=== PATIENT | male | born 1945 | race Caucasian/White ===

== ENCOUNTER 2016-05-06 09:12 | Outpatient (CLI) | payer OTHER | END 2016-05-06 09:13 | disposition home or self-care (01) | DX: I50.9 Heart failure, unspecified (principal) ==

== ENCOUNTER 2016-05-14 08:04 | Day surgery (SDC) | payer OTHER ==
[~2016-05-14 08:04] MED LIST: PHENYLEPHRINE 2.5% OPHTH 2 ML DROPS ONE
[2016-05-14] MEDS ORDERED: PROPARACAINE 0.5% OPHTH DROPS 15 ML OPTH ONE ×2 (08:20→08:54)
[2016-05-14] MEDS ORDERED: PHENYLEPHRINE 2.5% OPHTH 2 ML DROPS OPTH ONE (08:20)
[2016-05-14] MEDS ORDERED: CYCLOPENTOLATE 1% OPHTH DROPS 2 ML OPTH ONE (08:20)
[2016-05-14] MEDS ORDERED: KETOROLAC 0.45% OPHTH DROPS OPTH ONE (08:20)
[2016-05-14] MEDS ORDERED: LACTATED RINGERS 500 ML IV ONE (08:46)
[2016-05-14] MEDS ORDERED: LACTATED RINGERS 1,000 ML IV ONE (08:49)
[2016-05-14] MEDS ORDERED: levoFLOXacin 0.5% OPHTH DROPS 5 ML OPTH ONE (08:54)
[2016-05-14] MEDS ORDERED: BSS/LIDOCAINE/EPINEPHRINE 1 ML SYRINGE IO ONE ×2 (08:54)
[2016-05-14] MEDS ORDERED: CHONDR SULF/HYALURONATE SYRINGE IO ONE (08:54)
[2016-05-14] MEDS ORDERED: TRIAMCIN/MOXIFLOX/VANCO 1 ML VIAL IO ONE ×2 (08:54)
[2016-05-14] MEDS ORDERED: EPINEPHrine 1 MG/ML AMP IVP ONE (08:54)
[2016-05-14] MEDS ORDERED: BRIMONIDINE 0.2% OPHTH DROPS 5 ML OPTH ONE (08:54)
[2016-05-14] MEDS ORDERED: PROPOFOL 200 MG/20 ML VIAL IVP ONE (08:55)
[2016-05-14] MEDS ORDERED: LIDOCAINE-MPF 2% 5 ML VIAL IM ONE (08:55)
[2016-05-14] MEDS ORDERED: MIDAZOLAM 2 MG/2 ML VIAL IVP ONE (08:55)
== END 2016-05-14 08:05 | disposition home or self-care (01) ==
PROC: 08RJ3JZ Replacement of Right Lens with Synthetic Substitute, Percutaneous Approach (ICD-10-PCS; principal; 2016-05-14 09:30)
DX: H25.11 Age-related nuclear cataract, right eye (principal); I25.10 Atherosclerotic heart disease of native coronary artery without angina pectoris; I50.9 Heart failure, unspecified; M19.90 Unspecified osteoarthritis, unspecified site; Z95.2 Presence of prosthetic heart valve; Z87.891 Personal history of nicotine dependence; Z79.82 Long term (current) use of aspirin; Z83.511 Family history of glaucoma; Z80.9 Family history of malignant neoplasm, unspecified; Z82.49 Family history of ischemic heart disease and other diseases of the circulatory system; Z95.1 Presence of aortocoronary bypass graft
CPT/HCPCS: 66984; A9270; J7120; V2632

== ENCOUNTER 2016-06-25 06:55 | Day surgery (SDC) | payer OTHER ==
[2016-06-25] MEDS ORDERED: PROPARACAINE 0.5% OPHTH DROPS 15 ML OPTH ONE (07:10)
[2016-06-25] MEDS ORDERED: CYCLOPENTOLATE 1% OPHTH DROPS 2 ML OPTH ONE (07:10)
[2016-06-25] MEDS ORDERED: PHENYLEPHRINE 2.5% OPHTH 2 ML DROPS OPTH ONE (07:11)
[2016-06-25] MEDS ORDERED: KETOROLAC 0.45% OPHTH DROPS OPTH ONE (07:11)
[2016-06-25] MEDS ORDERED: LACTATED RINGERS 500 ML IV ONE ×2 (07:21→08:31)
[2016-06-25] MEDS ORDERED: fentaNYL 100 MCG/2 ML VIAL IVP ONE (08:00)
[2016-06-25] MEDS ORDERED: MIDAZOLAM 2 MG/2 ML VIAL IVP ONE (08:00)
[2016-06-25] MEDS ORDERED: BRIMONIDINE 0.2% OPHTH DROPS 5 ML OPTH ONE (08:03)
[2016-06-25] MEDS ORDERED: BSS/LIDOCAINE/EPINEPHRINE 1 ML SYRINGE IO ONE (08:03)
[2016-06-25] MEDS ORDERED: TRIAMCIN/MOXIFLOX/VANCO 1 ML VIAL IO ONE (08:03)
[2016-06-25] MEDS ORDERED: EPINEPHrine 1 MG/ML AMP IVP ONE (08:03)
[2016-06-25] MEDS ORDERED: CHONDR SULF/HYALURONATE SYRINGE IO ONE (08:03)
[2016-06-25] MEDS ORDERED: levoFLOXacin 0.5% OPHTH DROPS 5 ML OPTH ONE (10:45)
== END 2016-06-25 06:56 | disposition home or self-care (01) ==
PROC: 08RK3JZ Replacement of Left Lens with Synthetic Substitute, Percutaneous Approach (ICD-10-PCS; principal; 2016-06-25 08:10)
DX: H25.12 Age-related nuclear cataract, left eye (principal); I10 Essential (primary) hypertension; I25.10 Atherosclerotic heart disease of native coronary artery without angina pectoris; E78.5 Hyperlipidemia, unspecified; Z82.49 Family history of ischemic heart disease and other diseases of the circulatory system; Z83.511 Family history of glaucoma; Z79.82 Long term (current) use of aspirin; Z80.9 Family history of malignant neoplasm, unspecified; Z95.1 Presence of aortocoronary bypass graft; Z95.2 Presence of prosthetic heart valve
CPT/HCPCS: 66984; A9270; V2632

== ENCOUNTER 2016-07-22 08:59 | Outpatient (CLI) | payer OTHER | END 2016-07-22 09:00 | disposition home or self-care (01) | DX: R94.4 Abnormal results of kidney function studies (principal) ==

== ENCOUNTER 2017-08-27 08:00 | Outpatient (CLI) | payer MEDICARE, OTHER ==
[2017-08-27 13:56] LABS: ALBUMIN 4.4 g/dL (3.2-5.5); ALBUMIN/GLOBULIN RATIO 1.1 (1.0-2.2); ALKALINE PHOSPHATASE 73 IU/L (42-121); ALT ALANINE AMINOTRANSFERASE 30 IU/L (10-60); AST ASPARTATE AMINOTRANSFERASE 37 IU/L (10-42); BILIRUBIN,TOTAL 0.8 mg/dL (0.2-1.0); BUN - BLOOD UREA NITROGEN 21 mg/dL (6-20); CALCIUM 9.4 mg/dL (8.5-10.3); CARBON DIOXIDE - CO2 29 mmol/L (21-32); CHLORIDE 102 mmol/L (101-111); CHOL/HDL RATIO 2.7 (<5.0); CHOLESTEROL 122 mg/dL; CREATININE 1.2 mg/dL (0.6-1.2); GFR - MDRD 60 (>89); GLUCOSE 85 mg/dL (70-100); HDL CHOLESTEROL 46 mg/dL; LDL CHOLESTEROL,CALCULATED 62 mg/dL; LDL/HDL RATIO 1.3 (<3.6); SODIUM 139 mmol/L (135-145); TOTAL PROTEIN 8.3 g/dL (6.7-8.2); VLDL CHOLESTEROL 14 mg/dL
[2017-08-27 14:12] LABS: BASOPHILS # (AUTO) 0.1 10^3/uL (0.0-0.1); BASOPHILS % (AUTO) 2.2 %; EOSINOPHILS # (AUTO) 0.2 10^3/uL (0.0-0.7); EOSINOPHILS % (AUTO) 3.2 %; LYMPHOCYTES # (AUTO) 0.9 10^3/uL (1.5-3.5); MEAN CORPUSCULAR HEMOGLOBIN 34.5 pg (27.0-31.0); MEAN CORPUSCULAR HGB CONC 33.6 g/dL (32.0-36.0); MEAN CORPUSCULAR VOLUME 102.7 fL (80.0-94.0); MEAN PLATELET VOLUME 8.3 fL (7.4-11.4); MONOCYTES # (AUTO) 0.6 10^3/uL (0.0-1.0); MONOCYTES % (AUTO) 13.3 %; NEUTROPHILS # (AUTO) 2.9 10^3/uL (1.5-6.6); NEUTROPHILS % (AUTO) 61.3 %; PLT - PLATELET COUNT 180 10^3/uL (130-450); RED BLOOD COUNT 4.35 10^6/uL (4.70-6.10); RED CELL DISTRIBUTION WIDTH 14.5 % (12.0-15.0); WHITE BLOOD COUNT 4.7 x10^3/uL (4.8-10.8)
== END 2017-08-27 08:01 | disposition home or self-care (01) ==
LOC: LAB.WCP 08:00
PROVIDERS: ATTEND Family Medicine
DX: I25.10 Atherosclerotic heart disease of native coronary artery without angina pectoris (principal); E78.5 Hyperlipidemia, unspecified; Z12.5 Encounter for screening for malignant neoplasm of prostate
CPT/HCPCS: 36415; 80053; 80061; 84443; 85025; G0103; 83721; 84153

== ENCOUNTER 2017-09-06 08:00 | Outpatient (CLI) | payer MEDICARE, OTHER | END 2017-09-06 08:01 | disposition home or self-care (01) | LOC: LAB.R 08:00 | PROVIDERS: ATTEND Family Medicine | DX: R50.9 Fever, unspecified (principal) | CPT/HCPCS: 87077; 87086; 87181 ==

== ENCOUNTER 2018-05-05 08:28 | Outpatient (CLI) | payer MEDICARE, OTHER ==
[2018-05-05 08:42] LABS: BASOPHILS # (AUTO) 0.1 10^3/uL (0.0-0.1); BASOPHILS % (AUTO) 1.5 %; EOSINOPHILS # (AUTO) 0.2 10^3/uL (0.0-0.7); EOSINOPHILS % (AUTO) 3.8 %; LYMPHOCYTES # (AUTO) 0.9 10^3/uL (1.5-3.5); LYMPHOCYTES % (AUTO) 16.9 %; MEAN CORPUSCULAR HEMOGLOBIN 34.3 pg (27.0-31.0); MEAN CORPUSCULAR VOLUME 100.7 fL (80.0-94.0); MEAN PLATELET VOLUME 7.6 fL (7.4-11.4); MONOCYTES # (AUTO) 0.6 10^3/uL (0.0-1.0); MONOCYTES % (AUTO) 11.4 %; NEUTROPHILS # (AUTO) 3.4 10^3/uL (1.5-6.6); NEUTROPHILS % (AUTO) 66.4 %; PLT - PLATELET COUNT 149 10^3/uL (130-450); RED BLOOD COUNT 4.37 10^6/uL (4.70-6.10); RED CELL DISTRIBUTION WIDTH 15.1 % (12.0-15.0); WHITE BLOOD COUNT 5.1 x10^3/uL (4.8-10.8)
[2018-05-05 08:59] LABS: ALBUMIN 4.5 g/dL (3.2-5.5); ALBUMIN/GLOBULIN RATIO 1.2 (1.0-2.2); ALKALINE PHOSPHATASE 76 IU/L (42-121); ALT ALANINE AMINOTRANSFERASE 29 IU/L (10-60); AST ASPARTATE AMINOTRANSFERASE 34 IU/L (10-42); BILIRUBIN,TOTAL 0.9 mg/dL (0.2-1.0); BUN - BLOOD UREA NITROGEN 19 mg/dL (6-20); CALCIUM 9.2 mg/dL (8.5-10.3); CARBON DIOXIDE - CO2 26 mmol/L (21-32); CHLORIDE 98 mmol/L (101-111); CHOL/HDL RATIO 2.7 (<5.0); CHOLESTEROL 134 mg/dL; CREATININE 1.3 mg/dL (0.6-1.2); GFR - MDRD 55 (>89); GLUCOSE 90 mg/dL (70-100); HDL CHOLESTEROL 50 mg/dL; LDL CHOLESTEROL,CALCULATED 66 mg/dL; LDL/HDL RATIO 1.3 (<3.6); SODIUM 134 mmol/L (135-145); TOTAL PROTEIN 8.2 g/dL (6.7-8.2); VLDL CHOLESTEROL 18 mg/dL
== END 2018-05-05 08:29 | disposition home or self-care (01) ==
LOC: LAB 08:28
PROVIDERS: ATTEND Family Medicine
DX: R06.00 Dyspnea, unspecified (principal); I51.9 Heart disease, unspecified; E78.5 Hyperlipidemia, unspecified
CPT/HCPCS: 36415; 80053; 80061; 83721; 83880; 84443; 85025

== ENCOUNTER 2018-05-10 08:13 | Outpatient (CLI) | payer MEDICARE, OTHER | END 2018-05-10 08:14 | disposition home or self-care (01) | LOC: DI 08:13 | PROVIDERS: ATTEND Family Medicine | DX: I35.0 Nonrheumatic aortic (valve) stenosis (principal); I51.9 Heart disease, unspecified; R06.09 Other forms of dyspnea | CPT/HCPCS: 93306 ==

== ENCOUNTER 2018-12-22 15:42 | Outpatient (CLI) | payer MEDICARE, OTHER ==
--- NOTE | 2018-12-23 15:06 | XRAY Report ---
Reason: RIGHT MIDDLE FINGER PAIN Procedure Date: 12/22/2018 Accession Number: [id number] / [id number] Procedure: WCP - Finger(s) RT CPT Code: FULL RESULT: EXAM: RIGHT THIRD DIGIT RADIOGRAPHY EXAM DATE: 12/22/2018 03:52 PM. CLINICAL HISTORY: RIGHT MIDDLE FINGER PAIN. COMPARISON: None. TECHNIQUE: 3 views. FINDINGS: Bones: Normal. No fracture or bone lesion. Joints: Normal. No subluxations. Soft Tissues: Normal. No soft tissue swelling. No periosteal reaction. IMPRESSION: No acute-appearing processes detected. RADIA
== END 2018-12-22 23:59 | disposition home or self-care (01) ==
LOC: DI.WCP 15:42
PROVIDERS: ATTEND Family Medicine
DX: M79.644 Pain in right finger(s) (principal)
CPT/HCPCS: 73140

== ENCOUNTER 2019-02-21 12:13 | Outpatient (CLI) | payer MEDICARE, OTHER | END 2019-02-21 23:59 | disposition home or self-care (01) | LOC: LAB.WCP 12:13 | PROVIDERS: ATTEND Family Medicine | DX: L72.3 Sebaceous cyst (principal) | CPT/HCPCS: 87070; 87075; 87076; 87205 ==

== ENCOUNTER 2019-03-29 13:28 | Outpatient (CLI) | payer MEDICARE, OTHER ==
[2019-03-29 14:02] LABS: CREATININE 1.6 mg/dL (0.6-1.2)
== END 2019-03-29 13:29 | disposition home or self-care (01) ==
LOC: LAB 13:28
PROVIDERS: ATTEND Internal Medicine Cardiovascular Disease
DX: I38 Endocarditis, valve unspecified (principal); R06.00 Dyspnea, unspecified
CPT/HCPCS: 36415; 82565

== ENCOUNTER 2019-04-21 08:12 | Day surgery (SDC) | payer MEDICARE, OTHER ==
--- NOTE | 2019-04-21 08:51 | ED Physician Documentation ---
History of Present Illness - Stated complaint Stated Complaint: HEAD LAC - Chief complaint Chief Complaint: Laceration - Additonal information Additional information: This is a 73-year-old male with history of adenocarcinoma of the lung, Chronic shortness of breath of unclear etiology despite multiple past work-ups with CT PE V/Q scans, exercise testing, who presents after head trauma last night. Patient states he was in his recliner watching TV and the next thing he remembers he was standing kitchen sink with blood dripping on the floor. He does not remember falling he does not remember tripping, he does not know how he injured his head looks at his house he cannot see anything that he would have hit his head on other than there is a bit of blood on the floor. He has a bit of soreness in his neck and a bit of discomfort in between his shoulder blades. He does have some shortness of breath that is baseline and unchanged from his day-to-day shortness of breath. No hemoptysis. No soreness or pain in his extremities, no abdominal pain or vomiting. He states that he drank several beets last night and took viagra, and he thinks this combination caused him to pass out. Review of Systems Constitutional: denies: Fever Eyes: denies: Loss of vision Cardiac: denies: Chest pain / pressure Respiratory: reports: Dyspnea (Chronic) GI: denies: Abdominal Pain : denies: Dysuria Skin: reports: Laceration (s) Musculoskeletal: denies: Neck pain Neurologic: reports: Syncope PD PAST MEDICAL HISTORY - Past Medical History Cardiovascular: High cholesterol, Coronary artery disease, Murmur, Valve disorder Respiratory: Shortness of breath Endocrine/Autoimmune: None GI: GERD : Other HEENT: None Psych: None Musculoskeletal: None Derm: None - Past Surgical History Past Surgical History: Yes General: Appendectomy Cardiovascular: CABG, Valve replacement HEENT: Cataracts - Present Medications Home Medications: Ambulatory Orders Medication Instructions Recorded Confirmed Aspirin [Zachary Chewable Aspirin] 81 mg PO DAILY 06/07/15 02/22/17 Rosuvastatin Calcium [Crestor] 10 mg PO DAILY 06/07/15 02/22/17 Triamterene/Hydrochlorothiazid 1 tab PO DAILY PRN 06/07/15 02/22/17 [Triamterene-Hctz 37.5-25 mg Cp] - Allergies Allergies/Adverse Reactions: Allergies Allergy/AdvReac Type Severity Reaction Status Date / Time acetaminophen [From Tylenol] Allergy Rash Verified 04/21/19 08:27 - Social History Does the pt smoke?: No Smoking Status: Never smoker Does the pt drink ETOH?: Yes Does the pt have substance abuse?: No - Immunizations Immunizations are current?: Yes PD ED PE NORMAL - Vitals Vital signs reviewed: Yes - General General: Alert and oriented X 3, No acute distress - HEENT HEENT: Other (Large avulsion of the frontal scalp, >10 cm in length, that extends through subcutaneous tissue. No skull or galea visible. The flap is edematous. No active bleeding or foreign body.) Results - Vitals Vitals: Oxygen O2 Source Room air - EKG (time done) 8:53 Other comments: Other comments (Rate 82, rhythm sinus, no ST segment changes, no abnormal T wave inversions. Intervals within normal limits) - Labs Labs: Laboratory Tests 04/21/19 04/21/19 04/21/19 08:48 08:48 09:00 WBC 7.1 RBC 3.85 L Hgb 13.7 L Hct 40.8 L MCV 106.0 H MCH 35.6 H MCHC 33.6 RDW 13.6 Plt Count 135 MPV 10.2 Neut # (Auto) 5.1 Lymph # (Auto) 0.8 L Love # (Auto) 1.0 Eos # (Auto) 0.1 Baso # (Auto) 0.1 Absolute Nucleated RBC 0.00 Nucleated RBC % 0.0 APTT 31.3 Sodium 139 Potassium 3.8 Chloride 98 L Carbon Dioxide 29 Anion Gap 12.0 BUN 25 H Creatinine 1.5 H Estimated GFR (MDRD) 46 L Glucose 102 H Calcium 9.2 Magnesium 1.9 Total Bilirubin 1.0 AST 38 ALT 31 Alkaline Phosphatase 58 Troponin I High Sens B-Natriuretic Peptide Total Protein 7.7 Albumin 4.5 Globulin 3.2 Albumin/Globulin Ratio 1.4 Lipase 39 04/21/19 04/21/19 09:00 09:00 WBC RBC Hgb Hct MCV MCH MCHC RDW Plt Count MPV Neut # (Auto) Lymph # (Auto) Love # (Auto) Eos # (Auto) Baso # (Auto) Absolute Nucleated RBC Nucleated RBC % APTT Sodium Potassium Chloride Carbon Dioxide Anion Gap BUN Creatinine Estimated GFR (MDRD) Glucose Calcium Magnesium Total Bilirubin AST ALT Alkaline Phosphatase Troponin I High Sens 8.9 B-Natriuretic Peptide 118 H Total Protein Albumin Globulin Albumin/Globulin Ratio Lipase - Rads (name of study) Ct head WO Radiology: Other (No acute intracrnial abnormality) CXR Radiology: Other (No acute pulmonary process) PD MEDICAL DECISION MAKING - ED course Complexity details: considered differential (Syncope, dysrhtymia, ACS, electrolyte abnormality, orthostasis, ICH, fracture) ED course: Pt is well-appearing on arrival other than a large avulsion to his forehead. I recommended CT head and C-spine given his age, he has no C-spine tenderness, normal ROM, and he declines the C-spine CT. 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 He has no chest pain, EKG unremarkable, Troponin is negative. CXR unrevealing. Labs are at his baseline. I discussed his chronic creatinine elevation and his slightly elevated BNP with him. He has had extensive cardiopulmonary testing done and has no symptoms to suggest PE or other acute cardiopulmonary event. I do think his alcohol use and viagra likely caused hypotension or tripping and his fall. He plans to avoid this in the future. I discussed follow up and return precautions. His foreheard wound is quite extensive and it occured last night. I consulted Dr. Mckeon, who promptly and graciously evaluated pt and recommended wash out and closure in the OR. Pt agreed. Pt was taken to the OR for wound repair. Departure - Departure Disposition: ED [facility] Clinical Impression: Laceration Syncope Qualifiers: Syncope type: unspecified Qualified Code(s): R55 - Syncope and collapse Condition: Good Discharge Date/Time: 04/21/19 12:09
[2019-04-21 09:05] LABS: BASOPHILS # (AUTO) 0.1 10^3/uL (0.0-0.1); BASOPHILS % (AUTO) 0.8 %; EOSINOPHILS # (AUTO) 0.1 10^3/uL (0.0-0.7); EOSINOPHILS % (AUTO) 1.6 %; HGB - HEMOGLOBIN 13.7 g/dL (14.0-18.0); LYMPHOCYTES # (AUTO) 0.8 10^3/uL (1.5-3.5); LYMPHOCYTES % (AUTO) 11.6 %; MEAN CORPUSCULAR HEMOGLOBIN 35.6 pg (27.0-31.0); MEAN CORPUSCULAR HGB CONC 33.6 g/dL (32.0-36.0); MEAN PLATELET VOLUME 10.2 fL (7.4-11.4); MONOCYTES % (AUTO) 13.7 %; NEUTROPHILS # (AUTO) 5.1 10^3/uL (1.5-6.6); PLT - PLATELET COUNT 135 10^3/uL (130-450); RED BLOOD COUNT 3.85 10^6/uL (4.70-6.10); RED CELL DISTRIBUTION WIDTH 13.6 % (12.0-15.0); WHITE BLOOD COUNT 7.1 x10^3/uL (4.8-10.8)
[2019-04-21 09:19] LABS: ALBUMIN 4.5 g/dL (3.2-5.5); ALBUMIN/GLOBULIN RATIO 1.4 (1.0-2.2); CALCIUM 9.2 mg/dL (8.5-10.3); CREATININE 1.5 mg/dL (0.6-1.2); MAGNESIUM 1.9 mg/dL (1.7-2.8); TOTAL PROTEIN 7.7 g/dL (6.7-8.2)
--- NOTE | 2019-04-21 09:30 | XRAY Report ---
Reason: cough Procedure Date: 04/21/2019 Accession Number: [id number] / [id number] Procedure: XR - Chest 2 View X-Ray CPT Code: 18338 Final Report FULL RESULT: EXAM: CHEST RADIOGRAPHY EXAM DATE: 04/21/2019 09:19 AM. CLINICAL HISTORY: Cough. COMPARISON: CHEST 2 VIEW PA/LAT 09/18/2015 9:37 AM. TECHNIQUE: 2 views. FINDINGS: Lungs/Pleura: No acute consolidation is identified. Stable minimal right pleural thickening and/or pleural fluid at the costophrenic angle, and minimal fluid versus thickening along the lateral aspect of the right minor fissure. Mediastinum: Previous median sternotomy and cardiac surgery. Heart size stable. Mediastinal silhouette stable. Other: None. IMPRESSION: No acute lung processes identified. RADIA
--- NOTE | 2019-04-21 09:36 | CT Report ---
Reason: Fall, head trauma Procedure Date: 04/21/2019 Accession Number: [id number] / [id number] Procedure: CT - HEAD WO CPT Code: Final Report FULL RESULT: CT HEAD WITHOUT CONTRAST EXAM DATE: 04/21/2019. INDICATION: 73-year-old male, status post fall striking forehead with loss of consciousness. Please assess. TECHNIQUE: Sequential 5 mm axial images were obtained through the brain. COMPARISON: None. FINDINGS: There is significant deformity of the soft tissues of the scalp, over the high anterior head centrally and to the left, consistent with deep scalp laceration. The underlying skull appears intact. No obvious radiopaque foreign body is seen within the scalp. There is a small hematoma in the scalp. The skull base appears intact. The middle ear cavities and mastoid air cells appear clear. There is mild mucosal thickening in a few ethmoid air cells. The imaged paranasal sinuses are otherwise clear. No acute fracture is seen in the imaged upper facial bones. There is no intracranial hemorrhage or abnormal extra-axial fluid collection. No mass-effect or midline shift. There is generalized cerebral and cerebellar volume loss, considered within normal limits for stated age. There is very mild ex vacuo third/lateral ventriculomegaly. No hydrocephalus. A small focus of encephalomalacia is identified in the upper right cerebellum, likely representing the sequela of remote minor, embolic type ischemic infarction. A mild amount of white matter disease is identified in the supratentorial brain, likely representing chronic microangiopathy. The attenuation of the cortex and white matter is otherwise unremarkable. Calcified atherosclerotic plaques are noted in the carotid siphons bilaterally. IMPRESSION: 1. There is evidence of a deep laceration and associated hematoma in the scalp over the anterior aspect of the upper head. 2. No underlying skull fracture is demonstrated. In addition, the skull base and imaged upper facial bones appear intact. 3. There is no intracranial hemorrhage or other acute intracranial pathology. 4. Noted is a small focus of encephalomalacia in the upper right cerebellum, consistent with the sequela of remote, minor embolic type infarction in the distribution of the right superior cerebellar artery.
[2019-04-21] MEDS ORDERED: BUFFERED LIDOCAINE 10 ML SYRINGE SUBQ STA (10:53)
--- NOTE | 2019-04-21 11:41 | CONSULTATION NOTE ---
Referring Provider Name of Referring Provider:: Awildalian Chief Complaint - Chief Complaint Chief Complaint: Large anterior scalp lac History of Present Illness - Admitted From Admitted From:: This is a 73-year-old male with history of adenocarcinoma of the lung, [place] History - Past Medical History Cardiovascular: reports: High cholesterol, Coronary artery disease, Murmur, Valve disorder Respiratory: reports: Shortness of breath Endocrine/Autoimmune: reports: None GI: reports: GERD : reports: Other HEENT: reports: None Psych: reports: None Musculoskeletal: reports: None Derm: reports: None MRSA Hx?: No Other Past Medical History: lung cancer - Past Surgical History General: reports: Appendectomy Cardiovascular: reports: CABG, Valve replacement HEENT: reports: Cataracts - Family & Social History 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 - Home Medications Home Medications: Ambulatory Orders Medication Instructions Recorded Confirmed Aspirin [Zachary Chewable Aspirin] 81 mg PO DAILY 06/07/15 02/22/17 Rosuvastatin Calcium [Crestor] 10 mg PO DAILY 06/07/15 02/22/17 Triamterene/Hydrochlorothiazid 1 tab PO DAILY PRN 06/07/15 02/22/17 [Triamterene-Hctz 37.5-25 mg Cp] - Allergies Allergies/Adverse Reactions: Allergies Allergy/AdvReac Type Severity Reaction Status Date / Time acetaminophen [From Tylenol] Allergy Rash Verified 04/21/19 08:27 Exam - Vital Signs Reviewed Vital Signs: Yes Vital Signs: Vital Signs x48h Temp Pulse Resp BP Pulse Ox 04/21/19 10:30 78 16 125/79 04/21/19 10:00 81 18 128/74 95 04/21/19 09:30 72 16 121/73 95 04/21/19 08:23 36.7 C 83 18 128/67 99 - Physical Exam General Appearance: positive: Alert, Mild distress Eyes Bilateral: positive: Normal inspection Respiratory: positive: Chest non-tender, No respiratory distress, Breath sounds nml Cardiovascular: positive: Regular rate & rhythm Skin: positive: Laceration (cm) (See ED measurement) Conclusion and Plan - Lab Results Laboratory Results 04/21/19 09:00: B-Natriuretic Peptide 118 H 04/21/19 09:00: Troponin I High Sens 8.9 04/21/19 09:00: Sodium 139, Potassium 3.8, Chloride 98 L, Carbon Dioxide 29, Anion Gap 12.0, BUN 25 H, Creatinine 1.5 H, Estimated GFR (MDRD) 46 L, Glucose 102 H, Calcium 9.2, Magnesium 1.9, Total Bilirubin 1.0, AST 38, ALT 31, Alkaline Phosphatase 58, Total Protein 7.7, Albumin 4.5, Globulin 3.2, Albumin/Globulin Ratio 1.4, Lipase 39 04/21/19 08:48: APTT 31.3 04/21/19 08:48: WBC 7.1, RBC 3.85 L, Hgb 13.7 L, Hct 40.8 L, MCV 106.0 H, MCH 35.6 H, MCHC 33.6, RDW 13.6, Plt Count 135, MPV 10.2, Neut # (Auto) 5.1, Lymph # (Auto) 0.8 L, [place] # (Auto) 1.0, Eos # (Auto) 0.1, Baso # (Auto) 0.1, Absolute Nucleated RBC 0.00, Nucleated RBC % 0.0 - Diagnosis Diagnosis: Large flap anterior scalp lac - Plan Plan: Primary closure in OR
[2019-04-21] MEDS ORDERED: LIDOCAINE 1%-EPI 1:100000 20 ML MDV ONE (11:42)
[2019-04-21] MEDS ORDERED: BUPIVACAINE 0.5% PF 30 ML VIAL ONE ×2 (11:42→12:38)
[2019-04-21] MEDS ORDERED: ceFAZolin 2 GM in SODIUM CHLORIDE 0.9% 100ML 100 ML IV STA (11:45)
--- NOTE | 2019-04-21 11:49 | ANESTHESIA ---
Pre-Anesthesia VS, & Labs - Diagnosis Diagnosis Large flap anterior scalp lac - Procedure scalp laceration repair Vital Signs: Temp Pulse Resp BP Pulse Ox 36.7 C 78 16 125/79 95 04/21/19 08:23 04/21/19 10:30 04/21/19 10:30 04/21/19 10:30 04/21/19 10:00 Height 5 ft 11 in Weight (kg) 88.451 kg Body Mass Index 27.1 - Lab Results Current Lab Results: Laboratory Tests 04/21/19 09:00: B-Natriuretic Peptide 118 H 04/21/19 09:00: Troponin I High Sens 8.9 04/21/19 09:00: Sodium 139, Potassium 3.8, Chloride 98 L, Carbon Dioxide 29, Anion Gap 12.0, BUN 25 H, Creatinine 1.5 H, Estimated GFR (MDRD) 46 L, Glucose 102 H, Calcium 9.2, Magnesium 1.9, Total Bilirubin 1.0, AST 38, ALT 31, Alkaline Phosphatase 58, Total Protein 7.7, Albumin 4.5, Globulin 3.2, Albumin/Globulin Ratio 1.4, Lipase 39 04/21/19 08:48: APTT 31.3 04/21/19 08:48: WBC 7.1, RBC 3.85 L, Hgb 13.7 L, Hct 40.8 L, MCV 106.0 H, MCH 35.6 H, MCHC 33.6, RDW 13.6, Plt Count 135, MPV 10.2, Neut # (Auto) 5.1, Lymph # (Auto) 0.8 L, [place] # (Auto) 1.0, Eos # (Auto) 0.1, Baso # (Auto) 0.1, Absolute Nucleated RBC 0.00, Nucleated RBC % 0.0 Fish Bones: 04/21/19 08:48 04/21/19 09:00 Home Medications and Allergies Active Medications Cefazolin Sodium 2 gm/ Sodium (Chloride) 100 mls @ 200 mls/hr IV ONCE STA Stop: 04/21/19 12:14 Aspirin [Zachary Chewable Aspirin] 81 mg PO DAILY 06/07/15 Rosuvastatin Calcium [Crestor] 10 mg PO DAILY 06/07/15 Triamterene/Hydrochlorothiazid [Triamterene-Hctz 37.5-25 mg Cp] 1 tab PO DAILY PRN 06/07/15 Allergies/Adverse Reactions: Allergies Allergy/AdvReac Type Severity Reaction Status Date / Time acetaminophen [From Tylenol] Allergy Rash Verified 04/21/19 08:27 Anes History & Medical History - Anesthetic History Anesthesia Complications: reports: No previous complications Family history of Anesthesia Complications: Denies Family history of Malignant Hyperthermia: Denies - Medical History Cardiovascular: reports: High cholesterol, Coronary artery disease, Murmur, Valve disorder Pulmonary: reports: Shortness of breath, Other (adenocarcinoma of the lung) Gastrointestinal: reports: GERD Urinary: reports: None, Other Neuro: reports: None Musculoskeletal: reports: None Endocrine/Autoimmune: reports: None Blood Disorders: reports: None Skin: reports: None Smoking Status: Never smoker Psychosocial: reports: No issues indicated Other Past Medical History: lung cancer - Surgical History General: Appendectomy Eyes Ears Nose Throat (EENT): Cataracts Cardiothoracic: CABG, Valve replacement Exam General: Alert, Oriented x3, Cooperative, No acute distress Dental: WNL Mouth Openin Fingerbreadth Neck Mobility: Normal Mallampati classification: II Thyromental Distance: 4-6 cm Respiratory: Lungs clear, Normal breath sounds, No respiratory distress, No accessory muscle use Cardiovascular: Regular rate, Normal S1, Normal S2, No murmurs Abdomen: Normal bowel sounds, Soft, No tenderness, No hepatospenomegaly, No masses Extremities: No clubbing, No cyanosis, No edema, Normal pulses, No tenderness/swelling Neurological: Normal gait, Normal speech, Strength at 5/5 X4 ext, Normal tone, Sensation intact, Cranial nerves 3-12 NL, Reflexes 2+ Mental/Cognitive Status: Alert/Oriented X3, Normal for patient Cognitive Status: Within normal limits Plan Anesthesia Type: MAC Consent for Procedure(s) Verified and Reviewed: Yes Code Status: Attempt Resuscitation ASA classification: 3-Severe systemic disease Is this case an emergency?: Yes
[2019-04-21] MEDS ORDERED: MIDAZOLAM 2 MG/2 ML VIAL IVP ONE (12:06)
[2019-04-21] MEDS ORDERED: KETAMINE 500 MG/10 ML VIAL IVP ONE (12:06)
[2019-04-21] MEDS ORDERED: PROPOFOL 200 MG/20 ML VIAL IVP ONE (12:06)
[2019-04-21] MEDS ORDERED: fentaNYL 100 MCG/2 ML VIAL IVP ONE (12:06)
[2019-04-21] MEDS ORDERED: LIDOCAINE 1%-EPI 1:100000 20 ML MDV TOP ONE (12:42)
[2019-04-21] MEDS ORDERED: BUPIVACAINE 0.5% PF 30 ML VIAL TOP ONE (12:43)
[2019-04-21] MEDS ORDERED: BUPIVACAINE 0.5% PF 30 ML VIAL INFIL ONE (12:43)
[2019-04-21] MEDS ORDERED: LACTATED RINGERS 1,000 ML IV ONE (12:44)
[2019-04-21] MEDS ORDERED: BACITRACIN ZINC OINT 1 PACKET TOP ONE (12:51)
[2019-04-21] MEDS ORDERED: HYDROmorphone 0.5 MG/0.5 ML SYRINGE IVP PRN (12:55)
[2019-04-21] MEDS ORDERED: ONDANSETRON 4 MG/2 ML VIAL IVP PRN (12:55)
[2019-04-21] MEDS ORDERED: HYDROcod/ACETAM 5/325 MG TABLET PO PRN (12:55)
--- NOTE | 2019-04-21 12:58 | IMMEDIATE POSTOPERATIVE NOTE ---
Immediate Postoperative Note - Procedure Note Procedure Date: 04/21/19 Pre-Op Diagnosis: 12 cm U shaped flap type laceration anterior scalp Procedure: Primary layered closure Post-Op Diagnosis: Same Primary Surgeon: Mike Anesthesia Type: Local, Moderate sedation Findings: 12cm lac flap type of anterior scalp down to periosteum at one point. Estimated Blood Loss (in cc): 3
[2019-04-21] MEDS ORDERED: LACTATED RINGERS 1,000 ML IV SCH (13:00)
[2019-04-21 14:16] VITALS: BP 120/67
--- NOTE | 2019-04-21 21:48 | OPERATIVE REPORT ---
DATE OF SERVICE: 04/21/2019 Physician: Reece Mckeon DO PREOPERATIVE DIAGNOSIS: Anterior scalp laceration, flap-type, extending to the periosteum at one point. POSTOPERATIVE DIAGNOSIS: Anterior scalp laceration, flap-type, extending to the periosteum at one point. PROCEDURE: Irrigation, debridement and primary layered closure of 12 cm anterior scalp laceration. SURGEON: Reece Mckeon DO VB DEVELOPER: EDISON Fay [TIME: 00:44]EDISON TYPE OF ANESTHESIA: Conscious sedation plus local. ESTIMATED BLOOD LOSS: 3 mL. FINDINGS: Again, this was a flap-type laceration involving the anterior scalp, measuring about 12 cm in length and it was in a U-shaped pattern. COMPLICATIONS: None. CONDITION: Improved upon transport to recovery. HISTORY: The patient is a 73-year-old white male, who stated to me that he fell last night at about 11:00 p.m. His Emergency Department workup including a head CT was negative for any intracranial pathology. PROCEDURE IN DETAIL: The patient was taken to the operating room and under the above-mentioned anesthetic, prepped and draped in the usual sterile manner. The laceration was extensively irrigated and debrided of any nonviable tissue. Hemostasis was achieved through the use of electrocautery. The closure was accomplished with a layered technique using 3-0 subcutaneous suture, tacking the flap down to the galea and periosteum for stabilization and then the flap itself was secured with three 2-0 Prolene vertical mattress sutures and then in between, skin delfino were used to finalize the closure. Antibiotic ointment was applied and a sterile dressing over that and the patient transported to recovery in stable condition. TD: 04/21/2019 13:04 MONCHO
== END 2019-04-21 12:48 | disposition home or self-care (01) ==
LOC: ED 08:12 → SDS 12:47
PROVIDERS: ATTEND Surgery
PROC: 0JQ00ZZ Repair Scalp Subcutaneous Tissue and Fascia, Open Approach (ICD-10-PCS; principal; 2019-04-21 12:00)
DX: S01.01XA Laceration without foreign body of scalp, initial encounter (principal); T46.7X1A Poisoning by peripheral vasodilators, accidental (unintentional), initial encounter; T51.0X1A Toxic effect of ethanol, accidental (unintentional), initial encounter; W19.XXXA Unspecified fall, initial encounter; Y92.000 Kitchen of unspecified non-institutional (private) residence as the place of occurrence of the external cause; R55 Syncope and collapse; R79.89 Other specified abnormal findings of blood chemistry; R06.02 Shortness of breath; I25.10 Atherosclerotic heart disease of native coronary artery without angina pectoris; Z85.118 Personal history of other malignant neoplasm of bronchus and lung; Z95.1 Presence of aortocoronary bypass graft; Z95.2 Presence of prosthetic heart valve; Z79.899 Other long term (current) drug therapy; Z79.82 Long term (current) use of aspirin
CPT/HCPCS: 12034; 36415; 70450; 71046; 80053; 83690; 83735; 83880; 84484; 85025; 85730; 93005; 99283; 99285; A9270; J7120

== ENCOUNTER 2019-04-24 12:07 | Inpatient (IN) | payer MEDICARE, OTHER ==
--- NOTE | 2019-04-24 12:48 | ED Physician Documentation ---
PD HPI DYSPNEA - Stated complaint Stated Complaint: SOA - Chief complaint Chief Complaint: Resp - History obtained from History obtained from: Patient, Family - History of Present Illness Timing - onset: Last night Timing - onset during: Rest Timing - duration: Days (1) Timing - details: Gradual onset Pain level max: 0 Pain level now: 0 Improved by: Rest Worsened by: Exertion Associated symptoms: No: Fever, Cough, Hemoptysis, Wheezing, Chest pain / discomfort, Palpitations - Additional information Additional information: 73-year-old male is a approximately 5 years status post a valve replacement. 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 Has had a pleural effusion in the past. Had a fall 2 days ago and sustained a scalp laceration. This was repaired. He has been treated at [facility]. Last night started feeling short of breath. States he has gained approximately 10 pounds. He is on torsemide at home. He states that this normally occurs after the holidays. Review of Systems Ten Systems: 10 systems reviewed and negative Constitutional: denies: Fever, Chills Nose: denies: Rhinorrhea / runny nose, Congestion Cardiac: denies: Chest pain / pressure Respiratory: reports: Dyspnea. denies: Cough GI: denies: Nausea, Vomiting, Diarrhea Skin: denies: Rash Musculoskeletal: denies: Neck pain, Back pain Neurologic: denies: Headache PD PAST MEDICAL HISTORY - Past Medical History Past Medical History: Yes Cardiovascular: High cholesterol, Coronary artery disease, Murmur, Valve disorder Respiratory: Shortness of breath Neuro: None Endocrine/Autoimmune: None GI: GERD : Other HEENT: None Psych: None Musculoskeletal: None Derm: None - Past Surgical History Past Surgical History: Yes General: Appendectomy Cardiovascular: CABG, Valve replacement HEENT: Cataracts - Present Medications Home Medications: Ambulatory Orders Medication Instructions Recorded Confirmed Rosuvastatin Calcium [Crestor] 10 mg PO DAILY 06/07/15 04/24/19 Cetirizine [ZyrTEC] 10 mg PO QPM 04/24/19 04/24/19 Ipratropium [place] 2 sprays ANTHONY BID 04/24/19 04/24/19 Omeprazole 20 mg PO QPM 04/24/19 04/24/19 Potassium Chloride 20 meq PO DAILY 04/24/19 04/24/19 Torsemide 20 mg PO DAILY 04/24/19 04/24/19 - Allergies Allergies/Adverse Reactions: Allergies Allergy/AdvReac Type Severity Reaction Status Date / Time acetaminophen [From Tylenol] Allergy Rash Verified 04/24/19 12:16 - Social History Does the pt smoke?: No Smoking Status: Never smoker Does the pt drink ETOH?: Yes ETOH Use: Liquor Does the pt have substance abuse?: No - Immunizations Immunizations are current?: Yes - POLST Patient has POLST: No PD ED PE NORMAL - Vitals Vital signs reviewed: Yes - General General: Alert and oriented X 3, No acute distress, Well developed/nourished - HEENT HEENT: PERRL, Moist mucous membranes - Neck Neck: Supple, no meningeal sign - Cardiac Cardiac: RRR - Respiratory Respiratory: Other (Diminished breath sounds bilaterally) - Abdomen Abdomen: Soft, Non tender, Non distended - Derm Derm: Warm and dry - Extremities Extremities: Other (1+ bilateral edema) - Neuro Neuro: Alert and oriented X 3 - Psych Psych: Normal mood, Normal affect Results - Vitals Vitals: Vital Signs - 24 hr 04/24/19 04/24/19 04/24/19 12:16 12:59 13:29 Temperature 36.6 C Heart Rate 101 H 96 88 Respiratory 24 18 17 Rate Blood Pressure 120/74 119/69 90/71 O2 Saturation 82 L 92 2 L 04/24/19 04/24/19 04/24/19 13:30 13:50 14:00 Temperature Heart Rate 87 90 85 Respiratory 18 20 18 Rate Blood Pressure 92/72 98/60 O2 Saturation 94 95 04/24/19 14:30 Temperature Heart Rate 86 Respiratory 20 Rate Blood Pressure 102/74 O2 Saturation 96 Oxygen O2 Source Nasal cannula Oxygen Flow Rate 2 - EKG (time done) 1251 Rate: Rate (enter#) (92) Rhythm: NSR [place]: Normal Intervals: Normal [place] QRS: Normal Ischemia: Normal ST segments - Labs Labs: Laboratory Tests 04/24/19 04/24/19 04/24/19 12:53 12:53 12:53 WBC 8.8 RBC 3.41 L Hgb 12.1 L Hct 36.9 L MCV 108.2 H MCH 35.5 H MCHC 32.8 RDW 13.9 Plt Count 132 MPV 9.8 Neut # (Auto) 6.9 H Lymph # (Auto) 0.5 L Hood # (Auto) 1.3 H Eos # (Auto) 0.0 Baso # (Auto) 0.1 Absolute Nucleated RBC 0.00 Nucleated RBC % 0.0 Sodium 133 L Potassium 4.4 Chloride 93 L Carbon Dioxide 27 Anion Gap 13.0 BUN 41 H Creatinine 2.4 H Estimated GFR (MDRD) 27 L Glucose 118 H Calcium 9.2 Total Bilirubin 2.1 H AST 36 ALT 25 Alkaline Phosphatase 58 Troponin I High Sens B-Natriuretic Peptide 407 H Total Protein 8.1 Albumin 4.3 Globulin 3.8 Albumin/Globulin Ratio 1.1 Lipase 27 04/24/19 12:53 WBC RBC Hgb Hct MCV MCH MCHC RDW Plt Count MPV Neut # (Auto) Lymph # (Auto) Hood # (Auto) Eos # (Auto) Baso # (Auto) Absolute Nucleated RBC Nucleated RBC % Sodium Potassium Chloride Carbon Dioxide Anion Gap BUN Creatinine Estimated GFR (MDRD) Glucose Calcium Total Bilirubin AST ALT Alkaline Phosphatase Troponin I High Sens 14.0 B-Natriuretic Peptide Total Protein Albumin Globulin Albumin/Globulin Ratio Lipase - Rads (name of study) cxr Radiology: Prelim report reviewed, EMP read contemporaneously, See rad report ( 1. Mildly increased basilar interstitial edema versus airway thickening versus atelectasis at right lung base. 2. Trace pleural effusions versus pleural thickening otherwise unchanged. ) PD MEDICAL DECISION MAKING - ED course Complexity details: reviewed results, re-evaluated patient, considered differential, d/w patient, d/w family ED course: 73-year-old male presents to the emergency department with hypoxia. Appears to have an increased BNP and acute renal insufficiency. Given IV fluids and Lasix. He will need careful diuresis. He is gained approximately 10 pounds over the last week. He is on torsemide at home. He continues to be hypoxic in the emergency department. Did improve slightly with nebulizer treatment as well. Discussed the case with Dr. Friedman, hospitalist who accepts. This document was made in part using voice recognition software. While efforts are made to proofread this document, sound alike and grammatical errors may occur. Departure - Departure Disposition: 66 [facility] DC/Xfer Clinical Impression: Hypoxia Congestive heart failure Qualifiers: Heart failure type: unspecified Heart failure chronicity: acute on chronic Qualified Code(s): I50.9 - Heart failure, unspecified Acute renal failure Qualifiers: Acute renal failure type: unspecified Qualified Code(s): N17.9 - Acute kidney failure, unspecified Edema Qualifiers: Edema type: generalized Qualified Code(s): R60.1 - Generalized edema Condition: Stable Discharge Date/Time: 04/24/19 15:31
[2019-04-24 13:00] LABS: BASOPHILS # (AUTO) 0.1 10^3/uL (0.0-0.1); BASOPHILS % (AUTO) 0.6 %; EOSINOPHILS % (AUTO) 0.1 %; HGB - HEMOGLOBIN 12.1 g/dL (14.0-18.0); LYMPHOCYTES # (AUTO) 0.5 10^3/uL (1.5-3.5); LYMPHOCYTES % (AUTO) 5.5 %; MEAN CORPUSCULAR HEMOGLOBIN 35.5 pg (27.0-31.0); MEAN CORPUSCULAR HGB CONC 32.8 g/dL (32.0-36.0); MEAN CORPUSCULAR VOLUME 108.2 fL (80.0-94.0); MEAN PLATELET VOLUME 9.8 fL (7.4-11.4); MONOCYTES # (AUTO) 1.3 10^3/uL (0.0-1.0); NEUTROPHILS # (AUTO) 6.9 10^3/uL (1.5-6.6); NEUTROPHILS % (AUTO) 78.2 %; PLT - PLATELET COUNT 132 10^3/uL (130-450); RED BLOOD COUNT 3.41 10^6/uL (4.70-6.10); RED CELL DISTRIBUTION WIDTH 13.9 % (12.0-15.0); WHITE BLOOD COUNT 8.8 x10^3/uL (4.8-10.8)
--- NOTE | 2019-04-24 13:13 | XRAY Report ---
Reason: dyspnea Procedure Date: 04/24/2019 Accession Number: [id number] / [id number] Procedure: XR - Chest 1 View X-Ray CPT Code: 86663 Final Report FULL RESULT: EXAM: CHEST RADIOGRAPHY EXAM DATE: 04/24/2019 01:02 PM. CLINICAL HISTORY: Dyspnea. COMPARISON: CHEST 2 VIEW 04/21/2019 8:57 AM. TECHNIQUE: 1 view. FINDINGS: Lungs/Pleura: There is blunting of the right greater than left costophrenic angle which appears without significant change. There are mid and lower lung zone reticular interstitial opacities which appear mildly increased at the right lung base. The upper lung zones remain clear. Mediastinum: Previous sternotomy and cardiac valve surgery noted. There is moderate calcification of the thoracic aorta unchanged. Heart size within normal limits for technique. Other: None. IMPRESSION: 1. Mildly increased basilar interstitial edema versus airway thickening versus atelectasis at right lung base. 2. Trace pleural effusions versus pleural thickening otherwise unchanged. RADIA
[2019-04-24 13:14] LABS: ALBUMIN 4.3 g/dL (3.2-5.5); ALBUMIN/GLOBULIN RATIO 1.1 (1.0-2.2); BILIRUBIN,TOTAL 2.1 mg/dL (0.2-1.0); CALCIUM 9.2 mg/dL (8.5-10.3); CREATININE 2.4 mg/dL (0.6-1.2); TOTAL PROTEIN 8.1 g/dL (6.7-8.2)
[2019-04-24] MEDS ORDERED: SODIUM CHLORIDE 0.9% 500 ML IV ONE (13:35)
[2019-04-24] MEDS ORDERED: IPRATROPIUM/ALBUTEROL 3 ML NEB INH STA (13:35)
[2019-04-24] MEDS ORDERED: SODIUM CHLORIDE 0.9% 1,000 ML IV ONE (13:36)
[2019-04-24] MEDS ORDERED: FUROSEMIDE 40 MG/4 ML VIAL IVP STA (13:42)
[2019-04-24] MEDS ORDERED: FUROSEMIDE 40 MG/4 ML VIAL IVP ONE (17:57)
[2019-04-24] MEDS ORDERED: KETOROLAC 30 MG/ML VIAL IVP PRN (17:57)
[2019-04-24] MEDS: SODIUM CHLORIDE FLUSH 0.9% 10 ML SYRINGE IVP SCH (18:27)
--- NOTE | 2019-04-24 18:27 | PHARMACY PROGRESS NOTE ---
- Best Possible Medication History Admit Date and Time: 04/24/19 1432 Processed by: Pharmacy Medication History completed: Yes Patient Interview: Completed Secondary Source(s): Insurance records As the person ultimately responsible for medication therapy, providers are able to order a medication from an existing home medication list in [facility] via the "Reconcile Routine" prior to Confirmation of that medication by family support coordinator. Such practice is discouraged except when the physician, in their clinical judgment, deems that a medical need exists for a medication without regard to previous use.
--- NOTE | 2019-04-24 19:03 | HISTORY & PHYSICAL EXAMINATION ---
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 He used to be followed by Dr. Menon and now is seen by Dr. Wily Alejandra. He has a history of recently diagnosed carcinoma of the left lung and is to have surgery in the next 2-3 weeks. As preop evaluation, the patient states that he has had stress echo, CT scan of his coronaries, nuclear stress test and he reports that the findings were that of a "patent LAD, patent RCA and decreased flow in the circumflex, but still adequate". Patient claims he was told about 2 years ago that he did not need to take daily baby aspirin. Patient remembers a syncopal event once immediately after the open heart surgery when he was on beta blockers and blood pressure was too low then. Patient presented to the emergency room 2 days ago after he had fell at home when he got up from his chair to turn off the TV and the next thing he remembers is that he was washing off a bloody forehead in his kitchen sink. He went to bed and put pressure on the forehead wound and did not seek immediate medical attention. He woke up with blood all over the pillow and then drove himself to the emergency room and was diagnosed with a significant laceration that needed repair, which done in the OR here and then he was sent home. He needed 3 stitches and 21 delfino. He was not admitted for syncope evaluation. Over the past 3 days, he has had holiday foods including meat and meals that he normally does not eat and other holiday foods, which in the past have caused him to have CHF exacerbations. At 0200, this last morning, he awoke with orthopnea and PND and got out of bed and had to sleep upright, in a recliner for the rest of the night. In the daytime, he had new dyspnea on exertion and therefore came to the emergency room. He had labs showing a BNP of 400, which is usually 100 and a creatinine of 2.4, which is usually 1.5. He was first started on IV fluids for the high creat, but whena chest x-ray showed pulmonary edema, he received IV Lasix. He is being admitted for CHF exacerbation. PAST MEDICAL HISTORY: 1. CABG and porcine aortic valve replacement in 2014. 2. Recently diagnosed lung cancer with planned lung surgery in the next 2-3 weeks. 3. Recent fall at home with laceration of his forehead. 4. Hyperlipidemia. 5. Nasal congestion at night, which is improved on ipratropium nasal spray and Zyrtec nightly. MEDICATIONS 1. Naprosyn 280 mg p.o. b.i.d. p.r.n. pain. 2. Ipratropium bromide nasal spray b.i.d. p.r.n. 3. Crestor 10 mg p.o. daily. 4. Torsemide 20 mg p.o. daily. 5. Potassium chloride 20 mEq daily. 6. Omeprazole 20 mg every night. 7. Zyrtec 10 mg p.o. every night. ALLERGIES: ACETAMINOPHEN, WHICH CAUSED A RASH. SOCIAL HISTORY: Patient is a nonsmoker, who quit 20 years ago, he drinks 2 alcoholic drinks per night with dinner, has no drug abuse history. Patient lives alone now, he is a approximately a year ago. He has a son who lives on the [place] too. REVIEW OF SYSTEMS: He reports having an oxygen tank at home but never uses it. He has never had angina, he states. A comprehensive review of systems was performed and the pertinent positives are listed, the rest are negative. PHYSICAL EXAMINATION GENERAL: Elderly white male with a cordova and a very large dried-blood laceration, in a U-shape of his high, central forehead. He is in no distress. VITAL SIGNS: Blood pressure 102/74 and was as low as 98/60, heart rate 86 in sinus rhythm, afebrile, room air saturation 82%, which increased to 95% on 2 liters nasal cannula. HEENT: Reveals moist oral mucosa and the scar is in a U-shaped with dried blood at the scar site with multiple delfino seen over the middle, high forehead at the hairline. NECK: No JVD in a vertical position, and no carotid bruits. CHEST: Bibasilar rales. HEART: Normal heart sounds. No murmur. No gallop or RV heave. ABDOMEN: Soft with positive bowel sounds, nontender. No organomegaly. EXTREMITIES: Trace pedal edema. No clubbing or cyanosis. NEUROLOGIC: Grossly intact. LABORATORY DATA: Sodium 133, potassium 4.4, BUN 41, creatinine 2.4. Normal liver tests, bilirubin 2.1. Troponin, high sensitivity is normal at 14. BNP 407, usually he runs 105. Lipase normal. No INR was done. White blood count 8.8, hemoglobin 12, MCV 108. MCV usually runs 104. Platelet count 132. IMAGING: Chest x-ray: Pulmonary edema. EKG: Normal sinus rhythm, LVH with strain pattern, and it is similar to an old EKG from 1 year ago. IMPRESSION AND DIAGNOSES 1. Congestive heart failure exacerbation. Since he has had recent eval, this is likely related to dietary indiscretion. 2. Acute on chronic renal insufficiency. I suspect cardiorenal syndrome caused by volume overload. 3. Fall at home, recent. Syncope is suspected. 4. Head laceration. The site appears clean but he has a persistent headache and shoulder/neck pain. 5. Macrocytic anemia. 6. Low blood pressure. Therefore, possibly orthostasis was the cause of the fall. 7. History of coronary artery bypass graft. 8. Status post porcine aortic valve replacement. 9. Lung cancer. This was recently diagnosed and has pending surgery. PLAN: Admit patient to medical bed, on telemetry. Start IV b.i.d. diuretic and follow his electrolytes, I's and O's, daily weights, Mg. Continue with his statin medication and hold the torsemide and potassium replacement at this time, while using iv diuretic. Start him on baby aspirin and the reason was reviewed with the patient. Continue with his nasal inhalers, will use Toradol for his pain of the forehead plus he has achy shoulders from sustaining the fall. No Echo service is available at this time, to recheck his LVEF, but he reports having had a recent Echo just in the last several weeks with normal EF. Follow his BNP therefore for monitoring CHF improvement. Because of the 2 alcoholic drinks per day and macrocytic anemia, will consider thiamine replacement and CIWA protocol starting tomorrow for any alcohol withdrawal problems. Check B12 and folate levels. Supplemental oxygen to be continued, oximetry test may need to be done to reorder home oxygen use. DEEP VENOUS THROMBOSIS PROPHYLAXIS: SCDs. CODE STATUS: FULL CODE. ATTESTATION: The patient is expected to be discharged or transferred to another facility within 96 hours: Yes. cc: MD Tirso Roberts MD TD: 04/24/2019 18:32 [email or web address]
[2019-04-24] MEDS: ATORVASTATIN 10 MG TABLET PO SCH (21:15)
[2019-04-24] MEDS: MORPHINE 2 MG/ML CARPUJECT IVP PRN (21:15)
[2019-04-24] MEDS: FAMOTIDINE 20 MG TABLET PO SCH (21:15)
[2019-04-24] MEDS: CETIRIZINE 10 MG TABLET PO SCH (21:15)
[2019-04-24] MEDS: SODIUM CHLORIDE FLUSH 0.9% 10 ML SYRINGE IVP PRN (21:15)
[2019-04-24] MEDS: IPRATROPIUM BROMIDE NAS SCH (21:16)
[2019-04-25] MEDS: SODIUM CHLORIDE FLUSH 0.9% 10 ML SYRINGE IVP SCH ×3 (01:03→18:01)
[2019-04-25] MEDS: MORPHINE 2 MG/ML CARPUJECT IVP PRN ×3 (01:07→21:31)
[2019-04-25] MEDS: SODIUM CHLORIDE FLUSH 0.9% 10 ML SYRINGE IVP PRN ×4 (01:09→21:31)
[2019-04-25 05:58] LABS: BASOPHILS # (AUTO) 0.1 10^3/uL (0.0-0.1); BASOPHILS % (AUTO) 0.6 %; EOSINOPHILS # (AUTO) 0.3 10^3/uL (0.0-0.7); EOSINOPHILS % (AUTO) 3.4 %; HGB - HEMOGLOBIN 11.2 g/dL (14.0-18.0); LYMPHOCYTES # (AUTO) 0.6 10^3/uL (1.5-3.5); LYMPHOCYTES % (AUTO) 7.4 %; MEAN CORPUSCULAR HEMOGLOBIN 35.9 pg (27.0-31.0); MEAN CORPUSCULAR HGB CONC 32.7 g/dL (32.0-36.0); MEAN CORPUSCULAR VOLUME 109.9 fL (80.0-94.0); MEAN PLATELET VOLUME 9.8 fL (7.4-11.4); MONOCYTES # (AUTO) 1.2 10^3/uL (0.0-1.0); MONOCYTES % (AUTO) 14.9 %; NEUTROPHILS # (AUTO) 5.8 10^3/uL (1.5-6.6); NEUTROPHILS % (AUTO) 73.3 %; PLT - PLATELET COUNT 131 10^3/uL (130-450); RED BLOOD COUNT 3.12 10^6/uL (4.70-6.10); RED CELL DISTRIBUTION WIDTH 13.9 % (12.0-15.0)
[2019-04-25 06:08] LABS: CALCIUM 8.8 mg/dL (8.5-10.3); CREATININE 2.1 mg/dL (0.6-1.2); MAGNESIUM 1.9 mg/dL (1.7-2.8)
[2019-04-25 06:36] LABS: THYROID STIMULATING HORMONE 5.59 uIU/mL (0.34-5.60)
[2019-04-25 06:47] LABS: FOLATE 17.81 ng/mL (5.90 - >24.8)
[2019-04-25] MEDS: FUROSEMIDE 40 MG/4 ML VIAL IVP SCH ×2 (06:53→14:29)
[2019-04-25] MEDS: PANTOPRAZOLE 40 MG TABLET PO SCH (06:53)
[2019-04-25] MEDS ORDERED: THIAMINE 100 MG TABLET PO SCH (09:00)
[2019-04-25] MEDS ORDERED: TORSEMIDE 20 MG TABLET PO SCH (09:00)
[2019-04-25] MEDS: IPRATROPIUM BROMIDE NAS SCH ×2 (09:15→20:26)
[2019-04-25] MEDS: FAMOTIDINE 20 MG TABLET PO SCH (09:17)
[2019-04-25] MEDS: ASPIRIN CHEW 81 MG TABLET PO SCH (09:17)
[2019-04-25] MEDS: KETOROLAC 15 MG/ML VIAL IVP PRN ×2 (09:28→18:01)
--- NOTE | 2019-04-25 10:36 | PROVIDER PROGRESS NOTE ---
Assessment/Plan - Problem List (1) CHF exacerbation Assessment/Plan: Per the patient's report, his LVEF is 68%. Per the patient's report, dietary indiscretion around the holidays always caused him heart failure. Continue with diuresis, follow I's and O's, daily weights, low-salt diet, follow BMP and BNP daily. Supplemental oxygen was needed at admission because of desaturations to 82% on room air. We will try to wean down the oxygen as tolerated. (2) Cardiorenal syndrome Assessment/Plan: Despite diuresis, the creatinine is improving, consistent with volume overload and venous congestion as the cause of the DAR on CKD. Continue to follow I's and O's, BMP daily. Because creatinine is still 2.1, no potassium replacement is planned yet (3) Fall at home Assessment/Plan: Cause of fall is unknown; suspected orthostasis because he run low BP, or consider alcohol intoxication. Orthostatic VS checks ordered. Also, ask about any sx with walking, but he is independent, does not need PT. (4) Neck pain Assessment/Plan: This is now his biggest complaint andd is a result of the fall onto his head. Will order an OB Kpad (heating pad), and a tiny roll pillow was placed in curve of neck by this Hospitalist. Flexeril also ordered prn (5) Laceration Assessment/Plan: The stapled site appears clean. He still has pain in neck and shoulders from the fall, for which he is getting prn Toradol iv. Will change to po Toradol as he may need this for pain control at [facility] (6) Hyponatremia Assessment/Plan: Continue with diuresis, fluid restrictions have been ordered. Follow BMP day (7) Lung cancer Qualifiers: Laterality: left Assessment/Plan: Cancer surgery is planned in the next 2 to 3 weeks, per the patient (8) Hx of CABG Assessment/Plan: Per the patient, he had recent preop evaluation for lung surgery and states that the coronary status is stable and LVEF is normal. (9) S/P AVR Assessment/Plan: Clinical exam showed no murmur. Per the patient, his Echo is stable, done very recently - Current Meds Current Meds: Current Medications Generic Name Dose Route Start Last Admin Trade Name Freq PRN Reason Stop Dose Admin Aspirin 81 mg 04/25/19 09:00 04/25/19 09:17 [facility] [place] Aspirin PO 81 mg DAILY FLOWER Administration Atorvastatin Calcium 20 mg 04/24/19 21:00 04/24/19 21:15 Lipitor PO 20 mg QPM FLOWER Administration Cetirizine HCl 10 mg 04/24/19 21:00 04/24/19 21:15 Zyrtec PO 10 mg QPM FLOWER Administration Furosemide 40 mg 04/25/19 06:00 04/25/19 06:53 Lasix Inj 40 Mg Vial IVP 40 mg BIDDIURETIC FLOWER Administration Ketorolac Tromethamine 15 mg 04/24/19 18:32 04/25/19 09:28 Toradol Inj (15mg) IVP 04/29/19 18:31 15 mg Q6HR PRN Administration PAIN Pantoprazole Sodium 40 mg 04/25/19 07:00 04/25/19 06:53 Protonix PO 40 mg QDAC FLOWER Administration Patient Own Med 2 each 04/24/19 21:00 04/25/19 09:15 Ipratropium [place] ANTHONY 2 each [Ipratropium [place] BID FLOWER Administration ] (0.03% Nasal [place]) Sodium Chloride 10 ml 04/24/19 14:35 04/25/19 05:02 Normal Saline Flush 0.9% IVP 10 ml PRN PRN Administration NEEDED PER PROVIDER ORDERS Sodium Chloride 10 ml 04/24/19 17:00 04/25/19 09:17 Normal Saline Flush 0.9% IVP 10 ml 0100,0900,1700 FLOWER Administration - Lab Result Fish Bone Diagrams: 04/25/19 05:45 04/25/19 05:45 - Additional Planning My Orders: My Active Orders 04/26/19 05:00 BMP - BASIC METABOLIC PANEL [CHEM] DAILYLAB BNP - B-NATRIURETIC PEPTIDE [IAI] DAILYLAB CBC - COMP BLD CT W/AUTO DIFF [HEME] DAILYLAB 04/24/19 14:35 Activity Orders [RC] Q2HR IO [RC] IOSHIFT Initiate Bowel Care Protocol [RC] .protocol Initiate Line Care Protocol [RC] QSHIFT Initiate Personal Care Protoco [RC] .protocol Oxygen Therapy [RC] Routine Telemetry- [RC] Q4HR Vital Signs [RC] 0800,1600,0000 Sodium Chloride Flush 0.9% [Normal Saline Flush 0.9%] 10 ml IVP PRN PRN Code Status [OTHERS] Routine Condition of Patient [OTHERS] Routine DVT Prophylaxis [OTHERS] Routine 04/24/19 14:37 Daily Weight [RC] 0600 IV Insert [RC] .ONCE SCDs [RC] QSHIFT 04/24/19 17:00 Sodium Chloride Flush 0.9% [Normal Saline Flush 0.9%] 10 ml IVP 0100,0900,1700 04/24/19 18:32 Ketorolac Inj (15Mg) [Toradol Inj (15Mg)] 15 mg IVP Q6HR PRN 04/24/19 21:00 Atorvastatin [Lipitor] 20 mg PO QPM Cetirizine [ZyrTEC] 10 mg PO QPM Patient Own Med [Patient Own Medication] 2 each ANTHONY BID 04/24/19 Dinner Low Sodium Diet [DIET] 04/25/19 06:00 FUROSEMIDE INJ 40mg VIAL [LASIX INJ 40 mg VIAL] 40 mg IVP BIDDIURETIC 04/25/19 07:00 Pantoprazole [Protonix] 40 mg PO QDAC 04/25/19 08:09 Orthostatic [Vital Signs - Orthostatic] [RC] QSHIFT 04/25/19 09:00 Aspirin Chewable [[facility] [place] Aspirin] 81 mg PO DAILY Objective Vital Signs: Vital Signs - 24 hr 04/24/19 04/24/19 04/24/19 12:16 12:59 13:29 Temperature 36.6 C Heart Rate 101 H 96 88 Heart Rate [ Brachial] Heart Rate [ Radial] Heart Rate [ Sitting (After 1 Minute)] Heart Rate [ Standing (After 1 Minute)] Heart Rate [ Supine] Respiratory 24 18 17 Rate Blood Pressure 120/74 119/69 90/71 Blood Pressure [Right Brachial artery] Blood Pressure [Sitting (After 1 Minute)] Blood Pressure [Standing ( After 1 Minute) ] Blood Pressure [Supine] O2 Saturation 82 L 92 2 L 04/24/19 04/24/19 04/24/19 13:30 13:50 14:00 Temperature Heart Rate 87 90 85 Heart Rate [ Brachial] Heart Rate [ Radial] Heart Rate [ Sitting (After 1 Minute)] Heart Rate [ Standing (After 1 Minute)] Heart Rate [ Supine] Respiratory 18 20 18 Rate Blood Pressure 92/72 98/60 Blood Pressure [Right Brachial artery] Blood Pressure [Sitting (After 1 Minute)] Blood Pressure [Standing ( After 1 Minute) ] Blood Pressure [Supine] O2 Saturation 94 95 04/24/19 04/24/19 04/24/19 14:30 15:00 16:00 Temperature 36.5 C 37.0 C Heart Rate 86 86 Heart Rate [ Brachial] Heart Rate [ 86 Radial] Heart Rate [ Sitting (After 1 Minute)] Heart Rate [ Standing (After 1 Minute)] Heart Rate [ Supine] Respiratory 20 20 18 Rate Blood Pressure 102/74 107/94 H Blood Pressure 123/79 [Right Brachial artery] Blood Pressure [Sitting (After 1 Minute)] Blood Pressure [Standing ( After 1 Minute) ] Blood Pressure [Supine] O2 Saturation 96 95 98 04/25/19 04/25/19 04/25/19 01:00 04:46 08:00 Temperature 36.4 C L 36.4 C L 36.7 C Heart Rate Heart Rate [ 93 97 Brachial] Heart Rate [ 81 Radial] Heart Rate [ Sitting (After 1 Minute)] Heart Rate [ Standing (After 1 Minute)] Heart Rate [ Supine] Respiratory 16 24 22 Rate Blood Pressure Blood Pressure 103/75 135/75 H 109/60 [Right Brachial artery] Blood Pressure [Sitting (After 1 Minute)] Blood Pressure [Standing ( After 1 Minute) ] Blood Pressure [Supine] O2 Saturation 97 92 93 04/25/19 09:57 Temperature Heart Rate Heart Rate [ Brachial] Heart Rate [ Radial] Heart Rate [ 97 Sitting (After 1 Minute)] Heart Rate [ 101 H Standing (After 1 Minute)] Heart Rate [ 89 Supine] Respiratory Rate Blood Pressure Blood Pressure [Right Brachial artery] Blood Pressure 119/63 [Sitting (After 1 Minute)] Blood Pressure 131/78 H [Standing ( After 1 Minute) ] Blood Pressure 109/76 [Supine] O2 Saturation Oxygen O2 Source Nasal cannula Oxygen Flow Rate 2 I&O (Last 24 Hrs): Intake and Output Totals x24h 04/23/19 04/24/19 04/25/19 23:59 23:59 23:59 Intake Total 890 550 Output Total 240 650 Balance 650 -100 General: Alert, Oriented x3 HEENT: Mucous membr. moist/pink, Other (Laceration site unchanged, appears clean and dry) Neck: Supple Neuro: Alert, Non Focal Cardiovascular: Regular rate, No murmurs Respiratory: No respiratory distress, Other (R basilar rales) Abdomen: Soft Extremities: No edema - Results Results: Laboratory Results WBC 8.0 x10^3/uL (4.8-10.8) 04/25/19 05:45 RBC 3.12 10^6/uL (4.70-6.10) L 04/25/19 05:45 Hgb 11.2 g/dL (14.0-18.0) L 04/25/19 05:45 Hct 34.3 % (42.0-52.0) L 04/25/19 05:45 MCV 109.9 fL (80.0-94.0) H 04/25/19 05:45 MCH 35.9 pg (27.0-31.0) H 04/25/19 05:45 MCHC 32.7 g/dL (32.0-36.0) 04/25/19 05:45 RDW 13.9 % (12.0-15.0) 04/25/19 05:45 Plt Count 131 10^3/uL (130-450) 04/25/19 05:45 MPV 9.8 fL (7.4-11.4) 04/25/19 05:45 Neut # (Auto) 5.8 10^3/uL (1.5-6.6) 04/25/19 05:45 Lymph # (Auto) 0.6 10^3/uL (1.5-3.5) L 04/25/19 05:45 [place] # (Auto) 1.2 10^3/uL (0.0-1.0) H 04/25/19 05:45 Eos # (Auto) 0.3 10^3/uL (0.0-0.7) 04/25/19 05:45 Baso # (Auto) 0.1 10^3/uL (0.0-0.1) 04/25/19 05:45 Absolute Nucleated RBC 0.00 x10^3/uL 04/25/19 05:45 Nucleated RBC % 0.0 /100WBC 04/25/19 05:45 Sodium 134 mmol/L (135-145) L 04/25/19 05:45 Potassium 3.9 mmol/L (3.5-5.0) 04/25/19 05:45 Chloride 96 mmol/L (101-111) L 04/25/19 05:45 Carbon Dioxide 28 mmol/L (21-32) 04/25/19 05:45 Anion Gap 10.0 (6-13) 04/25/19 05:45 BUN 44 mg/dL (6-20) H 04/25/19 05:45 Creatinine 2.1 mg/dL (0.6-1.2) H 04/25/19 05:45 Estimated GFR (MDRD) 31 (>89) L 04/25/19 05:45 Glucose 105 mg/dL (70-100) H 04/25/19 05:45 Calcium 8.8 mg/dL (8.5-10.3) 04/25/19 05:45 Magnesium 1.9 mg/dL (1.7-2.8) 04/25/19 05:45 Total Bilirubin 2.1 mg/dL (0.2-1.0) H 04/24/19 12:53 AST 36 IU/L (10-42) 04/24/19 12:53 ALT 25 IU/L (10-60) 04/24/19 12:53 Alkaline Phosphatase 58 IU/L (42-121) 04/24/19 12:53 Troponin I High Sens 14.0 ng/L (2.3-19.7) 04/24/19 12:53 B-Natriuretic Peptide 254 pg/mL (5-100) H 04/25/19 05:45 Total Protein 8.1 g/dL (6.7-8.2) 04/24/19 12:53 Albumin 4.3 g/dL (3.2-5.5) 04/24/19 12:53 Globulin 3.8 g/dL (2.1-4.2) 04/24/19 12:53 Albumin/Globulin Ratio 1.1 (1.0-2.2) 04/24/19 12:53 Lipase 27 U/L (22-51) 04/24/19 12:53 Vitamin B12 270 pg/mL (180-914) 04/25/19 05:45 Folate 17.81 ng/mL (5.90 - >24.8) 04/25/19 05:45 TSH 5.59 uIU/mL (0.34-5.60) 04/25/19 05:45 - Procedures Procedures: Procedures INSPECTION OF LOWER INTESTINAL TRACT, ENDO (02/22/17) REPLACEMENT OF LEFT LENS WITH SYNTH SUB, PERC APPROACH (06/25/16) REPLACEMENT OF RIGHT LENS WITH SYNTH SUB, PERC APPROACH (05/14/16)
[2019-04-25] MEDS ORDERED: CYCLOBENZAPRINE 10 MG TABLET PO PRN (13:02)
[2019-04-25] MEDS: CETIRIZINE 10 MG TABLET PO SCH (20:25)
[2019-04-25] MEDS: ATORVASTATIN 10 MG TABLET PO SCH (20:25)
[2019-04-26] MEDS: SODIUM CHLORIDE FLUSH 0.9% 10 ML SYRINGE IVP SCH ×2 (00:49→08:53)
[2019-04-26] MEDS: MORPHINE 2 MG/ML CARPUJECT IVP PRN ×2 (00:49→06:39)
[2019-04-26 06:27] LABS: BASOPHILS # (AUTO) 0.1 10^3/uL (0.0-0.1); BASOPHILS % (AUTO) 0.9 %; EOSINOPHILS # (AUTO) 0.3 10^3/uL (0.0-0.7); EOSINOPHILS % (AUTO) 5.3 %; HGB - HEMOGLOBIN 11.2 g/dL (14.0-18.0); LYMPHOCYTES # (AUTO) 0.7 10^3/uL (1.5-3.5); LYMPHOCYTES % (AUTO) 13.2 %; MEAN CORPUSCULAR HEMOGLOBIN 35.4 pg (27.0-31.0); MEAN CORPUSCULAR HGB CONC 32.7 g/dL (32.0-36.0); MEAN CORPUSCULAR VOLUME 108.2 fL (80.0-94.0); MEAN PLATELET VOLUME 9.8 fL (7.4-11.4); MONOCYTES # (AUTO) 1.1 10^3/uL (0.0-1.0); NEUTROPHILS # (AUTO) 3.4 10^3/uL (1.5-6.6); NEUTROPHILS % (AUTO) 61.2 %; PLT - PLATELET COUNT 145 10^3/uL (130-450); RED BLOOD COUNT 3.16 10^6/uL (4.70-6.10); RED CELL DISTRIBUTION WIDTH 13.6 % (12.0-15.0); WHITE BLOOD COUNT 5.5 x10^3/uL (4.8-10.8)
[2019-04-26 06:36] LABS: CREATININE 2.1 mg/dL (0.6-1.2)
[2019-04-26] MEDS: SODIUM CHLORIDE FLUSH 0.9% 10 ML SYRINGE IVP PRN (06:40)
[2019-04-26] MEDS: FUROSEMIDE 40 MG/4 ML VIAL IVP SCH (06:40)
[2019-04-26] MEDS: IPRATROPIUM BROMIDE NAS SCH (06:55)
[2019-04-26 08:17] VITALS: BP 188/94
[2019-04-26] MEDS: ASPIRIN CHEW 81 MG TABLET PO SCH (08:53)
--- NOTE | 2019-04-26 11:05 | Discharge Plan ---
Discharge Plan Problem Reviewed?: Yes Disposition: Home, Self Care Condition: Stable Prescriptions: Aspirin [Aspirin EC] 81 mg PO DAILY #30 tablet.dr Paganbenzaprine [Flexeril] 10 mg PO TID PRN #6 tablet PRN Reason: Spasms Diet: Low Sodium Activity Restrictions: Activity as Tolerated Shower Restrictions: No Driving Restrictions: No Health Concerns: You were hospitalized with a CHF exacerbation probably related to dietary indiscretion. The pulmonary edema cleared with iv diuretics. We did cervical spine XRays for you, and these showed no bony abnormality. We also checked your orthostatic vital signs, since you run a low blood pressure, to investigate why you had the recent fall causing the scalp laceration, which could have been from syncope. There was no orthostatic drop in your blood pressure. Being on diuretics could give you an orthostatic drop however, therefore please be attentive as you are standing, and sit down if you get dizzy. Also, do not drive a vehicle or operate heavy machinery if you are dizzy. The plan is to take 2 more days of higher dose diuretics: take the Torsemide 40 mg daily in the morning, then go back to 20 mg daily dose. The potassium dose does not need to change because you have renal dysfunction with a creat of 2.1. Oxygen testing showed that you need to use supplemental oxygen per nasal cannula now: set at 2L at rest and 4L with activity, to maintain O2 sats of > 90%. Resume all your other prehospital medications. You should take an enteric coated aspirin daily to maintain coronary artery patency (or every other day if you have bruising) which you can but OTC. A new prescription for Flexeril was ordered for your neck spasm and was electronically sent to your pharmacy. Use heating pads and the neck vibrator device to help with neck spasm. Plan of Treatment: As above. Care Goals: Improvement of symptoms and stabilization are the goals. Assessment: Patient understands and is in agreement. No Smoking: If you smoke, Please STOP! Call for help. Follow-up with: Tirso Jacob MD [Primary Care Provider] -
[2019-04-26] MEDS: PANTOPRAZOLE 40 MG TABLET PO SCH (11:07)
--- NOTE | 2019-04-26 12:51 | XRAY Report ---
Reason: GLF 5 days ago, neck pain since, EVAL FOR TRAUMA Procedure Date: 04/26/2019 Accession Number: [id number] / [id number] Procedure: XR - Cervical Spine 2 View CPT Code: Final Report FULL RESULT: EXAM: CERVICAL SPINE RADIOGRAPHY EXAM DATE: 04/26/2019 11:40 AM. CLINICAL HISTORY: Neck pain since ground-level fall 5 days ago. COMPARISONS: None. TECHNIQUE: 3 views. FINDINGS: Alignment: Minimal right convex curvature centered at C3-C4. No spondylolisthesis. Bones: The cervical vertebral bodies and posterior elements are well visualized from the skull base through C7-T1. No fractures or bone lesions. The odontoid is intact. Disks: Mild multilevel anterior endplate osteophytosis. Disk space heights are maintained. Facets: Mild facet arthropathy at C3-C4. Soft Tissues: Atherosclerotic calcifications in the carotid arteries. No prevertebral soft tissue swelling. The visualized lung apices are clear. IMPRESSION: 1. Mild degenerative changes. 2. No acute bony abnormality. RADIA
--- NOTE | 2019-04-26 13:00 | DISCHARGE SUMMARY ---
Discharge Summary Admit Date: 04/24/19 Discharge Date: 04/26/19 Discharging Provider: Dr Yeni Friedman Primary Care Provider: Dr Tirso Jacob Code Status: Attempt Resuscitation Condition at Discharge: Stable Discharge Disposition: 01 Home, Self Care - DIAGNOSES Admission Diagnoses: 1) CHF exacerbation 2) Acute on chronic renal insufficiency. 3) Fall at home 4) Head laceration 5) Macrocytic anemia 6) Low blood pressure 7) History of CABG 8) Status post porcine aortic valve replacement 9) Lung cancer. 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 He admits to having CHF exacerbations when he has dietary indiscretion over the holidays. Patient presented with 2 to 3 days of a 10 pound weight gain and overnight developed orthopnea and PND. Labs showed a BNP of 400, his baseline is 100, and CXR showed mild vascular congestion. 2 days previously this gentleman came to the ER with a laceration of his forehead that he suffered with a fall at home. He required laceration suturing in the OR, he was not admitted for any syncope work-up then. - HOSPITAL COURSE Hospital Course: (1) CHF exacerbation Per the patient's report, he had recent work-up for the lung cancer and his LVEF is 68%. An Echo was not done here during this hospitalization. Also per the patient's report, dietary indiscretion around the holidays always caused him heart failure. He was treated with iv b.i.d. diuresis and BNP decreased daily. The night before the day of discharge, he was able to sleep supine without orthopnea or PND. Supplemental oxygen was needed at admission because of desaturations to 82% on room air and he was still desaturating on the day of discharge, therefore his home O2 was ordered to be resumed at 2L at rest and increase to 4L with activity. At discharge, his 20 mg Torsemide dose was advised to be higher, at 40 mg for about the next 2 days, and then advised to resume his previous dosing. (2) Cardiorenal syndrome Despite diuresis, the creatinine improved, consistent with volume overload and renal venous congestion as the cause of the acute worsening of chronic kidney disease. Because creatinine was 2.1, no potassium replacement was used. He likely has CKD. (3) Fall at home The cause of the recent fall is unknown; suspected orthostasis because he runs low BP, or possible alcohol intoxication. Orthostatic VS checks were ordered and he had no drop in BP. He was advised not to drive or operate machinery if he gets any dizziness symptoms. (4) Neck pain The fall onto his furniture, must have caused a type of whiplash of the neck, because he had his biggest complaint of neck pain and spasms. There was no Xray of the c-spine done at the ER visit after the fall, therefore c-spine films were done here and were neg for any bomny abnormality like fracture or compression fracture. He was on an OB Kpad (heating pad) on his neck, and Flexeril was also ordered prn. He was discharged with a prescription for several tablet of Flexeril. (5) Laceration, of head. The stapled site appears clean. He had no c/o at this site. Removal of the delfino should be as he was previously advised on the previous ER visit. (6) Hyponatremia Fluid restrictions and diuretics were ordered. The sodium improved from to 133 to 134 to 137.. (7) Lung cancer Cancer surgery is planned in the next 2 to 3 weeks, per the patient (8) Hx of CABG He claimed that he was told he did not need to use aspirin lifelong. I reviewed with him the latest guidelines which are to use aspirin lifelong for ischemic prevention in a patient with known coronary disease. He was started on baby aspirin daily. He described that he had bruises when taking this daily therefore he was advised he could take it every other day. Per the patient, he had recent preop evaluation for lung surgery and states that the coronary status is stable and LVEF is normal. (9) S/P AVR Clinical exam showed no murmur. Per the patient, his Echo was recently done and is stable. - ALLERGIES Allergies/Adverse Reactions: Allergies Allergy/AdvReac Type Severity Reaction Status Date / Time acetaminophen [From Tylenol] Allergy Rash Verified 04/24/19 12:16 - MEDICATIONS Home Medications: Ambulatory Orders Medication Instructions Recorded Confirmed Rosuvastatin Calcium [Crestor] 10 mg PO DAILY 06/07/15 04/24/19 Cetirizine [ZyrTEC] 10 mg PO QPM 04/24/19 04/24/19 Ipratropium [place] 2 sprays ANTHONY BID 04/24/19 04/24/19 Omeprazole 20 mg PO QPM 04/24/19 04/24/19 Potassium Chloride 20 meq PO DAILY 04/24/19 04/24/19 Torsemide 20 mg PO DAILY 04/24/19 04/24/19 Aspirin [Aspirin EC] 81 mg PO DAILY #30 tablet. 04/26/19 Cyclobenzaprine [Flexeril] 10 mg PO TID PRN #6 tablet 04/26/19 - PHYSICAL EXAM AT DISCHARGE General Appearance: positive: No acute distress, Alert Eyes Bilateral: positive: Normal inspection, PERRL, EOMI ENT: positive: ENT inspection nml Neck: positive: Nml inspection, Other (Spasm of his posterior neck muscles which were tender to touch) Respiratory: positive: No respiratory distress, Breath sounds nml Cardiovascular: positive: Regular rate & rhythm, No murmur Abdomen: positive: Non-tender, No distention Skin: positive: Color nml Extremities: positive: No pedal edema Neurologic/Psychiatric: positive: Oriented x3, Other (Grossly intact) - LABS Result Diagrams: 04/26/19 06:15 04/26/19 06:15 - DIAGNOSTIC IMAGING Diagnostic Imaging Results: Final report reviewed - FOLLOW UP Follow Up: Advised to see PCP in follow-up in 1 to 2 weeks. - TIME SPENT Time Spent in Discharge (Minutes): 60
== END 2019-04-26 13:31 | disposition home or self-care (01) | DRG 291 ==
LOC: ED 12:07 → MS2 14:32
PROVIDERS: ADMIT Internal Medicine; ATTEND Internal Medicine
DX: I50.9 Heart failure, unspecified (principal); I13.0 Hypertensive heart and chronic kidney disease with heart failure and stage 1 through stage 4 chronic kidney disease, or unspecified chronic kidney disease; R09.02 Hypoxemia; S01.01XD Laceration without foreign body of scalp, subsequent encounter; I50.33 Acute on chronic diastolic (congestive) heart failure; E78.00 Pure hypercholesterolemia, unspecified; E87.1 Hypo-osmolality and hyponatremia; C34.92 Malignant neoplasm of unspecified part of left bronchus or lung; Z95.2 Presence of prosthetic heart valve; N17.9 Acute kidney failure, unspecified; N18.9 Chronic kidney disease, unspecified; D53.9 Nutritional anemia, unspecified; I95.9 Hypotension, unspecified; S13.4XXA Sprain of ligaments of cervical spine, initial encounter; W08.XXXA Fall from other furniture, initial encounter; S01.81XD Laceration without foreign body of other part of head, subsequent encounter; I25.10 Atherosclerotic heart disease of native coronary artery without angina pectoris; E78.5 Hyperlipidemia, unspecified; R09.81 Nasal congestion; R51 Headache; M25.512 Pain in left shoulder; M25.511 Pain in right shoulder; Z91.81 History of falling; Z95.1 Presence of aortocoronary bypass graft; Z95.3 Presence of xenogenic heart valve; Z79.899 Other long term (current) drug therapy; Z87.891 Personal history of nicotine dependence
CPT/HCPCS: 36415; 71045; 72040; 80048; 80053; 82607; 82746; 83690; 83735; 83880; 84443; 84484; 85025; 93005; 94640; 94761; 96361; 96374; 99285; A9270

== ENCOUNTER 2019-09-28 08:00 | Outpatient (CLI) | payer MEDICARE, OTHER | END 2019-09-28 23:59 | disposition home or self-care (01) | LOC: LAB 08:00 | PROVIDERS: ATTEND Family Medicine | DX: Z20.828 Contact with and (suspected) exposure to other viral communicable diseases (principal); R50.9 Fever, unspecified; R05 Cough | CPT/HCPCS: 81599 ==

== ENCOUNTER 2020-01-16 08:29 | Outpatient (CLI) | payer MEDICARE, OTHER ==
[2020-01-16 09:32] VITALS: BP 130/84
--- NOTE | 2020-01-16 09:32 | SLEEP CARE CONSULTATION ---
Information from patient questionnaire entered by [employer]. I have reviewed and concur with the information entered by [employer]. This document represents the service I personally performed and the decisions made by me, Tanya Corley ARNP. History of Present Illness Service Date and Time: 01/16/2020828 Reason for Visit: New patient Chief Complaint: reports: Snoring, Other (awakenings with SOB; ). denies: Insomnia, Unrefreshed sleep, Excessive daytime sleepiness, Observed pauses in breathing, Fatigue, Frequent awakenings at night Date of Onset: 2017 Usual bedtime: 2200 Time it takes to fall asleep: quickly Snores at night: Yes (according to late ) Observed to quit breathing while asleep: No Sleeps alone due to snoring: No Number of times waking at night: multiple after [id number] Reasons for waking at night: reports: Gasping for air. denies: Choking, Snoring, Bathroom Toss, Turn, or Twitch while sleeping: No Recalls having dreams: Yes Usually gets out of bed at: 0730 Feels refreshed in the morning: Yes Morning headache: No Sleepy or fatigued during the day: No Ever fallen asleep while driving: No Takes day naps: No (not usually) Dreams during day naps: No Prior sleep studies: No Additional HPI information: I had the pleasure of seeing LASHONDA RAMESH today regarding the possibility of him having a sleep disorder. His current complaints are awakening with shortness of breath. Patient is great historian and gives history of aortic valve with triple bypass in March 2014. He has previously been healthy with a benign heart murmur. He states 10 months post surgery he developed a pleural effusion and shortness of breath. He has had this since this time with some improvements and worsening. About 1.5 years ago he started feeling worse again. He saw a sr. pricing analyst who noted that he had constant nasal drip and put him on Strunk nasal spray and his symptoms improved. 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 He went through radiation and chemotherapy this year which did improve the adenoma but then he developed radiation pneumonitis. He has been on prednisone which has improved his condition and is currently on 12.5 mg oral prednisone on slow taper. As his prednisone has been reduced his shortness of breath episodes increases. He wakes up between 3-4 AM gasping for air and feeling short of breath. He will then have to sleep in his recliner to get back to sleep. He does have an oxygen concentrator and decided to use it at night to see that would help his shortness of breath. He woke to it beeping which it does when oxygen is not inhaled in to lungs several times, so he thinks he stopped breathing or had apnea. He is here after discussing this with his doctor to evaluate for sleep disordered breathing. - Parasomnia Symptoms Ever been unable to move upon waking from sleep: No Walks in sleep: No Talks in sleep: No Ever acted out dreams in sleep: No Ever felt weak in the knees when startled or emotional: No Bothered by creepy, crawly, restless sensations in legs: No Problems with memory or concentration: No Subjective Initial [place] Sleepiness Scale score: 5 (in 2020) Past Medical History Past Medical History: reports: Congestive Heart Failure, Coronary Heart Disease, Impotence, GERD, Other (pleural thinkening with SOB, Radiatick pneumonitis, adenoca lung). 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 Patient is / and lives in [place]. Have you smoked in the past 12 months: No Alcohol use: Yes Alcohol amount and frequency: nightly; with dinner and after Caffeine use: Yes Caffeine amount and frequency: 1 cup in the morning Family History Family history of sleep disordered breathing: No Allergies and Home Medications Drug allergies reviewed: Yes (acetaminophen) Home medication list reviewed: Yes Allergy and home medication list: Torsemide KCL prednisone 12.5 mg daily baby ASA rosuvastatin Prilosec Zyrtec ipratroprium Review of Systems Weight loss over past 5 years: 10 Cardiovascular: reports: have to sleep sitting up (with SOB wakings in labor and 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 denies: high blood pressure, palpitations, chest pain, irregular heart rate or pulse Respiratory: reports: shortness of breath Gastrointestinal: reports: heartburn. denies: difficulty swallowing Urinary: reports: impotence Neurological: denies: headaches, seizure, head trauma, speech dysfunction, gait or balance problems, fainting or unconsciousness Psychiatric: denies: Attention Deficit Hyperactivity, anxiety, depression, mood disorder, claustrophobia Ear/Nose/Throat: reports: nasal congestion, sinus problems, dry mouth/throat (nightly when sleeps in recliner), tonsillectomy, wisdom teeth removed. denies: nose bleeds, injury to nose Endocrine: denies: thyroid disease Musculoskeletal: denies: muscle pain or cramping, mobility problems Immunologic: reports: sneezing. denies: allergies to food or environment Physical Exam Blood Pressure: 130/84 Cuff size: long Heart Rate: 85 O2 Saturation: 98 Height: 5 ft 11 in Weight: 199 lb Body Mass Index: 27.7 BMI Classification: Overweight Neck circumference: 18 (inches) HEENT: No craniofacial malformation Nostrils: patent to airflow Turbinates: normal Septum: midline Mouth and throat: narrow oropharynx Soft palate: normal Hard palate: normal Uvula: normal Uvula visualization: 25% Mallampati Class III Tonsils: absent bilaterally Chin and jaw: normal size and position Neck: normal w/o lymphadenopathy or thyromegaly Heart: regular rate and rhythm Lungs: clear bilaterally Impression and Plan 1. Suspected Obstructive Sleep Apnea-Hypopnea Syndrome, as suggested by a history of cardiac disease, snoring, gasping or choking in sleep and shortness of breath. I reviewed with patient that a narrow oropharynx and obesity are common predisposing factors for obstructive sleep apnea-hypopnea syndrome. I recommend proceeding to polysomnography to confirm the diagnosis and to assess severity. If the patient has significant sleep disordered breathing, a manual CPAP titration study will also be performed to find the optimal treatment pressure. I informed the patient of what the sleep studies involve and after some discussion, obtained agreement to proceed. The pathophysiology of obstructive sleep apnea-hypopnea syndrome was discussed with the patient and health risks of cardiovascular and cerebrovascular disease if not treated. AASM brochure for obstructive sleep apnea-hypopnea syndrome given and reviewed. Risks of drowsy driving discussed in detail and patient advised to avoid long distance driving and to clod puller at the first sign of drowsiness. Patient agreed to plan. * Schedule polysomnography +- manual CPAP titration study. * Avoid long distance driving or driving when feeling sleepy. * Avoid alcohol, sedative and muscle relaxant around bedtime. * Attempt to lose weight. * Review instructions provided by trained office staff on how to prepare for the sleep study. * Return for follow-up after sleep study completed. Visit Type: In Office Time Spent with Patient (minutes): 33 Provider Statement: I spent 100% of the Face to Face Visit with the patient with greater than 50% spent counseling the patient and coordination of care.
== END 2020-01-16 08:30 | disposition home or self-care (01) ==
LOC: SC 08:29
PROVIDERS: ATTEND Nurse Practitioner Family
DX: R06.83 Snoring (principal); I50.9 Heart failure, unspecified; I25.10 Atherosclerotic heart disease of native coronary artery without angina pectoris; E66.3 Overweight; Z68.27 Body mass index [BMI] 27.0-27.9, adult
CPT/HCPCS: 99204; G0463; 99212

== ENCOUNTER 2020-02-06 11:16 | Outpatient (CLI) | payer MEDICARE, OTHER ==
[2020-02-06 11:41] LABS: CHOL/HDL RATIO 2.3 (<5.0); CHOLESTEROL 207 mg/dL; HDL CHOLESTEROL 89 mg/dL; LDL CHOLESTEROL,CALCULATED 95 mg/dL; LDL/HDL RATIO 1.1 (<3.6); VLDL CHOLESTEROL 23 mg/dL
== END 2020-02-06 11:17 | disposition home or self-care (01) ==
LOC: LAB 11:16
PROVIDERS: ATTEND Internal Medicine Cardiovascular Disease
DX: E78.5 Hyperlipidemia, unspecified (principal); I25.10 Atherosclerotic heart disease of native coronary artery without angina pectoris
CPT/HCPCS: 36415; 80061; 83721

== ENCOUNTER 2020-03-13 20:28 | Outpatient (CLI) | payer MEDICARE, OTHER | END 2020-03-13 20:29 | disposition home or self-care (01) | LOC: SC 20:28 | PROVIDERS: ATTEND Nurse Practitioner Family | DX: G47.33 Obstructive sleep apnea (adult) (pediatric) (principal); G47.61 Periodic limb movement disorder; I44.1 Atrioventricular block, second degree; E66.3 Overweight; Z68.27 Body mass index [BMI] 27.0-27.9, adult | CPT/HCPCS: 95810 ==

== ENCOUNTER 2020-03-18 09:11 | Outpatient (CLI) | payer MEDICARE, OTHER ==
--- NOTE | 2020-03-18 09:45 | SLEEP CARE CONSULTATION ---
Information from patient questionnaire entered by Jody Gifford. I have reviewed and concur with the information entered by Jody Gifford. This document represents the service I personally performed and the decisions made by , Tanya Corley ARNP. History of Present Illness Service Date and Time: 03/18/2020910 Initial [place] Sleepiness Scale score: 5 (in 2020) Current [place] Sleepiness Scale score: 3 Additional HPI information: LASHONDA RAMESH returns for follow up and results of the recently performed polysomnography. I explained the pathophysiology behind obstructive sleep apnea. We then spent quite a bit of time discussing different treatment options. For mild obstructive sleep apnea, surgery and oral appliance are alternatives to nasal CPAP therapy but in moderate or severe cases, nasal CPAP is the most effective and reliable treatment. Because apnea is primarily in supine position, then positional management therapy could be effective. Methods discussed such as positioning with pillows, using a T-shirt with tennis balls in the back, and shown commercial products that have a pillow format on back to prevent supine sleep. I reviewed the impact of weight changes on sleep apnea and strongly recommended losing weight. After some discussion, the patient opted to go with the nasal CPAP therapy. Nasal autoCPAP set at 12-20 cmH20 will be ordered with rationale explained. A manual titration study will be ordered if unable to find optimal pressure with office adjustments. I explained how CPAP machine works with sample devices [employer] Dreamstation and SpotOnWay [id number] and what to expect when using the machine. Using CPAP every night in order to get used to it was emphasized. Patient advised to put CPAP mask on before getting into bed so as not to fall asleep without CPAP. To assist acclimation to CPAP use, it could also be used for a short time during day while reading or watching TV. The patient was instructed to call the CPAP supplier to discuss any mechanical problem that may occur. If the mask given is uncomfortable or is difficult to keep on through the night even with adjustment, contact the CPAP supplier as many will replace with another mask style if notified before 30 days. If snoring or perceives is not getting enough air or too much air from the machine, notify this office. [facility] patient education PAP tips reviewed and given to patient. Patient counseled not drink alcohol less than 4 hours before bedtime as it can increase snoring and apnea. Patient was cautioned about risks of drowsy driving until sleepiness symptoms resolve. Sleep Study - Results Type of Sleep Study: Polysomnography Prior sleep studies: No Polysomnography/Home Sleep Study results: Physician's Impression: The quality of the study is good. CPAP was initiated 167.3 minutes into the study and titrated up from 4 cmH2O and titrated up to CPAP at 14 cmH2O. DIAGNOSTIC: The patient had slightly reduced sleep efficiency. The sleep a rchitecture was abnormal for sleep fragmentation and reduced amount of time spent in slow wave sleep (N3). Respiratory monitoring showed severe obstructive sleep apnea-hypopnea (AHI = 52.5) associated with frequent arousals, oxyhemoglobin desaturation and moderate hypoxia (jay oxygen saturation of 78 %). The respiratory events occurred mainly independently of sleep stage and body position. Snoring was light in intensity. There was moderate periodic limb movement of sleep not contributing to the sleep fragmentation. THERAPEUTIC: CPAP at 14 cmH2O appeared to be almost adequate (AHI of 9.8 per hour on the pressure). There was supine sleep on the pressure. Oxygen saturation was slightly low on lower CPAP settings. The patient appeared to have tolerated positive airway pressure therapy well. The patients sleep efficiency was slightly reduced due to two awakenings during the night. The sleep architecture was normal. There was severe periodic limb movement of sleep not contributing to the sleep fragmentation. Cardiac rhythm was normal sinus rhythm occasional 2nd degree AV block of 2:1 ratio. No abnormal behavior (parasomnia) observed during the night. CONCLUSIONS and RECOMMENDAIONS: 1. Obstructive sleep apnea-hypopnea (ICD-10 G47.33), severe, almost adequately controlled with CPAP at 14 cmH2O. CPAP therapy is, therefore, recommended at a higher pressure setting. AutoCPAP set between 12 and 16 cmH20 is also appropriate. Mask used was a ResMed F20 full face mask size medium. With BMI of 27.8 Kg/M2, some weight loss is also recommended. 2. Periodic leg movement (ICD G47.61), severe, treatment may be indicated. Clinical correlation advised. 3. Second Degree Atrio-ventricular Block, Mobitz Type II. Further evaluation is recommended. Allergies and Home Medications Drug allergies reviewed: Yes (acetaminophen) Home medication list reviewed: Yes (prednisone changes) Review of Systems Review of systems same as previous: Yes (no changes) Physical Exam Heart Rate: 92 O2 Saturation: 94 Height: 5 ft 11 in Weight: 206 lb Body Mass Index: 28.7 BMI Classification: Overweight Impression and Plan 1. Obstructive Sleep Apnea-Hypopnea Syndrome, severe, with lowest oxygen saturation of 78%. Obviously this is the cause of the patients symptoms of unrefreshed sleep, and excessive daytime sleepiness. Positive pressure therapy could benefit congestive heart failure, cardiac disease and acid reflux. As mentioned above, the patient will be started on nasal autoCPAP therapy with pressure set at 12-20 cmH2O. A manual titration study will be completed if unable to find optimal treatment pressure with office adjustments. Compliance guidelines also reviewed. A copy of compliance guidelines will be given for reference at check out. Because the apnea is more severe supine, I instructed to avoid sleeping supine using pillow positioning until able to start CPAP use. 2. Periodic limb movement, severe, that did not fragment patients sleep. Periodic limb movement of sleep (PLMS) is characterized by episodes of repetitive limb movements that occur during sleep and usually involve the lower limbs. The etiology is unknown but can be associated with restless leg syndrome (RLS), neuropathy, spinal cord diseases, kidney disease, rheumatological disorders, narcolepsy, obstructive sleep apnea, and REM sleep behavior disorder. Other factors that can increase PLMS and/or RLS are heredity and iron deficiency as reflected by a low serum ferritin level below 50 to 75mcg / L. Several me dications can precipitate or aggravate PLMS such as selective serotonin re- uptake inhibitor antidepressants, tricyclic antidepressants, lithium, and dopamine receptor antagonists with the exception of bupropion. Caffeine can also aggravate PLMS and should be avoided. Sleep hygiene methods can also improve sleep as well as lifestyle changes such as regular exercise. Patient was advised that no treatment is needed at this time. If symptoms increase, then further evaluation is indicated. 3. Second Degree Atrio-ventricular Block, Mobitz Type II, occasional. Second degree AV block noted during study in patient with heart disease history. Patient advised to follow up with shock absorption floor layer for further evaluation of this finding. Patient voiced understanding. * Nasal auto CPAP therapy, pressure at 12-20 cm H2O. * Follow up with shock absorption floor layer for Second Degree AV Block, Mobitz Type II. * Attempt to lose weight. * Avoid alcohol consumption near bedtime. * Avoid supine sleep until using CPAP. * The patient is again cautioned about driving until sleepiness completely resolves. * Return one month after CPAP obtained. I will assess response to therapy and compliance at that time. Visit Type: In Office Time Spent with Patient (minutes): 24 Provider Statement: I spent 100% of the Face to Face Visit with the patient with greater than 50% spent counseling the patient and coordination of care.
== END 2020-03-18 09:12 | disposition home or self-care (01) ==
LOC: SC 09:11
PROVIDERS: ATTEND Nurse Practitioner Family
DX: G47.33 Obstructive sleep apnea (adult) (pediatric) (principal); G47.61 Periodic limb movement disorder; I44.1 Atrioventricular block, second degree; E66.3 Overweight; Z68.27 Body mass index [BMI] 27.0-27.9, adult
CPT/HCPCS: 99213; G0463; 99212

== ENCOUNTER 2020-04-15 08:00 | Outpatient (CLI) | payer MEDICARE, OTHER ==
[2020-04-15 12:46] LABS: ALBUMIN 4.2 g/dL (3.2-5.5); ALBUMIN/GLOBULIN RATIO 1.4 (1.0-2.2); ALKALINE PHOSPHATASE 40 IU/L (42-121); ALT ALANINE AMINOTRANSFERASE 24 IU/L (10-60); AST ASPARTATE AMINOTRANSFERASE 23 IU/L (10-42); BILIRUBIN,TOTAL 0.7 mg/dL (0.2-1.0); BUN - BLOOD UREA NITROGEN 32 mg/dL (6-20); CALCIUM 9.2 mg/dL (8.5-10.3); CARBON DIOXIDE - CO2 31 mmol/L (21-32); CHLORIDE 99 mmol/L (101-111); CHOL/HDL RATIO 2.6 (<5.0); CHOLESTEROL 145 mg/dL; CREATININE 1.5 mg/dL (0.6-1.2); GLUCOSE 91 mg/dL (70-100); HDL CHOLESTEROL 55 mg/dL; LDL CHOLESTEROL,CALCULATED 71 mg/dL; LDL/HDL RATIO 1.3 (<3.6); SODIUM 140 mmol/L (135-145); TOTAL PROTEIN 7.2 g/dL (6.7-8.2); VLDL CHOLESTEROL 19 mg/dL
[2020-04-15 14:23] LABS: HEMOGLOBIN A1c% 6.1 % (4.27-6.07)
== END 2020-04-15 23:59 | disposition home or self-care (01) ==
LOC: LAB.WCP 08:00
PROVIDERS: ATTEND Internal Medicine
DX: I25.10 Atherosclerotic heart disease of native coronary artery without angina pectoris (principal); N40.1 Benign prostatic hyperplasia with lower urinary tract symptoms; N13.8 Other obstructive and reflux uropathy
CPT/HCPCS: 36415; 80053; 80061; 83036; 83721; 84153

== ENCOUNTER 2020-04-23 09:41 | Outpatient (CLI) | payer MEDICARE, OTHER ==
--- NOTE | 2020-04-23 10:26 | SLEEP CARE CONSULTATION ---
Information from patient questionnaire entered by Jody Gifford. I have reviewed and concur with the information entered by Jody Gifford. This document represents the service I personally performed and the decisions made by , Tanya Corley ARNP. History of Present Illness Service Date and Time: 04/23/2020 09 Previous diagnosis: Severe, Obstructive Sleep Apnea-Hypopnea Syndrome AHI: 52.5 (in 2019) Reason for follow up: first compliance Equipment type: CPAP Equipment obtained from: [place] (do not meet personally at all, poor customer service in person, good on phone) Mask style: Full face Backup mask available: Yes Prior sleep studies: Yes Year and Where: 2019 - [facility] Type of Sleep Study: Polysomnography HPI additional information: LASHONDA RAMESH was diagnosed to have severe, AHI 52.5, obstructive sleep apnea- hypopnea syndrome and returned today for CPAP therapy first compliance follow- up. CPAP Compliance Data - Data Reviewed with Patient Average duration of nightly device use: 8 hr 10 min Compliance rate %: 90 Current pressure setting (cmH2O): 12-20 Humidity settin Heated hose settin Average residual AHI: 2.4 Average large leak: 1 hr 12 min Subjective Missed days of use due to: reports: mask issues Patient concerns: reports: mask discomfort (smaller mask feels better; would like to try a different mask), air blowing in eyes, mask leak noise, dry mouth, nose, throat (dry mouth, better than before using CPAP). denies: aerophagia, condensation in mask/hose, nasal congestion, epistaxis, other Observed to snore while using device: No (unsure) Current pressure setting perceived as: comfortable On therapy, patient: reports: sleeping better, awakening more refreshed, being more awake and alert during the day, more rested overall. denies: drowsiness while driving Initial [place] Sleepiness Scale score: 5 (in 2020) Current [place] Sleepiness Scale score: 5 Allergies and Home Medications Drug allergies reviewed: Yes (acetaminophen) Home medication list reviewed: Yes (no changes) Review of Systems Review of systems same as previous: No (a little weight gain and shortness of breath more recently) Physical Exam Heart Rate: 111 (no new) O2 Saturation: 91 Height: 5 ft 11 in Weight: 215 lb Weight change since last visit: 9 Body Mass Index: 29.9 BMI Classification: Overweight Impression and Plan 1. Obstructive Sleep Apnea-Hypopnea Syndrome, severe, with good treatment compliance and good apnea control. On CPAP therapy, the patient has better sleep quality and is more rested overall. His average pressure use is 12.7, so I will adjust his pressure to 12-13 ccH2O. He has not been very happy with his DME supplier. They do not want to deal with him in person due to the pandemic. He has had problems with his mask fitting and sealing. He is getting some air in his eyes and mask leak noises. He was not given much choice on mask styles when dealing with [employer] and thinks that the over the nasal mask that he tried on during his titration study may have been more comfortable. Mask leaks can be reduced by washing mask daily and changing mask cushions more frequently to improve mask seal and comfort. He was given a medium DreamWisp mask to try at home and he will call if he needs a prescription for this mask. He has had some chronic mouth dryness that is somewhat improved since starting the CPAP machine. Oral dryness can be reduced by adjusting humidity setting higher or heated hose lower or by adjusting both settings. Patient's apnea severity and rationale for treatment to reduce apnea, improve sleep quality and reduce cardiovascular and cerebrovascular events was reviewed. I also reviewed the benefit of consistent device use of CPAP for heart failure, cardiac disease, and gastric reflux. * Change auto CPAP pressure to 12-13 cmH2O * Notify me if snoring with mask or feeling that the pressure is too much or too little * Attempt to lose weight * Call this office if any problems using CPAP * Return for follow up in 1-2 months, or sooner if concerns arise Counseling Topics: Spare mask, Weight loss health impact Visit Type: In Office Time Spent with Patient (minutes): 24 Provider Statement: I spent 100% of the Face to Face Visit with the patient with greater than 50% spent counseling the patient and coordination of care.
== END 2020-04-23 09:42 | disposition home or self-care (01) ==
LOC: SC 09:41
PROVIDERS: ATTEND Nurse Practitioner Family
DX: G47.33 Obstructive sleep apnea (adult) (pediatric) (principal); E66.3 Overweight; Z68.29 Body mass index [BMI] 29.0-29.9, adult
CPT/HCPCS: 99213; G0463; 99212

== ENCOUNTER 2020-05-27 10:12 | Outpatient (CLI) | payer MEDICARE, OTHER ==
--- NOTE | 2020-05-27 12:47 | SLEEP CARE CONSULTATION ---
Information from patient questionnaire entered by Jody Gifford. I have reviewed and concur with the information entered by Jody Gifford. This document represents the service I personally performed and the decisions made by me, Ngozi Aremndariz MD, [facility]. History of Present Illness Service Date and Time: 05/27/2020 1012 Previous diagnosis: Severe, Obstructive Sleep Apnea-Hypopnea Syndrome AHI: 52.5 Reason for follow up: one month (with pressure change) Equipment type: CPAP Equipment obtained from: [facility] Mask style: Full face Prior sleep studies: Yes Year and Where: 2019 - Located [facility] Type of Sleep Study: Polysomnography HPI additional information: HPI: Mr. Lozano was diagnosed to have severe obstructive sleep apnea-hypopnea syndrome and returns today for follow up of CPAP therapy. The patient purchased the device from [employer]. He has both a full face mask and a nasal mask. He says he is more comfortable with the nasal one and recently ordered nasal pillows. He uses the device nightly and all through the night. The compliance report shows that he uses the device 30 nights out of the past 30 nights, averaging 8,7 hours a night. The > 4 hour compliance rate for the past 30 days is 100%. He complains of air leaking into his eyes when using the full face mask.. He thinks that the pressure of 12 - 13 cmH2O is comfortable. On the CPAP therapy he notices improvement in his sleep quality, and that he wakes up feeling fresher in the morning and more awake/alert during the day. His notices no snore at all. [place] Sleepiness Scale score is 4. The average residual AHI is 1.8 ; and average time in large leak per day is 1.4 minutes a night. Sleep Study - Results Type of Sleep Study: Polysomnography Prior sleep studies: No CPAP Compliance Data - Data Reviewed with Patient Average duration of nightly device use: 8 hr 41 min Compliance rate %: 96.7 Current pressure setting (cmH2O): 12-13 Humidity settin Heated hose settin Average residual AHI: 1.8 Average large leak: 1 min 24 sec Subjective Patient concerns: reports: mask discomfort, dry mouth, nose, throat Initial [place] Sleepiness Scale score: 5 (in 2019) Current [place] Sleepiness Scale score: 4 Allergies and Home Medications Drug allergies reviewed: Yes Home medication list reviewed: Yes Review of Systems Review of systems same as previous: Yes Physical Exam Vital signs obtained and entered by: To minimize the risk of COVID-19 exposure, detailed exam was not performed. Height: 5 ft 11 in Weight: 200 lb Body Mass Index: 27.8 BMI Classification: Overweight Impression and Plan IMPRESSION: 1. Obstructive Sleep Apnea-Hypopnea Syndrome, severe, with the patient continuing to do well on nasal CPAP therapy. He has excellent compliance and significant clinical benefits. The current pressure appears effective and comfortable. Overall, he is very satisfied with treatment and plans to continue with it long-term. No adjustment is necessary today. PLAN: 1. Continue with autoCPAP set at 12 - 13 cm H2O. 2. Try to lose weight 3. Do not use the full face mask if he is not a mouth breather. 4. Try different types of nasal interface. 5. Return in one year for follow up or earlier if there is any problem with the treatment. Visit Type: In Office Time Spent with Patient (minutes): 20 Provider Statement: I spent 100% of the Face to Face Visit with the patient with greater than 50% spent counseling the patient and coordination of care.
== END 2020-05-27 10:13 | disposition home or self-care (01) ==
LOC: SC 10:12
PROVIDERS: ATTEND Internal Medicine Pulmonary Disease
DX: G47.33 Obstructive sleep apnea (adult) (pediatric) (principal); E66.3 Overweight; Z68.27 Body mass index [BMI] 27.0-27.9, adult
CPT/HCPCS: 99213; G0463; 99212

== ENCOUNTER 2020-07-16 08:00 | Outpatient (CLI) | payer MEDICARE, OTHER ==
[2020-07-16 17:51] LABS: BASOPHILS # (AUTO) 0.1 10^3/uL (0.0-0.1); BASOPHILS % (AUTO) 1.5 %; EOSINOPHILS # (AUTO) 0.2 10^3/uL (0.0-0.7); EOSINOPHILS % (AUTO) 2.8 %; HCT - HEMATOCRIT 42.1 % (42.0-52.0); HGB - HEMOGLOBIN 13.3 g/dL (14.0-18.0); LYMPHOCYTES # (AUTO) 1.1 10^3/uL (1.5-3.5); LYMPHOCYTES % (AUTO) 17.1 %; MEAN CORPUSCULAR HEMOGLOBIN 33.5 pg (27.0-31.0); MEAN CORPUSCULAR HGB CONC 31.6 g/dL (32.0-36.0); MEAN PLATELET VOLUME 10.3 fL (7.4-11.4); MONOCYTES % (AUTO) 16.1 %; NEUTROPHILS # (AUTO) 3.8 10^3/uL (1.5-6.6); NEUTROPHILS % (AUTO) 62.2 %; PLT - PLATELET COUNT 243 10^3/uL (130-450); RED BLOOD COUNT 3.97 10^6/uL (4.70-6.10); RED CELL DISTRIBUTION WIDTH 14.6 % (12.0-15.0); WHITE BLOOD COUNT 6.1 x10^3/uL (4.8-10.8)
[2020-07-16 18:21] LABS: ALBUMIN 4.3 g/dL (3.2-5.5); ALBUMIN/GLOBULIN RATIO 1.2 (1.0-2.2); CALCIUM 9.6 mg/dL (8.5-10.3); CREATININE 1.8 mg/dL (0.6-1.2); POTASSIUM 4.1 mmol/L (3.5-5.0)
[2020-07-16 18:29] LABS: FERRITIN 157.2 ng/mL (23.9-336.2)
== END 2020-07-16 23:59 | disposition home or self-care (01) ==
LOC: LAB.WCP 08:00
PROVIDERS: ATTEND Internal Medicine
DX: I50.30 Unspecified diastolic (congestive) heart failure (principal); D64.9 Anemia, unspecified
CPT/HCPCS: 36415; 80053; 82607; 82728; 83540; 83880; 84466; 85025

== ENCOUNTER 2020-07-26 07:00 | Outpatient (CLI) | payer MEDICARE, OTHER ==
[2020-07-26 18:37] LABS: BASOPHILS # (AUTO) 0.1 10^3/uL (0.0-0.1); BASOPHILS % (AUTO) 1.4 %; EOSINOPHILS # (AUTO) 0.3 10^3/uL (0.0-0.7); EOSINOPHILS % (AUTO) 5.8 %; LYMPHOCYTES % (AUTO) 16.6 %; MEAN CORPUSCULAR HEMOGLOBIN 33.2 pg (27.0-31.0); MEAN CORPUSCULAR HGB CONC 31.7 g/dL (32.0-36.0); MEAN CORPUSCULAR VOLUME 104.9 fL (80.0-94.0); MEAN PLATELET VOLUME 10.1 fL (7.4-11.4); MONOCYTES # (AUTO) 0.9 10^3/uL (0.0-1.0); MONOCYTES % (AUTO) 14.9 %; NEUTROPHILS # (AUTO) 3.6 10^3/uL (1.5-6.6); NEUTROPHILS % (AUTO) 61.1 %; PLT - PLATELET COUNT 242 10^3/uL (130-450); RED BLOOD COUNT 3.91 10^6/uL (4.70-6.10); RED CELL DISTRIBUTION WIDTH 14.6 % (12.0-15.0); WHITE BLOOD COUNT 5.8 x10^3/uL (4.8-10.8)
[2020-07-26 18:38] LABS: INR 1.3 (0.8-1.2); PT - PROTHROMBIN TIME 14.5 secs (9.9-12.6)
[2020-07-26 18:56] LABS: CALCIUM 9.5 mg/dL (8.5-10.3); CREATININE 1.8 mg/dL (0.6-1.2); POTASSIUM 3.6 mmol/L (3.5-5.0)
== END 2020-07-26 23:59 | disposition home or self-care (01) ==
LOC: LAB.WCP 07:00
PROVIDERS: ATTEND Internal Medicine Cardiovascular Disease
DX: I50.9 Heart failure, unspecified (principal); I25.10 Atherosclerotic heart disease of native coronary artery without angina pectoris
CPT/HCPCS: 36415; 80048; 85025; 85610

== ENCOUNTER 2020-08-02 14:06 | Outpatient (CLI) | payer MEDICARE, OTHER | END 2020-08-02 14:07 | disposition home or self-care (01) | LOC: COV 14:06 | PROVIDERS: ATTEND Internal Medicine Cardiovascular Disease | DX: Z01.812 Encounter for preprocedural laboratory examination (principal); I50.30 Unspecified diastolic (congestive) heart failure; Z20.822 Contact with and (suspected) exposure to COVID-19 ==

== ENCOUNTER 2020-09-02 10:40 | Outpatient (CLI) | payer MEDICARE, OTHER ==
[2020-09-02 11:02] LABS: CALCIUM 10.1 mg/dL (8.5-10.3); CREATININE 2.3 mg/dL (0.6-1.2)
== END 2020-09-02 10:41 | disposition home or self-care (01) ==
LOC: LAB 10:40
PROVIDERS: ATTEND Internal Medicine Cardiovascular Disease
DX: R06.00 Dyspnea, unspecified (principal)
CPT/HCPCS: 36415; 80048; 83880

== ENCOUNTER 2020-09-10 08:00 | Outpatient (CLI) | payer MEDICARE, OTHER | END 2020-09-10 08:01 | disposition home or self-care (01) | LOC: LAB.N 08:00 | PROVIDERS: ATTEND Physician Assistant Medical | DX: M10.9 Gout, unspecified (principal) | CPT/HCPCS: 36415; 84550 ==

== ENCOUNTER 2020-10-17 08:00 | Outpatient (CLI) | payer MEDICARE, OTHER ==
[2020-10-17 18:19] LABS: CALCIUM 9.2 mg/dL (8.5-10.3); CREATININE 1.5 mg/dL (0.6-1.2)
== END 2020-10-17 23:59 | disposition home or self-care (01) ==
LOC: LAB.WCP 08:00
PROVIDERS: ATTEND Internal Medicine
DX: M10.9 Gout, unspecified (principal); I50.32 Chronic diastolic (congestive) heart failure
CPT/HCPCS: 36415; 80048; 83880; 84550

== ENCOUNTER 2020-11-25 11:58 | Outpatient (CLI) | payer MEDICARE, OTHER ==
[2020-11-25 18:35] LABS: CREATININE 1.5 mg/dL (0.6-1.2); POTASSIUM 4.8 mmol/L (3.5-5.0)
== END 2020-11-25 23:59 | disposition home or self-care (01) ==
LOC: LAB.WCP 11:58
PROVIDERS: ATTEND Internal Medicine Cardiovascular Disease
DX: I25.10 Atherosclerotic heart disease of native coronary artery without angina pectoris (principal); R06.02 Shortness of breath; N18.9 Chronic kidney disease, unspecified
CPT/HCPCS: 36415; 80048; 83880

== ENCOUNTER 2020-12-30 15:52 | Inpatient (IN) | payer MEDICARE, OTHER ==
--- NOTE | 2020-12-30 16:06 | ED Physician Documentation ---
PD HPI SYNCOPE - Stated complaint Stated Complaint: LIGHT HEADED/FALL/HEAD PX - Chief complaint Chief Complaint: General - History obtained from History obtained from: Patient - History of Present Illness Witnessed: Unwitnessed Timing - onset: How many weeks ago (Onset a week ago of feeling lightheaded with standing after being on metaxalone diuretic. Fell and struck his head a few days ago with some frontal headache. Had syncope again today after standing up.) Duration: Seconds Preceding symptoms: Light headed, Generalized weakness Associated symptoms: Headache Contributing factors: Recent med change (Metazalone diuretic started a week ago for leg edema and some weight gain. Pt says edema has improved.). No: Decreased PO intake Injury occurred: Fell, Head injury (struck forehead with some pain there, and also some neck pain on ROM.) Similar symptoms before: Has not had sx before Recently seen: Clinic (His provider added metaxalone diuretic a week ago for leg edema. The patient has had symptoms of lightheadedness and twice syncope subsequent. His last dose was yesterday.) Review of Systems Constitutional: denies: Fever Nose: denies: Rhinorrhea / runny nose, Congestion Throat: denies: Sore throat Cardiac: reports: Pedal edema (last week or two, which has decreased with the diuretic this past week.). denies: Chest pain / pressure, Palpitations Respiratory: reports: Dyspnea. denies: Cough, Wheezing GI: denies: Abdominal Pain, Nausea, Vomiting, Diarrhea Skin: reports: Abrasion (s) (forehead). denies: Laceration (s) Musculoskeletal: reports: Extremity swelling (improved on recent diuretic) Neurologic: reports: Generalized weakness, Syncope, Headache Endocrine: reports: Weight gain (the last couple of weeks) Immunocompromised: denies: Immunocompromised PD PAST MEDICAL HISTORY - Past Medical History Cardiovascular: High cholesterol, Coronary artery disease, Murmur, Valve disorder Respiratory: Shortness of breath Neuro: None Endocrine/Autoimmune: None GI: GERD : Other HEENT: None Psych: None Musculoskeletal: None Derm: None - Past Surgical History Past Surgical History: Yes General: Appendectomy Cardiovascular: CABG, Valve replacement HEENT: Cataracts - Present Medications Home Medications: Ambulatory Orders Medication Instructions Recorded Confirmed Rosuvastatin Calcium [Crestor] 10 mg PO DAILY 06/07/15 04/24/19 Cetirizine [ZyrTEC] 10 mg PO QPM 04/24/19 04/24/19 Ipratropium [place] 2 sprays ANTHONY BID 04/24/19 04/24/19 Omeprazole 20 mg PO QPM 04/24/19 04/24/19 Potassium Chloride 20 meq PO DAILY 04/24/19 04/24/19 Torsemide 20 mg PO DAILY 04/24/19 04/24/19 Aspirin [Aspirin EC] 81 mg PO DAILY #30 tablet. 04/26/19 Cyclobenzaprine [Flexeril] 10 mg PO TID PRN #6 tablet 04/26/19 - Allergies Allergies/Adverse Reactions: Allergies Allergy/AdvReac Type Severity Reaction Status Date / Time acetaminophen [From Tylenol] Allergy Rash Verified 12/30/20 15:56 - Social History Does the pt smoke?: No Smoking Status: Never smoker Does the pt drink ETOH?: Yes Does the pt have substance abuse?: No - Immunizations Immunizations are current?: Yes - POLST Patient has POLST: No PD ED PE NORMAL - Vitals Vital signs reviewed: Yes - General General: Alert and oriented X 3, No acute distress, Well developed/nourished - HEENT HEENT: Pharynx benign, Other (forehead contusion and small abrasion, no lac. ) - Neck Neck: Supple, no meningeal sign, No adenopathy, Other (Mild tenderness in the mid to lower cervical right paraspinous muscles. No obvious deformity.) - Cardiac Cardiac: RRR, No murmur - Respiratory Respiratory: Clear bilaterally - Abdomen Abdomen: Soft, Non tender - Back Back: No CVA TTP - Derm Derm: Normal color, Warm and dry - Extremities Extremities: Normal ROM s pain, No edema (He actually has no edema in his legs.), No calf tenderness / cord, Other (Some mild superficial bruises noted in the anterior shins in both forearms. No obvious bony deformities.) - Neuro Neuro: Alert and oriented X 3, No motor deficit, No sensory deficit, Normal speech Results - Vitals Vitals: Vital Signs - 24 hr 12/30/20 12/30/20 15:56 16:51 Temperature 36.5 C Heart Rate 90 84 Respiratory 16 16 Rate Blood Pressure 112/88 H 151/102 H O2 Saturation 94 95 Oxygen O2 Source Room air - Labs Labs: Laboratory Tests 12/30/20 12/30/20 16:34 16:34 WBC 5.8 RBC 3.53 L Hgb 12.9 L Hct 36.0 L MCV 102.0 H MCH 36.5 H MCHC 35.8 RDW 14.6 Plt Count 168 MPV 8.6 Neut # (Auto) 4.5 Lymph # (Auto) 0.5 L Sharp # (Auto) 0.6 Eos # (Auto) 0.1 Baso # (Auto) 0.0 Absolute Nucleated RBC 0.00 Nucleated RBC % 0.0 Sodium 120 L* Potassium 2.6 L Chloride 72 L* Carbon Dioxide 35 H Anion Gap 13.0 BUN 35 H Creatinine 1.7 H Estimated GFR (MDRD) 40 L Glucose 177 H Calcium 8.9 Magnesium 2.1 Total Bilirubin 1.6 H AST 28 ALT 21 Alkaline Phosphatase 66 Total Protein 7.2 Albumin 3.7 Globulin 3.5 Albumin/Globulin Ratio 1.1 Lipase 34 Ethyl Alcohol < 5.0 - Rads (name of study) head CT Radiology: Prelim report reviewed (no ICH nor acute process), See rad report cervical CT Radiology: Prelim report reviewed (no fractures), See rad report Departure - Departure Disposition: 66 [facility] DC/Xfer Clinical Impression: Postural syncope, Hyponatremia Head contusion Qualifiers: Encounter type: initial encounter Contusion of head detail: scalp Qualified Code(s): S00.03XA - Contusion of scalp, initial encounter Condition: Stable Record reviewed to determine appropriate education?: Yes
[2020-12-30] MEDS ORDERED: SODIUM CHLORIDE 0.9% 250 ML IV STA (16:25)
[2020-12-30] MEDS ORDERED: KETOROLAC 15 MG/ML VIAL IVP STA (16:28)
[2020-12-30 16:39] LABS: BASOPHILS % (AUTO) 0.7 %; EOSINOPHILS # (AUTO) 0.1 10^3/uL (0.0-0.7); EOSINOPHILS % (AUTO) 1.7 %; HGB - HEMOGLOBIN 12.9 g/dL (14.0-18.0); LYMPHOCYTES # (AUTO) 0.5 10^3/uL (1.5-3.5); MEAN CORPUSCULAR HEMOGLOBIN 36.5 pg (27.0-31.0); MEAN CORPUSCULAR HGB CONC 35.8 g/dL (32.0-36.0); MEAN PLATELET VOLUME 8.6 fL (7.4-11.4); MONOCYTES # (AUTO) 0.6 10^3/uL (0.0-1.0); MONOCYTES % (AUTO) 10.6 %; NEUTROPHILS # (AUTO) 4.5 10^3/uL (1.5-6.6); NEUTROPHILS % (AUTO) 77.1 %; PLT - PLATELET COUNT 168 10^3/uL (130-450); RED BLOOD COUNT 3.53 10^6/uL (4.70-6.10); RED CELL DISTRIBUTION WIDTH 14.6 % (12.0-15.0); WHITE BLOOD COUNT 5.8 x10^3/uL (4.8-10.8)
[2020-12-30 16:57] LABS: ALBUMIN 3.7 g/dL (3.2-5.5); ALBUMIN/GLOBULIN RATIO 1.1 (1.0-2.2); ALKALINE PHOSPHATASE 66 IU/L (42-121); ALT ALANINE AMINOTRANSFERASE 21 IU/L (10-60); AST ASPARTATE AMINOTRANSFERASE 28 IU/L (10-42); BILIRUBIN,TOTAL 1.6 mg/dL (0.2-1.0); BUN - BLOOD UREA NITROGEN 35 mg/dL (6-20); CALCIUM 8.9 mg/dL (8.5-10.3); CARBON DIOXIDE - CO2 35 mmol/L (21-32); CREATININE 1.7 mg/dL (0.6-1.2); ETOH - ETHANOL < 5.0 mg/dL; GFR - MDRD 40 (>89); GLUCOSE 177 mg/dL (70-100); LIPASE 34 U/L (22-51); MAGNESIUM 2.1 mg/dL (1.7-2.8); POTASSIUM 2.6 mmol/L (3.5-5.0); TOTAL PROTEIN 7.2 g/dL (6.7-8.2)
[2020-12-30 16:58] LABS: SODIUM 120 mmol/L (135-145)
[2020-12-30 16:59] LABS: CHLORIDE 72 mmol/L (101-111)
--- NOTE | 2020-12-30 17:23 | CT Report ---
PROCEDURE: HEAD WO INDICATIONS: fall with head injury/pain TECHNIQUE: Noncontrast 4.5 mm thick angled axial sections acquired from the foramen magnum to the vertex. For r adiation dose reduction, the following was used: automated exposure control, adjustment of mA and/or kV according to patient size. COMPARISON: 04/21/2019. Correlation is also made with the accompanying cervical spine CT, 12/30/2020 FINDINGS: Image quality: There is streak artifact seen through the skull base. CSF spaces: Basal cisterns are patent. No extra-axial fluid collections. Ventricles are normal in size and shape. 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 Brain: No midline shift. No intracranial masses or hemorrhage. Roca-white matter interface is norm al. Skull and face: Calvarium and visualized facial bones are intact, without suspicious lesions. Sinuses: Visualized sinuses and mastoids are clear. IMPRESSION: No intracranial hemorrhage is seen. No significant intracranial abnormality is seen. Reviewed by: Kyrie Brown MD on 12/30/2020 4:22 PM CAY[place]O Approved by: Kyrie Brown MD on 12/30/2020 4:22 PM CAYETANO Station ID: [id number]
--- NOTE | 2020-12-30 17:24 | CT Report ---
PROCEDURE: CERVICAL SPINE WO INDICATIONS: fall and struck head/neck pain TECHNIQUE: Noncontrast 3 mm thick sections acquired from the skull base to the T4 level. Sagittal and coronal r eformats were then constructed. For radiation dose reduction, the following was used: automated exp osure control, adjustment of mA and/or kV according to patient size. COMPARISON: Correlation is made with the accompanying head CT, 12/30/2020. FINDINGS: Image quality: Excellent. Bones: No fractures or dislocations. Visualized superior ribs are intact. Age-appropriate degenera tive changes are seen. Soft tissues: Prevertebral soft tissues are normal in thickness. No paravertebral hematomas. No ap ical pneumothoraces. There is sclerotic calcification is seen. IMPRESSION: Negative for fracture. Incidental note is made of: Dense atherosclerotic calcification Age-appropriate degenerative changes Reviewed by: Kyrie Brown MD on 12/30/2020 4:23 PM [place] Approved by: Kyrie Brown MD on 12/30/2020 4:23 PM CAYETANO Station ID: [id number]
[2020-12-30] MEDS ORDERED: SODIUM CHLORIDE FLUSH 0.9% 10 ML SYRINGE IVP PRN (17:28)
[2020-12-30] MEDS ORDERED: ONDANSETRON 4 MG/2 ML VIAL IVP PRN (17:28)
[2020-12-30] MEDS ORDERED: ONDANSETRON ODT 4 MG TABLET TL PRN (17:28)
[2020-12-30] MEDS ORDERED: POTASSIUM CHLORIDE 20 MEQ TABLET PO STA (17:38)
--- NOTE | 2020-12-30 18:18 | HISTORY & PHYSICAL EXAMINATION ---
Chief Complaint - Chief Complaint Chief Complaint: Lightheadedness and fall History of Present Illness - Admitted From Admitted From:: Home - History Obtained From [facility]: [facility], [facility] - History of Present Illness HPI Comment/Other: Ricci Lozano is a very pleasant 75 year old male with a history including aortic stenosis, CHF (normal EF per patient), and lung adenocarcinoma s/p chemo and radiation 2019 who presented to the ED today after a history of 2 recent falls at home. Per his report, over the past week he has had increased lower extremity edema and a weight gain of 6 pounds not responsive to his normal diuretics at home. He had a prescription for Metazalone, which he had taken once before with good results, which his provider instructed him to take in addition to his regularly scheduled diuretics (Bumide). He took the Metazalone as prescribed on of last week, with some resolution of the edema. He noticed that he felt light-headed after taking the Metazalone and fell Wednesday evening, striking his head. He did not present to the ED as he wanted to wait and see if the symptoms resolved. He did have a "mild" headache and neck pain, relieved with tylenol and CBD cream. Today on standing he again noted light- headedness and fell, striking his back. He presented to the ED for evaluation as he continued to feel light-headed and felt he should be evaluated. He denies n/v, fevers, chills or malaise. His main complaint is the light- headedness that led to the falls. Reports he has been orthostatic at home, >20mmHg decrease from sit to stand. In the ER he was found to be hyponatremic and hypokalemic, slightly hypotensive. Denies chest pain or palpitations. Regarding the edema, he reports it has improved. He has a chronically elevated creatinine with baseline of 1.5-1.6 since September per his report. He sees his sewing room supervisor monthly via telemedicine and his next appointment was scheduled for tomorrow. His last EF was normal per his report, last checked approximately 3 months ago. He was treated for his lung adenocarcinoma with chemo and radiation at [facility] and is due for a repeat CT soon to make sure he is still clear. Last treated in 2019. Reports chronic dyspnea at rest and with exertion and attributes this to cardiac surgery for his aortic stenosis approximately 6 years ago. He uses a CPAP at night but did not bring it with him to the hospital. He does have supplemental oxygen at home but uses it rarely. He will be admitted to the med surg unit for IV hydration and electrolyte monitoring. Pt prefers to be full code at this time. History - Past Medical History Cardiovascular: reports: Congestive heart failure (Pt reports normal EF), High cholesterol, Coronary artery disease, Murmur, Valve disorder Respiratory: reports: Shortness of breath Neuro: reports: None Endocrine/Autoimmune: reports: None GI: reports: GERD : reports: Benign prostate hypertrophy, Other HEENT: reports: None Psych: reports: None Musculoskeletal: reports: None Derm: reports: None MRSA Hx?: No Other Past Medical History: carcinoma right lung, s/p chemo and radiation 2019 - Past Surgical History General: reports: Appendectomy Cardiovascular: reports: CABG, Valve replacement HEENT: reports: Cataracts - Family & Social History Family History: Mother: , Alzheimer's Disease, Father: , Hypertension, Brother: , CAD Family History Comment/Other: Mother at age 92 (Alzheimers). Father with hx of HTN, at 70 (" in his sleep"). Younger brother recently in October 2020 and had a hx of aortic stenosis. Older brother alive at 86, hx of bladder and prostate cancer. 2 sons alive and well. 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 Lives alone and independently able to care for self, cook and clean. 2 sons, 1 in [facility] and 1 lives local but is currently fighting fires in [place]. Past smoking hx of 1PPD, quit in 2000. Drinks approx 1 glass whiskey/nightly, no hx of alcohol withdrawal or concerns for abuse. Denies use of marijuana, cocaine, meth or heroin. - Substance History Use: Uses substance without health or social issues: Alcohol (1 glass whiskey/night, no hx of withdrawals) Tobacco Details: Cigarettes (1 PPD, quit in 2000) - POLST Patient has POLST: No POLST Status: Full Code Meds/Allgy - Home Medications Home Medications: Ambulatory Orders Medication Instructions Recorded Confirmed Rosuvastatin Calcium [Crestor] 10 mg PO DAILY 06/07/15 12/30/20 Cetirizine [ZyrTEC] 10 mg PO QPM 04/24/19 04/24/19 Ipratropium [place] 2 sprays ANTHONY BID 04/24/19 04/24/19 Omeprazole 20 mg PO QPM 04/24/19 12/30/20 Potassium Chloride 20 meq PO DAILY 04/24/19 04/24/19 Torsemide 20 mg PO DAILY 04/24/19 04/24/19 Aspirin [Aspirin EC] 81 mg PO DAILY #30 tablet.dr 04/26/19 12/30/20 Cyclobenzaprine [Flexeril] 10 mg PO TID PRN #6 tablet 04/26/19 Bumetanide 1 mg PO BID 12/30/20 12/30/20 Eplerenone [Inspra] 1 tab PO BID 12/30/20 12/30/20 Gabapentin [Neurontin] 1 tab PO DAILY 12/30/20 12/30/20 allopurinoL [Zyloprim] 1 tab PO DAILY 12/30/20 12/30/20 - Allergies Allergies/Adverse Reactions: Allergies Allergy/AdvReac Type Severity Reaction Status Date / Time acetaminophen [From Tylenol] Allergy Rash Verified 12/30/20 15:56 Review of Systems - Constitutional Constitutional: reports: Weight gain (Reports weight gain of 6 pounds prior to starting the Metazalone, believes he only lost 3 with diuresis). denies: Fever, Chills, Malaise, Weakness, Poor appetite, Diaphoresis - Eyes Eyes: denies: Pain, Blurred vision, Vision loss - Ears, Nose & Throat Ears, Nose & Throat: denies: Ear pain, Nasal pain, Nasal congestion, Sore throat - Cardiovascular Cariovascular: reports: Edema (Lower extremity swelling until yesterday, increased Wednesday through Wednesday of this week), Lightheadedness, Orthopnea - Respiratory Respiratory: reports: SOB at rest (reports this is baseline since cardiac surgery 6 years ago), SOB with exertion. denies: Cough, Wheezing, Hemoptysis - Gastrointestinal Gastrointestinal: denies: Abdominal pain, Abdominal distention, Constipation, Diarrhea - Genitourinary Genitourinary: denies: Dysuria, Urgency - Musculoskeletal Musculoskeletal: reports: Other (Neck pain after fall) - Integumentary Integumentary: reports: Other (Laceration on forehead, skin tears and bruising to bilateral arms) - Neurological Neurological: reports: Headache (aching, relieved with Toradol; started Wednesday after falling and hitting head. Does not radiated, nothing makes worse.). denies: General weakness, Numbness - Endocrine Endocrine: denies: Polyuria, Polydypsia, Polyphagia - Hematologic/Lymphatic Hematologic/Lymphatic: reports: Bruising - All Other Systems All Other Systems: reports: Reviewed and negative Prior Level of Functionality: Independent at home, able to drive, cook and clean independently. Takes care of his medications and ADLs independently. Exam - Vital Signs Reviewed Vital Signs: Yes Vital Signs: Vital Signs x48h Temp Pulse Resp BP Pulse Ox 12/30/20 18:01 91 16 92/65 94 12/30/20 17:34 85 16 98/70 94 12/30/20 16:51 84 16 151/102 H 95 12/30/20 15:56 36.5 C 90 16 112/88 H 94 - Physical Exam General Appearance: positive: Other (Very pleasant gentleman lying on the stretcher, alert and in no acute distress. Somewhat tearful discussing history and recent of his brother 1 month ago.) Eyes Bilateral: positive: Normal inspection, PERRL, Conjunctivae nml, No scleral icterus ENT: positive: ENT inspection nml, Other (Moist mucus membranes) Neck: positive: Nml inspection. negative: Lymphadenopathy (R), Lymphadenopathy (L) Respiratory: positive: Chest non-tender, No respiratory distress, Breath sounds nml Cardiovascular: positive: Regular rate & rhythm, No gallop, Systolic murmur. negative: JVD present, Gallop/S4, Friction rub Peripheral Pulses: positive: 1+ (1+ DP pulses bilaterally) Abdomen: positive: Non-tender, No organomegaly Skin: positive: Pallor, Laceration (cm), Other (Bruising on bilateral arms; skin thin and fragile, multiple skin tears present. Laceration with scabs present to forehead) Extremities: positive: No pedal edema, Other (No extremity edema) Neurologic/Psychiatric: positive: Oriented x3, Motor nml, Sensation nml, Mood/affect nml Sepsis Event Note (H) - Evaluation Current Stage of Sepsis: Ruled out Conclusion/Plan - Problem List (1) Hyponatremia Conclusion/Plan: Hyponatremia, found to have Na 120 in the ED, likely hypovolemic and related to use of diuretics (specifically the Metazalone) at home to correct his lower extremity edema. Has not taken a diuretic since yesterday. No edema this evening and does appear slightly dry though with moist mucus membranes. He is oriented, no signs of confusion or neuro changes. Plan: Stop Metazalone 0.9% NS @ 100ml/hr Q6 BMP, plan to correct 6-8 mmol/24 hrs (2) Hypokalemia Conclusion/Plan: Found to have a K of 2.6, also likely related to his use of diuretics. Magnesium was 2.1. Plan: 40meq Potassium oral x1 10meq IV potassium x4 BMP Q6 Telemetry for 24 hours (3) Fall at home Conclusion/Plan: Pt reports falling at home Wednesday night and again last night, striking his head on Wednesday and his back last evening. Reports he was light-headed and felt faint prior to falling and notes he was orthostatic. This is likely due to hypovolemia rather than cardiac issues as his EKG was normal. CT head and neck were obtained in the ED and were unremarkable Plan: Orthostatic BPs Qshift Qualifiers: Encounter type: initial encounter Qualified Code(s): W19.XXXA - Unspecified fall, initial encounter; Y92.009 - Unspecified place in unspecified non- institutional (private) residence as the place of occurrence of the external cause (4) Head contusion Conclusion/Plan: Sequelae of his fall on Wednesday evening. No swelling, the area is scabbed and without signs of wound infection (no erythema, warmth, purulence or induration). Head and neck CT obtained in ED were unremarkable. Plan: Monitor the area, consider applying Vitamin A&D ointment or Bacitracin ointment to the area BID. Qualifiers: Encounter type: initial encounter Contusion of head detail: scalp Qualified Code(s): S00.03XA - Contusion of scalp, initial encounter (5) Postural syncope Conclusion/Plan: Reports he was orthostatic at home and notes light-headedness prior to both falls. Likely related to hypovolemia from overdiuresis. Plan: IVF Orthostatic BPs Q shift Telemetry x 24 hours (6) Acute renal failure Conclusion/Plan: Likely due to hypovolemic related to overdiuresis and use of the Metazalone. Reports his baseline creatinine runs approximately 1.5, he is currently only mildly elevated at 1.7. Will initiate IVF to rehydrate and will continue to monitor. Plan: IVF Trend creatinine Qualifiers: Acute renal failure type: unspecified Qualified Code(s): N17.9 - Acute kidney failure, unspecified (7) Congestive heart failure Conclusion/Plan: Last EF in the system is 2019, 70%. He reports history of CHF with "normal EF". Follows with his sewing room supervisor doing telehealth monthly and with 3 month visits. Reports SOB at rest and with exertion, present for at least 6 years and attributed to prior cardiac surgery. Does not appear to be having a CHF exacerbation. Qualifiers: Heart failure type: unspecified Heart failure chronicity: acute on chronic Qualified Code(s): I50.9 - Heart failure, unspecified (8) Dyspnea Conclusion/Plan: Reports this is baseline for him for the last 6 years and attributes it to past cardiac surgery. He uses cpap at night (did not bring with him) and has supplemental oxygen at home which he rarely uses. Has not been hypoxic here. Will continue to monitor. Qualifiers: Dyspnea type: shortness of breath Qualified Code(s): R06.02 - Shortness of breath; R06.00 - Dyspnea, unspecified; R06.01 - Orthopnea (9) Lung cancer Conclusion/Plan: S/p chemo and radiation 2020 at [facility] per his report. Believes he is due for another CT scan for evaluation soon. He should follow up with his outpatient oncologist after discharge. Qualifiers: Laterality: left (10) Hx of CABG Conclusion/Plan: History of aortic valve replacement in 2013. Sinus rhythm currently. Reports consistent follow up with his sewing room supervisor. He should continue his routine follow up outpatient. - Lab Results Lab results reviewed: Yes Fish Bones: 12/30/20 16:34 12/30/20 16:34 - Diagnostic Imaging Results Diagnostic Imaging Results: positive: Final report reviewed - EKG Results EKG Interpreted Independently: Yes EKG Findings: Sinus rhythm with prolonged [place] interval, no evidence of ischemia Core Measures - Anticipated LOS I expect patient to be DC'd or transferred within 96 hours.: Yes - Issues Hospital Issues and Management Plan: 75 year old male, hx of CHF, presents s/p fall x2 at home with hyponatremia. Will admit for hydration and monitoring of labs. - DVT/VTE - Prophylaxis VTE/DVT Device ordered at admit?: Yes VTE/DVT Prophylaxis med ordered at admit?: Yes
[2020-12-30] MEDS: SODIUM CHLORIDE 0.9% 1,000 ML IV SCH (18:20)
[2020-12-30 18:31] LABS: B. PARAPERTUSSIS- RESP PCR PAN NOT DETECTED; B. PERTUSSIS- RESP PCR PANEL NOT DETECTED; C. PNEUMONIAE- RESP PCR PANEL NOT DETECTED; CORONAVIRUS 229E-RESP PCR NOT DETECTED; CORONAVIRUS HKU1-RESP PCR NOT DETECTED; CORONAVIRUS NL63-RESP PCR NOT DETECTED; CORONAVIRUS OC43-RESP PCR NOT DETECTED; HUMAN METAPNEUMOVIRUS NOT DETECTED; INFLUENZA A- RESP PCR PANEL NOT DETECTED; INFLUENZA B - RESP PCR PANEL NOT DETECTED; M. PNEUMONIAE- RESP PCR PANEL NOT DETECTED; PARAINFLUENZA VIRUS 1 NOT DETECTED; PARAINFLUENZA VIRUS 2 NOT DETECTED; PARAINFLUENZA VIRUS 3 NOT DETECTED; PARAINFLUENZA VIRUS 4 NOT DETECTED; RHINOVIRUS/ENTEROVIRUS NOT DETECTED; RSV- RESP PCR PANEL NOT DETECTED; SARS-CoV-2 -RESP PCR PANEL NOT DETECTED
[2020-12-30] MEDS: POTASSIUM CHLOR 10 MEQ/100 ML 10 MEQ/100 ML BAG IV SCH ×4 (18:55→23:31)
[2020-12-30] MEDS: KETOROLAC 15 MG/ML VIAL IVP PRN (21:05)
[2020-12-30 23:20] LABS: CALCIUM 8.3 mg/dL (8.5-10.3); CREATININE 1.8 mg/dL (0.6-1.2)
[2020-12-30] MEDS: SODIUM CHLORIDE FLUSH 0.9% 10 ML SYRINGE IVP SCH (23:42)
[2020-12-31] MEDS: SODIUM CHLORIDE 0.9% 1,000 ML IV SCH ×3 (01:37→20:27)
[2020-12-31] MEDS: KETOROLAC 15 MG/ML VIAL IVP PRN ×2 (05:13→12:50)
[2020-12-31 06:04] LABS: BASOPHILS % (AUTO) 0.6 %; EOSINOPHILS # (AUTO) 0.1 10^3/uL (0.0-0.7); EOSINOPHILS % (AUTO) 1.9 %; LYMPHOCYTES # (AUTO) 0.4 10^3/uL (1.5-3.5); LYMPHOCYTES % (AUTO) 5.9 %; MEAN CORPUSCULAR HEMOGLOBIN 36.5 pg (27.0-31.0); MEAN CORPUSCULAR HGB CONC 35.3 g/dL (32.0-36.0); MEAN CORPUSCULAR VOLUME 103.3 fL (80.0-94.0); MEAN PLATELET VOLUME 9.2 fL (7.4-11.4); MONOCYTES # (AUTO) 0.9 10^3/uL (0.0-1.0); MONOCYTES % (AUTO) 12.7 %; NEUTROPHILS # (AUTO) 5.4 10^3/uL (1.5-6.6); NEUTROPHILS % (AUTO) 78.3 %; PLT - PLATELET COUNT 156 10^3/uL (130-450); RED BLOOD COUNT 3.29 10^6/uL (4.70-6.10); RED CELL DISTRIBUTION WIDTH 14.7 % (12.0-15.0); WHITE BLOOD COUNT 6.9 x10^3/uL (4.8-10.8)
[2020-12-31 06:16] LABS: CALCIUM 8.5 mg/dL (8.5-10.3); CREATININE 1.8 mg/dL (0.6-1.2); POTASSIUM 3.3 mmol/L (3.5-5.0)
--- NOTE | 2020-12-31 08:42 | PHARMACY PROGRESS NOTE ---
- Best Possible Medication History Admit Date and Time: 12/30/20 1728 Processed by: Pharmacy Medication History completed: Yes Patient Interview: Completed Secondary Source(s): Written medication list (PATIENT HAD MEDICATION LIST PRINTED ) As the person ultimately responsible for medication therapy, providers are able to order a medication from an existing home medication list in [facility] via the "Reconcile Routine" prior to Confirmation of that medication by administrative support clerk. Such practice is discouraged except when the physician, in their clinical judgment, deems that a medical need exists for a medication without regard to previous use.
[2020-12-31] MEDS ORDERED: CYCLOBENZAPRINE 10 MG TABLET PO ONE ×2 (08:43→21:00)
[2020-12-31] MEDS: ENOXAPARIN 40 MG/0.4 ML SYRINGE SUBQ SCH (09:16)
[2020-12-31] MEDS: SODIUM CHLORIDE FLUSH 0.9% 10 ML SYRINGE IVP SCH ×3 (09:18→23:18)
[2020-12-31 16:05] LABS: CALCIUM 8.4 mg/dL (8.5-10.3); CREATININE 1.7 mg/dL (0.6-1.2); POTASSIUM 3.4 mmol/L (3.5-5.0)
--- NOTE | 2020-12-31 16:19 | PROVIDER PROGRESS NOTE ---
Subjective - Prog Note Date Prog Note Date: 12/31/20 Prog Note Time: 16:17 (seen ~ 8am and ~ 3pm) - Subjective Pt reports feeling: Improved (muscles at front of neck quite sore from the most recent fall w/ head strike Denies that his breathing is any different than usual re shallow resps, denies restrictive lung disease after XRT for CA lung. "they dont know what it is", eating, no WELCH, no nausea) Current Medications - Current Medications Current Medications: Active Medications Generic Name Dose Route Start Last Admin Trade Name Freq PRN Reason Stop Dose Admin Enoxaparin Sodium 40 mg 12/31/20 09:00 12/31/20 09:16 Enoxaparin 40 Mg/0.4 Ml Syringe SUBQ 40 mg DAILY FLOWER Administration Sodium Chloride 1,000 mls @ 100 mls/hr 12/30/20 18:00 12/31/20 11:17 Normal Saline 0.9% IV 100 mls/hr .Q10H FLOWER Administration Ketorolac Tromethamine 15 mg 12/30/20 20:44 12/31/20 12:50 Ketorolac 15 Mg/Ml Vial IVP 15 mg Q6HR PRN Administration PAIN Ondansetron HCl 4 mg 12/30/20 17:28 Ondansetron Odt 4 Mg Tablet TL Q6HR PRN Nausea / Vomiting Ondansetron HCl 4 mg 12/30/20 17:28 Ondansetron 4 Mg/2 Ml Vial IVP Q6HR PRN Nausea / Vomiting Potassium Chloride 40 meq 12/31/20 16:30 Potassium Chloride 20 Meq Tablet PO 01/01/21 08:01 0800,1630 FLOWER Sodium Chloride 10 ml 12/30/20 17:28 12/30/20 21:05 Sodium Chloride Flush 0.9% 10 Ml Syringe IVP 10 ml PRN PRN Administration NEEDED PER PROVIDER ORDERS Sodium Chloride 10 ml 12/31/20 01:00 12/31/20 09:18 Sodium Chloride Flush 0.9% 10 Ml Syringe IVP Not Given 0100,0900,1700 FLOWER Rosuvastatin Calcium [Crestor] 10 mg PO DAILY 06/07/15 Omeprazole 20 mg PO QPM 04/24/19 Eplerenone [Inspra] 25 mg PO BID 12/30/20 Gabapentin [Neurontin] 300 mg PO HS 12/30/20 allopurinoL [Zyloprim] 100 mg PO DAILY 12/30/20 Bumetanide [Bumex] 0.5 mg PO BID 12/31/20 metOLazone [Zaroxolyn] 2.5 mg PO MOWEFR 12/31/20 Objective - Vital Signs/Intake & Output Reviewed Vital Signs: Yes Vital Signs: reviewed this morning and recheked this afternoon when 82/51 noted Recheck SBP 91 Vital Signs x48h Temp Pulse Pulse Resp BP Pulse Ox 12/31/20 16:15 36.5 C 82 18 91/58 L 94 12/31/20 14:20 93 12/31/20 13:55 36.6 C 86 16 82/51 L 12/31/20 12:22 87 L 12/31/20 09:00 36.6 C 88 95/63 93 12/31/20 08:22 94 Intake & Output: Intake & Output 12/28/20 12/29/20 12/30/20 12/31/20 23:59 23:59 23:59 23:59 Intake Total 489.087 7221.000 Output Total 100 250 Balance 482.126 9126.000 - Objective General Appearance: positive: No acute distress, Other (somewhat flat affect but pleasant, just seems discouraged) Eyes Bilateral: positive: Normal inspection, Other (wearing glasses) Neck: positive: Other (using neck support (like a travel pillow)) Respiratory: positive: Chest non-tender, No respiratory distress, Breath sounds nml, Other (shallow resps but unlabored, no cought). negative: Wheezes, Rales, Rhonchi Cardiovascular: positive: Regular rate & rhythm Abdomen: positive: Nml bowel sounds, No distention Skin: positive: Warm, Dry Extremities: positive: Pedal edema (woody +1 edema/ chronic stasis changes, some dependent rubor) Neurologic/Psychiatric: positive: Oriented x3, Mood/affect nml (just seems a bit flat, and down , but pleasant, cooperative, appropriate) - Lab Results Fish Bones: 01/01/21 06:10 01/02/21 05:29 Other Labs: Lab Results x24hrs 12/31/20 12/31/20 12/31/20 Range/Units 15:50 05:57 05:57 WBC 6.9 (4.8-10.8) x10^3/uL RBC 3.29 L (4.70-6.10) 10^6/uL Hgb 12.0 L (14.0-18.0) g/dL Hct 34.0 L (42.0-52.0) % MCV 103.3 H (80.0-94.0) fL MCH 36.5 H (27.0-31.0) pg MCHC 35.3 (32.0-36.0) g/dL RDW 14.7 (12.0-15.0) % Plt Count 156 (130-450) 10^3/uL MPV 9.2 (7.4-11.4) fL Neut # (Auto) 5.4 (1.5-6.6) 10^3/uL Lymph # (Auto) 0.4 L (1.5-3.5) 10^3/uL Stanton # (Auto) 0.9 (0.0-1.0) 10^3/uL Eos # (Auto) 0.1 (0.0-0.7) 10^3/uL Baso # (Auto) 0.0 (0.0-0.1) 10^3/uL Absolute Nucleated RBC 0.00 x10^3/uL Nucleated RBC % 0.0 /100WBC Sodium 123 L 123 L (135-145) mmol/L Potassium 3.4 L 3.3 L (3.5-5.0) mmol/L Chloride 82 L 80 L* (101-111) mmol/L Carbon Dioxide 28 30 (21-32) mmol/L Anion Gap 13.0 13.0 (6-13) BUN 37 H 37 H (6-20) mg/dL Creatinine 1.7 H 1.8 H (0.6-1.2) mg/dL Estimated GFR (MDRD) 40 L 37 L (>89) Glucose 115 H 117 H (70-100) mg/dL Calcium 8.4 L 8.5 (8.5-10.3) mg/dL Magnesium (1.7-2.8) mg/dL Total Bilirubin (0.2-1.0) mg/dL AST (10-42) IU/L ALT (10-60) IU/L Alkaline Phosphatase (42-121) IU/L Total Protein (6.7-8.2) g/dL Albumin (3.2-5.5) g/dL Globulin (2.1-4.2) g/dL Albumin/Globulin Ratio (1.0-2.2) Lipase (22-51) U/L Urine Sodium mmol/L Nasal Adenovirus (PCR) Nasal B. parapertussis DNA (PCR) Nasal Coronavir 229E PCR Nasal Coronavir HKU1 PCR Nasal Coronavir NL63 PCR Nasal Coronavir OC43 PCR Nasal Enterovir/Rhinovir PCR Nasal Influenza B PCR Nasal Influenza A PCR Nasal Parainfluen 1 PCR Nasal Parainfluen 2 PCR Nasal Parainfluen 3 PCR Nasal Parainfluen 4 PCR Nasal RSV (PCR) Nasal B.pertussis DNA PCR Nasal C.pneumoniae (PCR) Aguilar Human Metapneumo PCR Nasal M.pneumoniae (PCR) Nasal SARS-CoV-2 (PCR) Ethyl Alcohol mg/dL 12/30/20 12/30/20 12/30/20 Range/Units 23:03 22:00 17:32 WBC (4.8-10.8) x10^3/uL RBC (4.70-6.10) 10^6/uL Hgb (14.0-18.0) g/dL Hct (42.0-52.0) % MCV (80.0-94.0) fL MCH (27.0-31.0) pg MCHC (32.0-36.0) g/dL RDW (12.0-15.0) % Plt Count (130-450) 10^3/uL MPV (7.4-11.4) fL Neut # (Auto) (1.5-6.6) 10^3/uL Lymph # (Auto) (1.5-3.5) 10^3/uL Stanton # (Auto) (0.0-1.0) 10^3/uL Eos # (Auto) (0.0-0.7) 10^3/uL Baso # (Auto) (0.0-0.1) 10^3/uL Absolute Nucleated RBC x10^3/uL Nucleated RBC % /100WBC Sodium 118 L* (135-145) mmol/L Potassium 3.0 L (3.5-5.0) mmol/L Chloride 74 L* (101-111) mmol/L Carbon Dioxide 32 (21-32) mmol/L Anion Gap 12.0 (6-13) BUN 37 H (6-20) mg/dL Creatinine 1.8 H (0.6-1.2) mg/dL Estimated GFR (MDRD) 37 L (>89) Glucose 123 H (70-100) mg/dL Calcium 8.3 L (8.5-10.3) mg/dL Magnesium (1.7-2.8) mg/dL Total Bilirubin (0.2-1.0) mg/dL AST (10-42) IU/L ALT (10-60) IU/L Alkaline Phosphatase (42-121) IU/L Total Protein (6.7-8.2) g/dL Albumin (3.2-5.5) g/dL Globulin (2.1-4.2) g/dL Albumin/Globulin Ratio (1.0-2.2) Lipase (22-51) U/L Urine Sodium < 12.0 mmol/L Nasal Adenovirus (PCR) NOT DETECTED Nasal B. parapertussis DNA (PCR) NOT DETECTED Nasal Coronavir 229E PCR NOT DETECTED Nasal Coronavir HKU1 PCR NOT DETECTED Nasal Coronavir NL63 PCR NOT DETECTED Nasal Coronavir OC43 PCR NOT DETECTED Nasal Enterovir/Rhinovir PCR NOT DETECTED Nasal Influenza B PCR NOT DETECTED Nasal Influenza A PCR NOT DETECTED Nasal Parainfluen 1 PCR NOT DETECTED Nasal Parainfluen 2 PCR NOT DETECTED Nasal Parainfluen 3 PCR NOT DETECTED Nasal Parainfluen 4 PCR NOT DETECTED Nasal RSV (PCR) NOT DETECTED Nasal B.pertussis DNA PCR NOT DETECTED Nasal C.pneumoniae (PCR) NOT DETECTED Aguilar Human Metapneumo PCR NOT DETECTED Nasal M.pneumoniae (PCR) NOT DETECTED Nasal SARS-CoV-2 (PCR) NOT DETECTED Ethyl Alcohol mg/dL 12/30/20 12/30/20 Range/Units 16:34 16:34 WBC 5.8 (4.8-10.8) x10^3/uL RBC 3.53 L (4.70-6.10) 10^6/uL Hgb 12.9 L (14.0-18.0) g/dL Hct 36.0 L (42.0-52.0) % MCV 102.0 H (80.0-94.0) fL MCH 36.5 H (27.0-31.0) pg MCHC 35.8 (32.0-36.0) g/dL RDW 14.6 (12.0-15.0) % Plt Count 168 (130-450) 10^3/uL MPV 8.6 (7.4-11.4) fL Neut # (Auto) 4.5 (1.5-6.6) 10^3/uL Lymph # (Auto) 0.5 L (1.5-3.5) 10^3/uL Stanton # (Auto) 0.6 (0.0-1.0) 10^3/uL Eos # (Auto) 0.1 (0.0-0.7) 10^3/uL Baso # (Auto) 0.0 (0.0-0.1) 10^3/uL Absolute Nucleated RBC 0.00 x10^3/uL Nucleated RBC % 0.0 /100WBC Sodium 120 L* (135-145) mmol/L Potassium 2.6 L (3.5-5.0) mmol/L Chloride 72 L* (101-111) mmol/L Carbon Dioxide 35 H (21-32) mmol/L Anion Gap 13.0 (6-13) BUN 35 H (6-20) mg/dL Creatinine 1.7 H (0.6-1.2) mg/dL Estimated GFR (MDRD) 40 L (>89) Glucose 177 H (70-100) mg/dL Calcium 8.9 (8.5-10.3) mg/dL Magnesium 2.1 (1.7-2.8) mg/dL Total Bilirubin 1.6 H (0.2-1.0) mg/dL AST 28 (10-42) IU/L ALT 21 (10-60) IU/L Alkaline Phosphatase 66 (42-121) IU/L Total Protein 7.2 (6.7-8.2) g/dL Albumin 3.7 (3.2-5.5) g/dL Globulin 3.5 (2.1-4.2) g/dL Albumin/Globulin Ratio 1.1 (1.0-2.2) Lipase 34 (22-51) U/L Urine Sodium mmol/L Nasal Adenovirus (PCR) Nasal B. parapertussis DNA (PCR) Nasal Coronavir 229E PCR Nasal Coronavir HKU1 PCR Nasal Coronavir NL63 PCR Nasal Coronavir OC43 PCR Nasal Enterovir/Rhinovir PCR Nasal Influenza B PCR Nasal Influenza A PCR Nasal Parainfluen 1 PCR Nasal Parainfluen 2 PCR Nasal Parainfluen 3 PCR Nasal Parainfluen 4 PCR Nasal RSV (PCR) Nasal B.pertussis DNA PCR Nasal C.pneumoniae (PCR) Aguilar Human Metapneumo PCR Nasal M.pneumoniae (PCR) Nasal SARS-CoV-2 (PCR) Ethyl Alcohol < 5.0 mg/dL Sepsis Event Note (H) - Evaluation Current Stage of Sepsis: Ruled out Assessment/Plan - Problem List (1) Hyponatremia Impression: 1Hypovolemic Hyponatremia, related to Zaroxyln which was added to his diuretic regimen last week for LE edema, very recent decline in NA was . Not chronic. Orthostatic on presentation (and at home ) c/w volume depletion 120 in ED>>118 9after 1L NS in ED()>> 123,>>123 this afternoon No WELCH, no nausea, no MS changes, or acute neurologic findings continue gentle replacement of volume at 100/hr recheck in AM, would like to see 130 before d/c (2) Hypokalemia 3.3 today after IV 40 and PO 40 yesterday for K 2.6 r/t zaroxyln continue PO repletion 40 meq x 2 more d/c tele (3) Fall at home w/ mild head contusion r/t orthostasis , subjective lightheadednes due to volume depletion as above CT head negative still somewhat orthostatic tryng to minimize flexeril if contributing to low bp Pt declines PT A+D, bacitracin to minor wound interestingly patient had VERY similar admit 04/24- 04/26 this year (6) Acute renal failure Likely due to overdiuresis; Baseline ~ 1.5 September and November of 2020. 37/1.7 today continue IV volume repletion recheck in am holding diuretics With similar admit 04/24/21; was Dx'd as cardiorenal falure (7) Congestive heart failure chronic/ HFpEF Stable 2018 EF here at [facility] 70% Followed w/ q 3 mos telehealth visits w/ cardioologist On Crestor, eplerenone, bumex at home and ASA at home (antihypertensives on hold (8) Dyspnea Chronic; He denies XRT restrictive lung disease re: his shallow resps; No PfTs available Reports this is baseline for him for the last 6 years and attributes it to past cardiac surgery. On CPAP qpm at home (did not bring with him) supplemental oxygen at home / rarely uses. ( Has not been hypoxic here. Will continue to monitor. (9) Lung cancer Conclusion/Plan: S/p chemo and radiation 2019 at [facility] per his report. Believes he is due for another CT scan for evaluation soon. He should follow up with his outpatient oncologist after discharge. (10) CAD w/ Hx of CABG and Aortic Valve (porcine ) replacement s/p CABG and porcine AoV 2013 stable; continue ASA,
[2020-12-31] MEDS: POTASSIUM CHLORIDE 20 MEQ TABLET PO SCH (16:34)
[2020-12-31] MEDS: ATORVASTATIN 10 MG TABLET PO SCH (20:23)
[2020-12-31] MEDS: PANTOPRAZOLE 40 MG TABLET PO SCH (20:23)
[2020-12-31] MEDS: GABAPENTIN 300 MG CAPSULE PO SCH (20:24)
[2021-01-01] MEDS ORDERED: oxyCODONE 5 MG TABLET PO PRN (01:15)
[2021-01-01] MEDS: SODIUM CHLORIDE 0.9% 1,000 ML IV SCH ×2 (06:00→15:34)
[2021-01-01 06:21] LABS: BASOPHILS % (AUTO) 0.6 %; EOSINOPHILS # (AUTO) 0.1 10^3/uL (0.0-0.7); EOSINOPHILS % (AUTO) 1.9 %; HCT - HEMATOCRIT 32.7 % (42.0-52.0); HGB - HEMOGLOBIN 11.2 g/dL (14.0-18.0); LYMPHOCYTES # (AUTO) 0.5 10^3/uL (1.5-3.5); LYMPHOCYTES % (AUTO) 7.5 %; MEAN CORPUSCULAR HEMOGLOBIN 36.1 pg (27.0-31.0); MEAN CORPUSCULAR HGB CONC 34.3 g/dL (32.0-36.0); MEAN CORPUSCULAR VOLUME 105.5 fL (80.0-94.0); MEAN PLATELET VOLUME 9.4 fL (7.4-11.4); MONOCYTES % (AUTO) 14.3 %; NEUTROPHILS # (AUTO) 5.4 10^3/uL (1.5-6.6); NEUTROPHILS % (AUTO) 74.9 %; PLT - PLATELET COUNT 156 10^3/uL (130-450); RED CELL DISTRIBUTION WIDTH 15.3 % (12.0-15.0); WHITE BLOOD COUNT 7.2 x10^3/uL (4.8-10.8)
[2021-01-01 06:27] LABS: CALCIUM 8.4 mg/dL (8.5-10.3); CREATININE 1.6 mg/dL (0.6-1.2); POTASSIUM 3.5 mmol/L (3.5-5.0)
[2021-01-01] MEDS: POTASSIUM CHLORIDE 20 MEQ TABLET PO SCH (07:55)
[2021-01-01] MEDS ORDERED: OXYMETAZOLINE HCL 100 SPRAYS BOTTLE NAS PRN ×2 (08:06→10:02)
[2021-01-01] MEDS ORDERED: SODIUM CHLORIDE 0.9% 1,000 ML IV SCH (08:07)
[2021-01-01] MEDS ORDERED: CETIRIZINE 10 MG TABLET PO SCH (09:00)
--- NOTE | 2021-01-01 09:10 | PROVIDER PROGRESS NOTE ---
Subjective - Prog Note Date Prog Note Date: 01/01/21 Prog Note Time: 08:00 - Subjective Pt reports feeling: Improved (slept well last pm, got a flexeril and an oxycodone before bed Is most bothered by his nasal congestion, uses ipatroprium bromde nasal spray and zyrtec like agent at home Seen again ~ 3pm; feeling anxious about being home, does have friend who can stay with him has walker) Current Medications - Current Medications Current Medications: Active Medications Generic Name Dose Route Start Last Admin Trade Name Freq PRN Reason Stop Dose Admin Aspirin 81 mg 01/01/21 09:00 Aspirin Ec 81 Mg Tablet PO DAILY FLOWER Atorvastatin Calcium 20 mg 12/31/20 21:00 12/31/20 20:23 Atorvastatin 10 Mg Tablet PO 20 mg QPM FLOWER Administration Cetirizine HCl 10 mg 01/01/21 09:00 Cetirizine 10 Mg Tablet PO DAILY FLOWER Enoxaparin Sodium 40 mg 12/31/20 09:00 12/31/20 09:16 Enoxaparin 40 Mg/0.4 Ml Syringe SUBQ 40 mg DAILY FLOWER Administration Gabapentin 300 mg 12/31/20 21:00 12/31/20 20:24 Gabapentin 300 Mg Capsule PO 300 mg HS FLOWER Administration Sodium Chloride 1,000 mls @ 125 mls/hr 01/01/21 08:07 Normal Saline 0.9% IV .Q8H FLOWER Ondansetron HCl 4 mg 12/30/20 17:28 Ondansetron Odt 4 Mg Tablet TL Q6HR PRN Nausea / Vomiting Ondansetron HCl 4 mg 12/30/20 17:28 Ondansetron 4 Mg/2 Ml Vial IVP Q6HR PRN Nausea / Vomiting Oxycodone HCl 5 mg 01/01/21 01:15 01/01/21 01:27 Oxycodone 5 Mg Tablet PO 5 mg Q4HR PRN Administration PAIN Oxymetazoline HCl 2 sprays 01/01/21 08:06 Oxymetazoline Hcl 100 Sprays Bottle ANTHONY BID PRN Nasal Congestion Pantoprazole Sodium 40 mg 12/31/20 21:00 12/31/20 20:23 Pantoprazole 40 Mg Tablet PO 40 mg QPM FLOWER Administration Sodium Chloride 10 ml 12/30/20 17:28 12/30/20 21:05 Sodium Chloride Flush 0.9% 10 Ml Syringe IVP 10 ml PRN PRN Administration NEEDED PER PROVIDER ORDERS Sodium Chloride 10 ml 12/31/20 01:00 12/31/20 23:18 Sodium Chloride Flush 0.9% 10 Ml Syringe IVP Not Given 0100,0900,1700 FLOWER Rosuvastatin Calcium [Crestor] 10 mg PO DAILY 06/07/15 Omeprazole 20 mg PO QPM 04/24/19 Eplerenone [Inspra] 25 mg PO BID 12/30/20 Gabapentin [Neurontin] 300 mg PO HS 12/30/20 allopurinoL [Zyloprim] 100 mg PO DAILY 12/30/20 Bumetanide [Bumex] 0.5 mg PO BID 12/31/20 metOLazone [Zaroxolyn] 2.5 mg PO MOWEFR 12/31/20 Objective - Vital Signs/Intake & Output Reviewed Vital Signs: Yes Vital Signs: Vital Signs x48h Temp Pulse Pulse Resp BP Pulse Ox 01/01/21 08:59 37.1 C 89 19 93 01/01/21 07:30 37.1 C 101 H 16 96/61 92 01/01/21 05:00 36.4 C L 107 H 20 119/66 93 Intake & Output: Intake & Output 12/29/20 12/30/20 12/31/20 01/01/21 23:59 23:59 23:59 23:59 Intake Total 461.205 8465.667 1005 Output Total 100 450 325 Balance 724.587 0734.667 680 - Objective General Appearance: positive: No acute distress, Alert, Other (sitting up in chair to have breakfast, looks less uncomfortable than yesterday) Eyes Bilateral: positive: Normal inspection, Other (glasses) Respiratory: positive: Breath sounds nml. negative: No respiratory distress (No respiratory distress but shallow resps he reports as norm), Wheezes, Rales Cardiovascular: positive: Regular rate & rhythm, No murmur Abdomen: positive: Nml bowel sounds, No distention Skin: positive: Warm, Dry Extremities: positive: Pedal edema (woody edema bilateral LE, no gross edema) Neurologic/Psychiatric: positive: Oriented x3, Sensation nml, Mood/affect nml (somewhat flat discouraged affect in afternoon) - Lab Results Fish Bones: 01/01/21 06:10 01/02/21 05:29 Other Labs: Lab Results x24hrs 01/01/21 01/01/21 12/31/20 Range/Units 06:10 06:10 15:50 WBC 7.2 (4.8-10.8) x10^3/uL RBC 3.10 L (4.70-6.10) 10^6/uL Hgb 11.2 L (14.0-18.0) g/dL Hct 32.7 L (42.0-52.0) % MCV 105.5 H (80.0-94.0) fL MCH 36.1 H (27.0-31.0) pg MCHC 34.3 (32.0-36.0) g/dL RDW 15.3 H (12.0-15.0) % Plt Count 156 (130-450) 10^3/uL MPV 9.4 (7.4-11.4) fL Neut # (Auto) 5.4 (1.5-6.6) 10^3/uL Lymph # (Auto) 0.5 L (1.5-3.5) 10^3/uL Heard # (Auto) 1.0 (0.0-1.0) 10^3/uL Eos # (Auto) 0.1 (0.0-0.7) 10^3/uL Baso # (Auto) 0.0 (0.0-0.1) 10^3/uL Absolute Nucleated RBC 0.00 x10^3/uL Nucleated RBC % 0.0 /100WBC Sodium 125 L 123 L (135-145) mmol/L Potassium 3.5 3.4 L (3.5-5.0) mmol/L Chloride 86 L 82 L (101-111) mmol/L Carbon Dioxide 27 28 (21-32) mmol/L Anion Gap 12.0 13.0 (6-13) BUN 36 H 37 H (6-20) mg/dL Creatinine 1.6 H 1.7 H (0.6-1.2) mg/dL Estimated GFR (MDRD) 43 L 40 L (>89) Glucose 112 H 115 H (70-100) mg/dL Calcium 8.4 L 8.4 L (8.5-10.3) mg/dL Sepsis Event Note (H) - Evaluation Current Stage of Sepsis: Ruled out Assessment/Plan - Problem List (1) Hyponatremia Impression: 1Hypovolemic Hyponatremia, related to Zaroxyln which was added to his diuretic regimen last week for LE edema, very recent decline in NA was . Not chronic. Orthostatic on presentation (and at home ) c/w volume depletion 120 in ED>>118 9after 1L NS in ED()>> 123,>>123 9/7 pm, 125 today. No WELCH, no nausea, no MS changes, or acute neurologic findings continue volume replacement of volume at 100/hr>> increase rate, will recheck in pm he has never been this low on Na; goal 130 before d/c, (2) Hypokalemia 3.5 todayafter 40 meq last PM (also 1 40 meq this morning) , 3.3 12/31 after IV 40 and PO 40 yesterday for K 2.6 r/t zaroxyln d/c d tele yesterday for initial 2.6 (3) Fall at home w/ mild head contusion r/t orthostasis , subjective lightheadednes due to volume depletion as above CT head negative No longer orthostatic today b BP, sl HR increase! (96/61, 100, 111/69 115 upright) Pt declines PT, has walker at home, aware to change position slowly A+D, bacitracin to minor wound (6) Acute on chronic DAR Improving Likely due to overdiuresis; Baseline ~ 1.5 September and November of 2020. 36/1.6 today 37/1.7 12/31 Cr 1.7-1.8 on admit continue gentle IV volume repletion holding diuretics No more zaroxyln, should be able to resume eplerenone and bumetadine by Wednesday depending on Na tomorrow am With similar admit 04/24/21; was Dx'd as cardiorenal falure (7) Congestive heart failure chronic/ HFpEF Stable 2018 EF here at [facility] 70% Followed w/ q 3 mos telehealth visits w/ cardioologist On Crestor, eplerenone, bumex at home and ASA at home (8) Dyspnea Chronic; w/ shallow resps at baseline He denies XRT restrictive lung disease; No PfTs available Reports this is baseline for him for the last 6 years and attributes it to past cardiac surgery. On CPAP qpm at home (did not bring with him) supplemental oxygen at home / rarely uses. Has not been hypoxic here. Will continue to monitor. (9) Lung cancer Conclusion/Plan: S/p chemo and radiation 2019 at [facility] per his report. Believes he is due for another CT scan for evaluation soon. He should follow up with his ou tpatient oncologist after discharge. (10) CAD w/ Hx of CABG and Aortic Valve (porcine ) replacement s/p CABG and porcine AoV 2013 stable; continue ASA, is on eplerenon at home, still on hold, not on BB
[2021-01-01] MEDS: ASPIRIN EC 81 MG TABLET PO SCH (09:30)
[2021-01-01] MEDS: ENOXAPARIN 40 MG/0.4 ML SYRINGE SUBQ SCH (09:31)
[2021-01-01] MEDS: SODIUM CHLORIDE FLUSH 0.9% 10 ML SYRINGE IVP SCH ×2 (09:34→15:41)
[2021-01-01] MEDS: PANTOPRAZOLE 40 MG TABLET PO SCH (20:12)
[2021-01-01] MEDS: ATORVASTATIN 10 MG TABLET PO SCH (20:12)
[2021-01-01] MEDS: GABAPENTIN 300 MG CAPSULE PO SCH (20:12)
[2021-01-02] MEDS: SODIUM CHLORIDE FLUSH 0.9% 10 ML SYRINGE IVP SCH ×2 (00:09→10:52)
[2021-01-02] MEDS: SODIUM CHLORIDE 0.9% 1,000 ML IV SCH ×2 (01:08→10:51)
[2021-01-02 06:04] LABS: CALCIUM 8.2 mg/dL (8.5-10.3); CREATININE 1.4 mg/dL (0.6-1.2); POTASSIUM 3.4 mmol/L (3.5-5.0)
[2021-01-02] MEDS: ENOXAPARIN 40 MG/0.4 ML SYRINGE SUBQ SCH (08:32)
[2021-01-02] MEDS: ASPIRIN EC 81 MG TABLET PO SCH (08:32)
--- NOTE | 2021-01-02 12:38 | Discharge Plan ---
Discharge Plan Problem Reviewed?: Yes Disposition: Home, Self Care Condition: Stable Diet: Low Sodium Activity Restrictions: Activity as Tolerated Shower Restrictions: No Driving Restrictions: No Assistance Devices: Walker (use the walker you have available for safety until you feel fully safe on your feet) Health Concerns: -Hyponatremia You presented to the hospital on Dec 30 after 2 falls at home that occurred along with light headedness. Of note you had Metalazone (zaroxyln) prescribed last when yurama had increasing lower extremity edema. Also your weight was up to ~ 195 lbs, not responding to your home regimen of bumex and eplerenone. Your sodium which normally is in the mid to upper 130's was only 120 on admission. On exam and lab review you were volume deplete, and orthostatic on admission This was most consistent with hyponatremia due to low volume, but with the neck pain with the fall, possibly there was also a component of SIADH with pain from the fall. Your sodium recovered gradually. 120> 118>>123>>125 and 128 early this morning. IVF continued until midday. Considering it is consistently going in the appropriate direction of recovery, we did not need to check it again before discharge. It is likely ~ 130 now and should continue returning to normal range. If your weight and symptoms permit, try to hold off on your eplerenone and bumetidine until Wednesday If you have no leg edema at all that is likely (for you) a sign you are a bit overdiuresed Continue with your planned telehealth visit with your truck jumper this week. Change position slowly when you resume diuretics You have paper work to go to the lab (can go to [place] [facility]) on Wednesday to have sodium rechecked (BMP) ; result will be called/faxed to Dr. Rivera Continue your best attempt at a low sodium diet (2 gram or as close as possible per your truck jumper) to help with fluid retention Weigh yourself on return home for the most accurate idea of your weight. (you reported a dry weight of 188 lbs) Standing weight here 01/02 was 203lb - Acute kidney injury; prerenal injury Your BUN and Cr were modestly elevated at 37/1.8 on admit; They are back to your baseline on 01/02 29/1.4 Gout; no recent flare You can discuss with Dr Rivera whether to continue Allopurinol vs hold (you inquired about this) Plan of Treatment: REcheck labs on Wednesday (Form given to you on discharge No Smoking: If you smoke, Please STOP! Call for help. Follow-up with: Norman Rivera MD [Primary Care Provider] -
[2021-01-02 13:08] VITALS: BP 92/68
--- NOTE | 2021-01-02 18:04 | DISCHARGE SUMMARY ---
Discharge Summary Admit Date: 12/30/20 Discharge Date: 01/02/21 Discharging Provider: Mona Cabrera Primary Care Provider: Dr Norman Rivera Condition at Discharge: Stable Discharge Disposition: 01 Home, Self Care Discharge [facility] Name[facility] - DIAGNOSES Admission Diagnoses: Hypovolemic Hypnatremia Hypokalemia Fall Head contusion Acute kidney injury Heart Failure preserved EF; chronic History of CABG/Aortic Valve replacement Discharge Diagnoses with Status of Each Condition: Hypovolemic Hypnatremia; related to metalozone addition to home bumex/ resolving Hypokalemia; related to metalozone resolved Fall; related to orthostasis, safe with walker Head contusion; no significant injury Acute kidney injury; mild 1.7 Cr on admit 1.4 on discharge Heart Failure preserved EF; stable, History of CABG/Aortic Valve replacement; stable - HPI History of Present Illness: 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 Per his report, over the past week he has had increased lower extremity edema and a weight gain of 6 pounds not responsive to his normal diuretics at home. He had a prescription for Metazalone, which he had taken once before with good results, which his provider instructed him to take in addition to his regularly scheduled diuretics (Bumide). He took the Metazalone as prescribed on MW of last week, with some resolution of the edema. He noticed that he felt light-headed after taking the Metazalone and fell Wednesday evening, striking his head. He did not present to the ED as he wanted to wait and see if the symptoms resolved. He did have a "mild" headache and neck pain, relieved with tylenol and CBD cream. Today on standing he again noted light- headedness and fell, striking his back. He presented to the ED for evaluation as he continued to feel light-headed and felt he should be evaluated. He denies n/v, fevers, chills or malaise. His main complaint is the light- headedness that led to the falls. Reports he has been orthostatic at home, >20mmHg decrease from sit to stand. In the ER he was found to be hyponatremic and hypokalemic, slightly hypotensive. Denies chest pain or palpitations. Regarding the edema, he reports it has improved. He has a chronically elevated creatinine with baseline of 1.5-1.6 since September per his report. He sees his sales agent business services monthly via telemedicine and his next appointment was scheduled for tomorrow. His last EF was normal per his report, last checked approximately 3 months ago. He was treated for his lung adenocarcinoma with chemo and radiation at [facility] and is due for a repeat CT soon to make sure he is still clear. Last treated in 2019. Reports chronic dyspnea at rest and with exertion and attributes this to cardiac surgery for his aortic stenosis approximately 6 years ago. He uses a CPAP at night but did not bring it with him to the hospital. He does have supplemental oxygen at home but uses it rarely. He will be admitted to the med surg unit for IV hydration and electrolyte monitoring. Pt prefers to be full code at this time. - HOSPITAL COURSE Hospital Course: 1 Hypovolemic Hyponatremia, related to metalozone which was added to his diuretic regimen (bumetadine) last week for LE edema, Orthostatic on presentation (and at home ) consistent with volume depletion No WELCH, no nausea, no MS changes, or acute neurologic findings With IV volume/NS serum sodium was slow to increase serum sodium 120 in ED 12/30 >>118 9after 1L NS in ED()>> 123 9/ am ,>>123 9/ pm, 125 /8 128 / am. On the morning of 01/02 he was feeling improved with no subjective positional light headedness (and also subjectively improved 01/01). His na 01/02 am was 128. IV NS continued til early afternoon discharge. A standing weight before discharge (on OB unit standing scale was 92.3 kg which he reports being over his dry weight He was advised to check his weight on his own scale on return home for consistency If home scale also well above his dry, he can resume his bumex and eplerenone this pm. He has a laboratory order sheet for sodium recheck on Wednesday (2) Hypokalemia 2.6 on admission related to zaroxyln improved with IV and PO repletion 3.4 on discharge; he will resume his eplerenone on d/c and stop zaroxyln as above (#) Orthostatic hypotention resulting in Fall at home w/ mild head contusion r/t intravascular volume depletion , subjective lightheadedness at home, and self checked orthostatics at home CT head no acute findings Orthostasis improved with volume repletion before discharge systolic rechecked; over 100, not subjectively orthostatic (nor via BP) No longer orthostatic today b BP, sl HR increase! (96/61, 100, 111/69 115 upright) Pt declined Physical Therapy evaluation, has walker at home, aware to change position slowly A+D, bacitracin to minor wound (#) Acute on chronic DAR most consistent with mild prerenal state/ overdiuresis; Baseline ~ 1.5 September and November of 2020. 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 On CPAP qpm at home (did not bring with him) supplemental oxygen at home / rarely uses. (April 2019 discharge summary notes 2L at rest 4L with activity. Note; I contacted patient later in the evening after discharge. He indicted on return home he felt dyspneic and needed to use his oxygen. He contacted his sales agent business services, and is considering going to the ED tomorrow if he does not feel improved. He had not yet weighed himself, but was advised to resume the bumex/eplerenone with the PM dosing and certainly to go to ED if dyspnea not improved with his home oxygen or if not improved w/ bumex/eplerenone resumption. (#) CAD w/ Hx of CABG and Aortic Valve (porcine ) replacement s/p CABG and porcine AoV 2013 Patient has close follow up with his sales agent business services via monthly telemedicine stable; continue ASA, is on eplerenon at home, still on hold, not on BB # Gout; patient has history of gout, evidently only one episode in past when was overdiuresed He is inquiring whether he really needs the allopurinol Advised he could discuss with his PCP, but in the interest of fewer pills, that is an option to not take (and if a gout flare occurs that will direct the decision to resume - ALLERGIES Allergies/Adverse Reactions: Allergies Allergy/AdvReac Type Severity Reaction Status Date / Time acetaminophen [From Tylenol] Allergy Rash Verified 12/30/20 15:56 - MEDICATIONS Home Medications: Ambulatory Orders Medication Instructions Recorded Confirmed Rosuvastatin Calcium [Crestor] 10 mg PO DAILY 06/07/15 12/30/20 Omeprazole 20 mg PO QPM 04/24/19 12/30/20 Aspirin [Aspirin EC] 81 mg PO DAILY #30 tablet. 04/26/19 12/30/20 Eplerenone [Inspra] 25 mg PO BID 12/30/20 12/31/20 Gabapentin [Neurontin] 300 mg PO HS 12/30/20 12/31/20 allopurinoL [Zyloprim] 100 mg PO DAILY 12/30/20 12/31/20 Bumetanide [Bumex] 0.5 mg PO BID 12/31/20 12/31/20 - PHYSICAL EXAM AT DISCHARGE General Appearance: positive: No acute distress, Alert, Other (flat affect, reports yesterday and today feeling much better, wants to go home, " I diuresed well last night") Eyes Bilateral: positive: Normal inspection, Other (glasses) Respiratory: positive: Breath sounds nml (shallow resps as per his baseline on 2L, no cough, no adventitious sounds) Cardiovascular: positive: Regular rate & rhythm, No murmur, Other (BP rechecked late afternoon, SBP 102, ) Skin: positive: Warm, Dry Extremities: positive: Pedal edema (feet and shins had had wrinkled appearance, today non pitting edema; IVF stopped today) Neurologic/Psychiatric: positive: Oriented x3, Depressed mood/affect (somewhat flat affect, notes felt better yesterday and today compared with admit) - LABS Result Diagrams: 01/01/21 06:10 01/02/21 05:29 - DIAGNOSTIC IMAGING Diagnostic Imaging Results: Final report reviewed Diagnostic Imaging Results Comments: Head CT 12/30; no acute abnormality C spine CT 12/30; no fracture or dislocation - SEPSIS Current Stage of Sepsis: Ruled out - FOLLOW UP Follow Up: Sodium lab check on Wednesday; form given to patient Follow up with cardiology as per routine, and for advisement given metalozone not an option Patient has oncology follow up scheduled - TIME SPENT Time Spent in Discharge (Minutes): 35
== END 2021-01-02 14:52 | disposition home or self-care (01) | DRG 641 ==
LOC: ED 15:52 → MS2 17:28 → UNDOADMIN 17:28
PROVIDERS: ADMIT Registered Nurse; ATTEND Nurse Practitioner
DX: E87.1 Hypo-osmolality and hyponatremia (principal); N17.9 Acute kidney failure, unspecified; I50.32 Chronic diastolic (congestive) heart failure; R55 Syncope and collapse; Y92.9 Unspecified place or not applicable; T50.2X5A Adverse effect of carbonic-anhydrase inhibitors, benzothiadiazides and other diuretics, initial encounter; E87.6 Hypokalemia; E86.1 Hypovolemia; Z20.822 Contact with and (suspected) exposure to COVID-19; I95.1 Orthostatic hypotension; S00.03XA Contusion of scalp, initial encounter; W18.30XA Fall on same level, unspecified, initial encounter; Z91.81 History of falling; Y92.009 Unspecified place in unspecified non-institutional (private) residence as the place of occurrence of the external cause; M54.2 Cervicalgia; N18.9 Chronic kidney disease, unspecified; Z85.118 Personal history of other malignant neoplasm of bronchus and lung; I25.10 Atherosclerotic heart disease of native coronary artery without angina pectoris; Z95.1 Presence of aortocoronary bypass graft; Z95.4 Presence of other heart-valve replacement; M10.9 Gout, unspecified; R06.09 Other forms of dyspnea; N40.0 Benign prostatic hyperplasia without lower urinary tract symptoms; Z87.891 Personal history of nicotine dependence; Z99.81 Dependence on supplemental oxygen; R06.02 Shortness of breath
CPT/HCPCS: 36415; 70450; 72125; 80048; 80053; 83690; 83735; 84300; 85025; 87631; 93005; 96374; 99284; 99285; A9270; G0480; J1650; 0202U; 80320

== ENCOUNTER 2021-01-14 10:19 | Outpatient (CLI) | payer MEDICARE, OTHER ==
[2021-01-14 18:47] LABS: CALCIUM 9.6 mg/dL (8.5-10.3); CREATININE 1.5 mg/dL (0.6-1.2); POTASSIUM 3.8 mmol/L (3.5-5.0)
[2021-01-14 20:28] LABS: ESTIMATED AVERAGE GLUCOSE 120 mg/dL (70-100); HEMOGLOBIN A1c% 5.8 % (4.27-6.07)
== END 2021-01-14 23:59 | disposition home or self-care (01) ==
LOC: LAB.WCP 10:19
PROVIDERS: ATTEND Internal Medicine
DX: M10.9 Gout, unspecified (principal); R73.03 Prediabetes
CPT/HCPCS: 36415; 80048; 83036; 84550

== ENCOUNTER 2021-02-14 10:20 | Outpatient (CLI) | payer MEDICARE, OTHER ==
[2021-02-14 12:25] LABS: CALCIUM 10.1 mg/dL (8.5-10.3); CREATININE 1.7 mg/dL (0.6-1.2)
== END 2021-02-14 23:59 | disposition home or self-care (01) ==
LOC: LAB.WCP 10:20
PROVIDERS: ATTEND Internal Medicine Cardiovascular Disease
DX: R06.02 Shortness of breath (principal)
CPT/HCPCS: 36415; 80048; 83880

== ENCOUNTER 2021-09-11 14:42 | Outpatient (CLI) | payer MEDICARE, OTHER ==
--- NOTE | 2021-09-11 16:16 | XRAY Report ---
PROCEDURE: Thoracic Spine 3 View INDICATIONS: PAIN IN RIGHT SHOULDER TECHNIQUE: 3 views of the thoracic spine were acquired. COMPARISON: None. FINDINGS: Bones: No fractures or dislocations. Multilevel degenerative changes of the upper thoracic spine. N o suspicious bony lesions. 12 pairs of ribs are noted, and appear intact where visualized. Status p ost median sternotomy and CABG. The aorta has atherosclerotic calcifications. No compression fracture . Soft tissues: No paravertebral stripe thickening. IMPRESSION: 1. Degenerative changes of the upper thoracic spine. 2. No acute abnormality. Reviewed by: [place] To on 09/11/2021 4:15 PM PDT Approved by: [place] To on 09/11/2021 4:15 PM PDT Station ID: [id number]
--- NOTE | 2021-09-11 17:04 | XRAY Report ---
PROCEDURE: Scapula 2 View RT INDICATIONS: PAIN IN RIGHT SHOULDER TECHNIQUE: 2 views of the scapula were acquired. COMPARISON: None FINDINGS: Bones: No fractures or dislocations. No suspicious bony lesions. Visualized ribs appear intact. Mo derate acromioclavicular joint and glenohumeral joint osteoarthritis. Soft tissues: Overlying soft tissues appear normal. Staple line noted in the periphery of the right midlung. IMPRESSION: No fracture. No acute osseous lesion. If symptoms and/or clinical concern for pathology persists, fur ther assessment with repeat plain film radiographs (7-10 days) or advanced imaging (CT, MR, bone scan ) should be considered. Moderate acromioclavicular joint and glenohumeral joint osteoarthritis. Reviewed by: Payal Gomez MD, PhD on 09/11/2021 5:02 PM PDT Approved by: Payal Gomez MD, PhD on 09/11/2021 5:02 PM PDT Station ID: [id number]
== END 2021-09-11 23:59 | disposition home or self-care (01) ==
LOC: DI.N 14:42
PROVIDERS: ATTEND Physician Assistant Medical
DX: M25.511 Pain in right shoulder (principal); M47.814 Spondylosis without myelopathy or radiculopathy, thoracic region

== ENCOUNTER 2022-06-22 12:15 | Emergency (ER) | payer MEDICARE, OTHER ==
[2022-06-22 12:29] VITALS: BP 121/71
[2022-06-22] MEDS ORDERED: IPRATROPIUM/ALBUTEROL 3 ML NEB INH STA (13:11)
--- NOTE | 2022-06-22 13:15 | ED Physician Documentation ---
History of Present Illness - Stated complaint Stated Complaint: SOA - Chief complaint Chief Complaint: Resp - History obtained from History obtained from: Patient - History of Present Illness Pain level max: 0 Pain level now: 0 - Additonal information Additional information: Patient is a 77-year-old male who presents to the emergency department with increasing dyspnea over the past 1 week. He uses oxygen intermittently at home. Usually 2 L. He states that he had increased breathing difficulty over the past 2 weeks, he saw his char filter operator who did a chest CT and did not see any acute changes. Possible viral syndrome? No fevers. No chills. Does have a history of heart failure, but is not having any edema. He states very minimal if any coughing. No sore throat. He is not currently on any nebulizers at home. No abdominal pain, nausea, vomiting. Review of Systems Constitutional: denies: Fever GI: denies: Vomiting, Diarrhea Musculoskeletal: denies: Neck pain, Back pain Neurologic: denies: Headache PD PAST MEDICAL HISTORY - Past Medical History Cardiovascular: Congestive heart failure, High cholesterol, Coronary artery disease, Murmur, Valve disorder Respiratory: Shortness of breath Neuro: None Endocrine/Autoimmune: None GI: GERD : Benign prostate hypertrophy, Other HEENT: None Psych: None Musculoskeletal: None Derm: None - Past Surgical History Past Surgical History: Yes General: Appendectomy Cardiovascular: CABG, Valve replacement HEENT: Cataracts - Present Medications Home Medications: Ambulatory Orders Medication Instructions Recorded Confirmed Rosuvastatin Calcium [Crestor] 10 mg PO DAILY 06/07/15 12/30/20 Omeprazole 20 mg PO QPM 04/24/19 12/30/20 Aspirin [Aspirin EC] 81 mg PO DAILY #30 tablet. 04/26/19 12/30/20 Eplerenone [Inspra] 25 mg PO BID 12/30/20 12/31/20 Gabapentin [Neurontin] 300 mg PO HS 12/30/20 12/31/20 allopurinoL [Zyloprim] 100 mg PO DAILY 12/30/20 12/31/20 Bumetanide [Bumex] 0.5 mg PO BID 12/31/20 12/31/20 - Allergies Allergies/Adverse Reactions: Allergies Allergy/AdvReac Type Severity Reaction Status Date / Time acetaminophen [From Tylenol] Allergy Rash Verified 12/30/20 15:56 - Social History Does the pt smoke?: No Smoking Status: Former smoker Does the pt drink ETOH?: Yes Does the pt have substance abuse?: No - Immunizations Immunizations are current?: Yes - POLST Patient has POLST: No POLST Status: Full Code PD ED PE NORMAL - Vitals Vital signs reviewed: Yes - General General: Alert and oriented X 3, No acute distress - HEENT HEENT: Moist mucous membranes - Neck Neck: Supple, no meningeal sign - Cardiac Cardiac: RRR, Strong equal pulses - Respiratory Respiratory: No respiratory distress, Clear bilaterally - Abdomen Abdomen: Soft, Non tender, Non distended - Derm Derm: Warm and dry - Extremities Extremities: No edema, No calf tenderness / cord - Neuro Neuro: Alert and oriented X 3 - Psych Psych: Normal mood, Normal affect Results - Vitals Vitals: Vital Signs - 24 hr 06/22/22 06/22/22 06/22/22 12:23 12:48 14:11 Temperature 36.5 C Heart Rate 95 83 Respiratory 22 20 Rate Blood Pressure 121/71 O2 Saturation 99 100 If not protocol 2 : Oxygen Flow, liters/minute 06/22/22 14:38 Temperature Heart Rate Respiratory Rate Blood Pressure O2 Saturation 100 If not protocol 2 : Oxygen Flow, liters/minute Oxygen O2 Source Nasal cannula Oxygen Flow Rate 2 - Labs Labs: Laboratory Tests 06/22/22 06/22/22 06/22/22 13:19 13:24 13:24 WBC 5.7 RBC 3.80 L Hgb 13.2 L Hct 40.0 L MCV 105.3 H MCH 34.7 H MCHC 33.0 RDW 13.1 Plt Count 180 MPV 9.5 Neut # (Auto) 3.5 Lymph # (Auto) 1.0 L [place] # (Auto) 1.0 Eos # (Auto) 0.1 Baso # (Auto) 0.1 Absolute Nucleated RBC 0.00 Nucleated RBC % 0.0 Sodium 131 L Potassium 3.9 Chloride 87 L Carbon Dioxide 34 H Anion Gap 10.0 BUN 40 H Creatinine 1.5 H Estimated GFR (MDRD) 46 L Glucose 105 H Calcium 9.2 Total Bilirubin 0.8 AST 42 ALT 48 Alkaline Phosphatase 80 B-Natriuretic Peptide Total Protein 7.5 Albumin 3.7 Globulin 3.8 Albumin/Globulin Ratio 1.0 Nasal Adenovirus (PCR) NOT DETECTED Nasal B. parapertussis DNA (PCR) NOT DETECTED Nasal Coronavir 229E PCR NOT DETECTED Nasal Coronavir HKU1 PCR NOT DETECTED Nasal Coronavir NL63 PCR NOT DETECTED Nasal Coronavir OC43 PCR NOT DETECTED Nasal Enterovir/Rhinovir PCR NOT DETECTED Nasal Influenza B PCR NOT DETECTED Nasal Influenza A PCR NOT DETECTED Nasal Parainfluen 1 PCR NOT DETECTED Nasal Parainfluen 2 PCR NOT DETECTED Nasal Parainfluen 3 PCR NOT DETECTED Nasal Parainfluen 4 PCR NOT DETECTED Nasal RSV (PCR) NOT DETECTED Nasal B.pertussis DNA PCR NOT DETECTED Nasal C.pneumoniae (PCR) NOT DETECTED [place] Human Metapneumo PCR NOT DETECTED Nasal M.pneumoniae (PCR) NOT DETECTED Nasal SARS-CoV-2 (PCR) NOT DETECTED 06/22/22 13:24 WBC RBC Hgb Hct MCV MCH MCHC RDW Plt Count MPV Neut # (Auto) Lymph # (Auto) [place] # (Auto) Eos # (Auto) Baso # (Auto) Absolute Nucleated RBC Nucleated RBC % Sodium Potassium Chloride Carbon Dioxide Anion Gap BUN Creatinine Estimated GFR (MDRD) Glucose Calcium Total Bilirubin AST ALT Alkaline Phosphatase B-Natriuretic Peptide 142 H Total Protein Albumin Globulin Albumin/Globulin Ratio Nasal Adenovirus (PCR) Nasal B. parapertussis DNA (PCR) Nasal Coronavir 229E PCR Nasal Coronavir HKU1 PCR Nasal Coronavir NL63 PCR Nasal Coronavir OC43 PCR Nasal Enterovir/Rhinovir PCR Nasal Influenza B PCR Nasal Influenza A PCR Nasal Parainfluen 1 PCR Nasal Parainfluen 2 PCR Nasal Parainfluen 3 PCR Nasal Parainfluen 4 PCR Nasal RSV (PCR) Nasal B.pertussis DNA PCR Nasal C.pneumoniae (PCR) [place] Human Metapneumo PCR Nasal M.pneumoniae (PCR) Nasal SARS-CoV-2 (PCR) - Rads (name of study) cxr Radiology: Final report received, See rad report PD Medical Decision Making - ED course Complexity details: reviewed results, re-evaluated patient, considered differential, d/w patient ED course: Patient with dyspnea. He is on home oxygen. No acute findings on chest x-ray. Mild elevation of his BNP. Mild creatinine elevation. No change with nebulizer treatment. Respiratory PCR is negative. No evidence of pneumonia. Ambulating well. We will have him follow-up with his PCP and char filter operator for further care. Patient counseled regarding signs and symptoms for which I believe and urgent re-evaluation would be necessary. Patient with good understanding of and agreement to plan and is comfortable going home at this time This document was made in part using voice recognition software. While efforts are made to proofread this document, sound alike and grammatical errors may occur. Departure - Departure Disposition: 01 Home, Self Care Clinical Impression: Hyponatremia Dyspnea Qualifiers: Dyspnea type: unspecified Qualified Code(s): R06.00 - Dyspnea, unspecified Condition: Good Instructions: ED Dyspnea Shortness of Breath Follow-Up: Baldo Desir MD [Primary Care Provider] - Within 1 week Comments: Please follow-up with your doctor for further care. The cause of your symptoms is unclear today. You did have mild hyponatremia, sodium 131 Your BNP is 142. Your creatinine is 1.5 today. Please return if you worsen. Your respiratory p debra is negative. Discharge Date/Time: 06/22/22 15:20
--- NOTE | 2022-06-22 13:25 | XRAY Report ---
PROCEDURE: Chest 1 View X-Ray INDICATIONS: SOA TECHNIQUE: One view of the chest was acquired. COMPARISON: 04/24/2019. FINDINGS: Surgical changes and devices: CABG, mechanical valve. Lungs and pleura: No pleural effusions or pneumothorax. Lungs are clear. There is an enlarging nodu lar density present in the left midlung field. Mediastinum: Mediastinal contours appear normal. Heart size is normal. Bones and chest wall: No suspicious bony lesions. Overlying soft tissues appear unremarkable. IMPRESSION: 1. No evidence acute pulmonary process. 2. Enlarging nodular density, left mid lung field. Comment: Recommend CT chest for further evaluation. Reviewed by: Bong Roberto MD on 06/22/2022 1:24 PM PST Approved by: Bong Roberto MD on 06/22/2022 1:24 PM [facility] Station ID: [id number]
[2022-06-22 13:36] LABS: BASOPHILS # (AUTO) 0.1 10^3/uL (0.0-0.1); BASOPHILS % (AUTO) 1.2 %; EOSINOPHILS # (AUTO) 0.1 10^3/uL (0.0-0.7); EOSINOPHILS % (AUTO) 1.9 %; HGB - HEMOGLOBIN 13.2 g/dL (14.0-18.0); LYMPHOCYTES % (AUTO) 17.3 %; MEAN CORPUSCULAR HEMOGLOBIN 34.7 pg (27.0-31.0); MEAN CORPUSCULAR VOLUME 105.3 fL (80.0-94.0); MEAN PLATELET VOLUME 9.5 fL (7.4-11.4); MONOCYTES % (AUTO) 17.4 %; NEUTROPHILS # (AUTO) 3.5 10^3/uL (1.5-6.6); NEUTROPHILS % (AUTO) 61.7 %; PLT - PLATELET COUNT 180 10^3/uL (130-450); RED CELL DISTRIBUTION WIDTH 13.1 % (12.0-15.0); WHITE BLOOD COUNT 5.7 x10^3/uL (4.8-10.8)
[2022-06-22 13:49] LABS: ALBUMIN 3.7 g/dL (3.2-5.5); BILIRUBIN,TOTAL 0.8 mg/dL (0.2-1.0); CALCIUM 9.2 mg/dL (8.5-10.3); CREATININE 1.5 mg/dL (0.6-1.2); POTASSIUM 3.9 mmol/L (3.5-5.0); TOTAL PROTEIN 7.5 g/dL (6.7-8.2)
[2022-06-22 14:25] LABS: B. PARAPERTUSSIS- RESP PCR PAN NOT DETECTED; B. PERTUSSIS- RESP PCR PANEL NOT DETECTED; C. PNEUMONIAE- RESP PCR PANEL NOT DETECTED; CORONAVIRUS 229E-RESP PCR NOT DETECTED; CORONAVIRUS HKU1-RESP PCR NOT DETECTED; CORONAVIRUS NL63-RESP PCR NOT DETECTED; CORONAVIRUS OC43-RESP PCR NOT DETECTED; HUMAN METAPNEUMOVIRUS NOT DETECTED; INFLUENZA A- RESP PCR PANEL NOT DETECTED; INFLUENZA B - RESP PCR PANEL NOT DETECTED; M. PNEUMONIAE- RESP PCR PANEL NOT DETECTED; PARAINFLUENZA VIRUS 1 NOT DETECTED; PARAINFLUENZA VIRUS 2 NOT DETECTED; PARAINFLUENZA VIRUS 3 NOT DETECTED; PARAINFLUENZA VIRUS 4 NOT DETECTED; RHINOVIRUS/ENTEROVIRUS NOT DETECTED; RSV- RESP PCR PANEL NOT DETECTED; SARS-CoV-2 -RESP PCR PANEL NOT DETECTED
== END 2022-06-22 15:20 | disposition home or self-care (01) ==
LOC: ED 12:15
DX: R06.00 Dyspnea, unspecified (principal); E87.1 Hypo-osmolality and hyponatremia; I50.9 Heart failure, unspecified; I25.10 Atherosclerotic heart disease of native coronary artery without angina pectoris; Z20.822 Contact with and (suspected) exposure to COVID-19; Z99.81 Dependence on supplemental oxygen; Z79.82 Long term (current) use of aspirin; Z79.899 Other long term (current) drug therapy; Z87.891 Personal history of nicotine dependence; Z95.1 Presence of aortocoronary bypass graft
CPT/HCPCS: 36415; 80053; 83880; 85025; 87633; 94640; 99284

== ENCOUNTER 2022-07-21 08:27 | Outpatient (CLI) | payer MEDICARE, OTHER | END 2022-07-21 23:59 | disposition critical access hospital (66) | LOC: EMS 08:27 | DX: R06.02 Shortness of breath (principal); R53.81 Other malaise | CPT/HCPCS: A0425; A0429 ==

== ENCOUNTER 2022-07-21 08:43 | Inpatient (IN) | payer MEDICARE, OTHER ==
--- NOTE | 2022-07-21 08:56 | ED Physician Documentation ---
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 He has a history of aortic stenosis status post open aortic valve replacement in 2013 associated with three-vessel bypass. Since then he has had chronic dyspnea. It is unexplained. In 2019 he was diagnosed with stage I lung cancer. He was not considered to be a surgical candidate because of proximity to his LMA CABG graft and was treated with radiation and chemotherapy. It is still there but his last CT was last month, and he says it is not progressive. He has had extensive work-up for his dyspnea which is unexplained. This includes a right heart cath done about 2 months ago which was notable for mild pulmonary hypertension which was not felt to be the cause of his dyspnea. At baseline he wears 2 L of oxygen at night but has been worsening over the last month or so and more acutely since yesterday when he had shaking chills and a fever of up to 102. He had a cough that started overnight last night. He was brought in by EMS and they noted that his sats were in the high 80s on 3 L of oxygen, currently on 8 L now. He denies chest pain or pedal edema. He does have HFpEF. PD PAST MEDICAL HISTORY - Past Medical History Cardiovascular: Congestive heart failure, High cholesterol, Coronary artery disease, Murmur, Valve disorder Respiratory: Shortness of breath Neuro: None Endocrine/Autoimmune: None GI: GERD : Benign prostate hypertrophy, Other HEENT: None Psych: None Musculoskeletal: None Derm: None - Past Surgical History Past Surgical History: Yes General: Appendectomy Cardiovascular: CABG, Valve replacement HEENT: Cataracts - Present Medications Home Medications: Ambulatory Orders Medication Instructions Recorded Confirmed Rosuvastatin Calcium [Crestor] 10 mg PO QPM 06/07/15 07/21/22 Omeprazole 20 mg PO QPM 04/24/19 07/21/22 Eplerenone [Inspra] 25 - 50 mg PO BID 12/30/20 07/21/22 Gabapentin [Neurontin] 300 mg PO QDLUNCH 12/30/20 07/21/22 allopurinoL [Zyloprim] 100 mg PO DAILY 12/30/20 07/21/22 Bumetanide [Bumex] 1 - 2 mg PO BID 12/31/20 07/21/22 Aspirin [Aspirin EC] 81 mg PO QPM 07/21/22 07/21/22 Ipratropium [place] 2 spray ANTHONY BID 07/21/22 07/21/22 Tamsulosin [Flomax] 0.4 mg PO DAILY PM 07/21/22 07/21/22 Zolpidem [Ambien] 2.5 mg PO HS PRN 07/21/22 07/21/22 guaiFENesin [Mucus ER] 1,200 mg PO HS 07/21/22 07/21/22 - Allergies Allergies/Adverse Reactions: Allergies Allergy/AdvReac Type Severity Reaction Status Date / Time acetaminophen [From Tylenol] Allergy Rash Verified 07/21/22 08:57 - Social History Does the pt smoke?: No Smoking Status: Former smoker Does the pt drink ETOH?: Yes Does the pt have substance abuse?: No - Immunizations Immunizations are current?: Yes - POLST Patient has POLST: No POLST Status: Full Code PD ED PE NORMAL - Vitals Vital signs reviewed: Yes - General General: Alert and oriented X 3, Other (He appears dyspneic at rest) - HEENT HEENT: PERRL, EOMI - Neck Neck: Supple, no meningeal sign, No bony TTP - Cardiac Cardiac: Other (Mild resting tachycardia with very subtle systolic murmur at the right upper sternal border) - Respiratory Respiratory: Other (Mildly tachypneic but clear lungs) - Abdomen Abdomen: Non tender - Derm Derm: Normal color, Warm and dry - Extremities Extremities: No edema, No calf tenderness / cord - Neuro Neuro: Alert and oriented X 3, Normal speech Results - Vitals Vitals: Vital Signs - 24 hr 07/21/22 07/21/22 07/21/22 08:57 09:21 09:49 Temperature 37.7 C Heart Rate 98 93 95 Respiratory 22 26 H 20 Rate Blood Pressure 95/57 L 130/79 95/69 O2 Saturation 88 L 100 100 If not protocol 5 5 : Oxygen Flow, liters/minute 07/21/22 07/21/22 07/21/22 10:00 10:30 11:00 Temperature Heart Rate 86 87 89 Respiratory 14 19 16 Rate Blood Pressure 101/68 95/68 95/66 O2 Saturation 100 100 100 If not protocol 5 5 5 : Oxygen Flow, liters/minute Oxygen O2 Source Nasal cannula Oxygen Flow Rate 5 - EKG (time done) 0858 EKG releavant findings:: EKG personally interpreted by author of this note. Relevant findings are: Rate: Rate (enter#) (94) Rhythm: NSR [place]: Normal QRS: LVH Ischemia: Non specific changes. No: ST elevation c/w ischemia, ST depression - Labs Labs: Laboratory Tests 07/21/22 07/21/22 07/21/22 08:55 09:05 09:05 WBC 10.5 RBC 3.45 L Hgb 12.3 L Hct 36.5 L MCV 105.8 H MCH 35.7 H MCHC 33.7 RDW 13.7 Plt Count 139 MPV 9.4 Neut # (Auto) 7.7 H Lymph # (Auto) 1.0 L [place] # (Auto) 1.7 H Eos # (Auto) 0.0 Baso # (Auto) 0.1 Absolute Nucleated RBC 0.00 Nucleated RBC % 0.0 Manual Slide Review Indicated WBC Morphology Platelet Estimate NORMAL (130-450,000) Platelet Morphology NORMAL APPEARANCE RBC Morph Micro Appear 1+ MACROCYTOSIS Sodium 130 L Potassium 3.6 Chloride 88 L Carbon Dioxide 30 Anion Gap 12.0 BUN 33 H Creatinine 1.8 H Estimated GFR (MDRD) 37 L Glucose 134 H Lactic Acid Calcium 8.4 L Total Bilirubin 0.8 AST 44 H ALT 49 Alkaline Phosphatase 65 B-Natriuretic Peptide Total Protein 7.4 Albumin 3.3 Globulin 4.1 Albumin/Globulin Ratio 0.8 L Vitamin B12 Folate Urine Color YELLOW Urine Clarity CLEAR Urine pH 6.5 Ur Specific [place] 1.010 Urine Protein NEGATIVE Urine Glucose (UA) NEGATIVE Urine Ketones NEGATIVE Urine Occult Blood SMALL H Urine Nitrite NEGATIVE Urine Bilirubin NEGATIVE Urine Urobilinogen 0.2 (NORMAL) Ur Leukocyte Esterase NEGATIVE Urine RBC 6-10 H Urine WBC 0-3 Ur Squamous Epith Cells NONE SEEN Urine Bacteria Rare Urine Culture Comments NOT INDICATED Nasal Adenovirus (PCR) Nasal B. parapertussis DNA (PCR) Nasal Coronavir 229E PCR Nasal Coronavir HKU1 PCR Nasal Coronavir NL63 PCR Nasal Coronavir OC43 PCR Nasal Enterovir/Rhinovir PCR Nasal Influenza B PCR Nasal Influenza A PCR Nasal Parainfluen 1 PCR Nasal Parainfluen 2 PCR Nasal Parainfluen 3 PCR Nasal Parainfluen 4 PCR Nasal RSV (PCR) Nasal B.pertussis DNA PCR Nasal C.pneumoniae (PCR) Anthony Human Metapneumo PCR Nasal M.pneumoniae (PCR) Nasal SARS-CoV-2 (PCR) 07/21/22 07/21/22 07/21/22 09:05 09:05 09:07 WBC RBC Hgb Hct MCV MCH MCHC RDW Plt Count MPV Neut # (Auto) Lymph # (Auto) [place] # (Auto) Eos # (Auto) Baso # (Auto) Absolute Nucleated RBC Nucleated RBC % Manual Slide Review WBC Morphology Platelet Estimate Platelet Morphology RBC Morph Micro Appear Sodium Potassium Chloride Carbon Dioxide Anion Gap BUN Creatinine Estimated GFR (MDRD) Glucose Lactic Acid Calcium Total Bilirubin AST ALT Alkaline Phosphatase B-Natriuretic Peptide 221 H Total Protein Albumin Globulin Albumin/Globulin Ratio Vitamin B12 314 Folate 21.29 Urine Color Urine Clarity Urine pH Ur Specific [place] Urine Protein Urine Glucose (UA) Urine Ketones Urine Occult Blood Urine Nitrite Urine Bilirubin Urine Urobilinogen Ur Leukocyte Esterase Urine RBC Urine WBC Ur Squamous Epith Cells Urine Bacteria Urine Culture Comments Nasal Adenovirus (PCR) NOT DETECTED Nasal B. parapertussis DNA (PCR) NOT DETECTED Nasal Coronavir 229E PCR NOT DETECTED Nasal Coronavir HKU1 PCR NOT DETECTED Nasal Coronavir NL63 PCR NOT DETECTED Nasal Coronavir OC43 PCR NOT DETECTED Nasal Enterovir/Rhinovir PCR NOT DETECTED Nasal Influenza B PCR NOT DETECTED Nasal Influenza A PCR NOT DETECTED Nasal Parainfluen 1 PCR NOT DETECTED Nasal Parainfluen 2 PCR NOT DETECTED Nasal Parainfluen 3 PCR NOT DETECTED Nasal Parainfluen 4 PCR NOT DETECTED Nasal RSV (PCR) NOT DETECTED Nasal B.pertussis DNA PCR NOT DETECTED Nasal C.pneumoniae (PCR) NOT DETECTED [place] Human Metapneumo PCR NOT DETECTED Nasal M.pneumoniae (PCR) NOT DETECTED Nasal SARS-CoV-2 (PCR) NOT DETECTED 07/21/22 09:08 WBC RBC Hgb Hct MCV MCH MCHC RDW Plt Count MPV Neut # (Auto) Lymph # (Auto) [place] # (Auto) Eos # (Auto) Baso # (Auto) Absolute Nucleated RBC Nucleated RBC % Manual Slide Review WBC Morphology Platelet Estimate Platelet Morphology RBC Morph Micro Appear Sodium Potassium Chloride Carbon Dioxide Anion Gap BUN Creatinine Estimated GFR (MDRD) Glucose Lactic Acid 1.4 Calcium Total Bilirubin AST ALT Alkaline Phosphatase B-Natriuretic Peptide Total Protein Albumin Globulin Albumin/Globulin Ratio Vitamin B12 Folate Urine Color Urine Clarity Urine pH Ur Specific [place] Urine Protein Urine Glucose (UA) Urine Ketones Urine Occult Blood Urine Nitrite Urine Bilirubin Urine Urobilinogen Ur Leukocyte Esterase Urine RBC Urine WBC Ur Squamous Epith Cells Urine Bacteria Urine Culture Comments Nasal Adenovirus (PCR) Nasal B. parapertussis DNA (PCR) Nasal Coronavir 229E PCR Nasal Coronavir HKU1 PCR Nasal Coronavir NL63 PCR Nasal Coronavir OC43 PCR Nasal Enterovir/Rhinovir PCR Nasal Influenza B PCR Nasal Influenza A PCR Nasal Parainfluen 1 PCR Nasal Parainfluen 2 PCR Nasal Parainfluen 3 PCR Nasal Parainfluen 4 PCR Nasal RSV (PCR) Nasal B.pertussis DNA PCR Nasal C.pneumoniae (PCR) Anthony Human Metapneumo PCR Nasal M.pneumoniae (PCR) Nasal SARS-CoV-2 (PCR) - Rads (name of study) Single view chest x-ray shows cardiomegaly and edema versus atypical pneumonia Relevant Findings:: Final report received, EMP independent interpretation of test CT pulmonary angiogram demonstrates edema versus atypical pneumonia, no PE, new lung nodules and coronary disease Relevant Findings:: Final report received, EMP independent interpretation of test PD Medical Decision Making - ED course ED course: 77-year-old gentleman with the above past medical history presents with infectious symptoms starting yesterday including fevers, chills, body aches, and increased oxygen requirement. Chest x-ray demonstrating pulmonary edema versus atypical pneumonia, more likely the latter given only modest increase in BNP and no clinical evidence of fluid overload. CBC reviewed showing stable macrocytic anemia. CMP reviewed showing stable chronic hyponatremia and CKD perhaps a bit worse than prior. Lactate negative. Urine with trace blood. [employer] respiratory panel negative. CT angiogram ordered to rule out PE and better elucidate lung disease, spoke with Dr. Zhou for admission at 10:40 AM. Departure - Departure Disposition: 66 [facility] DC/Xfer Clinical Impression: Hx of CABG, S/P AVR Lung cancer Qualifiers: Laterality: unspecified laterality Lung location: unspecified part of lung Qualified Code(s): C34.90 - Malignant neoplasm of unspecified part of unspecified bronchus or lung Pneumonia Qualifiers: Pneumonia type: due to unspecified organism Laterality: bilateral Lung location: unspecified part of lung Qualified Code(s): J18.9 - Pneumonia, unspecified organism Respiratory failure Qualifiers: Chronicity: acute on chronic Respiratory failure complication: hypoxia Qualified Code(s): J96.21 - Acute and chronic respiratory failure with hypoxia Condition: Serious Discharge Date/Time: 07/21/22 12:47
[2022-07-21 09:12] LABS: BILIRUBIN,URINE NEGATIVE (NEGATIVE); GLUCOSE, URINE (UA) NEGATIVE (NEGATIVE); KETONES,URINE (UA) NEGATIVE (NEGATIVE); LEUKOCYTE ESTERASE, URINE NEGATIVE (NEGATIVE); NITRITE,URINE NEGATIVE (NEGATIVE); OCCULT BLOOD,URINE SMALL (NEGATIVE); PH,URINE 6.5 PH (5.0-7.5); PROTEIN,URINE NEGATIVE (NEGATIVE); UROBILINOGEN,URINE 0.2 (NORMAL) E.U./dL (NORMAL)
[2022-07-21 09:14] LABS: BASOPHILS # (AUTO) 0.1 10^3/uL (0.0-0.1); BASOPHILS % (AUTO) 0.7 %; EOSINOPHILS % (AUTO) 0.2 %; HCT - HEMATOCRIT 36.5 % (42.0-52.0); HGB - HEMOGLOBIN 12.3 g/dL (14.0-18.0); LYMPHOCYTES % (AUTO) 9.3 %; MEAN CORPUSCULAR HEMOGLOBIN 35.7 pg (27.0-31.0); MEAN CORPUSCULAR HGB CONC 33.7 g/dL (32.0-36.0); MEAN CORPUSCULAR VOLUME 105.8 fL (80.0-94.0); MEAN PLATELET VOLUME 9.4 fL (7.4-11.4); MONOCYTES # (AUTO) 1.7 10^3/uL (0.0-1.0); MONOCYTES % (AUTO) 16.1 %; NEUTROPHILS # (AUTO) 7.7 10^3/uL (1.5-6.6); NEUTROPHILS % (AUTO) 73.4 %; PLT - PLATELET COUNT 139 10^3/uL (130-450); RED BLOOD COUNT 3.45 10^6/uL (4.70-6.10); RED CELL DISTRIBUTION WIDTH 13.7 % (12.0-15.0); WHITE BLOOD COUNT 10.5 x10^3/uL (4.8-10.8)
[2022-07-21 09:18] LABS: SLIDE REVIEW? Indicated
[2022-07-21 09:26] LABS: ALBUMIN 3.3 g/dL (3.2-5.5); ALBUMIN/GLOBULIN RATIO 0.8 (1.0-2.2); BILIRUBIN,TOTAL 0.8 mg/dL (0.2-1.0); CALCIUM 8.4 mg/dL (8.5-10.3); CREATININE 1.8 mg/dL (0.6-1.2); POTASSIUM 3.6 mmol/L (3.5-5.0); TOTAL PROTEIN 7.4 g/dL (6.7-8.2)
[2022-07-21 09:27] LABS: BACTERIA,URINE Rare /HPF (None Seen); CLARITY,URINE CLEAR (CLEAR); SQUAMOUS EPITHELIAL CELL,UR NONE SEEN (<= Few); WBC,URINE 0-3 /HPF (0-3)
[2022-07-21 09:45] LABS: PLATELET ESTIMATE, MANUAL NORMAL (130-450,000) (NORMAL); PLATELET MORPHOLOGY NORMAL APPEARANCE (NORMAL); RBC MORPHOLOGY (MULTIPLE) 1+ MACROCYTOSIS (NORMAL)
--- NOTE | 2022-07-21 10:01 | XRAY Report ---
PROCEDURE: Chest 1 View X-Ray INDICATIONS: dyspnea TECHNIQUE: One view of the chest was acquired. COMPARISON: 06/22/2022 FINDINGS: Surgical changes and devices: Median sternotomy. Lungs and pleura: No pleural effusions or pneumothorax. Mild diffuse reticulonodular pulmonary opaci ty, recommend left. Mediastinum: Mediastinal contours appear normal. Heart size is enlarged. Bones and chest wall: No suspicious bony lesions. Overlying soft tissues appear unremarkable. IMPRESSION: 1. Cardiomegaly. 2. Bilateral edema versus atypical pneumonia. Reviewed by: Jerrell Hickman MD on 07/21/2022 9:59 AM PDT Approved by: Jerrell Hickman MD on 07/21/2022 9:59 AM PDT Station ID: [id number]
[2022-07-21 10:17] LABS: B. PARAPERTUSSIS- RESP PCR PAN NOT DETECTED; B. PERTUSSIS- RESP PCR PANEL NOT DETECTED; C. PNEUMONIAE- RESP PCR PANEL NOT DETECTED; CORONAVIRUS 229E-RESP PCR NOT DETECTED; CORONAVIRUS HKU1-RESP PCR NOT DETECTED; CORONAVIRUS NL63-RESP PCR NOT DETECTED; CORONAVIRUS OC43-RESP PCR NOT DETECTED; HUMAN METAPNEUMOVIRUS NOT DETECTED; INFLUENZA A- RESP PCR PANEL NOT DETECTED; INFLUENZA B - RESP PCR PANEL NOT DETECTED; M. PNEUMONIAE- RESP PCR PANEL NOT DETECTED; PARAINFLUENZA VIRUS 1 NOT DETECTED; PARAINFLUENZA VIRUS 2 NOT DETECTED; PARAINFLUENZA VIRUS 3 NOT DETECTED; PARAINFLUENZA VIRUS 4 NOT DETECTED; RHINOVIRUS/ENTEROVIRUS NOT DETECTED; RSV- RESP PCR PANEL NOT DETECTED; SARS-CoV-2 -RESP PCR PANEL NOT DETECTED
[2022-07-21] MEDS ORDERED: iohexoL-300 100 ML VIAL ONE (10:31)
[2022-07-21] MEDS ORDERED: AZITHROMYCIN INJ 500 MG in SODIUM CHLORIDE 0.9% 250 ML IV STA (10:41)
[2022-07-21] MEDS ORDERED: cefTRIAXone 1 GM in SODIUM CHLORIDE 0.9% MINIBAG 100 ML IV STA (10:41)
[2022-07-21] MEDS ORDERED: oxyCODONE 5 MG TABLET PO PRN (11:50)
[2022-07-21] MEDS ORDERED: SODIUM CHLORIDE FLUSH 0.9% 10 ML SYRINGE IVP PRN (11:50)
[2022-07-21] MEDS ORDERED: ONDANSETRON ODT 4 MG TABLET TL PRN (11:50)
[2022-07-21] MEDS ORDERED: ONDANSETRON 4 MG/2 ML VIAL IVP PRN (11:50)
[2022-07-21] MEDS ORDERED: PHENOL THROAT SPRAY 177 ML MM PRN (11:57)
[2022-07-21] MEDS ORDERED: SODIUM CHLORIDE 0.9% 1,000 ML IV SCH (12:00)
--- NOTE | 2022-07-21 12:01 | HISTORY & PHYSICAL EXAMINATION ---
Chief Complaint - Chief Complaint Chief Complaint: shortness of breath History of Present Illness - Admitted From Admitted From:: home - History Obtained From Records Reviewed: [facility] History obtained from: patient and Dr. 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 He has been short of breath since 2013. It was his presentation of shortness of breath that resulted in the diagnosis of coronary artery disease and aortic valve stenosis. That resulted in a three-vessel bypass using a HAWKINS as well as saphenous vein grafts, and an aortic valve repair in 2013. In spite of surgery, he continued to be short of breath. He was eventually too short of breath to continue working and had to retire. He felt that he was "stable" with his diuretic, and eplerenone for about 2-1/2 to 3 years in spite of his "congestive heart failure" with preserved ejection fraction. He is also an ex-smoker. Started smoking at the age of 22 and stop smoking at the age of 55. He tells me that he is followed by both cardiology and pulmonology at [facility] (Dioni Huffman and Will Lerner respectively) . His most recent cardiology work-up was in March of last year where he underwent a stress test that was "normal". He had no reversible defects. He also underwent a April 2022 right heart cath to try and figure out why he is so short of breath. He had mild pulmonary hypertension and that was about it. Ejection fraction was described as normal he tells me. As for his bagging salvager, he had pulmonary function studies with a DLCO about 3 weeks ago. He has mild restrictive lung defect with a reduction in DLCO. 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 Recurrence is being monitored. I called Dr. Huffman @ [phone]. On R heart cath nml cardiac output and filling pressures w a hx of CABG and A0VR. Mixed venous is normal. Grade I diastolic dysfunction. Echo is ok from 11/2021, EF 65%, bioprosthetic valve is functioning well. Shunt runs ok. No clear cardiology source. She and I both agree that his DRUMMOND is out of proportion to his cardiac findings. I then called Dr. Lerner @ [phone]. Reduced vital capacity at 50%, fluoroscopy of diaphragm is normal, not air trapping much, DLCO 20-30% of predicted but CT parenchyma is good with no obvious interstial disease. Questionably is all of this related to his malignanacy with paraneoplastic syndrome? nif is 89% of predicted. He also has had a tremendous amount of weight loss. He has gone from 210 pounds to 160 pounds because of difficulty swallowing. There is no pain. Food does not get stuck. Food hasn't tasted good since his bypass surgery. He use to love coffee and he can barely tolerate the taste and smell now. He just does not feel like he can swallow solid foods, especially dry solid foods. He is okay with liquids. He has had an EGD, and even though his esophagus was normal, had an esophageal dilation. Although he has had 2 episodes of post micturation syncope, he denies any postural instability, akinesia, or cognitive dysfunction. He has had some falls outside of post micturition syncope but he describes those as simple mechanical fall. He denies hand weakness, poor dexterity. He denies any vocal cord changes so his speech is the same. He does not feel like he is choking. His nif is normal and LE strength is normal and Dr. Lerner is trying to get him to Neurology. No change in BM other than stool is harder due to the diuretics he uses for his CHF. In the last month, he does know why, he has become progressively more short of breath. For the last couple of years, he has been using oxygen concentrator at home and would use 2 L nasal cannula mainly with exertion. Over the last few months has been using it on a daily basis. In the last month it is gotten to the point where he needs it 24 hours a day. Then on July 20 he developed chills, diffuse body aches, and a cough. He went from using 2 L nasal cannula to 5 L nasal cannula. He found himself walking around his house with an O2 sat of 74% even with the 2 L. He smiled at me and says "that was uncomfortable" so he went to the 5 L to make his O2 sats greater than 90%. No chest pain. No phlegm production. No hemoptysis. No GI side effects with this History - Past Medical History Cardiovascular: reports: Congestive heart failure, High cholesterol, Coronary artery disease, Murmur, Valve disorder Respiratory: reports: Shortness of breath Neuro: reports: Fainting (post micturation syncope) Endocrine/Autoimmune: reports: None GI: reports: GERD : reports: Benign prostate hypertrophy, Other HEENT: reports: None Psych: reports: None Musculoskeletal: reports: None Derm: reports: None MRSA Hx?: No - Past Surgical History General: reports: Appendectomy, Colonoscopy, EGD Cardiovascular: reports: CABG, Valve replacement HEENT: reports: Cataracts - Family & Social History Family History: Mother: , Alzheimer's Disease, Father: , Hypertension, Brother: , CAD Family History Comment/Other: Mother at age 92 (Alzheimers). Father with hx of HTN, at 70 of sudden (" in his sleep"). Younger brother in October, age 83, and had a hx of aortic stenosis. Had surgery for peptic ulcer disease and had UT after surgery. Older brother alive at 88, hx of bladder and prostate cancer. 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 Lives alone And is . Independently able to care for self, cook and clean. 2 sons, 1 in [facility] and 1 lives local as a fire officer. Past smoking hx of 1PPD, quit in 2000. Drinks approx 2 glass whiskey/nightly + 1 glass of wine , no hx of alcohol withdrawal or concerns for abuse. Denies use of, cocaine, meth or heroin. Has been trying to use THC for appetite lately and all it does is make him sleepy without affect on appetite - Substance History Use: Uses substance without health or social issues: Alcohol (1 glass whiskey/night, no hx of withdrawals) - POLST Patient has POLST: No POLST Status: Full Code Meds/Allgy - Home Medications Home Medications: Ambulatory Orders Medication Instructions Recorded Confirmed Rosuvastatin Calcium [Crestor] 10 mg PO QPM 06/07/15 07/21/22 Omeprazole 20 mg PO QPM 04/24/19 07/21/22 Eplerenone [Inspra] 25 - 50 mg PO BID 12/30/20 07/21/22 Gabapentin [Neurontin] 300 mg PO QDLUNCH 12/30/20 07/21/22 allopurinoL [Zyloprim] 100 mg PO DAILY 12/30/20 07/21/22 Bumetanide [Bumex] 1 - 2 mg PO BID 12/31/20 07/21/22 Aspirin [Aspirin EC] 81 mg PO QPM 07/21/22 07/21/22 Ipratropium [place] 2 spray ANTHONY BID 07/21/22 07/21/22 Tamsulosin [Flomax] 0.4 mg PO DAILY PM 07/21/22 07/21/22 Zolpidem [Ambien] 2.5 mg PO HS PRN 07/21/22 07/21/22 guaiFENesin [Mucus ER] 1,200 mg PO HS 07/21/22 07/21/22 - Allergies Allergies/Adverse Reactions: Allergies Allergy/AdvReac Type Severity Reaction Status Date / Time acetaminophen [From Tylenol] Allergy Rash Verified 07/21/22 08:57 Review of Systems - Constitutional Constitutional: reports: Fatigue, Fever, Chills, Malaise, Poor appetite, Weight loss, Other (the fever and chills are only for 24 hours) - Eyes Eyes: denies: Pain, Irritation, Amaurosis, Blurred vision - Ears, Nose & Throat Ears, Nose & Throat: reports: Hearing loss. denies: Hearing aids, Tinnitus, Vertigo, Nosebleeds, Nasal obstruction, Nasal congestion, Postnasal drainage, Dentures, Sore throat, Hoarseness - Cardiovascular Cariovascular: reports: Exertional dyspnea, Decr. exercise tolerance. denies: Irregular heart rate, Palpitations, Chest pain, Edema - Respiratory Respiratory: reports: Cough Prior Level of Functionality: While he is able to complete his activities of daily living, he is very slow to do so because of dyspnea on exertion. He does live alone. Kids live nearby Exam - Vital Signs Reviewed Vital Signs: Yes Vital Signs: Vital Signs x48h Temp Pulse Resp BP Pulse Ox O2 Flow Rate 07/21/22 11:00 89 16 95/66 100 5 07/21/22 10:30 87 19 95/68 100 5 07/21/22 10:00 86 14 101/68 100 5 07/21/22 09:49 95 20 95/69 100 5 07/21/22 09:21 93 26 H 130/79 100 5 07/21/22 08:57 37.7 C 98 22 95/57 L 88 L - Physical Exam General Appearance: positive: Alert, Other (Thin elderly male who is gasping for breath every second word) Eyes Bilateral: positive: PERRL, EOMI ENT: positive: Pharynx nml, Dry mucous membranes Neck: positive: No JVD. negative: Stiff neck Respiratory: positive: Other (In spite of respiratory distress, he is sitting back at about 45 degrees, he is not tripoding). negative: Wheezes, Rales, Rhonchi Cardiovascular: positive: Regular rate & rhythm, Other (Very dyspneic with minimal exertion). negative: Systolic murmur Peripheral Pulses: positive: 1+ Abdomen: positive: Non-tender, No organomegaly, Nml bowel sounds, No distention Skin: positive: Warm, Dry, Pallor Extremities: positive: Full ROM, No pedal edema, Other (Multiple, multiple superficial venous perforators around his ankles and lower shins but no edema or venous stasis or red) Neurologic/Psychiatric: positive: Oriented x3, CN's nml (2-12), Motor nml Conclusion/Plan - Problem List (1) Acute and chronic respiratory failure with hypoxia Conclusion/Plan: Blood gases were done a few weeks ago. And done today. He continues to be hypoxic with slight metabolic acidosis. pH is 7.5, PCO2 37, PO2 87. Bicarb is 27.6 and high. Base excess is positive of 4.4. Patient is on 4 L nasal cannula. He is not air-trapping and does not have hypercapnia. So I do not believe this is COPD. Chest x-ray has cardiomegaly with bilateral edema versus atypical pneumonia. His echocardiogram from his lead tinner says that he has diastolic heart failure and preserved ejection fraction. I ordered CT pulmonary angiogram and there is no pulmonary embolism. There is mild diffuse right greater than left bilateral reticular pulmonary opacities as before on the CT dated June 07, 2015. Moderate airspace opacity within the anterior lingula. Trace bilateral pleural effusions. The heart is enlarged without pericardial effusion. Severe calcification of the coronary vasculature. He has increased size of the right lung nodule with a new lingular opacity. I discussed this at length with his lead tinner, bagging salvager, the patient. His dyspnea on exertion and hypoxia is out of proportion to objective data. Today CT does show worsening bilateral reticular pulmonary opacities. Differential diagnosis would include an upper motor neuron disease, doubtful of his myasthenia, lymphangitic spread of tumor. Infection with viral pneumonia is also possibility in view of the latest fever and myalgias. There is no consolidation on chest x-ray or CT. PE has been ruled out.I do not think he is in acute congestive heart failure. The patient is also very alarmed at the idea of getting any IV fluids here. I explained to him that I want to give him at least 1 L of normal saline for the fever, tachypnea, and insight loss is associated with that. Other than that he will be IV locked. Plan: Inpatient status Supplemental oxygen for O2 sat of 92% His bagging salvager has suggested that he be transferred. He needs to be seen by neurology, have further work-up for his lung disease. Son and patient both have every intention of getting themselves to the [facility]. They should hear by the end of this week if his visit has been authorized. I have called Ann Jose. I have called him in the late morning, and evening around 6:30 PM. There are no beds available. They have asked me to call again tomorrow morning. (2) Atypical pneumonia Conclusion/Plan: Treat with Rocephin and azithromycin. Blood cultures have been done and will be used to adjust antibiotics. (3) Hx of CABG Conclusion/Plan: Recent evaluation for coronary artery disease showed a normal stress test in March 2022, and a recent right heart cath was also acceptable. Troponin was not done since coronary artery disease is not suspected as the current cause of drummond. . (4) S/P AVR Conclusion/Plan: Recent echocardiogram shows a well-seated bioprosthetic aortic valve with good function. This was confirmed on echo in November 2021 and right heart cath this last April. No change in medication. (5) Lung cancer Conclusion/Plan: Lung cancer he has received radiation, cisplatin, and Taxol. This was at the beginning when he was first diagnosed in 2016. Tumor has never really gone away. CAT scan today shows that there is some slight enlargement. He is not a candidate for surgical resection. He will follow-up with oncology as needed. In the differential I am including lymphangitic spread of his lung cancer but that would be a work-up that would not be done here. Qualifiers: Laterality: right Lung location: middle lobe of lung Qualified Code(s): C34.2 - Malignant neoplasm of middle lobe, bronchus or lung - Lab Results Lab results reviewed: Yes Fish Bones: 07/21/22 09:05 07/21/22 09:05 - Diagnostic Imaging Results Diagnostic Imaging Results: positive: Final report reviewed Core Measures - Anticipated LOS I expect patient to be DC'd or transferred within 96 hours.: Yes - DVT/VTE - Prophylaxis VTE/DVT Prophylaxis med ordered at admit?: Yes
--- NOTE | 2022-07-21 12:25 | CT Report ---
PROCEDURE: ANGIO CHEST W/WO INDICATIONS: PE study for dyspnea CONTRAST: 80ml OMnipaque 300 TECHNIQUE: After the administration of intravenous contrast, 2 mm axial images were acquired from the pulmonary apices to the posterior costophrenic angles during the arterial phase. In addition, 1 mm lung kernel and 5 mm soft tissue kernel reconstructions were performed. 3-dimensional coronal oblique maximum int ensity projection (MIP) reformats, 8 mm axial MIP, and 5 mm coronal and sagittal MPR reformats were t hen performed through the thorax. For radiation dose reduction, the following was used: automated exp osure control, adjustment of mA and/or kV according to patient size. COMPARISON: CT dated 06/07/2015; plain films dated 07/21/2022. FINDINGS: Image quality: Excellent. Pulmonary arteries: Pulmonary arteries are normal in size, and demonstrate no intraluminal filling d efects to suggest central pulmonary embolism. Lungs and pleura: There is mild diffuse right greater than left bilateral reticulonodular pulmonary o pacity, as before. There is a nodular density within the right upper lobe posteriorly measuring 15 mm , which is slightly increased. There is moderate airspace opacity within the anterior lingula, spanni ng roughly 25 mm. No pneumothorax. Trace bilateral pleural effusions. Central and peripheral airways are patent. Mediastinum: Heart size is enlarged, without pericardial effusion. There is severe calcification of the coronary vasculature. No mediastinal or hilar adenopathy. Thoracic aorta is normal in caliber a nd enhancement. Esophagus is normal in caliber, without hiatal hernia. Bones and chest wall: No suspicious bony lesions. Ribs and thoracic spine appear intact throughout. No axillary or supraclavicular adenopathy. The thyroid is normal in size and there are no incident al findings. Abdomen: Visualized upper abdominal solid organs appear normal in the early arterial phase of enhanc ement. IMPRESSION: 1. No significant change in right greater than left edema versus atypical pneumonia compared to plain films dated 07/13/2022. 2. No evidence of concurrent pulmonary embolus. 3. Coronary artery disease. 4. Increased right lung nodule. New lingular opacity. Follow-up is recommended as below. 4. Coronary artery disease. Solid nodules Solitary nodule size: <6 mm *low risk patients: no follow-up needed *high risk patients: optional CT at 12 months Solitary nodule size: 6-8 mm *low risk patients: follow-up at 6-12 months, then consider further follow-up at 18-24 months *high risk patients: initial follow-up CT at 6-12 months and then at 18-24 months if no change Solitary nodule size: >8 mm *either low or high risk patients *consider follow-up CT at 3 months, and/or CT-PET, and/or biopsy Multiple nodules size: <6 mm *low risk patients: no routine follow-up *high risk patients: optional CT at 12 months Multiple nodules size: 6-8 mm *low risk patients: follow-up at 3-6 months, then consider further follow-up at 18-24 months *high risk patients: follow-up at 3-6 months, then at 18-24 months if no change Multiple nodules size: >8 mm *low risk patients: follow-up at 3-6 months, then consider further follow-up at 18-24 months *high risk patients: follow-up at 3-6 months, then at 18-24 months if no change Subsolid nodules Solitary pure ground-glass nodule *nodule size <6mm *no CT follow-up required *nodule size "e6mm *follow up CT at 6-12 months, then every 2 years until 5 years Solitary part-solid nodule *nodule size <6mm *no CT follow-up required *nodule size "e6mm *follow-up CT at 3-6 months *if unchanged, and solid component remains <6mm, then annual follow-up for 5 years Multiple subsolid nodules *nodule size <6mm *follow-up CT at 3-6 months *consider further follow-up at 2 and 4 years if stable *nodule size "e6mm *follow-up CT at 3-6 months subsequent management based on the most suspicious nodule(s) Reviewed by: Jerrell Hickman MD on 07/21/2022 12:23 PM PDT Approved by: Jerrell Hickman MD on 07/21/2022 12:23 PM PDT Station ID: [id number]
[2022-07-21] MEDS ORDERED: iohexoL-300 100 ML VIAL IVP ONE (12:42)
[2022-07-21 13:45] LABS: ABG BASE EXCESS 4.4 mmol/L (-2.0-3.0); ABG HCO3 27.6 mmol/L (22.0-26.0); ABG PCO2 37 mmHg (34-45); ABG PO2 87 mmHg (80-100); ABG TCO2 28.8 MMOL/L (21.0-29.0)
[2022-07-21 13:46] LABS: ABG OXYGEN SATURATION 97 % (94-98); ALLEN TEST POSITIVE
[2022-07-21] MEDS: BENZOCAINE/MENTHOL LOZENGE MM PRN ×2 (14:15→18:36)
--- NOTE | 2022-07-21 15:24 | PHARMACY PROGRESS NOTE ---
- Best Possible Medication History Admit Date and Time: 07/21/22 1150 Processed by: Pharmacy Medication History completed: Yes Patient Interview: Completed Secondary Source(s): Pharmacy records As the person ultimately responsible for medication therapy, providers are able to order a medication from an existing home medication list in [facility] via the "Reconcile Routine" prior to Confirmation of that medication by clerical support specialist. Such practice is discouraged except when the physician, in their clinical judgment, deems that a medical need exists for a medication without regard to previous use.
[2022-07-21 15:25] LABS: FOLATE 21.29 ng/mL (5.90 - >24.8)
[2022-07-21] MEDS: SODIUM CHLORIDE FLUSH 0.9% 10 ML SYRINGE IVP SCH (17:22)
[2022-07-21] MEDS ORDERED: SALIVA STIMULANT SPRAY 44.3 ML BOTTLE PO PRN (19:58)
[2022-07-21] MEDS: BUMETANIDE 1 MG TABLET PO SCH (20:47)
[2022-07-21] MEDS: guaiFENesin 600 MG TABLET PO SCH (20:48)
[2022-07-21] MEDS ORDERED: ASPIRIN EC 81 MG TABLET PO SCH (21:00)
[2022-07-21] MEDS ORDERED: GABAPENTIN 300 MG CAPSULE PO SCH (21:00)
[2022-07-21] MEDS ORDERED: EPLERENONE 25 MG TABLET PO SCH (21:00)
[2022-07-21] MEDS ORDERED: TAMSULOSIN 0.4 MG CAPSULE PO SCH (21:00)
[2022-07-21] MEDS ORDERED: PANTOPRAZOLE 40 MG TABLET PO SCH (21:00)
[2022-07-21] MEDS ORDERED: ATORVASTATIN 10 MG TABLET PO SCH (21:00)
[2022-07-22] MEDS: SODIUM CHLORIDE FLUSH 0.9% 10 ML SYRINGE IVP SCH ×3 (01:00→18:19)
[2022-07-22] MEDS ORDERED: MULTIVITAMIN W/MINERALS TABLET PO SCH (08:00)
[2022-07-22 08:14] LABS: BASOPHILS # (AUTO) 0.1 10^3/uL (0.0-0.1); BASOPHILS % (AUTO) 0.5 %; EOSINOPHILS % (AUTO) 0.3 %; HCT - HEMATOCRIT 36.9 % (42.0-52.0); HGB - HEMOGLOBIN 12.1 g/dL (14.0-18.0); LYMPHOCYTES # (AUTO) 0.9 10^3/uL (1.5-3.5); LYMPHOCYTES % (AUTO) 8.1 %; MEAN CORPUSCULAR HEMOGLOBIN 35.4 pg (27.0-31.0); MEAN CORPUSCULAR HGB CONC 32.8 g/dL (32.0-36.0); MEAN CORPUSCULAR VOLUME 107.9 fL (80.0-94.0); MEAN PLATELET VOLUME 9.7 fL (7.4-11.4); MONOCYTES # (AUTO) 1.6 10^3/uL (0.0-1.0); MONOCYTES % (AUTO) 13.4 %; NEUTROPHILS # (AUTO) 8.9 10^3/uL (1.5-6.6); NEUTROPHILS % (AUTO) 77.3 %; PLT - PLATELET COUNT 138 10^3/uL (130-450); RED BLOOD COUNT 3.42 10^6/uL (4.70-6.10); RED CELL DISTRIBUTION WIDTH 13.8 % (12.0-15.0); WHITE BLOOD COUNT 11.6 x10^3/uL (4.8-10.8)
[2022-07-22 08:16] LABS: SLIDE REVIEW? Indicated
[2022-07-22 08:22] LABS: CALCIUM 8.7 mg/dL (8.5-10.3); CREATININE 1.7 mg/dL (0.6-1.2)
[2022-07-22 08:35] LABS: RBC MORPHOLOGY (MULTIPLE) 2+ ANISOCYTOSIS (NORMAL)
[2022-07-22] MEDS ORDERED: AZITHROMYCIN INJ 500 MG in SODIUM CHLORIDE 0.9% 250 ML IV SCH (09:00)
[2022-07-22] MEDS ORDERED: cefTRIAXone 1 GM in SODIUM CHLORIDE 0.9% MINIBAG 100 ML IV SCH (09:00)
[2022-07-22] MEDS ORDERED: ENOXAPARIN 40 MG/0.4 ML SYRINGE SUBQ SCH (09:00)
[2022-07-22] MEDS ORDERED: allopurinoL 100 MG TABLET PO SCH (09:00)
[2022-07-22] MEDS: guaiFENesin 600 MG TABLET PO SCH (09:15)
[2022-07-22] MEDS: BUMETANIDE 1 MG TABLET PO SCH (09:22)
[2022-07-22] MEDS ORDERED: BUMETANIDE 1 MG TABLET PO SCH ×2 (09:59→11:52)
[2022-07-22] MEDS ORDERED: EPLERENONE 25 MG PO SCH (13:00)
--- NOTE | 2022-07-22 13:09 | PROVIDER PROGRESS NOTE ---
Objective - Vital Signs/Intake & Output Vital Signs: Vital Signs x48h Temp Pulse Resp BP Pulse Ox O2 Flow Rate 07/22/22 08:13 3 07/22/22 08:00 36.6 C 106 H 22 101/53 L 97 3 Intake & Output: Intake & Output 07/19/22 07/20/22 07/21/22 07/22/22 23:59 23:59 23:59 23:59 Intake Total 1150 1460 Output Total 151 925 Balance 999 535 - Lab Results Fish Bones: 07/22/22 08:09 07/22/22 08:09 Other Labs: Lab Results x24hrs 07/22/22 07/22/22 07/21/22 Range/Units 08:09 08:09 13:36 WBC 11.6 H (4.8-10.8) x10^3/uL RBC 3.42 L (4.70-6.10) 10^6/uL Hgb 12.1 L (14.0-18.0) g/dL Hct 36.9 L (42.0-52.0) % MCV 107.9 H (80.0-94.0) fL MCH 35.4 H (27.0-31.0) pg MCHC 32.8 (32.0-36.0) g/dL RDW 13.8 (12.0-15.0) % Plt Count 138 (130-450) 10^3/uL MPV 9.7 (7.4-11.4) fL Neut # (Auto) 8.9 H (1.5-6.6) 10^3/uL Lymph # (Auto) 0.9 L (1.5-3.5) 10^3/uL Cavalier # (Auto) 1.6 H (0.0-1.0) 10^3/uL Eos # (Auto) 0.0 (0.0-0.7) 10^3/uL Baso # (Auto) 0.1 (0.0-0.1) 10^3/uL Absolute Nucleated RBC 0.00 x10^3/uL Nucleated RBC % 0.0 /100WBC Manual Slide Review Indicated RBC Morph Micro Appear 2+ ANISOCYTOSIS (NORMAL) Bld Gas Analysis Time 1336 Sample Site RIGHT RADIAL ABG pH 7.50 H (7.35-7.45) ABG pCO2 37 (34-45) mmHg ABG pO2 87 (80-100) mmHg ABG HCO3 27.6 H (22.0-26.0) mmol/L ABG Total CO2 28.8 (21.0-29.0) MMOL/L ABG O2 Saturation 97 (94-98) % ABG Base Excess 4.4 H (-2.0-3.0) mmol/L Kev Test POSITIVE O2 Delivery Device NASAL CANNULA O2 Liters/Min 4.00 LPM Sodium 132 L (135-145) mmol/L Potassium 4.0 (3.5-5.0) mmol/L Chloride 92 L (101-111) mmol/L Carbon Dioxide 29 (21-32) mmol/L Anion Gap 11.0 (6-13) BUN 37 H (6-20) mg/dL Creatinine 1.7 H (0.6-1.2) mg/dL Estimated GFR (MDRD) 39 L (>89) Glucose 119 H (70-100) mg/dL Calcium 8.7 (8.5-10.3) mg/dL Vitamin B12 (180-914) pg/mL Folate (5.90 - >24.8) ng/mL 07/21/22 Range/Units 09:05 WBC (4.8-10.8) x10^3/uL RBC (4.70-6.10) 10^6/uL Hgb (14.0-18.0) g/dL Hct (42.0-52.0) % MCV (80.0-94.0) fL MCH (27.0-31.0) pg MCHC (32.0-36.0) g/dL RDW (12.0-15.0) % Plt Count (130-450) 10^3/uL MPV (7.4-11.4) fL Neut # (Auto) (1.5-6.6) 10^3/uL Lymph # (Auto) (1.5-3.5) 10^3/uL Cavalier # (Auto) (0.0-1.0) 10^3/uL Eos # (Auto) (0.0-0.7) 10^3/uL Baso # (Auto) (0.0-0.1) 10^3/uL Absolute Nucleated RBC x10^3/uL Nucleated RBC % /100WBC Manual Slide Review RBC Morph Micro Appear (NORMAL) Bld Gas Analysis Time Sample Site ABG pH (7.35-7.45) ABG pCO2 (34-45) mmHg ABG pO2 (80-100) mmHg ABG HCO3 (22.0-26.0) mmol/L ABG Total CO2 (21.0-29.0) MMOL/L ABG O2 Saturation (94-98) % ABG Base Excess (-2.0-3.0) mmol/L Kev Test O2 Delivery Device O2 Liters/Min LPM Sodium (135-145) mmol/L Potassium (3.5-5.0) mmol/L Chloride (101-111) mmol/L Carbon Dioxide (21-32) mmol/L Anion Gap (6-13) BUN (6-20) mg/dL Creatinine (0.6-1.2) mg/dL Estimated GFR (MDRD) (>89) Glucose (70-100) mg/dL Calcium (8.5-10.3) mg/dL Vitamin B12 314 (180-914) pg/mL Folate 21.29 (5.90 - >24.8) ng/mL Assessment/Plan - Problem List (1) Acute and chronic respiratory failure with hypoxia Impression: Blood gases were done a few weeks ago. And done today. He continues to be hypoxic with slight metabolic acidosis. pH is 7.5, PCO2 37, PO2 87. Bicarb is 27.6 and high. Base excess is positive of 4.4. Patient is on 4 L nasal cannula. He is not air-trapping and does not have hypercapnia. So I do not b elieve this is COPD. Chest x-ray has cardiomegaly with bilateral edema versus atypical pneumonia. His echocardiogram from his die maintenance says that he has diastolic heart failure and preserved ejection fraction. I ordered CT pulmonary angiogram and there is no pulmonary embolism. There is mild diffuse right greater than left bilateral reticular pulmonary opacities as before on the CT dated June 07, 2015. Moderate airspace opacity within the anterior lingula. Trace bilateral pleural effusions. The heart is enlarged without pericardial effusion. Severe calcification of the coronary vasculature. He has increased size of the right lung nodule with a new lingular opacity. I discussed this at length with his die maintenance, bilingual office assistant, the patient. His dyspnea on exertion and hypoxia is out of proportion to objective data. Today CT does show worsening bilateral reticular pulmonary opacities. Differential diagnosis would include an upper motor neuron disease, doubtful of his myasthenia, lymphangitic spread of tumor. Infection with viral pneumonia is also possibility in view of the latest fever and myalgias. There is no consolidation on chest x-ray or CT. PE has been ruled out.I do not think he is in acute congestive heart failure. The patient is also very alarmed at the idea of getting any IV fluids here. I explained to him that I want to give him at least 1 L of normal saline for the fever, tachypnea, and insight loss is associated with that. Other than that he will be IV locked. Plan: Inpatient status Supplemental oxygen for O2 sat of 92% His bilingual office assistant has suggested that he be transferred. He needs to be seen by neurology, have further work-up for his lung disease. Son and patient both have every intention of getting themselves to the [facility]. They should hear by the end of this week if his visit has been authorized. I have called Ann Jose. I have called him in the late morning, and evening around 6:30 PM. There are no beds available. They have asked me to call again tomorrow morning. (2) Atypical pneumonia Conclusion/Plan: Treat with Rocephin and azithromycin. Blood cultures have been done and will be used to adjust antibiotics. (3) Hx of CABG Conclusion/Plan: Recent evaluation for coronary artery disease showed a normal stress test in March 2022, and a recent right heart cath was also acceptable. Troponin was not done since coronary artery disease is not suspected as the current cause of drummond. . (4) S/P AVR Conclusion/Plan: Recent echocardiogram shows a well-seated bioprosthetic aortic valve with good function. This was confirmed on echo in November 2021 and right heart cath this last April. No change in medication. (5) Lung cancer Conclusion/Plan: Lung cancer he has received radiation, cisplatin, and Taxol. This was at the beginning when he was first diagnosed in 2016. Tumor has never really gone away. CAT scan today shows that there is some slight enlargement. He is not a candidate for surgical resection. He will follow-up with oncology as needed. In the differential I am including lymphangitic spread of his lung cancer but that would be a work-up that would not be done here. Qualifiers: Laterality: right Lung location: middle lobe of lung Qualified Code(s): C34.2 - Malignant neoplasm of middle lobe, bronchus or lung
[2022-07-22 16:03] VITALS: BP 100/60
--- NOTE | 2022-07-22 17:57 | Discharge Plan ---
Discharge Plan Problem Reviewed?: Yes Disposition: 02 Transfer Acute Care Hosp No Smoking: If you smoke, Please STOP! Call for help. Follow-up with: Baldo Desir MD [Primary Care Provider] -
--- NOTE | 2022-07-22 18:00 | DISCHARGE SUMMARY ---
Discharge Summary Admit Date: 07/21/22 Discharge Date: 07/22/22 Discharging Provider: Jaclyn Zhou MD Primary Care Provider: Baldo Desir MD Code Status: Do Not Attempt Resuscitation Discharge Disposition: 02 Transfer Acute Care Hosp - DIAGNOSES Discharge Diagnoses with Status of Each Condition: 1. Acute and chronic respiratory failure with hypoxia 2. Atypical pneumonia 3. History of CABG 4. Status post aortic valve replacement 5. Lung cancer 6. 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 He has been short of breath since 2013. It was his presentation of shortness of breath that resulted in the diagnosis of coronary artery disease and aortic valve stenosis. That resulted in a three-vessel bypass using a HAWKINS as well as saphenous vein grafts, and an aortic valve repair in 2013. In spite of surgery, he continued to be short of breath. He was eventually too short of breath to continue working and had to retire. He felt that he was "stable" with his diuretic, and eplerenone for about 2-1/2 to 3 years in spite of his "congestive heart failure" with preserved ejection fraction. He is also an ex-smoker. Started smoking at the age of 22 and stop smoking at the age of 55. He tells me that he is followed by both cardiology and pulmonology at [facility] (Dioni Huffman and Will Lerner respectively) . His most recent cardiology work-up was in March of last year where he underwent a stress test that was "normal". He had no reversible defects. He also underwent a April 2022 right heart cath to try and figure out why he is so short of breath. He had mild pulmonary hypertension and that was about it. Ejection fraction was described as normal he tells me. As for his software development advisor, he had pulmonary function studies with a DLCO about 3 weeks ago. He has mild restrictive lung defect with a reduction in DLCO. 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 Recurrence is being monitored. I called Dr. Huffman @ [phone]. On R heart cath nml cardiac output and filling pressures w a hx of CABG and A0VR. Mixed venous is normal. Grade I diastolic dysfunction. Echo is ok from 11/2021, EF 65%, bioprosthetic valve is functioning well. Shunt runs ok. No clear cardiology source. She and I both agree that his IRIZARRY is out of proportion to his cardiac findings. I then called Dr. Lerner @ [phone]. Reduced vital capacity at 50%, fluoroscopy of diaphragm is normal, not air trapping much, DLCO 20-30% of predicted but CT parenchyma is good with no obvious interstial disease. Questionably is all of this related to his malignanacy with paraneoplastic syndrome? nif is 89% of predicted. He also has had a tremendous amount of weight loss. He has gone from 210 pounds to 160 pounds because of difficulty swallowing. There is no pain. Food does not get stuck. Food hasn't tasted good since his bypass surgery. He use to love coffee and he can barely tolerate the taste and smell now. He just does not feel like he can swallow solid foods, especially dry solid foods. He is okay with liquids. He has had an EGD, and even though his esophagus was normal, had an esophageal dilation. Although he has had 2 episodes of post micturation syncope, he denies any postural instability, akinesia, or cognitive dysfunction. He has had some falls outside of post micturition syncope but he describes those as simple mechanical fall. He denies hand weakness, poor dexterity. He denies any vocal cord changes so his speech is the same. He does not feel like he is choking. His nif is normal and LE strength is normal and Dr. Lerner is trying to get him to Neurology. No change in BM other than stool is harder due to the diuretics he uses for his CHF. In the last month, he does know why, he has become progressively more short of breath. For the last couple of years, he has been using oxygen concentrator at home and would use 2 L nasal cannula mainly with exertion. Over the last few months has been using it on a daily basis. In the last month it is gotten to the point where he needs it 24 hours a day. Then on July 20 he developed chills, diffuse body aches, and a cough. He went from using 2 L nasal cannula to 5 L nasal cannula. He found himself walking around his house with an O2 sat of 74% even with the 2 L. He smiled at me and says "that was uncomfortable" so he went to the 5 L to make his O2 sats greater than 90%. No chest pain. No phlegm production. No hemoptysis. No GI side effects with this He was brought in by EMS to the emergency room. Temperature was 37.7. Heart rate 98. Blood pressure 95/57. He was 88% on room air with a respiratory rate of 22. He weighed 82.2 kg and was 5 foot 11 inches tall. The ER doctor found him to have mild resting tachycardia with a very subtle systolic murmur at the right upper sternal border. Tachypneic but clear lungs. No edema on his extremities. He was alert and oriented x3. Work-up to find the source of his fever, chills, shortness of breath showed her to have possible worsening reticular nodular infiltrate on chest x-ray. Viral PCR was completely negative - Past Medical History Cardiovascular: reports: Congestive heart failure, High cholesterol, Coronary artery disease, Murmur, Valve disorder Respiratory: reports: Shortness of breath Neuro: reports: Fainting (post micturation syncope) Endocrine/Autoimmune: reports: None GI: reports: GERD : reports: Benign prostate hypertrophy, Other HEENT: reports: None Psych: reports: None Musculoskeletal: reports: None Derm: reports: None MRSA Hx?: No - Past Surgical History General: reports: Appendectomy, Colonoscopy, EGD Cardiovascular: reports: CABG, Valve replacement HEENT: reports: Cataracts - CONSULTS | PROCEDURES Procedures: CTA chest. He did not have any PEs. He had mild diffuse right greater than left bilateral reticular nodular pulmonary opacities as on previous CTs. There is a nodular density within the right upper lobe measuring 15 mm which is slightly increased. There is moderate airspace opacities within the anterior lingula, spanning roughly 25 mm. No pneumothorax. The heart size is enlarged without pericardial effusion. There is severe calcifications in the coronary vasculature. Chest x-ray has cardiomegaly with bilateral edema versus atypical pneumonia Blood cultures are without growth after 1 day Vitamin B12 is 314, folate is 21.29. This was done to evaluate his macrocytosis - HOSPITAL COURSE Hospital Course: Patient was evaluated in the emergency room and chest x-ray had cardiomegaly with bilateral edema versus atypical pneumonia. To further evaluate him we opted to do a CT of the chest to look at his infiltrates as well as to follow-up on his lung cancer and to make sure he was not having any pulmonary emboli. He did not have any PEs. He had mild diffuse right greater than left bilateral reticular nodular pulmonary opacities as on previous CTs. There is a nodular density within the right upper lobe measuring 15 mm which is slightly increased. There is moderate airspace opacities within the anterior lingula, spanning roug hly 25 mm. No pneumothorax. The heart size is enlarged without pericardial effusion. There is severe calcifications in the coronary vasculature. No mediastinal or hilar adenopathy. His white cell count was normal. He is macrocytic at 105.8. The macrocytosis is chronic. In 2015 he was 97.9. In April 2019 he was 108. 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 When I examined him he was only able to speak 2 words before having to gasp for breath. Overnight he was started on empiric antibiotics. 1 L of IV fluid only. Dr. Lozano wants to avoid having hyponatremia as he did in 2020. The next morning, today, he felt much better. But he still had shaking chills at around 5:30 in the mo rning. No fever was identified with this. Blood cultures are negative. He did improve and that O2 sats at 96% now only require 3 L nasal cannula. When he was admitted he was up to 5 L nasal cannula. In speaking to his software development advisor, he was requesting the patient be transferred to higher level of care for neurology evaluation. The patient has had a very good cardiac and pulmonology work-up to define his dyspnea on exertion and his dyspnea is out of proportion to the objective data. As such he is wondering if the patient has an upper motor neuron disease, or other neurological disease we could be missing. I spoke to the transfer center twice yesterday, and once this morning. They then connected me with Dr. Sandoval who accepted the patient in transfer. As Dr. Sandoval was speaking to me he was reviewing the notes written by Dr. Lerner, pulmonology. The patient is amenable to transfer. He has improved from yesterday to today and is much more comfortable. He is just always cold. Temperature is 36.7. Heart rate is 91. He has been consistently hypotensive here and blood pressure is 100/60. He has been as low as 91/55. He says this is his baseline. O2 sat is 96% on 3 L. Earlier this morning, after being very cold, I thought he was cyanotic. But he has Raynaud's phenomena and as such the tip of his nose was cyanotic, and the fingertips were quite cyanotic. He has no wheezing, and faint limited crackles at the bases. As long as he sitting, reading his book, he is comfortable. He has a regular rate and rhythm. PMI normally placed. And abdomen that has hypoactive bowel sounds, nontender. Extremities have numerous, numerous superficial venous perforators but there is no venous stasis dermatitis. No hemosiderin deposits. No edema. He is alert and oriented to person place and time. 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 Wearing glasses. Son was at the bedside yesterday when I admitted him. Stayed the night. And was at the bedside this morning when I saw the patient. Greater than 30 minutes was spent coordinating discharge - ALLERGIES Allergies/Adverse Reactions: Allergies Allergy/AdvReac Type Severity Reaction Status Date / Time acetaminophen [From Tylenol] Allergy Rash Verified 07/21/22 08:57 - MEDICATIONS Home Medications: Ambulatory Orders Medication Instructions Recorded Confirmed Rosuvastatin Calcium [Crestor] 10 mg PO QPM 06/07/15 07/21/22 Omeprazole 20 mg PO QPM 04/24/19 07/21/22 Eplerenone [Inspra] 25 - 50 mg PO BID 12/30/20 07/21/22 Gabapentin [Neurontin] 300 mg PO QDLUNCH 12/30/20 07/21/22 allopurinoL [Zyloprim] 100 mg PO DAILY 12/30/20 07/21/22 Bumetanide [Bumex] 1 - 2 mg PO BID 12/31/20 07/21/22 Aspirin [Aspirin EC] 81 mg PO QPM 07/21/22 07/21/22 Ipratropium Milliken 2 spray ANTHONY BID 07/21/22 07/21/22 Tamsulosin [Flomax] 0.4 mg PO DAILY PM 07/21/22 07/21/22 Zolpidem [Ambien] 2.5 mg PO HS PRN 07/21/22 07/21/22 guaiFENesin [Mucus ER] 1,200 mg PO HS 07/21/22 07/21/22 - LABS Result Diagrams: 07/22/22 08:09 07/22/22 08:09
== END 2022-07-22 18:43 | disposition short-term general hospital (02) | DRG 189 ==
LOC: EDUNIT# → ED 08:43 → MS2 11:50
PROVIDERS: ADMIT Specialist; ATTEND Specialist
DX: J96.21 Acute and chronic respiratory failure with hypoxia (principal); J18.9 Pneumonia, unspecified organism; C34.90 Malignant neoplasm of unspecified part of unspecified bronchus or lung; I50.30 Unspecified diastolic (congestive) heart failure; C34.2 Malignant neoplasm of middle lobe, bronchus or lung; Z99.81 Dependence on supplemental oxygen; Z20.822 Contact with and (suspected) exposure to COVID-19; I50.9 Heart failure, unspecified; N18.9 Chronic kidney disease, unspecified; Z95.1 Presence of aortocoronary bypass graft; I25.10 Atherosclerotic heart disease of native coronary artery without angina pectoris; Z95.2 Presence of prosthetic heart valve; D53.9 Nutritional anemia, unspecified; E87.1 Hypo-osmolality and hyponatremia; R31.9 Hematuria, unspecified; N18.30 Chronic kidney disease, stage 3 unspecified; I27.20 Pulmonary hypertension, unspecified; R63.4 Abnormal weight loss; Z68.25 Body mass index [BMI] 25.0-25.9, adult; R13.10 Dysphagia, unspecified; Z91.81 History of falling; R00.0 Tachycardia, unspecified; R01.1 Cardiac murmur, unspecified; E78.00 Pure hypercholesterolemia, unspecified; N40.0 Benign prostatic hyperplasia without lower urinary tract symptoms; D75.89 Other specified diseases of blood and blood-forming organs; I95.9 Hypotension, unspecified; I73.00 Raynaud's syndrome without gangrene; H91.90 Unspecified hearing loss, unspecified ear; Z87.891 Personal history of nicotine dependence
CPT/HCPCS: 36415; 36600; 71045; 71275; 80048; 80053; 81001; 82607; 82746; 82803; 83605; 83880; 85025; 87040; 87633; 93005; 96365; 99285; A9270; Q9967; 87086

== ENCOUNTER 2022-12-09 11:03 | Emergency (ER) | payer MEDICARE, OTHER ==
--- NOTE | 2022-12-09 11:46 | ED Physician Documentation ---
History of Present Illness - Stated complaint Stated Complaint: SOA - Chief complaint Chief Complaint: Resp - Additonal information Additional information: 77-year-old male presents emergency department for evaluation of progressive shortness of air over the last week. Reportedly he has a history of pulmonary fibrosis and typically is only on 1 to 2 L nasal cannula where he typically will saturate 96 to 98%. Over the last week however he has had to increase his nasal cannula to 3 to 4 L/min with saturations typically about 92 to 95%. He finds he has increasing dyspnea with even a few steps of ambulation and has difficulty speaking in full sentences. The patient was seen at the [facility] in [place] in September where he underwent extensive testing and was told a preliminary diagnosis of pulmonary fibrosis. At that time he was started on a long prednisone taper. He reduced his prednisone dosing from 40 mg a day in October to 30 mg a day at the beginning of November. It is with this decrease in prednisone that he is finding worsening symptoms. He is also on Bactrim prophylactically with the prednisone. He has no leg swelling. Denies missing doses of his diuretic. He does have a new productive cough but no fevers. Historically he is also been known to have lung cancer. He did undergo short amount of chemotherapy and radiation but surgical excision was not going to be possible due to the proximity of the cancer to his HAWKINS. He does have a history of coronary artery disease status post CABG as well as known history of aortic stenosis status post repair. He does have HFpEF. Review of Systems Constitutional: denies: Fever, Chills Cardiac: denies: Chest pain / pressure, Palpitations, Pedal edema Respiratory: reports: Dyspnea, Cough. denies: Hemoptysis, Wheezing GI: reports: Reviewed and negative : reports: Reviewed and negative Skin: reports: Reviewed and negative PD PAST MEDICAL HISTORY - Past Medical History Cardiovascular: Congestive heart failure, High cholesterol, Coronary artery disease, Murmur, Valve disorder Respiratory: Shortness of breath Neuro: Fainting (post micturation syncope) Endocrine/Autoimmune: None GI: GERD : Benign prostate hypertrophy, Other HEENT: None Psych: None Musculoskeletal: None Derm: None - Past Surgical History Past Surgical History: Yes General: Appendectomy, Colonoscopy, EGD Cardiovascular: CABG, Valve replacement HEENT: Cataracts - Present Medications Home Medications: Ambulatory Orders Medication Instructions Recorded Confirmed Rosuvastatin Calcium [Crestor] 10 mg PO QPM 02/12/16 03/28/23 Omeprazole 20 mg PO QPM 04/24/19 07/21/22 Eplerenone [Inspra] 25 - 50 mg PO BID 12/30/20 07/21/22 Gabapentin [Neurontin] 300 mg PO QDLUNCH 12/30/20 07/21/22 allopurinoL [Zyloprim] 100 mg PO DAILY 12/30/20 07/21/22 Bumetanide [Bumex] 1 - 2 mg PO BID 12/31/20 07/21/22 Aspirin [Aspirin EC] 81 mg PO QPM 07/21/22 07/21/22 Ipratropium [place] 2 spray ANTHONY BID 07/21/22 07/21/22 Tamsulosin [Flomax] 0.4 mg PO DAILY PM 07/21/22 07/21/22 Zolpidem [Ambien] 2.5 mg PO HS PRN 07/21/22 07/21/22 guaiFENesin [Mucus ER] 1,200 mg PO HS 07/21/22 07/21/22 Amox/Clav 875/125 [Augmentin] 1 each PO Q12H #20 tablet 12/09/22 Azithromycin [Zithromax] 250 mg PO UD 5 Days #6 tablet 12/09/22 - Allergies Allergies/Adverse Reactions: Allergies Allergy/AdvReac Type Severity Reaction Status Date / Time acetaminophen [From Tylenol] Allergy Rash Verified 12/09/22 11:11 - Social History Does the pt smoke?: No Smoking Status: Former smoker Does the pt drink ETOH?: Yes Does the pt have substance abuse?: No - Immunizations Immunizations are current?: Yes - POLST Patient has POLST: No POLST Status: Full Code PD ED PE EXPANDED - General General: Alert, Other (appears chronically ill) - Cardiac Cardiac: Regular Rate, Murmur Present, Radial strong equal, Pedal strong equal, Cap refill < 2 sec - Respiratory Respiratory: Other (3 L nasal cannula saturating 95%. Tachypnea with respiratory rate in the mid 20s. No wheeze or crackles noted. Diminished in the right lower posterior lung tripathi) - Abdomen Abdomen: Normal Bowel sounds. No: Tender to palpation - Derm Derm: Other (diffuse scabbing, skin tears on extremeties) - Neuro Neuro: Alert and Oriented X 3, CNII-XII intact - GCS Eye Opening: Spontaneous Motor: Obeys Commands Verbal: Oriented Total: 15 Results - Vitals Vitals: Vital Signs - 24 hr 12/09/22 11:06 Temperature 36.3 C L Heart Rate 99 Respiratory 25 H Rate Blood Pressure 102/73 O2 Saturation 96 Oxygen O2 Source Nasal cannula - EKG (time done) 1208 EKG releavant findings:: EKG personally interpreted by author of this note. Relevant findings are: Rate: Rate (enter#) (93) Rhythm: NSR Ranger: Normal Intervals: Normal VA. No: Prolonged QT QRS: Normal Ischemia: Non specific changes Compare to prior EKG: Unchanged from prior EKG Computer interpretation: Agree with computer - Labs Labs: Laboratory Tests 12/09/22 12/09/22 12/09/22 11:42 11:42 11:59 WBC 10.3 RBC 4.15 L Hgb 14.5 Hct 42.2 MCV 101.7 H MCH 34.9 H MCHC 34.4 RDW 14.3 Plt Count 147 MPV 10.0 Neut # (Auto) 8.5 H Lymph # (Auto) 0.5 L Story # (Auto) 1.0 Eos # (Auto) 0.0 Baso # (Auto) 0.0 Absolute Nucleated RBC 0.00 Nucleated RBC % 0.0 PT INR Sodium 132 L Potassium 4.2 Chloride 87 L Carbon Dioxide 33 H Anion Gap 12.0 BUN 49 H Creatinine 1.7 H Estimated GFR (MDRD) 39 L Glucose 115 H Calcium 8.9 Total Bilirubin 0.9 AST 143 H ALT 175 H Alkaline Phosphatase 80 B-Natriuretic Peptide 137 H Total Protein 7.5 Albumin 3.7 Globulin 3.8 Albumin/Globulin Ratio 1.0 Lipase 49 Nasal Adenovirus (PCR) Nasal B. parapertussis DNA (PCR) Nasal Coronavir 229E PCR Nasal Coronavir HKU1 PCR Nasal Coronavir NL63 PCR Nasal Coronavir OC43 PCR Nasal Enterovir/Rhinovir PCR Nasal Influenza B PCR Nasal Influenza A PCR Nasal Parainfluen 1 PCR Nasal Parainfluen 2 PCR Nasal Parainfluen 3 PCR Nasal Parainfluen 4 PCR Nasal RSV (PCR) Nasal B.pertussis DNA PCR Nasal C.pneumoniae (PCR) Anthony Human Metapneumo PCR Nasal M.pneumoniae (PCR) Nasal SARS-CoV-2 (PCR) 12/09/22 12/09/22 11:59 12:12 WBC RBC Hgb Hct MCV MCH MCHC RDW Plt Count MPV Neut # (Auto) Lymph # (Auto) Story # (Auto) Eos # (Auto) Baso # (Auto) Absolute Nucleated RBC Nucleated RBC % PT 11.8 INR 1.1 Sodium Potassium Chloride Carbon Dioxide Anion Gap BUN Creatinine Estimated GFR (MDRD) Glucose Calcium Total Bilirubin AST ALT Alkaline Phosphatase B-Natriuretic Peptide Total Protein Albumin Globulin Albumin/Globulin Ratio Lipase Nasal Adenovirus (PCR) NOT DETECTED Nasal B. parapertussis DNA (PCR) NOT DETECTED Nasal Coronavir 229E PCR NOT DETECTED Nasal Coronavir HKU1 PCR NOT DETECTED Nasal Coronavir NL63 PCR NOT DETECTED Nasal Coronavir OC43 PCR NOT DETECTED Nasal Enterovir/Rhinovir PCR NOT DETECTED Nasal Influenza B PCR NOT DETECTED Nasal Influenza A PCR NOT DETECTED Nasal Parainfluen 1 PCR NOT DETECTED Nasal Parainfluen 2 PCR NOT DETECTED Nasal Parainfluen 3 PCR NOT DETECTED Nasal Parainfluen 4 PCR NOT DETECTED Nasal RSV (PCR) NOT DETECTED Nasal B.pertussis DNA PCR NOT DETECTED Nasal C.pneumoniae (PCR) NOT DETECTED Anthony Human Metapneumo PCR NOT DETECTED Nasal M.pneumoniae (PCR) NOT DETECTED Nasal SARS-CoV-2 (PCR) NOT DETECTED - Rads (name of study) cxr Relevant Findings:: Final report received (No gross pulmonary infiltrates) CT chest w Relevant Findings:: Final report received (Peripheral consolidation in the lingula and left lower lobe with associated nodules in both lungs. Findings are concerning for multifocal infection.) PD Medical Decision Making - ED course Complexity details: reviewed old records, reviewed results, re-evaluated patient, d/w patient ED course: 77-year-old male who has a history of pulmonary fibrosis on home O2 as well as chronic steroid treatment as well as Bactrim presents the emergency department for evaluation of worsening shortness of air dyspnea and new cough over the last week. Typically he reports he is on 1 to 2 L nasal cannula but has had to escalate his oxygen therapy at home to 3 to 4 L in order to maintain saturations above 93%. Here in the emergency department he is mildly tachypneic with respiratory rate in the 20s but his cardiopulmonary auscultation was otherwise clear without crackles or wheeze. He had no fevers, tachycardia or hypotension on vital signs. I did obtain a CBC, electrolytes as well as blood cultures which are pending. Per my interpretation the CBC shows no worrisome leukocytosis or anemia. His electrolytes reveal an essentially unchanged hyponatremia with a sodium of 132. He does have some chronic kidney disease with an unchanged creatinine of 1.7. His BNP today is not markedly elevated at 137 it has historically been as high as 300. Respiratory PCR panel is negative. Initial chest x-ray is interpreted by the radiologist did not show any acute focal consolidations. Subsequently CT of the chest was completed with contrast which did show consolidation within the left lingula and lower lobe concerning for multifocal infection. First culture is pending. Given the patient's age and history I did offer admission to the hospital but he prefers to try oral antibiotics at home. Therefore he will be started on azithromycin and Augmentin. We discussed the usual emergent return precautions for failure of symptoms to improve. Departure - Departure Disposition: 01 Home, Self Care Clinical Impression: Pulmonary fibrosis, Chronic respiratory failure with hypoxia, on home O2 therapy Pneumonia involving left lung Qualifiers: Pneumonia type: due to unspecified organism Lung location: unspecified part of lung Qualified Code(s): J18.9 - Pneumonia, unspecified organism Condition: Serious Prescriptions: Amox/Clav 875/125 [Augmentin] 1 each PO Q12H #20 tablet Azithromycin [Zithromax] 250 mg PO UD 5 Days #6 tablet Comments: Ricci you are seen today in the emergency department because over the last week or so you have had some worsening shortness of air and a new productive cough. The chest x-ray did not show any obvious findings however the CT of the chest showed consolidation in the lingula and left lower lobe of the lung concerning for multifocal infection. You were offered admission to the hospital today but have declined that instead would like to prefer treatment at home which I feel is a reasonable alternative. I have sent a prescription for 2 antibiotics Augmentin and azithromycin to the [facility] in [place]. Please take these as directed. If you find that despite the antibiotics you are having worsening symptoms, develop new fevers, have to escalate your oxygen therapy then please do not hesitate to return immediately to the ER. Otherwise you can continue your usual care, medications and follow- up with your specialist. Forms: PCP List
--- NOTE | 2022-12-09 11:48 | XRAY Report ---
PROCEDURE: Chest 1 View X-Ray INDICATIONS: Chest Pain TECHNIQUE: One view of the chest was acquired. COMPARISON: 07/21/2022. FINDINGS: Surgical changes and devices: None. Lungs and pleura: No pleural effusions or pneumothorax. No gross pulmonary infiltrates. Mediastinum: Mediastinal contours appear normal. Remote CABG and mechanical valve. Mild cardiomegaly . Bones and chest wall: No suspicious bony lesions. Overlying soft tissues appear unremarkable. IMPRESSION: No gross pulmonary infiltrates. Reviewed by: Bong Roberto MD on 12/09/2022 11:47 AM PDT Approved by: Bong Roberto MD on 12/09/2022 11:47 AM PDT Station ID: [id number]
[2022-12-09 11:52] LABS: BASOPHILS % (AUTO) 0.3 %; EOSINOPHILS % (AUTO) 0.1 %; HCT - HEMATOCRIT 42.2 % (42.0-52.0); HGB - HEMOGLOBIN 14.5 g/dL (14.0-18.0); LYMPHOCYTES # (AUTO) 0.5 10^3/uL (1.5-3.5); LYMPHOCYTES % (AUTO) 4.7 %; MEAN CORPUSCULAR HEMOGLOBIN 34.9 pg (27.0-31.0); MEAN CORPUSCULAR HGB CONC 34.4 g/dL (32.0-36.0); MEAN CORPUSCULAR VOLUME 101.7 fL (80.0-94.0); MONOCYTES % (AUTO) 9.5 %; NEUTROPHILS # (AUTO) 8.5 10^3/uL (1.5-6.6); NEUTROPHILS % (AUTO) 82.5 %; PLT - PLATELET COUNT 147 10^3/uL (130-450); RED BLOOD COUNT 4.15 10^6/uL (4.70-6.10); RED CELL DISTRIBUTION WIDTH 14.3 % (12.0-15.0); WHITE BLOOD COUNT 10.3 x10^3/uL (4.8-10.8)
[2022-12-09 12:20] LABS: ALBUMIN 3.7 g/dL (3.2-5.5); BILIRUBIN,TOTAL 0.9 mg/dL (0.2-1.0); CALCIUM 8.9 mg/dL (8.5-10.3); CREATININE 1.7 mg/dL (0.6-1.2); POTASSIUM 4.2 mmol/L (3.5-5.0); TOTAL PROTEIN 7.5 g/dL (6.7-8.2)
[2022-12-09 12:39] LABS: INR 1.1 (0.8-1.2); PT - PROTHROMBIN TIME 11.8 secs (9.9-12.6)
[2022-12-09 13:13] LABS: B. PARAPERTUSSIS- RESP PCR PAN NOT DETECTED; B. PERTUSSIS- RESP PCR PANEL NOT DETECTED; C. PNEUMONIAE- RESP PCR PANEL NOT DETECTED; CORONAVIRUS 229E-RESP PCR NOT DETECTED; CORONAVIRUS HKU1-RESP PCR NOT DETECTED; CORONAVIRUS NL63-RESP PCR NOT DETECTED; CORONAVIRUS OC43-RESP PCR NOT DETECTED; HUMAN METAPNEUMOVIRUS NOT DETECTED; INFLUENZA A- RESP PCR PANEL NOT DETECTED; INFLUENZA B - RESP PCR PANEL NOT DETECTED; M. PNEUMONIAE- RESP PCR PANEL NOT DETECTED; PARAINFLUENZA VIRUS 1 NOT DETECTED; PARAINFLUENZA VIRUS 2 NOT DETECTED; PARAINFLUENZA VIRUS 3 NOT DETECTED; PARAINFLUENZA VIRUS 4 NOT DETECTED; RHINOVIRUS/ENTEROVIRUS NOT DETECTED; RSV- RESP PCR PANEL NOT DETECTED; SARS-CoV-2 -RESP PCR PANEL NOT DETECTED
--- NOTE | 2022-12-09 13:30 | CT Report ---
PROCEDURE: CHEST W INDICATIONS: soa, pulmonary fibrosis CONTRAST: 100mL Omni 300 TECHNIQUE: After the administration of intravenous contrast, 1 mm axial images were acquired from the pulmonary apices through the posterior costophrenic angles. Axial 5 mm soft tissue kernel reconstructions were performed as well as 8 mm axial MIP and coronal and sagittal 5 mm reformations. For radiation dose reduction, the following was used: automated exposure control, adjustment of mA and/or kV according to patient size. COMPARISON: None. FINDINGS: Image quality: Excellent. Lungs and pleura: Patchy nodularity in the right lung and lingula. Peripheral consolidation in the li ngula and left lower lobe. Mediastinum: Heart size is enlarged. No pericardial effusion. No large vessel abnormality. Prominent right hilar nodes, probably reactive Coronary artery calcifications and stents. No filling defects wi thin the opacified pulmonary arteries. Prior CABG. Chest wall and lower neck: Thyroid is unremarkable. No axillary or supraclavicular adenopathy by size . Bones: No aggressive osseous abnormality. Upper Abdomen: Cholelithiasis without wall thickening. IMPRESSION: Peripheral consolidation in the lingula and left lower lobe, with associated nodules in both lungs. F indings are concerning for multifocal infection. Cholelithiasis without evidence of acute cholecystitis. Reviewed by: Mihai Savage on 12/09/2022 1:29 PM PDT Approved by: Mihai Savage on 12/09/2022 1:29 PM PDT Station ID: [id number]
[2022-12-09] MEDS ORDERED: cefTRIAXone 1 GM VIAL IVP STA (13:56)
[2022-12-09] MEDS ORDERED: AZITHROMYCIN INJ 500 MG in SODIUM CHLORIDE 0.9% 250 ML IV STA (13:56)
[2022-12-09] MEDS ORDERED: iohexoL-300 100 ML VIAL IVP ONE (15:22)
[2022-12-09 15:27] VITALS: O2SAT 99
[2022-12-09 16:07] VITALS: BP 96/76
== END 2022-12-09 16:00 | disposition home or self-care (01) ==
LOC: ED 11:03
DX: J84.10 Pulmonary fibrosis, unspecified (principal); J18.9 Pneumonia, unspecified organism; J96.11 Chronic respiratory failure with hypoxia; I50.9 Heart failure, unspecified; E78.00 Pure hypercholesterolemia, unspecified; I25.810 Atherosclerosis of coronary artery bypass graft(s) without angina pectoris; Z99.81 Dependence on supplemental oxygen; Z95.1 Presence of aortocoronary bypass graft; Z79.899 Other long term (current) drug therapy; Z79.82 Long term (current) use of aspirin; Z20.822 Contact with and (suspected) exposure to COVID-19
CPT/HCPCS: 36415; 71045; 71260; 80053; 83690; 83880; 85025; 85610; 87040; 87633; 93005; 96365; 96375; 99284; Q9967

== ENCOUNTER 2023-01-01 21:57 | Outpatient (CLI) | payer MEDICARE, OTHER | END 2023-01-01 21:58 | disposition EMS.NT | LOC: EMS 21:57 | DX: R53.1 Weakness (principal) ==

== ENCOUNTER 2023-02-05 23:36 | Outpatient (CLI) | payer MEDICARE, OTHER | END 2023-02-05 23:37 | disposition EMS.NT | LOC: EMS 23:36 | DX: R53.1 Weakness (principal) ==

== ENCOUNTER 2023-07-03 12:00 | Inpatient (IN) | payer MEDICARE, OTHER ==
--- NOTE | 2023-07-03 12:31 | ED Physician Documentation ---
History of Present Illness - Stated complaint Stated Complaint: COUGH/SOA - Chief complaint Chief Complaint: Resp - Additonal information Additional information: Patient is 78-year-old male with past medical significant for pulmonary fibrosi s, congestive heart failure with hypoxic respiratory failure with baseline oxygen demand 2-3 L presenting to the emergency department with shortness of breath. Reports progressively worsening shortness of breath with increased pulmonary secretions Since Wednesday, 6 days ago. Discussed with his bead picker and was prescribed course doxycycline but did not start this. Denies fever, chest or abdominal pain. Denies hemoptysis. Review of Systems Constitutional: denies: Fever Eyes: denies: Loss of vision Ears: denies: Loss of hearing Nose: denies: Rhinorrhea / runny nose Throat: denies: Dental pain / toothache Cardiac: denies: Chest pain / pressure Respiratory: reports: Dyspnea, Cough, Hemoptysis, Wheezing GI: denies: Abdominal Pain : denies: Dysuria Skin: denies: Rash Musculoskeletal: denies: Neck pain Neurologic: denies: Generalized weakness PD PAST MEDICAL HISTORY - Past Medical History Cardiovascular: Congestive heart failure, High cholesterol, Coronary artery disease, Murmur, Valve disorder Respiratory: Shortness of breath Neuro: Fainting Endocrine/Autoimmune: None GI: GERD : Benign prostate hypertrophy, Other HEENT: None Psych: None Musculoskeletal: None Derm: None - Past Surgical History Past Surgical History: Yes General: Appendectomy, Colonoscopy, EGD Cardiovascular: CABG, Valve replacement HEENT: Cataracts - Present Medications Home Medications: Ambulatory Orders Medication Instructions Recorded Confirmed Rosuvastatin Calcium [Crestor] 10 mg PO QPM 06/07/15 07/21/22 Omeprazole 20 mg PO QPM 04/24/19 07/21/22 Eplerenone [Inspra] 25 - 50 mg PO BID 12/30/20 07/21/22 Gabapentin [Neurontin] 300 mg PO QDLUNCH 12/30/20 07/21/22 allopurinoL [Zyloprim] 100 mg PO DAILY 12/30/20 07/21/22 Bumetanide [Bumex] 1 - 2 mg PO BID 12/31/20 07/21/22 Aspirin [Aspirin EC] 81 mg PO QPM 07/21/22 07/21/22 Ipratropium [place] 2 spray ANTHONY BID 07/21/22 07/21/22 Tamsulosin [Flomax] 0.4 mg PO DAILY PM 07/21/22 07/21/22 Zolpidem [Ambien] 2.5 mg PO HS PRN 07/21/22 07/21/22 guaiFENesin [Mucus ER] 1,200 mg PO HS 07/21/22 07/21/22 Amox/Clav 875/125 [Augmentin] 1 each PO Q12H #20 tablet 12/09/22 Azithromycin [Zithromax] 250 mg PO UD 5 Days #6 tablet 12/09/22 - Allergies Allergies/Adverse Reactions: Allergies Allergy/AdvReac Type Severity Reaction Status Date / Time acetaminophen [From Tylenol] Allergy Rash Verified 07/03/23 12:19 - Social History Does the pt smoke?: No Smoking Status: Never smoker Does the pt drink ETOH?: Yes Does the pt have substance abuse?: No - Immunizations Immunizations are current?: Yes - POLST Patient has POLST: No POLST Status: Full Code PD ED PE NORMAL - Vitals Vital signs reviewed: Yes (Tachycardic, low-normal oxygen saturation.) - General General: Alert and oriented X 3, No acute distress, Well developed/nourished - HEENT HEENT: Atraumatic, PERRL, EOMI, Ears normal, Moist mucous membranes, Pharynx benign - Neck Neck: Supple, no meningeal sign, No bony TTP, No adenopathy, Thyroid normal, No JVD - Cardiac Cardiac: RRR, No gallop, Strong equal pulses. No: No murmur - Respiratory Respiratory: Other (Increased work of breathing, diffuse wheeze and rhonchorous breath sounds.). No: No respiratory distress, Clear bilaterally - Abdomen Abdomen: Normal bowel sounds - Male Male : Deferred - Rectal Rectal: Deferred - Derm Derm: Normal color - Extremities Extremities: Other (Lower extremity with significant venous stasis changes and varicosities.Bilaterally.) Results - Vitals Vitals: Vital Signs - 24 hr 07/03/23 07/03/23 07/03/23 12:06 12:48 13:10 Temperature 36.9 C Heart Rate 110 H 101 H 101 H Respiratory 20 24 20 Rate Blood Pressure 90/63 108/69 96/68 O2 Saturation 91 L 97 95 If not protocol 5 5 : Oxygen Flow, liters/minute 07/03/23 07/03/23 07/03/23 13:20 13:30 14:00 Temperature Heart Rate 79 106 H 101 H Respiratory 16 20 20 Rate Blood Pressure 96/70 101/75 O2 Saturation 96 97 If not protocol 4 4 : Oxygen Flow, liters/minute 07/03/23 07/03/23 07/03/23 14:30 15:00 15:30 Temperature Heart Rate 95 91 98 Respiratory 20 20 20 Rate Blood Pressure 112/79 101/72 106/81 H O2 Saturation 97 97 95 If not protocol 4 4 4 : Oxygen Flow, liters/minute 07/03/23 16:00 Temperature Heart Rate 91 Respiratory 20 Rate Blood Pressure 102/76 O2 Saturation 97 If not protocol 4 : Oxygen Flow, liters/minute Oxygen O2 Source Nasal cannula Oxygen Flow Rate 6 - EKG (time done) 1228 EKG releavant findings:: EKG personally interpreted by author of this note. Relevant findings are: Sinus rhythm with rate 105 bpm. Normal axis. Normal TX interval. Normal QRS, QTc interval.Coronary delta waves. No ST segment elevations. Nonspecific ST-T wave abnormalities. No significant change in comparison to November 2022. Of note computer erroneously records TX interval is shortened at 64 ms. Visibly conform normal TX interval - Labs Labs: Laboratory Tests 07/03/23 07/03/23 07/03/23 12:36 12:36 12:36 WBC 7.5 RBC 4.06 L Hgb 14.3 Hct 42.3 MCV 104.2 H MCH 35.2 H MCHC 33.8 RDW 14.6 Plt Count 119 L MPV 9.9 Neut # (Auto) 6.5 Lymph # (Auto) 0.2 L [place] # (Auto) 0.7 Eos # (Auto) 0.0 Baso # (Auto) 0.0 Absolute Nucleated RBC 0.00 Nucleated RBC % 0.0 D-Dimer 257.8 H VBG pH VBG pCO2 VBG pO2 VBG HCO3 VBG Total CO2 VBG O2 Saturation VBG Base Excess Sodium 133 L Potassium 3.6 Chloride 90 L Carbon Dioxide 33 H Anion Gap 10.0 BUN 46 H Creatinine 1.6 H Estimated GFR (MDRD) 42 L Glucose 162 H Calcium 9.3 Magnesium 2.3 Total Bilirubin 0.8 AST 67 H ALT 57 Alkaline Phosphatase 67 Troponin I High Sens B-Natriuretic Peptide Cancelled Total Protein 7.1 Albumin 3.8 Globulin 3.3 Albumin/Globulin Ratio 1.2 Lipase 18 Urine Color Urine Clarity Urine pH Ur Specific [place] Urine Protein Urine Glucose (UA) Urine Ketones Urine Occult Blood Urine Nitrite Urine Bilirubin Urine Urobilinogen Ur Leukocyte Esterase Ur Microscopic Review Urine Culture Comments SARS-CoV-2 (PCR) 07/03/23 07/03/23 07/03/23 12:36 12:36 12:36 WBC RBC Hgb Hct MCV MCH MCHC RDW Plt Count MPV Neut # (Auto) Lymph # (Auto) [place] # (Auto) Eos # (Auto) Baso # (Auto) Absolute Nucleated RBC Nucleated RBC % D-Dimer VBG pH VBG pCO2 VBG pO2 VBG HCO3 VBG Total CO2 VBG O2 Saturation VBG Base Excess Sodium Potassium Chloride Carbon Dioxide Anion Gap BUN Creatinine Estimated GFR (MDRD) Glucose Calcium Magnesium Total Bilirubin AST ALT Alkaline Phosphatase Troponin I High Sens 23.6 H* B-Natriuretic Peptide 134 H Total Protein Albumin Globulin Albumin/Globulin Ratio Lipase Urine Color Urine Clarity Urine pH Ur Specific [place] Urine Protein Urine Glucose (UA) Urine Ketones Urine Occult Blood Urine Nitrite Urine Bilirubin Urine Urobilinogen Ur Leukocyte Esterase Ur Microscopic Review Urine Culture Comments SARS-CoV-2 (PCR) NOT DETECTED 07/03/23 07/03/23 12:45 13:47 WBC RBC Hgb Hct MCV MCH MCHC RDW Plt Count MPV Neut # (Auto) Lymph # (Auto) [place] # (Auto) Eos # (Auto) Baso # (Auto) Absolute Nucleated RBC Nucleated RBC % D-Dimer VBG pH 7.478 H VBG pCO2 38.2 L VBG pO2 69.5 H VBG HCO3 27.7 VBG Total CO2 28.9 VBG O2 Saturation 93.8 H VBG Base Excess 4.1 H Sodium Potassium Chloride Carbon Dioxide Anion Gap BUN Creatinine Estimated GFR (MDRD) Glucose Calcium Magnesium Total Bilirubin AST ALT Alkaline Phosphatase Troponin I High Sens B-Natriuretic Peptide Total Protein Albumin Globulin Albumin/Globulin Ratio Lipase Urine Color YELLOW Urine Clarity CLEAR Urine pH 6.0 Ur Specific [place] 1.010 Urine Protein NEGATIVE Urine Glucose (UA) >=1000 H Urine Ketones NEGATIVE Urine Occult Blood TRACE-INTA Urine Nitrite NEGATIVE Urine Bilirubin NEGATIVE Urine Urobilinogen 2 H Ur Leukocyte Esterase NEGATIVE Ur Microscopic Review NOT INDICATED Urine Culture Comments NOT INDICATED SARS-CoV-2 (PCR) PD Medical Decision Making - ED course Complexity details: reviewed results, re-evaluated patient, d/w patient, d/w informatics consultant ED course: Patient 78-year-old male with chronic hypoxic respiratory failure presenting to the emergency department with increased shortness of breath, work of breathing, sputum production. Patient tachycardic and tachypneic on arrival to the emergency department. Afebrile and otherwise hemodynamically stable. EKGs on above negative for indications of acute cardiac ischemia or dysrhythmia. Lab work all generally reassuring although patient did have moderate elevation in D-dimer. His CT PE protocol did not demonstrate any significant pulmonary emboli however did show multifocal pneumonia. On reevaluation patient did report persistent shortness of breath and did have some modest increased work of breathing despite receiving breathing treatments and methylprednisolone. Will initiate antibiotics. Blood cultures obtained. Discussed with the hospitalist service who graciously agreed to hospitalize for further evaluation and treatment. Departure - Departure Disposition: 66 [facility] DC/Xfer Condition: Stable Discharge Date/Time: 07/03/23 17:03
[2023-07-03] MEDS: methylPREDNISolone SUCCINATE 125 MG/2 ML VIAL IVP STA (12:43)
[2023-07-03] MEDS: IPRATROPIUM/ALBUTEROL 3 ML NEB INH STA (12:58)
--- NOTE | 2023-07-03 13:09 | XRAY Report ---
PROCEDURE: Chest 1V INDICATIONS: chest pain TECHNIQUE: One view of the chest was acquired. COMPARISON: 12/09/2022. FINDINGS: Surgical changes and devices: Median sternotomy wires. Aortic valvuloplasty. Surgical clips projecti ng over the mediastinum. Lungs and pleura: No pleural effusions or pneumothorax. Lungs are clear. Mediastinum: Mediastinal contours appear normal. Heart size is normal. Bones and chest wall: No suspicious bony lesions. Overlying soft tissues appear unremarkable. IMPRESSION: No acute cardiopulmonary process. Reviewed by: Joseph Boswell MD on 07/03/2023 1:08 PM PST Approved by: Joseph Boswell MD on 07/03/2023 1:08 PM PST Station ID: [id number]
[2023-07-03 13:13] LABS: BASOPHILS % (AUTO) 0.4 %; EOSINOPHILS % (AUTO) 0.3 %; HCT - HEMATOCRIT 42.3 % (42.0-52.0); HGB - HEMOGLOBIN 14.3 g/dL (14.0-18.0); LYMPHOCYTES # (AUTO) 0.2 10^3/uL (1.5-3.5); LYMPHOCYTES % (AUTO) 2.3 %; MEAN CORPUSCULAR HEMOGLOBIN 35.2 pg (27.0-31.0); MEAN CORPUSCULAR HGB CONC 33.8 g/dL (32.0-36.0); MEAN CORPUSCULAR VOLUME 104.2 fL (80.0-94.0); MEAN PLATELET VOLUME 9.9 fL (7.4-11.4); MONOCYTES # (AUTO) 0.7 10^3/uL (0.0-1.0); MONOCYTES % (AUTO) 9.6 %; NEUTROPHILS # (AUTO) 6.5 10^3/uL (1.5-6.6); NEUTROPHILS % (AUTO) 86.7 %; PLT - PLATELET COUNT 119 10^3/uL (130-450); RED BLOOD COUNT 4.06 10^6/uL (4.70-6.10); RED CELL DISTRIBUTION WIDTH 14.6 % (12.0-15.0); WHITE BLOOD COUNT 7.5 x10^3/uL (4.8-10.8)
[2023-07-03 13:16] LABS: VBG BASE EXCESS 4.1 mmol/L (-2 - +2); VBG HCO3 27.7 mmol/L (23-28); VBG OXYGEN SATURATION 93.8 % (60-80); VBG PCO2 38.2 mmHg (41-51); VBG PH 7.478 (7.31-7.41); VBG PO2 69.5 mmHg (25-47); VBG TOTAL CO2 28.9 mmol/L (24-29)
[2023-07-03 13:31] LABS: ALBUMIN 3.8 g/dL (3.2-5.5); ALBUMIN/GLOBULIN RATIO 1.2 (1.0-2.2); BILIRUBIN,TOTAL 0.8 mg/dL (0.2-1.0); CALCIUM 9.3 mg/dL (8.5-10.3); CREATININE 1.6 mg/dL (0.6-1.3); MAGNESIUM 2.3 mg/dL (1.7-2.3); POTASSIUM 3.6 mmol/L (3.5-4.5); TOTAL PROTEIN 7.1 g/dL (6.4-8.9)
[2023-07-03] MEDS ORDERED: iohexoL-300 100 ML VIAL ONE ×2 (13:32→13:48)
[2023-07-03 13:58] LABS: BILIRUBIN,URINE NEGATIVE (NEGATIVE); GLUCOSE, URINE (UA) >=1000 mg/dL (NEGATIVE); KETONES,URINE (UA) NEGATIVE (NEGATIVE); LEUKOCYTE ESTERASE, URINE NEGATIVE (NEGATIVE); NITRITE,URINE NEGATIVE (NEGATIVE); OCCULT BLOOD,URINE TRACE-INTA (NEGATIVE); PROTEIN,URINE NEGATIVE (NEGATIVE); UROBILINOGEN,URINE 2 E.U./dL (NORMAL)
[2023-07-03 13:59] LABS: CLARITY,URINE CLEAR (CLEAR)
--- NOTE | 2023-07-03 14:24 | CT Report ---
PROCEDURE: Angio Chest INDICATIONS: Rule out PE CONTRAST: 80ml omni 300 TECHNIQUE: After the administration of intravenous contrast, 2 mm axial images were acquired from the pulmonary apices to the posterior costophrenic angles during the arterial phase. In addition, 1 mm lung kernel and 5 mm soft tissue kernel reconstructions were performed. 3-dimensional coronal oblique maximum int ensity projection (MIP) reformats, 8 mm axial MIP, and 5 mm coronal and sagittal MPR reformats were t hen performed through the thorax. For radiation dose reduction, the following was used: automated exp osure control, adjustment of mA and/or kV according to patient size. COMPARISON: CT chest 12/09/2022. FINDINGS: Image quality: Excellent. Large vessels: No filling defects within the opacified pulmonary arteries, accounting for motion and contrast timing. No evidence of acute aortic syndrome or aortic aneurysm. Lungs and pleura: Groundglass and consolidative opacities, most pronounced within the right lower lob e and lingula. No pleural effusions. No pneumothorax. Mediastinum: Heart size is normal. Severe coronary calcific indications. No pericardial effusion. No large vessel abnormality. Atherosclerotic vascular calcifications. No mediastinal adenopathy by size criteria. Chest wall and lower neck: Thyroid is unremarkable. No axillary or supraclavicular adenopathy by size . Bilateral gynecomastia. Bones: No aggressive osseous abnormality. Degenerative changes of the spine in a pattern consistent w ith diffuse idiopathic skeletal hyperostosis. Median sternotomy wires. Upper Abdomen: Cholelithiasis. IMPRESSION: 1.No pulmonary embolus. 2.Groundglass and consolidative opacities, most pronounced within the right lower lobe and lingula, c onsistent with multifocal pneumonia. Reviewed by: Joseph Shea MD on 07/03/2023 2:22 PM PST Approved by: Joseph Shea MD on 07/03/2023 2:22 PM PST Station ID: [id number]
[2023-07-03] MEDS: cefTRIAXone 1 GM VIAL IVP STA (15:50)
[2023-07-03] MEDS: AZITHROMYCIN INJ 500 MG in SODIUM CHLORIDE 0.9% 250 ML IV STA (15:51)
[2023-07-03] MEDS ORDERED: ONDANSETRON 4 MG/2 ML VIAL IVP PRN (16:02)
[2023-07-03] MEDS ORDERED: ONDANSETRON ODT 4 MG TABLET TL PRN (16:02)
--- NOTE | 2023-07-03 16:07 | HISTORY & PHYSICAL EXAMINATION ---
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 However, patient was not improved, felt more SOB, even can not finish a full sentence. No fever, no chills, no chest pain. He has been on prednison since October 2022 starting with 40mg per day, gradually monique down to 7.5mg per day. He had visit over [facility], was diagnosed with interstital lung disease, however, [facility] since the CT scan patient had did not have typical findings. Patient is on two diuretic for his CHF, follows cardiology, always feels dry mouth and dry eye. He also complaints very fragile skin, both lower leg had wound from a minor trauma when bumping to a furniture, when his dog had minor scratch to his leg. Denies fever or chills, no chest pain, has constipation In the ED, moderate respirtory distress, Tachypnea, hypoxia, Labs showed mild elevated D-dimer. CTA showed multifocal pneumonia, ruled out PE. Patient received 1 dose of Solu-Medrol 125 mg,Nebulizer treatment, ceftriaxone and azithromycin in the ED History - Past Medical History Cardiovascular: reports: Congestive heart failure, High cholesterol, Coronary artery disease, Murmur, Valve disorder Respiratory: reports: Shortness of breath Neuro: reports: Fainting Endocrine/Autoimmune: reports: None GI: reports: GERD : reports: Benign prostate hypertrophy, Other HEENT: reports: None Psych: reports: None Musculoskeletal: reports: None Derm: reports: None MRSA Hx?: No - Past Surgical History General: reports: Appendectomy, Colonoscopy, EGD Cardiovascular: reports: CABG, Valve replacement HEENT: reports: Cataracts - Family & Social History Family History: Mother: , Alzheimer's Disease, Father: , Hypertension, Brother: , CAD Family History Comment/Other: Mother at age 92 (Alzheimers). Father with hx of HTN, at 70 of sudden (" in his sleep"). Younger brother in October, age 83, and had a hx of aortic stenosis. Had surgery for peptic ulcer disease and had OR after surgery. Older brother alive at 88, hx of bladder and prostate cancer. 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 Lives alone And is . Independently able to care for self, cook and clean. 2 sons, 1 in [place] and 1 lives local as a firefighting equipment specialist. Past smoking hx of 1PPD, quit in 2000. Drinks approx 2 glass whiskey/nightly + 1 glass of wine , no hx of alcohol withdrawal or concerns for abuse. Denies use of, cocaine, meth or heroin. Has been trying to use THC for appetite lately and all it does is make him sleepy without affect on appetite - Substance History Use: Uses substance without health or social issues: Alcohol (1 glass whiskey/night, no hx of withdrawals) - POLST Patient has POLST: No POLST Status: Full Code Meds/Allgy - Home Medications Home Medications: Ambulatory Orders Medication Instructions Recorded Confirmed Rosuvastatin Calcium [Crestor] 10 mg PO QPM 06/07/15 07/21/22 Omeprazole 20 mg PO QPM 04/24/19 07/21/22 Eplerenone [Inspra] 25 - 50 mg PO BID 12/30/20 07/21/22 Gabapentin [Neurontin] 300 mg PO QDLUNCH 12/30/20 07/21/22 allopurinoL [Zyloprim] 100 mg PO DAILY 12/30/20 07/21/22 Bumetanide [Bumex] 1 - 2 mg PO BID 12/31/20 07/21/22 Aspirin [Aspirin EC] 81 mg PO QPM 07/21/22 07/21/22 Ipratropium [place] 2 spray ANTHONY BID 07/21/22 07/21/22 Tamsulosin [Flomax] 0.4 mg PO DAILY PM 07/21/22 07/21/22 Zolpidem [Ambien] 2.5 mg PO HS PRN 07/21/22 07/21/22 guaiFENesin [Mucus ER] 1,200 mg PO HS 07/21/22 07/21/22 Amox/Clav 875/125 [Augmentin] 1 each PO Q12H #20 tablet 12/09/22 Azithromycin [Zithromax] 250 mg PO UD 5 Days #6 tablet 12/09/22 - Allergies Allergies/Adverse Reactions: Allergies Allergy/AdvReac Type Severity Reaction Status Date / Time acetaminophen [From Tylenol] Allergy Rash Verified 07/03/23 12:19 Review of Systems - Constitutional Constitutional: reports: Fatigue, Weakness - Eyes Eyes: reports: Other (dry eyes) - Ears, Nose & Throat Ears, Nose & Throat: denies: Nasal obstruction, Nasal congestion - Cardiovascular Cariovascular: reports: Edema. denies: Irregular heart rate, Chest pain - Respiratory Respiratory: reports: Cough, Sputum production, SOB at rest, SOB with exertion. denies: Wheezing, Stridor - Gastrointestinal Gastrointestinal: reports: Constipation. denies: Abdominal pain, Nausea, Vomiting - Genitourinary Genitourinary: reports: Frequency, Nocturia. denies: Dysuria, Urgency - Neurological Neurological: reports: General weakness. denies: Focal weakness - Endocrine Endocrine: denies: Intolerance to cold, Intolerance to heat Prior Level of Functionality: lives alone independent ADLs Exam - Vital Signs Reviewed Vital Signs: Yes Vital Signs: Vital Signs x48h Temp Pulse Resp BP Pulse Ox O2 Flow Rate 07/03/23 16:00 91 20 102/76 97 4 07/03/23 15:30 98 20 106/81 H 95 4 07/03/23 15:00 91 20 101/72 97 4 07/03/23 14:30 95 20 112/79 97 4 07/03/23 14:00 101 H 20 101/75 97 4 07/03/23 13:30 106 H 20 96/70 96 4 07/03/23 13:20 79 16 07/03/23 13:10 101 H 20 96/68 95 5 07/03/23 12:48 101 H 24 108/69 97 5 07/03/23 12:06 36.9 C 110 H 20 90/63 91 L - Physical Exam General Appearance: positive: Moderate distress Eyes Bilateral: positive: PERRL, EOMI ENT: positive: ENT inspection nml, Dry mucous membranes. negative: Pharyngeal erythema, Oral lesions Neck: positive: Nml inspection, No JVD. negative: Stiff neck Respiratory: positive: Chest non-tender, Rales, Rhonchi. negative: Wheezes Cardiovascular: positive: Regular rate & rhythm Abdomen: positive: Non-tender. negative: Tenderness, Guarding Skin: positive: Other (bruises both arms, lower legs wound corvered with dressing, dry) Extremities: negative: Pedal edema, Joint swelling Neurologic/Psychiatric: positive: Oriented x3, CN's nml (2-12) Sepsis Event Note (H) - Evaluation Current Stage of Sepsis: Ruled out Conclusion/Plan - Problem List (1) Pneumonia Conclusion/Plan: Worsening shortness of breath, productive cough, Rales and rhonchi's on both lungs, CT chest showed multifocal pneumonia Sputum culture Give Zosyn Give vancomycin, await for MRSA screening, if negative will consider to de- escalate DuoNeb treatment Pulmonary hygiene per RT Qualifiers: Pneumonia type: due to unspecified organism Laterality: bilateral Lung location: unspecified part of lung Qualified Code(s): J18.9 - Pneumonia, unspecified organism (2) Congestive heart failure Conclusion/Plan: Appears euvolemic Continue home Bumex and Inspra Fluid restriction 1.8 L Strict ins and out Qualifiers: Heart failure type: unspecified Heart failure chronicity: acute on chronic Qualified Code(s): I50.9 - Heart failure, unspecified (3) Acute and chronic respiratory failure with hypoxia Conclusion/Plan: Secondary to pneumonia Chronic respiratory failure may possibly due to interstitial lung disease Continue home dose prednisone 7.5 mg daily, patient already received Solu-Medrol 1 dose as steroid stress dose Give Protonix to protect the GI track (4) Dyspnea Conclusion/Plan: Due to respiratory failure and heart failure Oxygen treatment as needed BiPAP Qualifiers: Dyspnea type: unspecified Qualified Code(s): R06.00 - Dyspnea, unspecified (5) Wound of skin Conclusion/Plan: Fragile skin, due to long-term steroid use bruises on both arms, no broken skin Both lower legs at wound due to minor trauma Wound care per unit protocol - Lab Results Lab results reviewed: Yes Fish Bones: 07/03/23 12:36 07/03/23 12:36 - Diagnostic Imaging Results Diagnostic Imaging Results: positive: Final report reviewed - EKG Results EKG Interpreted Independently: Yes
[2023-07-03] MEDS: PIPERACILLIN/TAZOBACTAM 3.375 GM in SODIUM CHLORIDE 0.9% MINIBAG 100 ML IV SCH (17:46)
[2023-07-03] MEDS: SODIUM CHLORIDE FLUSH 0.9% 10 ML SYRINGE IVP SCH (17:51)
[2023-07-03] MEDS: NON FORMULARY MED PO SCH (17:51)
[2023-07-03] MEDS: IPRATROPIUM/ALBUTEROL 3 ML NEB INH SCH (18:21)
[2023-07-03] MEDS: iohexoL-300 100 ML VIAL IVP ONE (18:28)
[2023-07-03] MEDS: TAMSULOSIN 0.4 MG CAPSULE PO SCH (18:33)
[2023-07-03] MEDS: GABAPENTIN 300 MG CAPSULE PO SCH (18:33)
[2023-07-03] MEDS: VANCOMYCIN INJ 1.75 GM in SODIUM CHLORIDE 0.9% 500 ML IV ONE (19:02)
[2023-07-03] MEDS: guaiFENesin 600 MG TABLET PO SCH (21:15)
[2023-07-03] MEDS: ATORVASTATIN 10 MG TABLET PO SCH (21:15)
[2023-07-03] MEDS: BUMETANIDE 1 MG TABLET PO SCH (21:15)
[2023-07-03] MEDS: BACITRACIN ZINC OINT 1 PACKET TOP PRN (22:14)
[2023-07-03] MEDS: ZOLPIDEM 5 MG TABLET PO PRN (23:51)
[2023-07-04 05:45] LABS: BASOPHILS % (AUTO) 0.1 %; HCT - HEMATOCRIT 41.6 % (42.0-52.0); HGB - HEMOGLOBIN 13.4 g/dL (14.0-18.0); LYMPHOCYTES # (AUTO) 0.2 10^3/uL (1.5-3.5); LYMPHOCYTES % (AUTO) 2.1 %; MEAN CORPUSCULAR HEMOGLOBIN 34.3 pg (27.0-31.0); MEAN CORPUSCULAR HGB CONC 32.2 g/dL (32.0-36.0); MEAN CORPUSCULAR VOLUME 106.4 fL (80.0-94.0); MEAN PLATELET VOLUME 10.5 fL (7.4-11.4); MONOCYTES # (AUTO) 0.3 10^3/uL (0.0-1.0); MONOCYTES % (AUTO) 4.1 %; NEUTROPHILS # (AUTO) 6.6 10^3/uL (1.5-6.6); NEUTROPHILS % (AUTO) 92.9 %; PLT - PLATELET COUNT 122 10^3/uL (130-450); RED BLOOD COUNT 3.91 10^6/uL (4.70-6.10); RED CELL DISTRIBUTION WIDTH 14.6 % (12.0-15.0); WHITE BLOOD COUNT 7.1 x10^3/uL (4.8-10.8)
[2023-07-04] MEDS: PANTOPRAZOLE 40 MG TABLET PO SCH (06:05)
[2023-07-04 06:06] LABS: CALCIUM 8.4 mg/dL (8.5-10.3); CREATININE 1.8 mg/dL (0.6-1.3); POTASSIUM 4.3 mmol/L (3.5-4.5)
[2023-07-04] MEDS ORDERED: GABAPENTIN 300 MG CAPSULE PO SCH (09:00)
[2023-07-04] MEDS ORDERED: ENOXAPARIN 40 MG/0.4 ML SYRINGE SUBQ SCH (09:00)
--- NOTE | 2023-07-04 09:18 | PROVIDER PROGRESS NOTE ---
Assessment/Plan - Problem List (1) Pneumonia Qualifiers: Pneumonia type: due to unspecified organism Laterality: bilateral Lung location: unspecified part of lung Qualified Code(s): J18.9 - Pneumonia, unspecified organism Assessment/Plan: Improving Patient reports less cough, shortness of breath improved some MRSA screening negative, discontinued vancomycin Continue with Zosyn Gave doxycycline to cover atypical pneumonia Continue nebulizer treatment as needed Continue using incentive spirometer (2) Congestive heart failure Qualifiers: Heart failure type: unspecified Heart failure chronicity: acute on chronic Qualified Code(s): I50.9 - Heart failure, unspecified Assessment/Plan: Continue with home dose diuretics Inspra 50 mg every morning and 25 mg every afternoon Bumex 2 mg in the morning and 1 mg in the afternoon Patient appears to be euvolemic Patient is aware about his renal function impairment (3) Acute and chronic respiratory failure with hypoxia Assessment/Plan: Improving, patient is on 3 L of oxygen it is about the same as home baseline Continue oxygen treatment (4) Dyspnea Qualifiers: Dyspnea type: unspecified Qualified Code(s): R06.00 - Dyspnea, unspecified Assessment/Plan: Patient reports some improvement Close monitoring (5) Wound of skin Assessment/Plan: Chronic wound, fragile skin Wound care per unit protocol (6) Hyponatremia Assessment/Plan: History of hyponatremia, On admission sodium 133, today 131, appears worsened Can be related to diuretic use Monitoring in and Out Monitoring BMP - Current Meds Current Meds: Current Medications Generic Name Dose Route Start Last Admin Trade Name Freq PRN Reason Stop Dose Admin Albuterol/Ipratropium 3 ml 07/03/23 19:00 07/04/23 05:49 Ipratropium/Albuterol 3 Ml Neb INH 3 ml RTQID [facility] Administration Atorvastatin Calcium 10 mg 07/03/23 21:00 07/03/23 21:15 Atorvastatin 10 Mg Tablet PO 10 mg QPM [facility] Administration Bacitracin 1 packet 07/03/23 18:42 07/03/23 22:14 Bacitracin Zinc Oint 1 Packet TOP 2 packet PRN PRN Administration Skin Care Bumetanide 1 mg 07/03/23 21:00 07/03/23 21:15 Bumetanide 1 Mg Tablet PO 1 mg BID [facility] Administration Gabapentin 300 mg 07/03/23 18:00 07/03/23 18:33 Gabapentin 300 Mg Capsule PO 300 mg DAILY [facility] Administration Guaifenesin 1,200 mg 07/03/23 21:00 07/03/23 21:15 Guaifenesin 600 Mg Tablet PO 1,200 mg BID [facility] Administration Piperacillin Sod/Tazobactam 100 mls @ 200 mls/hr 07/03/23 17:00 07/04/23 06:05 Sod 3.375 gm/ Sodium Chloride IV Infused Q6H [facility] Infusion Pantoprazole Sodium 40 mg 07/04/23 07:00 07/04/23 06:05 Pantoprazole 40 Mg Tablet PO 40 mg QDAC [facility] Administration Sodium Chloride 10 ml 07/03/23 17:00 07/03/23 23:40 Sodium Chloride Flush 0.9% 10 Ml Syringe IVP 10 ml 0100,0900,1700 [facility] Administration Tamsulosin HCl 0.4 mg 07/03/23 18:00 07/03/23 18:33 Tamsulosin 0.4 Mg Capsule PO 0.4 mg QDDINNER [facility] Administration Zolpidem Tartrate 5 mg 07/03/23 17:17 07/03/23 23:51 Zolpidem 5 Mg Tablet PO 5 mg QPM PRN Administration Insomnia - Lab Result Lab results reviewed: Yes Fish Bone Diagrams: 07/04/23 05:22 07/04/23 05:22 - Additional Planning My Orders: My Active Orders 07/03/23 16:02 Activity Orders [RC] Q2HR IO [RC] IOSHIFT Incentive Spirometry - RT [RC] TID Initiate Bowel Care Protocol [RC] .protocol Initiate Line Care Protocol [RC] QSHIFT Initiate Personal Care Protoco [RC] .protocol Oxygen Therapy [RC] .PRN Vital Signs [RC] 0800,1600,0000 Ondansetron Inj [Zofran Inj] 4 mg IVP Q6HR PRN Ondansetron Odt [Zofran Odt] 4 mg TL Q6HR PRN Sodium Chloride Flush 0.9% [Normal Saline Flush 0.9%] 10 ml IVP PRN PRN Code Status [OTHERS] Routine Condition of Patient [OTHERS] Routine DVT Prophylaxis [OTHERS] Routine 07/03/23 Dinner Regular Diet [DIET] 07/03/23 17:00 Piperacillin/Tazobactam [Zosyn] 3.375 gm Sodium Chloride 0.9% Minibag [Normal Saline 0.9% Minibag] 100 ml IV Q6H Sodium Chloride Flush 0.9% [Normal Saline Flush 0.9%] 10 ml IVP 0100,0900,1700 07/03/23 17:17 Nebulizer/MDI Tx. [RC] .QID Zolpidem [Ambien] 5 mg PO QPM PRN 07/03/23 18:00 Gabapentin [Neurontin] 300 mg PO DAILY Tamsulosin [Flomax] 0.4 mg PO QDDINNER 07/03/23 18:42 Bacitracin Zinc Oint [Bacitracin] 1 packet TOP PRN PRN 07/03/23 19:00 Ipratropium/Albuterol [Duoneb] 3 ml INH RTQID 07/03/23 21:00 Atorvastatin [Lipitor] 10 mg PO QPM Bumetanide [Bumex] 1 mg PO BID guaiFENesin [Mucinex] 1,200 mg PO BID 07/04/23 07:00 Pantoprazole [Protonix] 40 mg PO QDAC 07/04/23 08:00 predniSONE [Deltasone] 7.5 mg PO DAILYWM 07/04/23 09:00 Aspirin EC [Ecotrin] 81 mg PO DAILY Finasteride [Proscar] 5 mg PO DAILY Patient Own Med 0.5 each PO BID allopurinoL [Zyloprim] 100 mg PO DAILY 07/04/23 09:13 Naproxen [Naprosyn] 250 mg PO TID PRN 07/04/23 09:17 SCDs [RC] QSHIFT 07/04/23 10:00 Carboxymethylcellulose 1% Opht [Refresh 1% Ophth Drops] 1 drops EACHEYE Q4HR 07/04/23 18:00 Vancomycin Inj [Vancomycin] 1 gm Sodium Chloride 0.9% [Normal Saline 0.9%] 250 ml IV Q24H 07/05/23 05:00 BMP - BASIC METABOLIC PANEL [CHEM] DAILYLAB CBC [CBC - COMP BLD CT W/AUTO DIFF] [HEME] DAILYLAB 07/05/23 09:00 BNP - B-NATRIURETIC PEPTIDE [CHEM] DAILY 07/06/23 05:00 BMP - BASIC METABOLIC PANEL [CHEM] DAILYLAB CBC [CBC - COMP BLD CT W/AUTO DIFF] [HEME] DAILYLAB 07/06/23 09:00 BNP - B-NATRIURETIC PEPTIDE [CHEM] DAILY 07/07/23 05:00 BMP - BASIC METABOLIC PANEL [CHEM] DAILYLAB CBC [CBC - COMP BLD CT W/AUTO DIFF] [HEME] DAILYLAB 07/07/23 09:00 BNP - B-NATRIURETIC PEPTIDE [CHEM] DAILY 07/08/23 05:00 BMP - BASIC METABOLIC PANEL [CHEM] DAILYLAB CBC [CBC - COMP BLD CT W/AUTO DIFF] [HEME] DAILYLAB 07/08/23 09:00 BNP - B-NATRIURETIC PEPTIDE [CHEM] DAILY Subjective - Subjective Patient Reports: Feeling Better, Shortness of Breath (Still has shortness of breath but better, still has cough improved) Objective Vital Signs: Vital Signs - 24 hr 07/03/23 07/03/23 07/03/23 12:06 12:48 13:10 Temperature 36.9 C Heart Rate 110 H 101 H 101 H Heart Rate [ Brachial] Respiratory 20 24 20 Rate Blood Pressure 90/63 108/69 96/68 Blood Pressure [Right Brachial artery] O2 Saturation 91 L 97 95 If not protocol 5 5 : Oxygen Flow, liters/minute 07/03/23 07/03/23 07/03/23 13:20 13:30 14:00 Temperature Heart Rate 79 106 H 101 H Heart Rate [ Brachial] Respiratory 16 20 20 Rate Blood Pressure 96/70 101/75 Blood Pressure [Right Brachial artery] O2 Saturation 96 97 If not protocol 4 4 : Oxygen Flow, liters/minute 07/03/23 07/03/23 07/03/23 14:30 15:00 15:30 Temperature Heart Rate 95 91 98 Heart Rate [ Brachial] Respiratory 20 20 20 Rate Blood Pressure 112/79 101/72 106/81 H Blood Pressure [Right Brachial artery] O2 Saturation 97 97 95 If not protocol 4 4 4 : Oxygen Flow, liters/minute 07/03/23 07/03/23 07/03/23 16:00 16:30 16:44 Temperature Heart Rate 91 95 Heart Rate [ Brachial] Respiratory 20 20 Rate Blood Pressure 102/76 101/74 Blood Pressure [Right Brachial artery] O2 Saturation 97 96 If not protocol 4 3 3 : Oxygen Flow, liters/minute 07/03/23 07/03/23 07/03/23 16:48 18:22 18:23 Temperature Heart Rate 79 Heart Rate [ 100 Brachial] Respiratory 24 17 Rate Blood Pressure Blood Pressure 96/69 [Right Brachial artery] O2 Saturation 93 If not protocol 3 3 3 : Oxygen Flow, liters/minute 07/03/23 07/03/23 07/04/23 21:30 23:49 05:50 Temperature 36.5 C Heart Rate 83 Heart Rate [ 82 Brachial] Respiratory 24 22 Rate Blood Pressure Blood Pressure 93/68 [Right Brachial artery] O2 Saturation 95 If not protocol 3 3 3 : Oxygen Flow, liters/minute 07/04/23 08:00 Temperature 36.5 C Heart Rate Heart Rate [ 78 Brachial] Respiratory 20 Rate Blood Pressure Blood Pressure 91/61 [Right Brachial artery] O2 Saturation 99 If not protocol 3 : Oxygen Flow, liters/minute Oxygen O2 Source Nasal cannula Oxygen Flow Rate 6 I&O (Last 24 Hrs): Intake and Output Totals x24h 07/02/23 07/03/23 07/05/23 23:59 23:59 00:59 Intake Total 1690.000 200 Output Total 150 250 Balance 1540.000 -50 General: Alert, Oriented x3 HEENT: PERRLA, EOMI Neck: Supple, No JVD Cardiovascular: Regular rate Respiratory: Rales (Less than yesterday), Rhonchi Abdomen: Soft, No tenderness Extremities: No edema Comments/Notes: Lower leg wound, chronic appearance Very fragile skin, - Results Results: Laboratory Results WBC 7.1 x10^3/uL (4.8-10.8) 07/04/23 05:22 RBC 3.91 10^6/uL (4.70-6.10) L 07/04/23 05:22 Hgb 13.4 g/dL (14.0-18.0) L 07/04/23 05:22 Hct 41.6 % (42.0-52.0) L 07/04/23 05:22 MCV 106.4 fL (80.0-94.0) H 07/04/23 05:22 MCH 34.3 pg (27.0-31.0) H 07/04/23 05:22 MCHC 32.2 g/dL (32.0-36.0) 07/04/23 05:22 RDW 14.6 % (12.0-15.0) 07/04/23 05:22 Plt Count 122 10^3/uL (130-450) L 07/04/23 05:22 MPV 10.5 fL (7.4-11.4) 07/04/23 05:22 Neut # (Auto) 6.6 10^3/uL (1.5-6.6) 07/04/23 05:22 Lymph # (Auto) 0.2 10^3/uL (1.5-3.5) L 07/04/23 05:22 [place] # (Auto) 0.3 10^3/uL (0.0-1.0) 07/04/23 05:22 Eos # (Auto) 0.0 10^3/uL (0.0-0.7) 07/04/23 05:22 Baso # (Auto) 0.0 10^3/uL (0.0-0.1) 07/04/23 05:22 Absolute Nucleated RBC 0.00 x10^3/uL 07/04/23 05:22 Nucleated RBC % 0.0 /100WBC 07/04/23 05:22 D-Dimer 257.8 ng/mL (200.0-255.0) H 07/03/23 12:36 VBG pH 7.478 (7.31-7.41) H 07/03/23 12:45 VBG pCO2 38.2 mmHg (41-51) L 07/03/23 12:45 VBG pO2 69.5 mmHg (25-47) H 07/03/23 12:45 VBG HCO3 27.7 mmol/L (23-28) 07/03/23 12:45 VBG Total CO2 28.9 mmol/L (24-29) 07/03/23 12:45 VBG O2 Saturation 93.8 % (60-80) H 07/03/23 12:45 VBG Base Excess 4.1 mmol/L (-2 - +2) H 07/03/23 12:45 Sodium 131 mmol/L (135-145) L 07/04/23 05:22 Potassium 4.3 mmol/L (3.5-4.5) 07/04/23 05:22 Chloride 92 mmol/L (101-111) L 07/04/23 05:22 Carbon Dioxide 29 mmol/L (21-32) 07/04/23 05:22 Anion Gap 10.0 (6-13) 07/04/23 05:22 BUN 53 mg/dL (6-20) H 07/04/23 05:22 Creatinine 1.8 mg/dL (0.6-1.3) H 07/04/23 05:22 Estimated GFR (MDRD) 37 (>89) L 07/04/23 05:22 Glucose 152 mg/dL (74-104) H 07/04/23 05:22 Calcium 8.4 mg/dL (8.5-10.3) L 07/04/23 05:22 Magnesium 2.3 mg/dL (1.7-2.3) 07/03/23 12:36 Total Bilirubin 0.8 mg/dL (0.2-1.0) 07/03/23 12:36 AST 67 IU/L (10-42) H 07/03/23 12:36 ALT 57 IU/L (10-60) 07/03/23 12:36 Alkaline Phosphatase 67 IU/L (42-121) 07/03/23 12:36 Troponin I High Sens 23.6 ng/L (2.3-19.7) H* 07/03/23 12:36 B-Natriuretic Peptide 193 pg/mL (5-100) H 07/04/23 05:22 Total Protein 7.1 g/dL (6.4-8.9) 07/03/23 12:36 Albumin 3.8 g/dL (3.2-5.5) 07/03/23 12:36 Globulin 3.3 g/dL (2.1-4.2) 07/03/23 12:36 Albumin/Globulin Ratio 1.2 (1.0-2.2) 07/03/23 12:36 Lipase 18 U/L (11-82) 07/03/23 12:36 Urine Color YELLOW 07/03/23 13:47 Urine Clarity CLEAR (CLEAR) 07/03/23 13:47 Urine pH 6.0 PH (5.0-7.5) 07/03/23 13:47 Ur Specific [place] 1.010 (1.002-1.030) 07/03/23 13:47 Urine Protein NEGATIVE mg/dL (NEGATIVE) 07/03/23 13:47 Urine Glucose (UA) >=1000 mg/dL (NEGATIVE) H 07/03/23 13:47 Urine Ketones NEGATIVE mg/dL (NEGATIVE) 07/03/23 13:47 Urine Occult Blood TRACE-INTA (NEGATIVE) 07/03/23 13:47 Urine Nitrite NEGATIVE (NEGATIVE) 07/03/23 13:47 Urine Bilirubin NEGATIVE (NEGATIVE) 07/03/23 13:47 Urine Urobilinogen 2 E.U./dL (NORMAL) H 07/03/23 13:47 Ur Leukocyte Esterase NEGATIVE (NEGATIVE) 07/03/23 13:47 Ur Microscopic Review NOT INDICATED 07/03/23 13:47 Urine Culture Comments NOT INDICATED 07/03/23 13:47 Nasal Screen MRSA (PCR) NEGATIVE (NEGATIVE) 07/03/23 17:53 SARS-CoV-2 (PCR) NOT DETECTED 07/03/23 12:36 - Procedures Procedures: Procedures INSPECTION OF LOWER INTESTINAL TRACT, ENDO (02/22/17) REPAIR SCALP SUBCUTANEOUS TISSUE AND FASCIA, OPEN APPROACH (04/21/19) REPLACEMENT OF LEFT LENS WITH SYNTH SUB, PERC APPROACH (06/25/16) REPLACEMENT OF RIGHT LENS WITH SYNTH SUB, PERC APPROACH (05/14/16) Sepsis Event Note (H) - Evaluation Current Stage of Sepsis: Ruled out ABX Reporting Has patient been on IV antibiotics over the past 48 hours?: Yes Current Medications - Current Medications Current Medications: Active Medications Albuterol/Ipratropium (Ipratropium/Albuterol 3 Ml Neb) 3 ml INH RTQID [facility] Last Admin: 07/04/23 14:33 Dose: 3 ml Allopurinol (Allopurinol 100 Mg Tablet) 100 mg PO DAILY [facility] Last Admin: 07/04/23 09:30 Dose: 100 mg Aspirin (Aspirin Ec 81 Mg Tablet) 81 mg PO DAILY [facility] Last Admin: 07/04/23 09:30 Dose: 81 mg Atorvastatin Calcium (Atorvastatin 10 Mg Tablet) 10 mg PO QPM [facility] Last Admin: 07/03/23 21:15 Dose: 10 mg Bacitracin (Bacitracin Zinc Oint 1 Packet) 1 packet TOP PRN PRN PRN Reason: Skin Care Last Admin: 07/03/23 22:14 Dose: 2 packet Bumetanide (Bumetanide 1 Mg Tablet) 1 mg PO QPM [facility] Bumetanide (Bumetanide 1 Mg Tablet) 2 mg PO QDBREAKFAST [facility] Carboxymethylcellulose (Carboxymethylcellulose Ophth Drops) 1 drops EACHEYE Q4HR [facility] Last Admin: 07/04/23 13:55 Dose: 1 drops Doxycycline Hyclate (Doxycycline 100 Mg Tablet) 100 mg PO BID [facility] Stop: 07/09/23 09:59 Last Admin: 07/04/23 09:35 Dose: 100 mg Finasteride (Finasteride 5 Mg Tablet) 5 mg PO DAILY [facility] Last Admin: 07/04/23 09:30 Dose: 5 mg Gabapentin (Gabapentin 300 Mg Capsule) 300 mg PO QPM [facility] Guaifenesin (Guaifenesin 600 Mg Tablet) 1,200 mg PO BID [facility] Last Admin: 07/04/23 09:27 Dose: 1,200 mg Piperacillin Sod/Tazobactam (Sod 3.375 gm/ Sodium Chloride) 100 mls @ 200 ml s/hr IV Q6H [facility] Last Infusion: 07/04/23 12:53 Dose: Infused Naproxen (Naproxen 250 Mg Tablet) 250 mg PO TID PRN PRN Reason: Moderate Pain (Level 4-6) Stop: 07/09/23 09:12 Last Admin: 07/04/23 13:04 Dose: 250 mg Ondansetron HCl (Ondansetron Odt 4 Mg Tablet) 4 mg TL Q6HR PRN PRN Reason: Nausea / Vomiting Ondansetron HCl (Ondansetron 4 Mg/2 Ml Vial) 4 mg IVP Q6HR PRN PRN Reason: Nausea / Vomiting Pantoprazole Sodium (Pantoprazole 40 Mg Tablet) 40 mg PO QDAC [facility] Last Admin: 07/04/23 06:05 Dose: 40 mg Empagliflozin [ Jardiance] 10 Mg Tabs 1 each PO DAILY [facility] Eplerenone 50 Mg (Tab) 0.5 - 1 each PO BID [facility] Prednisone (Prednisone 5 Mg Tablet) 7.5 mg PO DAILYWM [facility] Last Admin: 07/04/23 09:30 Dose: 7.5 mg Sodium Chloride (Sodium Chloride Flush 0.9% 10 Ml Syringe) 10 ml IVP 0100,0900,1700 [facility] Last Admin: 07/04/23 09:30 Dose: 10 ml Sodium Chloride (Sodium Chloride Flush 0.9% 10 Ml Syringe) 10 ml IVP PRN PRN PRN Reason: NEEDED PER PROVIDER ORDERS Tamsulosin HCl (Tamsulosin 0.4 Mg Capsule) 0.4 mg PO BID [facility] Last Admin: 07/04/23 13:04 Dose: 0.4 mg Zolpidem Tartrate (Zolpidem 5 Mg Tablet) 5 mg PO QPM PRN PRN Reason: Insomnia Last Admin: 07/03/23 23:51 Dose: 5 mg Rosuvastatin Calcium [Crestor] 10 mg PO QPM 06/07/15 Omeprazole 20 mg PO QPM 04/24/19 Eplerenone [Inspra] 25 - 50 mg PO BID 12/30/20 Gabapentin [Neurontin] 300 mg PO QDLUNCH 12/30/20 allopurinoL [Zyloprim] 100 mg PO DAILY 12/30/20 Bumetanide [Bumex] 1 - 2 mg PO BID 12/31/20 Aspirin [Aspirin EC] 81 mg PO QPM 07/21/22 Ipratropium [place] 2 spray ANTHONY TID PRN 07/21/22 Tamsulosin [Flomax] 0.4 mg PO BID 07/21/22 Cyclosporine [Restasis Multidose] 1 drops EACHEYE BID 07/04/23 Empagliflozin [Jardiance] 10 mg PO DAILY 07/04/23 Finasteride [Proscar] 5 mg PO DAILY 07/04/23 predniSONE [Deltasone] 7.5 mg PO DAILY 07/04/23
[2023-07-04] MEDS: ASPIRIN EC 81 MG TABLET PO SCH (09:30)
[2023-07-04] MEDS: allopurinoL 100 MG TABLET PO SCH (09:30)
[2023-07-04] MEDS: predniSONE 5 MG TABLET PO SCH (09:30)
[2023-07-04] MEDS: FINASTERIDE 5 MG TABLET PO SCH (09:30)
[2023-07-04] MEDS: CARBOXYMETHYLCELLULOSE OPHTH DROPS EACHEYE SCH (09:35)
[2023-07-04] MEDS: DOXYCYCLINE 100 MG TABLET PO SCH (09:35)
[2023-07-04] MEDS: EPLERENONE 50 MG PO SCH ×2 (12:07→21:35)
[2023-07-04] MEDS: NAPROXEN 250 MG TABLET PO PRN (13:04)
[2023-07-04] MEDS: TAMSULOSIN 0.4 MG CAPSULE PO SCH (13:04)
--- NOTE | 2023-07-04 14:11 | PHARMACY PROGRESS NOTE ---
- Best Possible Medication History Admit Date and Time: 07/03/23 1618 Processed by: Pharmacy Medications reviewed in ED?: No Medication History completed: Yes Patient Interview: Pt unable to participate Secondary Source(s): Physician records, Pharmacy records, Insurance records As the person ultimately responsible for medication therapy, providers are able to order a medication from an existing home medication list in [facility] via the "Reconcile Routine" prior to Confirmation of that medication by support director. Such practice is discouraged except when the physician, in their clinical judgment, deems that a medical need exists for a medication without regard to previous use.
[2023-07-04] MEDS: BUMETANIDE 1 MG TABLET PO SCH (17:15)
[2023-07-04] MEDS ORDERED: VANCOMYCIN INJ 1 GM in SODIUM CHLORIDE 0.9% 250 ML IV SCH (18:00)
[2023-07-04] MEDS ORDERED: NON FORMULARY MED PO SCH (21:00)
[2023-07-04] MEDS: GABAPENTIN 300 MG CAPSULE PO SCH (21:38)
[2023-07-04] MEDS: SODIUM CHLORIDE FLUSH 0.9% 10 ML SYRINGE IVP PRN (22:53)
[2023-07-05 06:40] LABS: BASOPHILS % (AUTO) 0.1 %; HGB - HEMOGLOBIN 12.7 g/dL (14.0-18.0); LYMPHOCYTES # (AUTO) 0.2 10^3/uL (1.5-3.5); LYMPHOCYTES % (AUTO) 1.7 %; MEAN CORPUSCULAR HEMOGLOBIN 34.4 pg (27.0-31.0); MEAN CORPUSCULAR HGB CONC 32.6 g/dL (32.0-36.0); MEAN CORPUSCULAR VOLUME 105.7 fL (80.0-94.0); MEAN PLATELET VOLUME 10.3 fL (7.4-11.4); MONOCYTES # (AUTO) 0.8 10^3/uL (0.0-1.0); MONOCYTES % (AUTO) 7.1 %; NEUTROPHILS # (AUTO) 10.1 10^3/uL (1.5-6.6); NEUTROPHILS % (AUTO) 90.4 %; PLT - PLATELET COUNT 128 10^3/uL (130-450); RED BLOOD COUNT 3.69 10^6/uL (4.70-6.10); RED CELL DISTRIBUTION WIDTH 14.3 % (12.0-15.0); WHITE BLOOD COUNT 11.1 x10^3/uL (4.8-10.8)
[2023-07-05 06:53] LABS: CALCIUM 8.4 mg/dL (8.5-10.3); CREATININE 2.5 mg/dL (0.6-1.3); POTASSIUM 3.8 mmol/L (3.5-4.5)
--- NOTE | 2023-07-05 07:45 | PROVIDER PROGRESS NOTE ---
Assessment/Plan - Problem List (1) Pneumonia Qualifiers: Pneumonia type: due to unspecified organism Laterality: bilateral Lung location: unspecified part of lung Qualified Code(s): J18.9 - Pneumonia, unspecified organism Assessment/Plan: Due to immune compromised status, Continue Zosyn, recommended for 5 days IV treatment, however patient might consider to shorten the treatment course (2) Congestive heart failure Qualifiers: Heart failure type: unspecified Heart failure chronicity: acute on chronic Qualified Code(s): I50.9 - Heart failure, unspecified Assessment/Plan: No sign of CHF exacerbation Recommend patient to cut down diuretics to help with DAR Recommend patient to be compliant with fluid restriction (3) Acute and chronic respiratory failure with hypoxia Assessment/Plan: Improved, back to baseline of 3 L O2 use (4) Wound of skin Assessment/Plan: Wound care per unit protocol (5) Hyponatremia Assessment/Plan: Recommend patient to be on free water restriction Monitoring sodium level (6) Acute kidney injury superimposed on CKD Assessment/Plan: Worsened, creatinine 2.5 compared to 1.8 from yesterday Appears to have metabolic alkalosis with bicarb 29, Likely due to diuretic use Discussed with patient regarding holding one of the 2 diuretics, however patient had fear of experiencing heart failure. Would like to continue with his home dose diuretics, With knowing the consequences of having irreversible renal damage - Current Meds Current Meds: Current Medications Generic Name Dose Route Start Last Admin Trade Name Freq PRN Reason Stop Dose Admin Albuterol/Ipratropium 3 ml 07/03/23 19:00 07/05/23 07:27 Ipratropium/Albuterol 3 Ml Neb INH Not Given RTQID FLOWER Allopurinol 100 mg 07/04/23 09:00 07/04/23 09:30 Allopurinol 100 Mg Tablet PO 100 mg DAILY FLOWER Administration Aspirin 81 mg 07/04/23 09:00 07/04/23 09:30 Aspirin Ec 81 Mg Tablet PO 81 mg DAILY FLOWER Administration Atorvastatin Calcium 10 mg 07/03/23 21:00 07/04/23 21:40 Atorvastatin 10 Mg Tablet PO 10 mg QPM FLOWER Administration Bacitracin 1 packet 07/03/23 18:42 07/03/23 22:14 Bacitracin Zinc Oint 1 Packet TOP 2 packet PRN PRN Administration Skin Care Bumetanide 1 mg 07/04/23 16:00 07/04/23 21:36 Bumetanide 1 Mg Tablet PO 1 mg QPM FLOWER Administration Carboxymethylcellulose 1 drops 07/04/23 10:00 07/05/23 05:41 Carboxymethylcellulose Ophth Drops EACHEYE Not Given Q4HR FLOWER Doxycycline Hyclate 100 mg 07/04/23 10:00 07/04/23 21:38 Doxycycline 100 Mg Tablet PO 07/09/23 09:59 100 mg BID FLOWER Administration Finasteride 5 mg 07/04/23 09:00 07/04/23 09:30 Finasteride 5 Mg Tablet PO 5 mg DAILY [facility] Administration Gabapentin 300 mg 07/04/23 21:00 07/04/23 21:38 Gabapentin 300 Mg Capsule PO 300 mg QPM [facility] Administration Guaifenesin 1,200 mg 07/03/23 21:00 07/04/23 21:37 Guaifenesin 600 Mg Tablet PO 1,200 mg BID [facility] Administration Piperacillin Sod/Tazobactam 100 mls @ 200 mls/hr 07/03/23 17:00 07/05/23 06:10 Sod 3.375 gm/ Sodium Chloride IV Infused Q6H FLOWER Infusion Naproxen 250 mg 07/04/23 09:13 07/04/23 21:39 Naproxen 250 Mg Tablet PO 07/09/23 09:12 250 mg TID PRN Administration Moderate Pain (Level 4-6) Pantoprazole Sodium 40 mg 07/04/23 07:00 07/05/23 06:53 Pantoprazole 40 Mg Tablet PO 40 mg QDAC FLOWER Administration Eplerenone 50 Mg 0.5 - 1 each 07/04/23 15:53 07/04/23 21:35 Tab PO 0.5 each BID [facility] Administration Prednisone 7.5 mg 07/04/23 08:00 07/04/23 09:30 Prednisone 5 Mg Tablet PO 7.5 mg DAILYWM [facility]OWER Administration Sodium Chloride 10 ml 07/03/23 17:00 07/04/23 23:31 Sodium Chloride Flush 0.9% 10 Ml Syringe IVP Not Given 0100,0900,1700 FLOWER Sodium Chloride 10 ml 07/03/23 16:02 07/05/23 05:40 Sodium Chloride Flush 0.9% 10 Ml Syringe IVP 10 ml PRN PRN Administration NEEDED PER PROVIDER ORDERS Tamsulosin HCl 0.4 mg 07/04/23 13:00 07/04/23 21:37 Tamsulosin 0.4 Mg Capsule PO 0.4 mg BID [facility] Administration Zolpidem Tartrate 5 mg 07/03/23 17:17 07/04/23 21:41 Zolpidem 5 Mg Tablet PO 5 mg QPM PRN Administration Insomnia - Lab Result Lab results reviewed: Yes Fish Bone Diagrams: 07/05/23 06:20 07/05/23 06:20 - Diagnostic Imaging Results Diagnostic Imaging Results: Final report reviewed - Additional Planning Condition/Complexity: Unstable My Orders: My Active Orders 07/04/23 07:00 Pantoprazole [Protonix] 40 mg PO QDAC 07/04/23 08:00 predniSONE [Deltasone] 7.5 mg PO DAILYWM 07/04/23 09:00 Aspirin EC [Ecotrin] 81 mg PO DAILY Finasteride [Proscar] 5 mg PO DAILY allopurinoL [Zyloprim] 100 mg PO DAILY 07/04/23 09:13 Naproxen [Naprosyn] 250 mg PO TID PRN 07/04/23 09:17 SCDs [RC] QSHIFT 07/04/23 10:00 Carboxymethylcellulose 1% Opht [Refresh 1% Ophth Drops] 1 drops EACHEYE Q4HR Doxycycline [Vibramycin] 100 mg PO BID 07/04/23 13:00 Tamsulosin [Flomax] 0.4 mg PO BID 07/04/23 15:53 Patient Own Med 0.5 - 1 each PO BID 07/04/23 16:00 Bumetanide [Bumex] 1 mg PO QPM 07/04/23 21:00 Gabapentin [Neurontin] 300 mg PO QPM 07/05/23 07:30 Patient Own Med 1 each PO DAILY 07/05/23 08:00 Bumetanide [Bumex] 2 mg PO QDBREAKFAST 07/05/23 09:00 BNP - B-NATRIURETIC PEPTIDE [CHEM] DAILY 07/06/23 05:00 BMP - BASIC METABOLIC PANEL [CHEM] DAILYLAB CBC [CBC - COMP BLD CT W/AUTO DIFF] [HEME] DAILYLAB 07/06/23 09:00 BNP - B-NATRIURETIC PEPTIDE [CHEM] DAILY 07/07/23 05:00 BMP - BASIC METABOLIC PANEL [CHEM] DAILYLAB CBC [CBC - COMP BLD CT W/AUTO DIFF] [HEME] DAILYLAB 07/07/23 09:00 BNP - B-NATRIURETIC PEPTIDE [CHEM] DAILY 07/08/23 05:00 BMP - BASIC METABOLIC PANEL [CHEM] DAILYLAB CBC [CBC - COMP BLD CT W/AUTO DIFF] [HEME] DAILYLAB 07/08/23 09:00 BNP - B-NATRIURETIC PEPTIDE [CHEM] DAILY Plan Discussed with:: Patient Time Spent: 31-60 minutes Additional Planning Notes: Patient is not medically stable, with worsening DAR, metabolic alkalosis, continue treatment Subjective - Subjective Patient Reports: Other (Patient feels better, still has cough but much less, still cannot bring up much phlegm's) Objective Vital Signs: Vital Signs - 24 hr 07/04/23 07/04/23 07/04/23 08:00 11:30 14:43 Temperature 36.5 C Heart Rate 69 79 Heart Rate [ 78 Brachial] Respiratory 20 16 17 Rate Blood Pressure 91/61 [Right Brachial artery] O2 Saturation 99 If not protocol 3 3 3 : Oxygen Flow, liters/minute 07/04/23 07/04/23 07/05/23 16:00 18:20 00:00 Temperature 36.4 C L 36.3 C L Heart Rate 78 Heart Rate [ 83 88 Brachial] Respiratory 21 17 20 Rate Blood Pressure 105/68 99/69 [Right Brachial artery] O2 Saturation 96 99 If not protocol 3 3 3 : Oxygen Flow, liters/minute 07/05/23 07:27 Temperature Heart Rate Heart Rate [ Brachial] Respiratory Rate Blood Pressure [Right Brachial artery] O2 Saturation If not protocol 3 : Oxygen Flow, liters/minute Oxygen O2 Source Oxymask Oxygen Flow Rate 6 I&O (Last 24 Hrs): Intake and Output Totals x24h 07/03/23 07/04/23 07/05/23 22:59 23:59 23:59 Intake Total 100 Output Total Balance 100 General: Alert, Oriented x3 HEENT: PERRLA, EOMI Neck: Supple, No JVD Neuro: Alert, CN 2-12 Grossly Intact Cardiovascular: Regular rate Respiratory: Rales, Rhonchi Abdomen: Soft Extremities: No edema Comments/Notes: Lower leg wound is covered by dressing - Results Results: Laboratory Results WBC 11.1 x10^3/uL (4.8-10.8) H 07/05/23 06:20 RBC 3.69 10^6/uL (4.70-6.10) L 07/05/23 06:20 Hgb 12.7 g/dL (14.0-18.0) L 07/05/23 06:20 Hct 39.0 % (42.0-52.0) L 07/05/23 06:20 MCV 105.7 fL (80.0-94.0) H 07/05/23 06:20 MCH 34.4 pg (27.0-31.0) H 07/05/23 06:20 MCHC 32.6 g/dL (32.0-36.0) 07/05/23 06:20 RDW 14.3 % (12.0-15.0) 07/05/23 06:20 Plt Count 128 10^3/uL (130-450) L 07/05/23 06:20 MPV 10.3 fL (7.4-11.4) 07/05/23 06:20 Neut # (Auto) 10.1 10^3/uL (1.5-6.6) H 07/05/23 06:20 Lymph # (Auto) 0.2 10^3/uL (1.5-3.5) L 07/05/23 06:20 [place] # (Auto) 0.8 10^3/uL (0.0-1.0) 07/05/23 06:20 Eos # (Auto) 0.0 10^3/uL (0.0-0.7) 07/05/23 06:20 Baso # (Auto) 0.0 10^3/uL (0.0-0.1) 07/05/23 06:20 Absolute Nucleated RBC 0.00 x10^3/uL 07/05/23 06:20 Nucleated RBC % 0.0 /100WBC 07/05/23 06:20 D-Dimer 257.8 ng/mL (200.0-255.0) H 07/03/23 12:36 VBG pH 7.478 (7.31-7.41) H 07/03/23 12:45 VBG pCO2 38.2 mmHg (41-51) L 07/03/23 12:45 VBG pO2 69.5 mmHg (25-47) H 07/03/23 12:45 VBG HCO3 27.7 mmol/L (23-28) 07/03/23 12:45 VBG Total CO2 28.9 mmol/L (24-29) 07/03/23 12:45 VBG O2 Saturation 93.8 % (60-80) H 07/03/23 12:45 VBG Base Excess 4.1 mmol/L (-2 - +2) H 07/03/23 12:45 Sodium 131 mmol/L (135-145) L 07/05/23 06:20 Potassium 3.8 mmol/L (3.5-4.5) 07/05/23 06:20 Chloride 89 mmol/L (101-111) L 07/05/23 06:20 Carbon Dioxide 29 mmol/L (21-32) 07/05/23 06:20 Anion Gap 13.0 (6-13) 07/05/23 06:20 BUN 72 mg/dL (6-20) H 07/05/23 06:20 Creatinine 2.5 mg/dL (0.6-1.3) H 07/05/23 06:20 Estimated GFR (MDRD) 25 (>89) L 07/05/23 06:20 Glucose 139 mg/dL (74-104) H 07/05/23 06:20 Calcium 8.4 mg/dL (8.5-10.3) L 07/05/23 06:20 Magnesium 2.3 mg/dL (1.7-2.3) 07/03/23 12:36 Total Bilirubin 0.8 mg/dL (0.2-1.0) 07/03/23 12:36 AST 67 IU/L (10-42) H 07/03/23 12:36 ALT 57 IU/L (10-60) 07/03/23 12:36 Alkaline Phosphatase 67 IU/L (42-121) 07/03/23 12:36 Troponin I High Sens 23.6 ng/L (2.3-19.7) H* 07/03/23 12:36 B-Natriuretic Peptide 193 pg/mL (5-100) H 07/04/23 05:22 Total Protein 7.1 g/dL (6.4-8.9) 07/03/23 12:36 Albumin 3.8 g/dL (3.2-5.5) 07/03/23 12:36 Globulin 3.3 g/dL (2.1-4.2) 07/03/23 12:36 Albumin/Globulin Ratio 1.2 (1.0-2.2) 07/03/23 12:36 Lipase 18 U/L (11-82) 07/03/23 12:36 Urine Color YELLOW 07/03/23 13:47 Urine Clarity CLEAR (CLEAR) 07/03/23 13:47 Urine pH 6.0 PH (5.0-7.5) 07/03/23 13:47 Ur Specific [place] 1.010 (1.002-1.030) 07/03/23 13:47 Urine Protein NEGATIVE mg/dL (NEGATIVE) 07/03/23 13:47 Urine Glucose (UA) >=1000 mg/dL (NEGATIVE) H 07/03/23 13:47 Urine Ketones NEGATIVE mg/dL (NEGATIVE) 07/03/23 13:47 Urine Occult Blood TRACE-INTA (NEGATIVE) 07/03/23 13:47 Urine Nitrite NEGATIVE (NEGATIVE) 07/03/23 13:47 Urine Bilirubin NEGATIVE (NEGATIVE) 07/03/23 13:47 Urine Urobilinogen 2 E.U./dL (NORMAL) H 07/03/23 13:47 Ur Leukocyte Esterase NEGATIVE (NEGATIVE) 07/03/23 13:47 Ur Microscopic Review NOT INDICATED 07/03/23 13:47 Urine Culture Comments NOT INDICATED 07/03/23 13:47 Nasal Screen MRSA (PCR) NEGATIVE (NEGATIVE) 07/03/23 17:53 SARS-CoV-2 (PCR) NOT DETECTED 07/03/23 12:36 - Procedures Procedures: Procedures INSPECTION OF LOWER INTESTINAL TRACT, ENDO (02/22/17) REPAIR SCALP SUBCUTANEOUS TISSUE AND FASCIA, OPEN APPROACH (04/21/19) REPLACEMENT OF LEFT LENS WITH SYNTH SUB, PERC APPROACH (06/25/16) REPLACEMENT OF RIGHT LENS WITH SYNTH SUB, PERC APPROACH (05/14/16) Sepsis Event Note (H) - Evaluation Current Stage of Sepsis: Ruled out ABX Reporting Has patient been on IV antibiotics over the past 48 hours?: Yes Current Medications - Current Medications Current Medications: Active Medications Albuterol/Ipratropium (Ipratropium/Albuterol 3 Ml Neb) 3 ml INH Q4HR PRN PRN Reason: Shortness of Air/Wheezing Allopurinol (Allopurinol 100 Mg Tablet) 100 mg PO DAILY [facility] Last Admin: 07/05/23 09:08 Dose: 100 mg Aspirin (Aspirin Ec 81 Mg Tablet) 81 mg PO DAILY [facility] Last Admin: 07/05/23 09:08 Dose: 81 mg Atorvastatin Calcium (Atorvastatin 10 Mg Tablet) 10 mg PO QPM [facility] Last Admin: 07/05/23 22:10 Dose: 10 mg Bacitracin (Bacitracin Zinc Oint 1 Packet) 1 packet TOP PRN PRN PRN Reason: Skin Care Last Admin: 07/03/23 22:14 Dose: 2 packet Bumetanide (Bumetanide 1 Mg Tablet) 1 mg PO QPM [facility] Last Admin: 07/05/23 22:12 Dose: 1 mg Bumetanide (Bumetanide 1 Mg Tablet) 2 mg PO QDBREAKFAST [facility] Last Admin: 07/05/23 13:22 Dose: 2 mg Carboxymethylcellulose (Carboxymethylcellulose Ophth Drops) 1 drops EACHEYE Q4HR [facility] Last Admin: 07/05/23 22:12 Dose: 1 drops Doxycycline Hyclate (Doxycycline 100 Mg Tablet) 100 mg PO BID [facility] Stop: 07/09/23 09:59 Last Admin: 07/05/23 22:11 Dose: 100 mg Finasteride (Finasteride 5 Mg Tablet) 5 mg PO DAILY [facility] Last Admin: 07/05/23 09:08 Dose: 5 mg Gabapentin (Gabapentin 300 Mg Capsule) 300 mg PO QPM [facility] Last Admin: 07/05/23 22:12 Dose: 300 mg Guaifenesin (Guaifenesin 600 Mg Tablet) 1,200 mg PO BID [facility] Last Admin: 07/05/23 22:11 Dose: 1,200 mg Heparin Sodium (Porcine) (Heparin 5,000 Unit/Ml Vial) 5,000 unit SUBQ BID [facility] Last Admin: 07/05/23 22:06 Dose: 5,000 unit Piperacillin Sod/Tazobactam (Sod 3.375 gm/ Sodium Chloride) 100 mls @ 200 mls/hr IV Q6H [facility] Last Admin: 07/05/23 22:58 Dose: 200 mls/hr Naproxen (Naproxen 250 Mg Tablet) 250 mg PO TID PRN PRN Reason: Moderate Pain (Level 4-6) Stop: 07/09/23 09:12 Last Admin: 07/05/23 22:10 Dose: 250 mg Ondansetron HCl (Ondansetron Odt 4 Mg Tablet) 4 mg TL Q6HR PRN PRN Reason: Nausea / Vomiting Ondansetron HCl (Ondansetron 4 Mg/2 Ml Vial) 4 mg IVP Q6HR PRN PRN Reason: Nausea / Vomiting Pantoprazole Sodium (Pantoprazole 40 Mg Tablet) 40 mg PO QDAC [facility] Last Admin: 07/05/23 06:53 Dose: 40 mg Empagliflozin [ Jardiance] 10 Mg Tabs 1 each PO DAILY [facility] Last Admin: 07/05/23 07:57 Dose: 1 each Eplerenone 50 Mg (Tab) 0.5 - 1 each PO BID [facility] Last Admin: 07/05/23 22:09 Dose: 0.5 each Polyethylene Glycol (Polyethylene Glycol 3350 17 Gm Packet) 17 gm PO DAILY [facility] Last Admin: 07/05/23 13:36 Dose: 17 gm Prednisone (Prednisone 5 Mg Tablet) [facility] Last Admin: 07/05/23 09:10 Dose: 7.5 mg Sodium Chloride (Sodium Chloride Flush 0.9% 10 Ml Syringe) 10 ml IVP 0100,0900,1700 [facility] Last Admin: 07/05/23 17:58 Dose: 10 ml Sodium Chloride (Sodium Chloride Flush 0.9% 10 Ml Syringe) 10 ml IVP PRN PRN PRN Reason: NEEDED PER PROVIDER ORDERS Last Admin: 07/05/23 05:40 Dose: 10 ml Tamsulosin HCl (Tamsulosin 0.4 Mg Capsule) 0.4 mg PO BID [facility] Last Admin: 07/05/23 22:10 Dose: 0.4 mg Zolpidem Tartrate (Zolpidem 5 Mg Tablet) 5 mg PO QPM PRN PRN Reason: Insomnia Last Admin: 07/05/23 22:12 Dose: 5 mg Rosuvastatin Calcium [Crestor] 10 mg PO QPM 06/07/15 Omeprazole 20 mg PO QPM 04/24/19 Eplerenone [Inspra] 25 - 50 mg PO BID 12/30/20 Gabapentin [Neurontin] 300 mg PO QDLUNCH 12/30/20 allopurinoL [Zyloprim] 100 mg PO DAILY 12/30/20 Bumetanide [Bumex] 1 - 2 mg PO BID 12/31/20 Aspirin [Aspirin EC] 81 mg PO QPM 07/21/22 Ipratropium [place] 2 spray ANTHONY TID PRN 07/21/22 Tamsulosin [Flomax] 0.4 mg PO BID 07/21/22 Cyclosporine [Restasis Multidose] 1 drops EACHEYE BID 07/04/23 Empagliflozin [Jardiance] 10 mg PO DAILY 07/04/23 Finasteride [Proscar] 5 mg PO DAILY 07/04/23 predniSONE [Deltasone] 7.5 mg PO DAILY 07/04/23
[2023-07-05] MEDS ORDERED: IPRATROPIUM/ALBUTEROL 3 ML NEB INH PRN (07:49)
[2023-07-05] MEDS: EMPAGLIFLOZIN 10 MG PO SCH (07:57)
[2023-07-05] MEDS: HEPARIN 5,000 UNIT/ML VIAL SUBQ SCH (09:14)
[2023-07-05] MEDS: BUMETANIDE 1 MG TABLET PO SCH (13:22)
[2023-07-05] MEDS: polyethylene glycoL 3350 17 GM PACKET PO SCH (13:36)
[2023-07-06 06:03] LABS: BASOPHILS % (AUTO) 0.1 %; EOSINOPHILS % (AUTO) 0.1 %; HCT - HEMATOCRIT 38.4 % (42.0-52.0); HGB - HEMOGLOBIN 12.6 g/dL (14.0-18.0); LYMPHOCYTES # (AUTO) 0.4 10^3/uL (1.5-3.5); LYMPHOCYTES % (AUTO) 4.4 %; MEAN CORPUSCULAR HEMOGLOBIN 34.6 pg (27.0-31.0); MEAN CORPUSCULAR HGB CONC 32.8 g/dL (32.0-36.0); MEAN CORPUSCULAR VOLUME 105.5 fL (80.0-94.0); MEAN PLATELET VOLUME 10.1 fL (7.4-11.4); MONOCYTES # (AUTO) 0.8 10^3/uL (0.0-1.0); MONOCYTES % (AUTO) 8.3 %; NEUTROPHILS # (AUTO) 8.1 10^3/uL (1.5-6.6); PLT - PLATELET COUNT 120 10^3/uL (130-450); RED BLOOD COUNT 3.64 10^6/uL (4.70-6.10); RED CELL DISTRIBUTION WIDTH 14.3 % (12.0-15.0); WHITE BLOOD COUNT 9.4 x10^3/uL (4.8-10.8)
[2023-07-06 06:48] LABS: CALCIUM 8.6 mg/dL (8.5-10.3); CREATININE 2.6 mg/dL (0.6-1.3); POTASSIUM 3.9 mmol/L (3.5-4.5)
[2023-07-06] MEDS: PIPERACILLIN/TAZOBACTAM 2.25 GM in SODIUM CHLORIDE 0.9% MINIBAG 100 ML IV SCH (10:59)
[2023-07-06] MEDS: CHOLECALCIFEROL 25 MCG TABLET PO SCH (17:23)
--- NOTE | 2023-07-06 18:59 | PROVIDER PROGRESS NOTE ---
Subjective - Prog Note Date Prog Note Date: 07/06/23 Prog Note Time: 18:57 - Subjective Pt reports feeling: No change Subjective: He tells me that he is definitely improved since he has been admitted. His edema is better. His dyspnea is better. But he still significantly diminished in his capacities. Just sitting at the edge of the bed wiped him out. Speaking to me makes him short of breath and slightly tachypneic. He is already fallen at home twice. PT is work with him and they find him exceedingly weak. He has insisted on staying on his diuretics at his dose request. Visit and spite of BUN that is gone from 53-86. And a creatinine is gone from 1.8-2.6. His weight on admission was 79 kg. I am not seeing where he has had daily weights. His fluid balance has been positive. July 03 he was 990 cc positive. July 04, 1967 and 35 cc positive. As of today he is 1130 cc positive. He is eating 50 to 75% of his meals. Most of his fluid intake is from the antibiotics. Oral intake is minimal at 200 to 400 cc a day. Diabetes is controlled. Glucose has been 152, 139, 116. Current Medications - Current Medications Current Medications: Active Medications Albuterol/Ipratropium (Ipratropium/Albuterol 3 Ml Neb) 3 ml INH Q4HR PRN PRN Reason: Shortness of Air/Wheezing Allopurinol (Allopurinol 100 Mg Tablet) 100 mg PO DAILY [facility] Last Admin: 07/06/23 09:00 Dose: 100 mg Aspirin (Aspirin Ec 81 Mg Tablet) 81 mg PO DAILY [facility] Last Admin: 07/06/23 08:59 Dose: 81 mg Atorvastatin Calcium (Atorvastatin 10 Mg Tablet) 10 mg PO QPM [facility] Last Admin: 07/05/23 22:10 Dose: 10 mg Bacitracin (Bacitracin Zinc Oint 1 Packet) 1 packet TOP PRN PRN PRN Reason: Skin Care Last Admin: 07/03/23 22:14 Dose: 2 packet Bumetanide (Bumetanide 1 Mg Tablet) 1 mg PO QPM [facility] Last Admin: 07/05/23 22:12 Dose: 1 mg Bumetanide (Bumetanide 1 Mg Tablet) 2 mg PO QDBREAKFAST [facility] Last Admin: 07/06/23 09:02 Dose: 2 mg Carboxymethylcellulose (Carboxymethylcellulose Ophth Drops) 1 drops EACHEYE Q4HR [facility] Last Admin: 07/06/23 17:22 Dose: 1 drops Cholecalciferol (Cholecalciferol 25 Mcg Tablet) 50 mcg PO DAILY [facility] Last Admin: 07/06/23 17:23 Dose: 50 mcg Doxycycline Hyclate (Doxycycline 100 Mg Tablet) 100 mg PO BID [facility] Stop: 07/09/23 09:59 Last Admin: 07/06/23 08:59 Dose: 100 mg Finasteride (Finasteride 5 Mg Tablet) 5 mg PO DAILY [facility] Last Admin: 07/06/23 08:59 Dose: 5 mg Gabapentin (Gabapentin 300 Mg Capsule) 300 mg PO QPM [facility] Last Admin: 07/05/23 22:12 Dose: 300 mg Guaifenesin (Guaifenesin 600 Mg Tablet) 1,200 mg PO BID [facility] Last Admin: 07/06/23 09:00 Dose: 1,200 mg Heparin Sodium (Porcine) (Heparin 5,000 Unit/Ml Vial) 5,000 unit SUBQ BID [facility] Last Admin: 07/06/23 09:02 Dose: 5,000 unit Piperacillin Sod/Tazobactam (Sod 2.25 gm/ Sodium Chloride) 100 mls @ 200 mls/hr IV Q6H [facility] Last Infusion: 07/06/23 18:11 Dose: Infused Naproxen (Naproxen 250 Mg Tablet) 250 mg PO TID PRN PRN Reason: Moderate Pain (Level 4-6) Stop: 07/09/23 09:12 Last Admin: 07/05/23 22:10 Dose: 250 mg Ondansetron HCl (Ondansetron Odt 4 Mg Tablet) 4 mg TL Q6HR PRN PRN Reason: Nausea / Vomiting Ondansetron HCl (Ondansetron 4 Mg/2 Ml Vial) 4 mg IVP Q6HR PRN PRN Reason: Nausea / Vomiting Pantoprazole Sodium (Pantoprazole 40 Mg Tablet) 40 mg PO QDAC [facility] Last Admin: 07/06/23 06:57 Dose: 40 mg Empagliflozin [ Jardiance] 10 Mg Tabs 1 each PO DAILY [facility] Last Admin: 07/06/23 06:58 Dose: 1 each Eplerenone 50 Mg (Tab) 0.5 - 1 each PO BID [facility] Last Admin: 07/06/23 09:04 Dose: 1 each Polyethylene Glycol (Polyethylene Glycol 3350 17 Gm Packet) 17 gm PO DAILY [facility] Last Admin: 07/06/23 09:04 Dose: Not Given Prednisone (Prednisone 5 Mg Tablet) 7.5 mg PO DAILYWM [facility] Last Admin: 07/06/23 09:01 Dose: 7.5 mg Sodium Chloride (Sodium Chloride Flush 0.9% 10 Ml Syringe) 10 ml IVP 0100,0900,1700 [facility] Last Admin: 07/06/23 17:23 Dose: 10 ml Sodium Chloride (Sodium Chloride Flush 0.9% 10 Ml Syringe) 10 ml IVP PRN PRN PRN Reason: NEEDED PER PROVIDER ORDERS Last Admin: 07/05/23 05:40 Dose: 10 ml Tamsulosin HCl (Tamsulosin 0.4 Mg Capsule) 0.4 mg PO BID [facility] Last Admin: 07/06/23 09:01 Dose: 0.4 mg Zinc Oxide (Cod Liver Oil/Zinc Oxide 113 Gm Tube) 113 gm TOP PRN PRN PRN Reason: Skin Care Zolpidem Tartrate (Zolpidem 5 Mg Tablet) 5 mg PO QPM PRN PRN Reason: Insomnia Last Admin: 07/05/23 22:12 Dose: 5 mg Rosuvastatin Calcium [Crestor] 10 mg PO QPM 06/07/15 Omeprazole 20 mg PO QPM 04/24/19 Eplerenone [Inspra] 25 - 50 mg PO BID 12/30/20 Gabapentin [Neurontin] 300 mg PO QDLUNCH 12/30/20 allopurinoL [Zyloprim] 100 mg PO DAILY 12/30/20 Bumetanide [Bumex] 1 - 2 mg PO BID 12/31/20 Aspirin [Aspirin EC] 81 mg PO QPM 07/21/22 Ipratropium Capay 2 spray ANTHONY TID PRN 07/21/22 Tamsulosin [Flomax] 0.4 mg PO BID 07/21/22 Cyclosporine [Restasis Multidose] 1 drops EACHEYE BID 07/04/23 Empagliflozin [Jardiance] 10 mg PO DAILY 07/04/23 Finasteride [Proscar] 5 mg PO DAILY 07/04/23 predniSONE [Deltasone] 7.5 mg PO DAILY 07/04/23 Objective - Vital Signs/Intake & Output Reviewed Vital Signs: Yes Vital Signs: Vital Signs x48h Temp Pulse Resp BP Pulse Ox O2 Flow Rate 07/06/23 16:00 36.4 C L 90 20 118/81 H 94 3 Intake & Output: Intake & Output 07/03/23 07/04/23 07/05/23 07/06/23 22:59 23:59 23:59 23:59 Intake Total 1430 1980 Output Total 695 850 Balance 735 1130 - Objective General Appearance: positive: No acute distress, Alert, Other (Very fatigued appearing.) Eyes Bilateral: positive: PERRL, EOMI ENT: positive: No signs of dehydration Neck: positive: No JVD. negative: Stiff neck Respiratory: positive: Rales, Rhonchi Cardiovascular: positive: Regular rate & rhythm, Systolic murmur Abdomen: positive: Non-tender, No organomegaly, Nml bowel sounds, No distention Skin: positive: Warm, Dry Extremities: positive: Full ROM, Pedal edema Neurologic/Psychiatric: positive: Oriented x3, CN's nml (2-12), Motor nml (but generalized weakness evident) - Lab Results Fish Bones: 07/06/23 05:44 07/06/23 05:44 Other Labs: Lab Results x24hrs 07/06/23 07/06/23 07/06/23 Range/Units 09:20 05:44 05:44 WBC 9.4 (4.8-10.8) x10^3/uL RBC 3.64 L (4.70-6.10) 10^6/uL Hgb 12.6 L (14.0-18.0) g/dL Hct 38.4 L (42.0-52.0) % MCV 105.5 H (80.0-94.0) fL MCH 34.6 H (27.0-31.0) pg MCHC 32.8 (32.0-36.0) g/dL RDW 14.3 (12.0-15.0) % Plt Count 120 L (130-450) 10^3/uL MPV 10.1 (7.4-11.4) fL Neut # (Auto) 8.1 H (1.5-6.6) 10^3/uL Lymph # (Auto) 0.4 L (1.5-3.5) 10^3/uL [place] # (Auto) 0.8 (0.0-1.0) 10^3/uL Eos # (Auto) 0.0 (0.0-0.7) 10^3/uL Baso # (Auto) 0.0 (0.0-0.1) 10^3/uL Absolute Nucleated RBC 0.00 x10^3/uL Nucleated RBC % 0.0 /100WBC Sodium 132 L (135-145) mmol/L Potassium 3.9 (3.5-4.5) mmol/L Chloride 92 L (101-111) mmol/L Carbon Dioxide 29 (21-32) mmol/L Anion Gap 11.0 (6-13) BUN 86 H* (6-20) mg/dL Creatinine 2.6 H (0.6-1.3) mg/dL Estimated GFR (MDRD) 24 L (>89) Glucose 116 H (74-104) mg/dL Calcium 8.6 (8.5-10.3) mg/dL B-Natriuretic Peptide 274 H (5-100) pg/mL ABX Reporting Has patient been on IV antibiotics over the past 48 hours?: Yes Sepsis Event Note (H) - Evaluation Current Stage of Sepsis: Ruled out Assessment/Plan - Problem List (1) Pneumonia Impression: Pneumonia type: due to unspecified organism Laterality: bilateral Lung location: unspecified part of lung Qualified Code(s): J18.9 - Pneumonia, unspecified organism Assessment/Plan: Due to immune compromised status, on Zosyn. He has been on it since July 02. Today would be day 3 of . There are no blood cultures or sputum cultures to review. He has subjective improvement. Lung exam still has quite a few abnormal findings. Oxygen requirement has remained fairly stable. He was on 4 L on the first day, has come down to 3 L and has stayed on 3 L. I will continue the Zosyn at this time. He tells me that he is not ready to stop it. (2) Congestive heart failure Qualifiers: Heart failure type: unspecified Heart failure chronicity: acute on chronic Qualified Code(s): I50.9 - Heart failure, unspecified Assessment/Plan: No sign of CHF exacerbation Recommend patient to cut down diuretics to help with DAR. Patient refuses at this time. 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 And he is asking me not to stop his diuretics. I am worried about the rise in the BUN and creatinine. Recommend patient to be compliant with fluid restriction (3) Acute and chronic respiratory failure with hypoxia Assessment/Plan: Improved, back to baseline of 3 L O2 use (4) Wound of skin Assessment/Plan: Wound care per unit protocol (5) Hyponatremia Assessment/Plan: Sodium was 133 on admission. It has varied between 131 and 132. Recommend patient to be on free water restriction Monitoring sodium level (6) Acute kidney injury superimposed on CKD Assessment/Plan: Worsened, creatinine 2.6 compared to 1.8 Appears to have metabolic alkalosis with bicarb 29, Likely due to diuretic use Discussed with patient regarding holding one of the 2 diuretics, however patient had fear of experiencing heart failure. Would like to continue with his home dose diuretics, With knowing the consequences of having irreversible renal damage
[2023-07-06] MEDS: COD LIVER OIL/ZINC OXIDE 113 GM TUBE TOP PRN (21:44)
[2023-07-07 05:38] LABS: BASOPHILS % (AUTO) 0.1 %; EOSINOPHILS % (AUTO) 0.5 %; HCT - HEMATOCRIT 39.7 % (42.0-52.0); HGB - HEMOGLOBIN 12.8 g/dL (14.0-18.0); LYMPHOCYTES # (AUTO) 0.6 10^3/uL (1.5-3.5); LYMPHOCYTES % (AUTO) 7.6 %; MEAN CORPUSCULAR HEMOGLOBIN 34.3 pg (27.0-31.0); MEAN CORPUSCULAR HGB CONC 32.2 g/dL (32.0-36.0); MEAN CORPUSCULAR VOLUME 106.4 fL (80.0-94.0); MEAN PLATELET VOLUME 10.2 fL (7.4-11.4); MONOCYTES # (AUTO) 0.8 10^3/uL (0.0-1.0); MONOCYTES % (AUTO) 10.7 %; NEUTROPHILS # (AUTO) 5.9 10^3/uL (1.5-6.6); PLT - PLATELET COUNT 125 10^3/uL (130-450); RED BLOOD COUNT 3.73 10^6/uL (4.70-6.10); RED CELL DISTRIBUTION WIDTH 14.4 % (12.0-15.0); WHITE BLOOD COUNT 7.4 x10^3/uL (4.8-10.8)
[2023-07-07 06:24] LABS: CALCIUM 8.6 mg/dL (8.5-10.3); CREATININE 2.6 mg/dL (0.6-1.3); POTASSIUM 3.4 mmol/L (3.5-4.5)
[2023-07-07] MEDS ORDERED: SODIUM CHLORIDE 0.9% MINIBAG 100 ML IV ONE ×2 (11:02→11:03)
--- NOTE | 2023-07-07 15:34 | PROVIDER PROGRESS NOTE ---
Progress Note July 07, 2023 3:27 PM I spent a very long time with the patient today. Spent over an hour doing advance care planning conversation.Please see that under separate dictation. Overall he is feeling better from yesterday and definitely better from 2 days ago. He has baseline shortness of breath. He is on 2 to 3 L at home. And currently on 3 L here since June 28. He found that he had the energy to get up out of bed, go to the bathroom. Get back in bed. It does leave him tachypneic, and increasing his O2 liter flow temporarily. But he Recovers in 2 to 3 minutes. He then got up to go take a shower. Was at the sink and shower for 10 minutes. He was exhausted. O2 sats dropped into the 80s and he required temporary increase to 5 L but did well with that. He said it actually increased his endurance to have the oxygen flow temporarily increased. Wound care was done today. He gets easy skin tears. He has a hot tub that he sometimes goes into and is just bringing his leg up over the hot tub and banging it against the edge of the hot tub that will cause the skin tears. He usually uses Medihoney and a Band-Aid. Here he had dry dressing with Kerlix. When he took off the dressing today it just peeled away the skin. Bandage needed to be moistened before we can take it off. Active Medications Albuterol/Ipratropium (Ipratropium/Albuterol 3 Ml Neb) 3 ml INH Q4HR PRN PRN Reason: Shortness of Air/Wheezing Allopurinol (Allopurinol 100 Mg Tablet) [address] [facility] Last Admin: 07/07/23 10:45 Dose: 100 mg Aspirin (Aspirin Ec 81 Mg Tablet) [address] [facility] Last Admin: 07/07/23 10:45 Dose: 81 mg Atorvastatin Calcium (Atorvastatin 10 Mg Tablet) [address] [facility] Last Admin: 07/06/23 21:36 Dose: 10 mg Bacitracin (Bacitracin Zinc Oint 1 Packet) 1 packet TOP PRN PRN PRN Reason: Skin Care Last Admin: 07/03/23 22:14 Dose: 2 packet Bumetanide (Bumetanide 1 Mg Tablet) [address] [facility] Last Admin: 07/06/23 21:36 Dose: 1 mg Bumetanide (Bumetanide 1 Mg Tablet) [address] [facility] Last Admin: 07/07/23 10:41 Dose: 2 mg Carboxymethylcellulose (Carboxymethylcellulose Ophth Drops) [address] [facility] Last Admin: 07/07/23 14:59 Dose: Not Given Cholecalciferol (Cholecalciferol 25 Mcg Tablet) [address] [facility] Last Admin: 07/07/23 10:44 Dose: 50 mcg Doxycycline Hyclate (Doxycycline 100 Mg Tablet) [address] [facility] Stop: 07/09/23 09:59 Last Admin: 07/07/23 10:43 Dose: 100 mg Finasteride (Finasteride 5 Mg Tablet) [address] [facility] Last Admin: 07/07/23 10:44 Dose: 5 mg Gabapentin (Gabapentin 300 Mg Capsule) [address] [facility] Last Admin: 07/06/23 21:36 Dose: 300 mg Guaifenesin (Guaifenesin 600 Mg Tablet) 1,[address] [facility] Last Admin: 07/07/23 10:44 Dose: 1,200 mg Heparin Sodium (Porcine) (Heparin 5,000 Unit/Ml Vial) 5,[address] [facility] Last Admin: 07/07/23 10:47 Dose: 5,000 unit Piperacillin Sod/Tazobactam (Sod 2.25 gm/ Sodium Chloride) 100 mls @ 200 mls/hr IV Q6H [facility] Last Infusion: 07/07/23 12:23 Dose: Infused Naproxen (Naproxen 250 Mg Tablet) 250 mg PO TID PRN PRN Reason: Moderate Pain (Level 4-6) Stop: 07/09/23 09:12 Last Admin: 07/06/23 21:36 Dose: 250 mg Ondansetron HCl (Ondansetron Odt 4 Mg Tablet) 4 mg TL Q6HR PRN PRN Reason: Nausea / Vomiting Ondansetron HCl (Ondansetron 4 Mg/2 Ml Vial) 4 mg IVP Q6HR PRN PRN Reason: Nausea / Vomiting Pantoprazole Sodium (Pantoprazole 40 Mg Tablet) [address] [facility] Last Admin: 07/07/23 07:00 Dose: 40 mg Empagliflozin [ Jardiance] 10 Mg Tabs [address] [facility] Last Admin: 07/07/23 07:00 Dose: 1 each Eplerenone 50 Mg (Tab) 0.5 - [address] [facility] Last Admin: 07/07/23 10:43 Dose: 1 each Polyethylene Glycol (Polyethylene Glycol 3350 17 Gm Packet) [address] [facility] Last Admin: 07/07/23 10:45 Dose: Not Given Prednisone (Prednisone 5 Mg Tablet) 7.[address] [facility] Last Admin: 07/07/23 10:41 Dose: 7.5 mg Sodium Chloride (Sodium Chloride Flush 0.9% 10 Ml Syringe) 10 ml IVP 0100,0900,1700 [facility] Last Admin: 07/07/23 10:46 Dose: 10 ml Sodium Chloride (Sodium Chloride Flush 0.9% 10 Ml Syringe) 10 ml IVP PRN PRN PRN Reason: NEEDED PER PROVIDER ORDERS Last Admin: 07/07/23 05:13 Dose: 10 ml Tamsulosin HCl (Tamsulosin 0.4 Mg Capsule) 0.[address] [facility] Last Admin: 07/07/23 10:42 Dose: 0.4 mg Zinc Oxide (Cod Liver Oil/Zinc Oxide 113 Gm Tube) 113 gm TOP PRN PRN PRN Reason: Skin Care Last Admin: 07/07/23 00:54 Dose: 1 applic Zolpidem Tartrate (Zolpidem 5 Mg Tablet) 5 mg PO QPM PRN PRN Reason: Insomnia Last Admin: 07/06/23 21:36 Dose: 5 mg Exam: Temperature 36.3. Heart rate 80-97. Blood pressure 115/72. Respirations 16. 96% saturated on 3 L. Stocky 5 foot 11 inch elderly male who looks older than stated age. 80 kg. Well-nourished, well-developed, slightly disheveled hair, bearded. He gets tachypneic with speaking. But can complete 5-7 word sentences. He does very well in that he breathes in through his nose where his nasal cannula does and does not mouth breathe. Neck is supple Lungs have crackles, less rhonchi but no wheezing. No dullness. No egophony. No use of accessory muscles. Regular rate and rhythm Abdomen is soft, nontender Extremities are seen without bandages. He has trace edema around the ankles. Venous insufficiency with varicose veins. He is skin of arms and legs have multiple abrasions where they are friable. The right forearm where his IV in his hand, is starting to develop diffuse ecchymosis of the right forearm over the brachial radialis and he worries that the heparin is causing subcutaneous bleeding in his veins. He has skin tears of both shins. The right forearm. There is no redness or heat. The right costello has a black eschar where the skin is now and will peel off. But there is no evidence of cellulitis. He is alert and oriented to person, place, time, situation. No focal deficits. Standby assist to get up out of bed and to slowly walk to the bathroom with a shuffling gait. Laboratory Tests 07/07/23 07/07/23 07/07/23 05:15 05:15 05:15 WBC 7.4 Hgb 12.8 L Hct 39.7 L Plt Count 125 L Sodium 136 Potassium 3.4 L Chloride 96 L Carbon Dioxide 30 Anion Gap 10.0 BUN 83 H* Creatinine 2.6 H Estimated GFR (MDRD) 24 L Glucose 87 Calcium 8.6 B-Natriuretic Peptide 333 H Assessment/Plan - Problem List (1) Pneumonia Impression: Pneumonia type: due to unspecified organism Laterality: bilateral Lung location: unspecified part of lung Qualified Code(s): J18.9 - Pneumonia, unspecified organism Assessment/Plan: Due to immune compromised status, on Zosyn. He has been on it since July 02. Today would be day 4 of 5. There are no blood cultures or sputum cultures to review. He Continues to have subjective improvement. He specifically states that he is better today than he was yesterday. And yesterday he was better than the day before. More endurance. Less exhaustion. Lung exam still has abnormal findings. Oxygen requirement has remained fairly stable. He was on 4 L on the first day, has come down to 3 L and has stayed on 3 L.This is his baseline. Tomorrow will be day 5 of antibiotics. 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 He feels like he will stop antibiotics tomorrow, and most likely be ready to go home. He feels so much better having a shower. And knowing that he can get up, go to the toilet, take care of some basic hygiene matters without needing excessive help. (2) Congestive heart failure Qualifiers: Heart failure type: unspecified Heart failure chronicity: acute on chronic Qualified Code(s): I50.9 - Heart failure, unspecified Assessment/Plan: No sign of CHF exacerbation Recommend patient to cut down diuretics to help with DAR. Patient refuses at this time. 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 And he is asking me not to stop his diuretics. I am worried about the rise in the BUN and creatinine.He continues to have an elevated creatinine of 2.6. BUN is stable at 83. He feels comfortable continuing the course. He is curious about his potassium being low. Usually he finds that his potassium is perfect with his loop diuretic and potassium sparing diuretic. Today he is having some diarrhea. It is not foul-smelling. Liquid brown stool. I explained that most likely his low potassium is due to the diarrhea and the diuretics. At home he takes Bumex, eplerenone. Those will be resumed tomorrow at discharge. Here he has been on Bumex 1 mg in the evening, 2 mg in the morning. Eplerenone 50 mg twice daily. Please see advance care planning conversation under separate dictation (3)Chronic respiratory failure with hypoxia. The acute hypoxia resolved after 1 day of admission. Assessment/Plan: Improved, back to baseline of 3 L O2 use (4) Wound of skin From skin tears of shins, on right forearm. Assessment/Plan: On examination today there is no infection. There are simple skin lacerations. We have cleaned the wounds. He is asking for [facility] wound barrier and I have called the wound clinic. They have some for us and will pick it up and then we will put a simple Band-Aid over his skin tears. (5) Hyponatremia And hypokalemia Assessment/Plan: Sodium was 133 on admission. It has varied between 131 and 132. Continue water restriction. 1 dose of potassium 40 mill colons p.o. (6) Acute kidney injury superimposed on CKD Assessment/Plan: Worsened, creatinine 2.6 for 2 days compared to 1.8 Appears to have metabolic alkalosis with bicarb 29, Likely due to diuretic use Discussed with patient regarding holding one of the 2 diuretics, however patient had fear of experiencing heart failure. Would like to continue with his home dose diuretics, With knowing the consequences of having irreversible renal damage (7) diarrhea Liquid brown stool. No blood. No foul-smelling in nature and no consistency compatible with C. difficile. I feel comfortable giving him probiotics and Lomotil.
--- NOTE | 2023-07-07 15:44 | ADVANCE CARE PLANNING NOTE ---
Advance Care Planning - Planning Encounter Date: 07/07/23 Time: 15:42 Purpose: Establish care goals, and CODE STATUS Parties in Attendance: Patient and hospitalist Decisional Capacity of the Patient: Alert and oriented to person, place, time, situation. 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 Went to medical school in [place]. From there did residency in [place] through the [employer]. Through the [employer] he served in [facility]. In private practice he worked in medical p.o., and then eventually [place] He had to [place] once his cardiac disease became too disabling. He has been twice. Second of a neuroendocrine tumor. The final event was acute blood loss anemia from GI bleed. She had a hemoglobin of 3. This was a few years ago. His POA and DPOA is son Prudencio. Prudencio is an EMT and works for [employer]. [place] In [place] last few months, Prudencio's son, Talat, moved in with Dr. Lozano. He has been needing more help. Dr. Lozano has been wanting his POLST form filled out. He has it filled out for his part at home. But he has been having difficulty connecting with his primary care provider to get the provider form filled out. I told him I am more than willing to do that. He is eventual desire is to always stay at home. He would like to hire caregivers. If he is needing to move to his son's house he will do that. But again will prefer to at home when the time comes. He was a very active gentleman. Used to have a sailboat. Then he switched over to a power boat. He love nothing more than boating around the [facility] chains with the [place] quadrant from [place]. He had to give that up with his last boat trip last . He was getting off the boat and stepping onto a dock when he face planted and ended up having quite a deep gash on his forehead and head. Was airlifted to [place]. He said that the poor PA kept on getting called out of the ER. His head was injected and prepped for suturing 3 times. He even had to instruct the PA and how to suture the gash close since he was having difficulty bring the skin together. Currently he spends his time reading, watching TV, and spending time with his family and friends. He does have a cane and a walker at home. Rarely uses them. Son recently found a power scooter. He has used it a couple of times and finds it useful to have at home. He is able to dress himself, feed himself, but bathing is difficult. Is this to the logistics and balance issues of getting in and out. He says that [place] He is daughter lives in [facility]. She is part of the [employer] there and is an leather splitter. That is why his son, Prudencio, is a DPOA and PO[place] Objective/Medical Story: Patient quit smoking in 1998. 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 He has had significant dyspnea and it was his dyspnea cause him to be evaluated for his heart. That identified the coronary artery disease and aortic valve stenosis. He had a HAWKINS to the LAD, as well as saphenous vein grafts to 2 other arteries. In spite of surgery he continued to be short of breath. He is followed at [facility] by Dr. Lucinda Huffman and Lawson Lerner. PFTs that showed him to have mild restrictive lung defect with a reduction in DLCO of 20 to 30% of normal. CT parenchyma is normal without obvious interstitial lung disease.. 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 Reduced vital capacity is at 50%. Fluoroscopy of the diaphragm is normal. No air trapping. Follow-up echoes and stress test have been negative. He developed a large left pleural effusion in 2014. That resolved. Thoracentesis pathology was negative for malignant cells in January 2015. Echo in 2014 with an ejection fraction of 55%, mild LVH, Doppler evidence of diastolic dysfunction. Bioprosthetic valve within normal limits. Repeat echo done April 2018 had a normal ejection fraction of 70 to 75%. Right ventricle normal in size and function. No sick no thickened cardiac valve disease. He had an evaluation at the [facility] in August 2022 and he has "diastolic heart failure" as the cause of his hypoxia and drummond. But his professor of latin american studies is doubtful. He was hospitalized here approximately 6 months ago. Had congestive heart failure was discharged after 5 days. When he got home he was with recurrence of severe shortness of breath and he went to [facility]. Was hospitalized another 5 days and lost approximately 10 pounds of water weight there. His current problem of shortness of breath associated with pneumonia is slowly improving with this admission. He does have multiple skin tears and he would like us to use the Medihoney and Band-Aids with today's dressing changes. Goals of Care: "It would be nice if I could continue breathing normally". He recognizes that he has had a diminished quality of life. Giving up his boat has been hard on him. 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 And he is grateful for the 11 relationships he has in his life. Goal is to remain alert enough to enjoy all of these things. He stated again that he would prefer to stay at home and at home. Plan: POLST form was filled out today. He is a DO NOT RESUSCITATE. Limited intervent ions. He does not want dialysis or ECMO. He is willing to consider blood transfusions. He does not want tube feedings. While he is willing to undergo aggressive treatment including antibiotics, pressors, minor surgeries, he does not want to be procedures. As long as he remains alert and oriented and able to converse with the providers, he would like to give input on his treatment. A copy was placed in our EMR for scanning. And the original is with the patient in his room. Code Status: Do Not Attempt Resuscitation Time spent on advance care plannin minutes
[2023-07-08] MEDS: BENZONATATE 100 MG CAPSULE PO PRN (01:25)
[2023-07-08 06:00] LABS: BASOPHILS % (AUTO) 0.3 %; EOSINOPHILS # (AUTO) 0.1 10^3/uL (0.0-0.7); EOSINOPHILS % (AUTO) 1.5 %; HCT - HEMATOCRIT 37.6 % (42.0-52.0); HGB - HEMOGLOBIN 12.3 g/dL (14.0-18.0); LYMPHOCYTES # (AUTO) 0.7 10^3/uL (1.5-3.5); LYMPHOCYTES % (AUTO) 11.3 %; MEAN CORPUSCULAR HEMOGLOBIN 34.8 pg (27.0-31.0); MEAN CORPUSCULAR HGB CONC 32.7 g/dL (32.0-36.0); MEAN CORPUSCULAR VOLUME 106.5 fL (80.0-94.0); MEAN PLATELET VOLUME 10.2 fL (7.4-11.4); MONOCYTES # (AUTO) 0.6 10^3/uL (0.0-1.0); MONOCYTES % (AUTO) 10.4 %; NEUTROPHILS # (AUTO) 4.5 10^3/uL (1.5-6.6); NEUTROPHILS % (AUTO) 74.5 %; PLT - PLATELET COUNT 121 10^3/uL (130-450); RED BLOOD COUNT 3.53 10^6/uL (4.70-6.10); RED CELL DISTRIBUTION WIDTH 14.3 % (12.0-15.0)
[2023-07-08 06:40] LABS: CALCIUM 8.6 mg/dL (8.5-10.3); CREATININE 2.5 mg/dL (0.6-1.3); POTASSIUM 3.4 mmol/L (3.5-4.5)
[2023-07-08] MEDS: POTASSIUM CHLORIDE 20 MEQ TABLET PO ONE (09:09)
[2023-07-08 09:23] VITALS: BP 117/75; O2SAT 98
--- NOTE | 2023-07-08 12:31 | Discharge Plan ---
Discharge Plan Problem Reviewed?: Yes Disposition: Home Health Service Condition: Stable Diet: Cardiac Activity Restrictions: Activity as Tolerated Shower Restrictions: No Driving Restrictions: Yes (no driving due to weakness) Assistance Devices: Walker, Other (electric scooter) Weight Bearing: Full Weight Health Concerns: Unfortunately you have chronic hypoxemic respiratory failure from diastolic heart failure. You presented to our emergency room with worsening shortness of breath and a productive cough. Because you have a relatively sedentary status, we made sure you were not having a pulmonary embolus and your CT angiogram was negative. However you had diffuse groundglass and consolidative opacities in both lung tripathi, more pronounced in the right lower lobe and lingula. No effusions, no pneumothorax. This is consistent with multifocal pneumonia. Most likely viral by its appearance but it could always be secondary bacterial. You have been treated with Zosyn for broad-spectrum coverage in a patient that we consider immunocompromised. Throughout this entire stay, your white cell count has been normal. Initial oxygen requirements were up to 5 L nasal cannula to keep your O2 sats adequate. Over the last couple of days you needed 3 L. You have multiple skin tears due to glancing trauma. Your skin is very fragile. You already take care of this at home with daily dressing changes and using Medihoney. During the stay we only changed her bandages once. Will use Medihoney and bandages at your request. You also developed some acute renal insufficiency due to diuresis of your congestive heart failure. Your baseline creatinine appears to be between 1.5- 1.8. When you were admitted you were 1.8. Diuresis caused your creatinine to bump up to 2.6. You are being discharged at 2.5. 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 You let us know that you are ready for discharge today. You do have diarrhea from the antibiotics. Use kaopectate or lomotil to control the output. You have mild hypokalemia to 3.4 because of this and have preferred NOT to take the potassium supplement. Plan of Treatment: You have completed 5 days of antibiotic therapy and no longer need antibiotics. In sending you home, I am not changing any of your home medications. Make sure you take a probiotic [id number], once or twice a day. Do this for the next week. Please see your primary care provider in follow-up in the next 1 to 2 weeks for continuity of care. Have your primary care provider ordered a chest x-ray confirm resolution. He should do it in about 3 to 4 weeks. Because of your acute renal insufficiency I would also like your primary care provider to check your BMP in the next 5 to 6 days. Your overall physical status is markedly deconditioned from your usual baseline. I did order home health for a bath aide, physical therapy, and a nurse to make sure your wounds are healing. However you have declined getting that help. You let our social and political studies professor and case worker know that you already have in-home caregivers that can help you do things. Care Goals: To remain in your own home for as long as possible. 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 Assessment: Patient is alert and oriented to person, place, time and situation. Follow-Up Care: Home Health - RN, Home Health - PT No Smoking: If you smoke, Please STOP! Call for help. Follow-up with: Baldo Desir MD [Primary Care Provider] -
--- NOTE | 2023-07-08 12:47 | DISCHARGE SUMMARY ---
"Discharge Summary Admit Date: 07/03/23 Discharge Date: 07/08/23 Discharging Provider: Jaclyn Zhou MD Primary Care Provider: Baldo Desir MD Code Status: Do Not Attempt Resuscitation Condition at Discharge: Stable Discharge Disposition: NB - Home care of Parent - DIAGNOSES Discharge Diagnoses with Status of Each Condition: 1. Community-acquired pneumonia 2. Immunocompromise state 3. Acute on chronic diastolic heart failure 4. Acute on chronic respiratory failure with hypoxemia 5. Hyponatremia 6. Hypokalemia 7. Acute on chronic kidney disease stage III 8. Diarrhea from antibiotics 9. 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 However, patient was not improved, felt more SOB, even can not finish a full sentence. No fever, no chills, no chest pain. He has been on prednison since October 2022 starting with 40mg per day, gradually monique down to 7.5mg per day. He had visit over [facility], was diagnosed with interstital lung disease, however, his vocational education teacher at [facility] doubt about the diagnosis since the CT scan patient had did not have typical findings. Patient is on two diuretic for his CHF, follows cardiology, always feels dry mouth and dry eye. He also complaints very fragile skin, both lower leg had wound from a minor trauma when bumping to a furniture, when his dog had minor scratch to his leg. Denies fever or chills, no chest pain, has constipation In the ED, moderate respirtory distress, Tachypnea, hypoxia, Labs showed mild elevated D-dimer. CTA showed multifocal pneumonia, ruled out PE. Patient received 1 dose of Solu-Medrol 125 mg,Nebulizer treatment, ceftriaxone and azithromycin in the ED - Past Medical History Cardiovascular: reports: Congestive heart failure, High cholesterol, Coronary artery disease, Murmur, Valve disorder Respiratory: reports: Shortness of breath Neuro: reports: Fainting Endocrine/Autoimmune: reports: None GI: reports: GERD : reports: Benign prostate hypertrophy, Other HEENT: reports: None Psych: reports: None Musculoskeletal: reports: None Derm: reports: None MRSA Hx?: No - Past Surgical History General: reports: Appendectomy, Colonoscopy, EGD Cardiovascular: reports: CABG, Valve replacement HEENT: reports: Cataracts - CONSULTS | PROCEDURES Procedures: Chest x-ray without acute cardiopulmonary process Chest/thorax CT angiogram without pulmonary emboli. Groundglass and consolidative opacities pronounced in the right lower lobe and lingula. Severe coronary artery calcification. - HOSPITAL COURSE Hospital Course: (1) Community Acquired Pneumonia Due to immune compromised status, on Zosyn. He completed 5 days of Zosyn. There were no blood or sputum cultures done in the emergency room and as such none to review. He slowly improved over the course of his stay. Exam had diminished breath sounds, intermittent scattered wheezing, rhonchi. Poor air exchange. But he subjectively felt better and better until the day of discharge where he said he just wanted to go home. He was noticeably fatigued and dyspneic on exertion. Declined change in his oxygen. Declined home health and PT. (2) Congestive heart failure Qualifiers: Heart failure type: unspecified Heart failure chronicity: acute on chronic Qualified Code(s): I50.9 - Heart failure, diastolic Assessment/Plan: Severe shortness of breath. Main exam findings were that of the coarse airway sounds, rhonchi, phlegm production. If he did have increase in his heart failure it was felt to be more mild. But the patient insisted on taking his usual dose of diuretics. I recommended patient to cut down diuretics to help with DAR. He refused. He really wanted me to continue the same doses. He says that he understood his own limitations. BUN remained in the 80s, creatinine 2.6. He did have a day of low potassium on the day of discharge. Combined with his diarrhea. When I ordered potassium supplementation he declined taking this the potassium supplementation. At home he takes Bumex, eplerenone. Those will be resumed at discharge. Here he has been on Bumex 1 mg in the evening, 2 mg in the morning. Eplerenone 50 mg twice daily. Please see advance care planning conversation under separate dictation (3)Chronic respiratory failure with hypoxia. The acute hypoxia resolved after 1 day of admission. Assessment/Plan: Improved, back to baseline of 3 L O2 use (4) Wound of skin From skin tears of shins, on right forearm. Assessment/Plan: On examination today there is no infection. There are simple skin lacerations. We have cleaned the wounds. He is asking for [facility] wound barrier and I have called the wound clinic. They have some for us and will pick it up and then we will put a simple Band-Aid over his skin tears. (5) Hyponatremia And hypokalemia Assessment/Plan: Sodium was 133 on admission. It has varied between 131 and 132. (6) Acute kidney injury superimposed on CKD Assessment/Plan: Worsened, creatinine 2.6 for 2 days compared to 1.8 baseline. Appears to have metabolic alkalosis with bicarb 29, Likely due to diuretic use Discussed with patient regarding holding one of the 2 diuretics, however patient had fear of experiencing heart failure. Would like to continue with his home dose diuretics, With knowing the consequences of having irreversible renal damage (7) diarrhea Liquid brown stool. No blood. No foul-smelling in nature and no consistency compatible with C. difficile. I feel comfortable giving him probiotics and Lomotil. At discharge this is a ill-appearing gentleman who looks much older than stated age. Alert and oriented to person, place, time and situation. Dyspnea with even minimal exertion of getting up out of bed or going to the bathroom. Temperature was 36.3. Heart rate 94. Blood pressure 117/75. Respirations 18. If he took 4 L nasal cannula he was 100% saturated, at 2 L he was in the low 90s. Neck has shotty adenopathy. Lungs have poor air excursion. Diffuse crackles, intermittent rhonchi. Regular rate and rhythm. The abdomen is soft, nontender. Extremities were remarkable for their very fragile skin. R forearm and both shins have skin tears. None are infected. Simple shearing of skin with blood underneath. He says these are from home. We followed the same regimen he did at home. And he will return home doing his own wound care. Again he declined home health PT, OT, or home health nurse to help him with wounds. Discharged in stable condition, with poor prognosis. This document was made in part using voice recognition software. While efforts are made to proofread this document, sound alike and grammatical errors may occur. 30 minutes spent coordinating discharge - ALLERGIES Allergies/Adverse Reactions: Allergies Allergy/AdvReac Type Severity Reaction Status Date / Time acetaminophen [From Tylenol] Allergy Rash Verified 07/03/23 12:19 - MEDICATIONS Home Medications: Ambulatory Orders Medication Instructions Recorded Confirmed Rosuvastatin Calcium [Crestor] 10 mg PO QPM 06/07/15 07/04/23 Omeprazole 20 mg PO QPM 04/24/19 07/04/23 Eplerenone [Inspra] 25 - 50 mg PO BID 12/30/20 07/04/23 Gabapentin [Neurontin] 300 mg PO QDLUNCH 12/30/20 07/04/23 allopurinoL [Zyloprim] 100 mg PO DAILY 12/30/20 07/04/23 Bumetanide [Bumex] 1 - 2 mg PO BID 12/31/20 07/04/23 Aspirin [Aspirin EC] 81 mg PO QPM 07/21/22 07/04/23 Ipratropium [place] 2 spray ANTHONY TID PRN 07/21/22 07/04/23 Tamsulosin [Flomax] 0.4 mg PO BID 07/21/22 07/04/23 Cyclosporine [Restasis Multidose] 1 drops EACHEYE BID 07/04/23 07/04/23 Empagliflozin [Jardiance] 10 mg PO DAILY 07/04/23 07/04/23 Finasteride [Proscar] 5 mg PO DAILY 07/04/23 07/04/23 predniSONE [Deltasone] 7.5 mg PO DAILY 07/04/23 07/04/23 Benzonatate [Tessalon] 100 mg PO TID PRN #21 cap 07/08/23 - LABS Result Diagrams: 07/08/23 05:33 07/08/23 05:33 - SEPSIS Current Stage of Sepsis: Ruled out"
[2023-07-09] MEDS ORDERED: EMPAGLIFLOZIN 10 MG PO SCH (07:00)
== END 2023-07-08 15:09 | disposition home or self-care (01) | DRG 193 ==
LOC: ED 12:00 → MS2 16:18
PROVIDERS: ADMIT Internal Medicine; ATTEND Specialist
DX: J18.9 Pneumonia, unspecified organism (principal); I50.33 Acute on chronic diastolic (congestive) heart failure; Z20.822 Contact with and (suspected) exposure to COVID-19; J96.21 Acute and chronic respiratory failure with hypoxia; E87.1 Hypo-osmolality and hyponatremia; K52.1 Toxic gastroenteritis and colitis; J84.9 Interstitial pulmonary disease, unspecified; N17.9 Acute kidney failure, unspecified; E87.6 Hypokalemia; N18.30 Chronic kidney disease, stage 3 unspecified; T36.95XA Adverse effect of unspecified systemic antibiotic, initial encounter; S51.811A Laceration without foreign body of right forearm, initial encounter; S81.812A Laceration without foreign body, left lower leg, initial encounter; S81.811A Laceration without foreign body, right lower leg, initial encounter; W22.03XA Walked into furniture, initial encounter; W54.8XXA Other contact with dog, initial encounter; I25.10 Atherosclerotic heart disease of native coronary artery without angina pectoris; M10.9 Gout, unspecified; N40.0 Benign prostatic hyperplasia without lower urinary tract symptoms; H57.89 Other specified disorders of eye and adnexa; R68.2 Dry mouth, unspecified; K59.00 Constipation, unspecified; E78.00 Pure hypercholesterolemia, unspecified; K21.9 Gastro-esophageal reflux disease without esophagitis; Z79.82 Long term (current) use of aspirin; Z79.899 Other long term (current) drug therapy; Z80.42 Family history of malignant neoplasm of prostate; Z81.8 Family history of other mental and behavioral disorders; Z82.49 Family history of ischemic heart disease and other diseases of the circulatory system; Z83.79 Family history of other diseases of the digestive system; Z95.1 Presence of aortocoronary bypass graft
CPT/HCPCS: 36415; 71045; 71275; 80048; 80053; 81003; 82803; 83690; 83735; 83880; 84484; 85025; 85379; 87635; 87640; 93005; 94640; 96374; 96375; 97162; 97165; 99285; A9270; J3370; J7512; Q9967; 81001; 87086

== ENCOUNTER 2023-07-19 08:00 | Outpatient (CLI) | payer MEDICARE, OTHER | END 2023-07-19 23:59 | disposition home or self-care (01) | LOC: PC 08:00 | PROVIDERS: ATTEND Nurse Practitioner Gerontology | DX: Z51.5 Encounter for palliative care (principal); R06.02 Shortness of breath; R05.8 Other specified cough; R06.89 Other abnormalities of breathing; R60.0 Localized edema; G47.00 Insomnia, unspecified; G47.33 Obstructive sleep apnea (adult) (pediatric); C34.90 Malignant neoplasm of unspecified part of unspecified bronchus or lung; I50.30 Unspecified diastolic (congestive) heart failure; G62.9 Polyneuropathy, unspecified; Z87.891 Personal history of nicotine dependence | CPT/HCPCS: 99205; G2212; 99417 ==

== ENCOUNTER 2023-08-09 08:00 | Outpatient (CLI) | payer MEDICARE, OTHER | END 2023-08-09 23:59 | disposition home or self-care (01) | LOC: PC 08:00 | PROVIDERS: ATTEND Nurse Practitioner Gerontology | DX: Z51.5 Encounter for palliative care (principal); R60.0 Localized edema; R06.02 Shortness of breath; R53.1 Weakness; K59.00 Constipation, unspecified; Z99.81 Dependence on supplemental oxygen; Z79.52 Long term (current) use of systemic steroids; Z79.899 Other long term (current) drug therapy; Z79.82 Long term (current) use of aspirin; C34.90 Malignant neoplasm of unspecified part of unspecified bronchus or lung; S00.01XD Abrasion of scalp, subsequent encounter; S89.92XD Unspecified injury of left lower leg, subsequent encounter; S51.012D Laceration without foreign body of left elbow, subsequent encounter; S51.011D Laceration without foreign body of right elbow, subsequent encounter; Z91.81 History of falling; Z74.1 Need for assistance with personal care; Z71.89 Other specified counseling; Z66 Do not resuscitate | CPT/HCPCS: 99350 ==

== ENCOUNTER 2023-09-13 08:00 | Outpatient (CLI) | payer MEDICARE, OTHER | END 2023-09-13 23:59 | disposition home or self-care (01) | LOC: PC 08:00 | PROVIDERS: ATTEND Nurse Practitioner Gerontology | DX: Z51.5 Encounter for palliative care (principal); L98.9 Disorder of the skin and subcutaneous tissue, unspecified; R60.0 Localized edema; R06.02 Shortness of breath; Z65.8 Other specified problems related to psychosocial circumstances; I50.30 Unspecified diastolic (congestive) heart failure; Z99.81 Dependence on supplemental oxygen | CPT/HCPCS: 99350 ==

== ENCOUNTER 2023-11-12 15:22 | Outpatient (CLI) | payer MEDICARE, OTHER ==
--- NOTE | 2023-11-12 16:21 | SLEEP CARE CONSULTATION ---
Information from patient questionnaire entered by Maira Guillen. I have reviewed and concur with the information entered by Maira Guillen. This document represents the service I personally performed and the decisions made by me, Tanya Corley ARNP. History of Present Illness Service Date and Time: 11/12/2023 1522 Reason for Visit: New patient, Previously diagnosed sleep apnea Date of Onset: 2017 Usual bedtime: 2200 Time it takes to fall asleep: 10MINS Snores at night: No (unknown, lives alone) Number of times waking at night: 1-2 Reasons for waking at night: reports: Bathroom. denies: Choking, Snoring, Gasping for air Toss, Turn, or Twitch while sleeping: No Recalls having dreams: Yes Usually gets out of bed at: 0800 Feels refreshed in the morning: Yes Morning headache: No Sleepy or fatigued during the day: Yes Ever fallen asleep while driving: No Takes day naps: Yes (2 times a week) Dreams during day naps: No Prior sleep studies: Yes Year and Where: 2019 - [facility] Type of Sleep Study: Polysomnography Additional HPI information: I had the pleasure of seeing LASHONDA RAMESH today regarding the possibility of him having a sleep disorder. He was last seen in our office in 2020 and was on a CPAP with pressure set at 12-13 cmH2O. He says using the CPAP made a "huge difference" and he could sleep all night long. Before CPAP he would wake up several times a night short of breath. He says he had a Kala machine that was on the recall and he stopped using it once he found out. He did get a replacement Dreamstation. He has not been using the CPAP consistently since 2020. He is currently diagnosed with diastolic heart failure and is on 3 L oxygen continuously. He tried to bleed the oxygen in through the CPAP but he was using portable oxygen concentrator and it would not work properly. He returns to the office because his pesticide control inspector asked him to get a reevaluation. He says his appointment setter was not as concerned because of a test which did not point significantly toward sleep apnea. - Parasomnia Symptoms Ever been unable to move upon waking from sleep: No Walks in sleep: No Talks in sleep: No Ever acted out dreams in sleep: No Ever felt weak in the knees when startled or emotional: No Bothered by creepy, crawly, restless sensations in legs: No Problems with memory or concentration: No Subjective Initial Cantril Sleepiness Scale score: 5 (in 2019) Current Cantril Sleepiness Scale score: 5 (11/03/23) Past Medical History Past Medical History: reports: Congestive Heart Failure (diastolic), Coronary Heart Disease (triple bypass and aortic valve repair), Gout, Impotence, Other (CHRONIC HYPOXIA, possible Sjogrens syndrome) Social History 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 Patient is / and lives in [place]. Have you smoked in the past 12 months: No Alcohol use: Yes Alcohol amount and frequency: DAILY Caffeine use: Yes Caffeine amount and frequency: 1 CUP COFFEE PER DAY Family History Family history of sleep disordered breathing: No Allergies and Home Medications Known drug allergies: Yes (MORPHINE) Drug allergies reviewed: Yes Home medication list reviewed: Yes (as listed) Allergy and home medication list: Allergies acetaminophen [From Tylenol] Allergy (Verified 11/10/23 10:37) Rash Home Medications Medication Instructions Recorded Confirmed Last Taken Type Rosuvastatin Calcium [Crestor] 10 mg PO QPM 06/07/15 11/12/23 02/21/17 History Omeprazole 20 mg PO QPM 04/24/19 11/12/23 Unknown History Eplerenone [Inspra] 25 - 50 mg PO BID 12/30/20 11/12/23 Unknown History Gabapentin [Neurontin] 300 mg PO QDLUNCH 12/30/20 11/12/23 Unknown History allopurinoL [Zyloprim] 100 mg PO DAILY 12/30/20 11/12/23 Unknown History Bumetanide [Bumex] 1 - 2 mg PO BID 12/31/20 11/12/23 Unknown History Aspirin [Aspirin EC] 81 mg PO QPM 07/21/22 11/12/23 Unknown History Ipratropium Robert 2 spray ANTHONY TID PRN 07/21/22 11/12/23 Unknown History Tamsulosin [Flomax] 0.4 mg PO BID 07/21/22 11/12/23 Unknown History Empagliflozin [Jardiance] 10 mg PO DAILY 07/04/23 11/12/23 Unknown History Finasteride [Proscar] 5 mg PO DAILY 07/04/23 11/12/23 Unknown History predniSONE [Deltasone] 5 mg PO DAILY 07/04/23 11/12/23 Unknown History Review of Systems Review of systems same as previous: Yes Weight loss over past 5 years: 30 Respiratory: reports: shortness of breath Gastrointestinal: reports: heartburn Urinary: reports: impotence Ear/Nose/Throat: reports: dry mouth/throat Immunologic: reports: sneezing Physical Exam Vital signs obtained and entered by: MAIRA Can MA Blood Pressure: 131/80 (RIGHT ARM) Cuff size: regular Heart Rate: 87 O2 Saturation: 107 Height: 5 ft 11 in Weight: 186 lb 12.8 oz Weight change since last visit: 14 lb loss Body Mass Index: 26.0 BMI Classification: Overweight Neck circumference: 16.5 Mouth and throat: narrow oropharynx Soft palate: long Hard palate: normal Uvula: normal Uvula visualization: 0% Mallampati Class IV Tongue: enlarged in size with teeth trevino on lateral edges Tonsils: absent bilaterally Heart: regular rate and rhythm Lungs: clear bilaterally Impression and Plan 1. Suspected Obstructive Sleep Apnea-Hypopnea Syndrome, as previously diagnosed in a PSG in 2019. He returned to our office at the behest of his pesticide control inspector. He has lost about 30 pounds. He says he sleeps well and feels refreshed. He is using 3 L oxygen per nasal cannula 16/11. He says he used to be woken up short of breath several times a night but he does not do that anymore. I suspect he has had a reduction of his sleep apnea but would need another study to verify any changes in severity. After much discussion, patient declined to have another sleep study to verify diagnosis and severity. I advised him to come back for further evaluation if he changes his mind. Patient agreed to plan. * Patient declined a repeat sleep study * Continue to try to lose weight. * Return for follow-up as needed. Follow up with Sleep Care in: as needed Visit Type: In Office Time Spent with Patient (minutes): 34 Provider Statement: I spent 100% of the Face to Face Visit with the patient with greater than 50% spent counseling the patient and coordination of care.
[2023-11-12 16:22] VITALS: BP 131/80; O2SAT 107
== END 2023-11-12 15:23 | disposition home or self-care (01) ==
LOC: SC 15:22
PROVIDERS: ATTEND Nurse Practitioner Family
DX: G47.33 Obstructive sleep apnea (adult) (pediatric) (principal); I50.30 Unspecified diastolic (congestive) heart failure; Z99.81 Dependence on supplemental oxygen; E66.3 Overweight; Z68.26 Body mass index [BMI] 26.0-26.9, adult
CPT/HCPCS: 99203; G0463; 99212

== ENCOUNTER 2023-12-20 12:05 | Outpatient (CLI) | payer MEDICARE, OTHER | END 2023-12-20 23:59 | disposition home or self-care (01) | LOC: PC 12:05 | PROVIDERS: ATTEND Nurse Practitioner Adult Health | DX: Z51.5 Encounter for palliative care (principal); J96.11 Chronic respiratory failure with hypoxia; I50.32 Chronic diastolic (congestive) heart failure; G62.9 Polyneuropathy, unspecified; M62.81 Muscle weakness (generalized); J98.4 Other disorders of lung; Z71.89 Other specified counseling; Z99.81 Dependence on supplemental oxygen | CPT/HCPCS: 99350 ==

== ENCOUNTER 2025-01-09 09:46 | Inpatient (IN) ==
[2025-01-09 10:41] LABS: HCT - HEMATOCRIT 40.7 % (42.0-52.0); HGB - HEMOGLOBIN 12.9 g/dL (14.0-18.0); MEAN PLATELET VOLUME 11.1 fL (7.4-11.4); NRBC ABSOLUTE COUNT (AUTO) 0.00 x10^3/uL; NUCLEATED RED BLOOD CELLS AUTO 0.0 /100WBC; PLT - PLATELET COUNT 138 10^3/uL (130-450); RED CELL DISTRIBUTION WIDTH 14.9 % (12.0-15.0)
[2025-01-09 10:56] LABS: ALT ALANINE AMINOTRANSFERASE 18.0 IU/L (10-60); AST ASPARTATE AMINOTRANSFERASE 25.0 IU/L (10-42); BUN - BLOOD UREA NITROGEN 47.0 mg/dL (6-20); CARBON DIOXIDE - CO2 37.0 mmol/L (21-32); CREATININE 1.9 mg/dL (0.6-1.3); GFR - MDRD 35.0 (>89)
--- NOTE | 2025-01-09 11:20 | ED Physician Documentation ---
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 He states he woke up in went to the bathroom and became acutely short of breath, his SpO2 at home was in the 60s on his routine 4 L, he increased to 5 L and ultimately 6 L at home and was around 80% with ongoing shortness of breath. He thus presented to the ER. He continues to feel very short of breath but denies any chest pain, he has not had a cough or other URI type symptoms, no fever but does feel little bit chilled, denies any abdominal pain nausea vomiting or diarrhea. He has no acute lower extremity edema. He is currently on prednisone 5 mg daily, states that inhalers typically are not helpful for him. He is followed by a number of specialist including pulmonology, cardiology, rheumatolo gy and palliative care. Most of his specialist care is at [facility]. From his interpretation of all of the studies and evaluations he is had, it sounds like no one is entirely clear why he has the degree of shortness of breath that he does. Review of Systems Status of ROS: 10 or more systems reviewed and unremarkable except as noted in history and below Meds/Allgy Home Medications Ambulatory Orders Medication Instructions Recorded Confirmed rosuvastatin 10 mg tablet (Crestor) 10 mg PO QPM 06/0701/09/25 omeprazole 20 mg capsule,delayed 20 mg PO QPM 04/24/19 01/09/25 release allopurinol 100 mg tablet 100 mg PO DAILY 12/30/20 bumetanide 1 mg tablet 1 mg PO BID 12/31/20 5 ipratropium bromide 21 mcg (0.03 2 spray intranasal TI D PRN 07/21/22 01/09/25 %) nasal spray RHINORRHEA empagliflozin 10 mg tablet 10 mg PO DAILY 07/04/23 (Jardiance) prednisone 5 mg tablet 5 mg PO DAILY 07/04/2301/09 eplerenone 25 mg tablet 25 - 50 mg PO BID 04/02/24 0 01/09/25 zolpidem 5 mg tablet 5 mg PO .bedtime PRN insomni a 04/02/24 01/09/25 morphine concentrate 100 mg/5 mL 5 mg (0.25 mL) PO Q4H PRN dyspnea 05/04/24 01/09/25 (20 mg/mL) oral solution #30 mL naloxone 4 mg/actuation nasal 4 mg intranasal Q3M PRN opioid 05/04/24 01/09/25 spray (Narcan) overdose #1 ea polyethylene glycol 3350 17 17 g PO QDAY PRN constipat ion 05/07/24 01/09/25 gram/dose oral powder (Miralax) finasteride 5 mg tablet See Rx Instructions .Route 0 05/18/24 01/09/25 .COMPLEX #90 tabs tamsulosin 0.4 mg capsule See Rx Instructions .Route 0 06/01/24 01/09/25 .COMPLEX #180 caps pregabalin 75 mg capsule 75 mg PO BID #180 caps 12/3101/09/25 guaifenesin 1,200 mg tablet, 1,200 mg PO BID 01/09/25 01/09/25 extended release 12 hr (Mucinex) Allergies Allergies Allergy/AdvReac Type Severity Reaction Status Date / Time acetaminophen (From Tylenol) Allergy Rash Verified 01/09/25 10:08 PFS Active Problems All Active Problems (Updated 01/09/25 @ 12:47 by DILMA Vásquez) Acute hypoxemic respiratory failure (Acute) Muscular deconditioning (Acute) Disorder of lung with Sjogren syndrome (Acute) Anxiety and depression (Acute) Restrictive lung disease (Acute 07/10/16) Peripheral neuropathy (Acute 03/15/19) Diastolic heart failure (Acute 05/12/19) Frailty (Acute) Anxiety (Acute) Dyspnea (Chronic) Hypoxia (Chronic) Edema (Chronic) Medical History Medical History (Updated 01/09/25 @ 12:47 by DILMA Vásquez) Pleural effusion (05/08/15) Acute kidney failure, unspecified (04/27/19) Obstructive sleep apnea hypopnea, severe (07/15/20) Sigmoid diverticulosis (07/15/20) Heart block AV second degree (04/11/20) Rotator cuff syndrome of left shoulder (08/02/13) Raynaud's syndrome (02/23/12) Radiation pneumonitis (04/11/20) Prediabetes (07/15/20) Personal history of anaphylaxis (07/15/20) Mycobacterium avium complex (07/15/20) Bilateral lower extremity edema (07/19/23) Insomnia (07/19/23) Hx of prostatitis (10/12/19) Gout, unspecified (09/10/20) Dyslipidemia (10/09/09) Degenerative joint disease of cervical spine (09/02/11) Chronic kidney disease, stage 3a (07/15/20) CAD, multiple vessel (07/15/20) 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 (Date/Year): 1999 Number of Years Smoked: 30 How many cigarettes a day do you smoke? 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 Service: Yes POLST Patient has POLST: Yes Exam Exam Vital Signs: Vital Signs x48h Temp Pulse Resp BP Pulse Ox O2 Flow Rate 01/09/25 11:36 45 01/09/25 10:04 36.5 C 113 H 36 H 114/65 83 L 6 Constitutional Tachypneic and appears in mild respiratory distress, awake and alert, GCS 15 HENMT Mucous membranes are dry, otherwise normal oropharynx Chest No chest wall tenderness, symmetric expansion Respiratory breath sounds unequal, abnormal respiratory effort, auscultation abnormal, no wheezes, no rales and use of accessory muscles noted Diminished left lung base, tachypneic with accessory muscle use and sniffing type respirations Cardiovascular murmur noted (II/) and peripheral pulses 2+ throughout Tachycardic, regular Gastrointestinal abdomen normal to inspection, abdomen soft to palpation, nondistended and normoactive bowel sounds Extremities normal to inspection, normal to palpation, no tenderness and full ROM Psychiatry oriented x3 Skin skin color normal and no rash multiple bruises lower legs Results Vitals Vitals: Vital Signs - 24 hr 01/09/25 10:04 01/09/25 11:36 Temperature 36.5 C Temperature Source Temporal Artery Scan Pulse Rate 113 H Respiratory Rate 36 H Blood Pressure 114/65 O2 Saturation 83 L O2 Source Nasal cannula If not protocol: Oxygen Flow, liters/minute 6 45 Pain Intensity 0 Oxygen O2 Source Nasal cannula EKG (time done) 1132: EKG releavant findings:: EKG personally interpreted by author of this note. Relevant findings are: Sinus tachycardia rate of 106, no acute ischemic changes. Computer read a flutter which I disagree with. Labs Labs: Laboratory Tests 01/09/25 01/09/25 01/09/25 10:26 11:32 11:35 WBC 9.2 RBC 3.86 L Hgb 12.9 L Hct 40.7 L MCV 105.4 H MCH 33.4 H MCHC 31.7 L RDW 14.9 Plt Count 138 MPV 11.1 Neut # (Auto) 7.5 H Lymph # (Auto) 0.5 L Harris # (Auto) 1.0 Eos # (Auto) 0.1 Baso # (Auto) 0.1 Absolute Nucleated RBC 0.00 Nucleated RBC % 0.0 VBG pH 7.475 H VBG pCO2 54.1 H VBG pO2 32.5 VBG HCO3 40.2 H VBG Total CO2 41.8 H VBG O2 Saturation 45.0 L VBG Base Excess 16.4 H Sodium 140 Potassium 3.7 Chloride 95 L Carbon Dioxide 37 H Anion Gap 8.0 BUN 47 H Creatinine 1.9 H Estimated GFR (MDRD) 35 L Glucose 180 H Lactic Acid 1.7 Calcium 9.8 Total Bilirubin 0.9 AST 25 ALT 18 Alkaline Phosphatase 61 Troponin I High Sens 25.1 H* B-Natriuretic Peptide 188 H Total Protein 7.4 Albumin 4.2 Globulin 3.2 Albumin/Globulin Ratio 1.3 Procalcitonin Immunoas 0.12 Nasal Adenovirus (PCR) NOT DETECTED Nasal B. parapertussis DNA (PCR) NOT DETECTED Nasal Coronavir 229E PCR NOT DETECTED Nasal Coronavir HKU1 PCR NOT DETECTED Nasal Coronavir NL63 PCR NOT DETECTED Nasal Coronavir OC43 PCR NOT DETECTED Nasal Enterovir/Rhinovir PCR NOT DETECTED Nasal Influenza B PCR NOT DETECTED Nasal Influenza A PCR NOT DETECTED Nasal Parainfluen 1 PCR NOT DETECTED Nasal Parainfluen 2 PCR NOT DETECTED Nasal Parainfluen 3 PCR NOT DETECTED Nasal Parainfluen 4 PCR NOT DETECTED Nasal RSV (PCR) NOT DETECTED Nasal B.pertussis DNA PCR NOT DETECTED Nasal C.pneumoniae (PCR) NOT DETECTED Aguilar Human Metapneumo PCR NOT DETECTED Nasal M.pneumoniae (PCR) NOT DETECTED Nasal SARS-CoV-2 (PCR) NOT DETECTED PD Medical Decision Making ED course Complexity details: reviewed results, re-evaluated patient, considered differential and d/w patient ED course: This is a 79-year-old male with a complex past medical history that is significant for chronic respiratory failure on 4 L nasal cannula at home likely due to combination of diastolic heart failure, Sjogren's, possible interstitial lung disease. He presents today with acute on chronic shortness of breath. On arrival here, the patient was tachypneic and on 6 L nasal cannula en route from his baseline of 2. He would desaturate with minimal activity including going to the bathroom he dropped into the 60s. He appears tachypneic, and it is using accessory muscles. The patient was initially placed on high flow but did not tolerate this and requested to have it removed. He was given a DuoNeb and 125 mg of Solu-Medrol as well as 40 mg of IV Lasix for possible COPD or interstitial lung disease exacerbation and pulmonary edema based on his history and physical exam. Obtain x-ray which does show some pulmonary edema, no other acute findings. Patient did have improvement after neb and steroids and Lasix but continues to be tachypneic and continues to require higher than baseline oxygen with desaturation with minimal activity. I therefore sent the patient for a CTA to rule out pulmonary embolus, also considered an occult pneumonia. Blood cultures and septic workup were obtained. Labs generally stable, his white count is 9.2, hemoglobin 12.9, his VBG shows a pH of 7.47, chemistry with a creatinine 1.9 which is slightly higher than baseline, BUN 4.7, CO2 37, lactic acid 1.7, his high-sensitivity troponin is 25 which is likely secondary to his hypoxia and low suspicion for ACS as patient has no chest pain, there are no acute EKG changes showing sinus tachycardia only. His respiratory pathogen panel is negative. I have discussed my recommendation for admission for this patient given his increasing oxygen requirements and that work of breathing with underlying chronic lung disease. The patient is agreeable to admit. The patient was kindly excepted by the hospitalist, Dr. Mae who will admit this patient for further evaluation of his acute on chronic respiratory failure with component of congestive heart failure, possible COPD or exacerbation of interstitial lung disease. Discharge Plan Discharge Patient Disposition: 66 [facility] DC/Xfer Clinical Impression: Acute hypoxemic respiratory failure, Diastolic heart failure, Disorder of lung with Sjogren syndrome
[2025-01-09] MEDS: FUROSEMIDE 20 MG/2 ML VIAL IVP STA (11:36)
[2025-01-09] MEDS: methylPREDNISolone SUCCINATE 125 MG/2 ML VIAL IVP STA (11:40)
[2025-01-09] MEDS: FUROSEMIDE 40 MG/4 ML VIAL IVP STA (11:40)
[2025-01-09 11:44] LABS: VBG BASE EXCESS 16.4 mmol/L (-2 - +2); VBG PCO2 54.1 mmHg (41-51); VBG PH 7.475 (7.31-7.41); VBG PO2 32.5 mmHg (25-47); VBG TOTAL CO2 41.8 mmol/L (24-29)
[2025-01-09] MEDS: IPRATROPIUM/ALBUTEROL 3 ML NEB INH STA (11:59)
--- NOTE | 2025-01-09 12:17 | XRAY Report ---
PROCEDURE: XR Chest 2V INDICATIONS: SOB/CP TECHNIQUE: 2 views of the chest were acquired. COMPARISON: None. FINDINGS: Surgical changes and devices: Aortic replacement valve with changes of prior CABG. Lungs and pleura: Interstitial pulmonary edema. Trace bilateral pleural effusions. No pneumothorax. Mediastinum: Mild cardiomegaly. Bones and chest wall: No suspicious bony lesions. Overlying soft tissues appear unremarkable. IMPRESSION: Mild pulmonary edema with trace bilateral pleural effusions. Reviewed by: Jad Lyman MD on 01/09/2025 10:30 AM PDT Approved by: Jad Lyman MD on 01/09/2025 10:30 AM PDT Station ID: [id number]
--- OUTSIDE RECORDS SUMMARY | 2025-01-09 12:18 | EXTERNAL MEDICAL SUMMARY RPT | Continuity of Care Document ---
Author Organization [facility] Address [address] [place] [id number] Phone Problems date description facility 2024-11-16 11:33 Headache, unspecified [facility] Social History date description facility
[2025-01-09 12:29] LABS: B. PARAPERTUSSIS- RESP PCR PAN NOT DETECTED; B. PERTUSSIS- RESP PCR PANEL NOT DETECTED; C. PNEUMONIAE- RESP PCR PANEL NOT DETECTED; CORONAVIRUS 229E-RESP PCR NOT DETECTED; CORONAVIRUS HKU1-RESP PCR NOT DETECTED; CORONAVIRUS NL63-RESP PCR NOT DETECTED; CORONAVIRUS OC43-RESP PCR NOT DETECTED; HUMAN METAPNEUMOVIRUS NOT DETECTED; INFLUENZA A- RESP PCR PANEL NOT DETECTED; INFLUENZA B - RESP PCR PANEL NOT DETECTED; M. PNEUMONIAE- RESP PCR PANEL NOT DETECTED; PARAINFLUENZA VIRUS 1 NOT DETECTED; PARAINFLUENZA VIRUS 2 NOT DETECTED; PARAINFLUENZA VIRUS 4 NOT DETECTED; RHINOVIRUS/ENTEROVIRUS NOT DETECTED; RSV- RESP PCR PANEL NOT DETECTED; SARS-CoV-2 -RESP PCR PANEL NOT DETECTED
--- OUTSIDE RECORDS SUMMARY | 2025-01-09 12:31 | EXTERNAL MEDICAL SUMMARY RPT | Continuity of Care Document ---
Author Organization [facility] Address [address] [place] [id number] Phone Problems date description facility 2024-11-16 11:33 Headache, unspecified [facility] Social History date description facility
--- NOTE | 2025-01-09 13:22 | HISTORY & PHYSICAL EXAMINATION ---
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 He presents today with acute on chronic respiratory failure. The patient was in his usual state of health and went to bed last evening. He woke up this morning, and when he went from his chair to the kitchen he became increasingly dyspneic. Upon coming back to his chair and sitting down, he checked his pulse ox using an oximeter he has at home and it was barely maintaining the low 90s on 4 to 5 L of oxygen. He normally uses up to 4 L with activity but is on constant oxygen. Denies any cough or overt fevers. Denies any recent environmental exposures and states that he typically does not get bothered by seasonal smoke. He was recently in the ED at [facility] for mechanical low back pain, and is worried he may have contracted a virus at that ED visit. In the ED he was initially requiring escalating amounts of oxygen and was being considered for high flow versus BiPAP. The patient refused both treatments and has improved at the time of our interview and is satting in the low 90s on 5 L of oxygen delivered via nasal cannula. He received steroids, nebulizers and a dose of IV Lasix in the ED. 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 Given new onset diastolic heart failure prior to surgery, operative management was deferred. He has reportedly had minimal advancement of his cancer over the last 5 years. 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 He has been on 5 mg of prednisone for several years. Attempts to wean off of that 5 mg has been unsuccessful. Meds/Allgy Home Medications Ambulatory Orders Medication Instructions Recorded Confirmed rosuvastatin 10 mg tablet (Crestor) 10 mg PO QPM 06/0701/09/25 omeprazole 20 mg capsule,delayed 20 mg PO QPM 04/24/19 01/09/25 release allopurinol 100 mg tablet 100 mg PO DAILY 12/30/20 bumetanide 1 mg tablet 1 mg PO BID 12/31/20 5 ipratropium bromide 21 mcg (0.03 2 spray intranasal Q4 H PRN 07/21/22 01/09/25 %) nasal spray RHINORRHEA empagliflozin 10 mg tablet 10 mg PO DAILY 07/04/23 (Jardiance) prednisone 5 mg tablet 5 mg PO DAILY 07/04/2301/09 eplerenone 25 mg tablet See Rx Instructions PO BID 1 06/03/23 01/09/25 finasteride 5 mg tablet See Rx Instructions .Route 0 05/18/24 01/09/25 .COMPLEX #90 tabs tamsulosin 0.4 mg capsule See Rx Instructions .Route 0 06/01/24 01/09/25 .COMPLEX #180 caps pregabalin 75 mg capsule 75 mg PO BID #180 caps 12/3101/09/25 guaifenesin 1,200 mg tablet, 1,200 mg PO BID 01/09/25 01/09/25 extended release 12 hr (Mucinex) methocarbamol 500 mg tablet 500 mg PO BID 01/09/25 Allergies Allergies Allergy/AdvReac Type Severity Reaction Status Date / Time acetaminophen (From Tylenol) Allergy Rash Verified 01/09/25 10:08 [facility] Active Problems All Active Problems (Updated 01/09/25 @ 16:10 by Ernie Mae DO) Pneumonia (Acute) NSTEMI (non-ST elevated myocardial infarction) (Acute) Acute hypoxemic respiratory failure (Acute) Muscular deconditioning (Acute) Disorder of lung with Sjogren syndrome (Acute) Anxiety and depression (Acute) Restrictive lung disease (Acute 07/10/16) Peripheral neuropathy (Acute 03/15/19) Diastolic heart failure (Acute 05/12/19) Frailty (Acute) Anxiety (Acute) Dyspnea (Chronic) Hypoxia (Chronic) Edema (Chronic) Medical History Medical History Pleural effusion (05/08/15) Acute kidney failure, unspecified (04/27/19) Obstructive sleep apnea hypopnea, severe (07/15/20) Sigmoid diverticulosis (07/15/20) Heart block AV second degree (04/11/20) Rotator cuff syndrome of left shoulder (08/02/13) Raynaud's syndrome (02/23/12) Radiation pneumonitis (04/11/20) Prediabetes (07/15/20) Personal history of anaphylaxis (07/15/20) Mycobacterium avium complex (07/15/20) Bilateral lower extremity edema (07/19/23) Insomnia (07/19/23) Hx of prostatitis (10/12/19) Gout, unspecified (09/10/20) Dyslipidemia (10/09/09) Degenerative joint disease of cervical spine (09/02/11) Chronic kidney disease, stage 3a (07/15/20) CAD, multiple vessel (07/15/20) 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 (Date/Year): 1999 Number of Years Smoked: 30 How many cigarettes a day do you smoke? 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 Service: Yes POLST Patient has POLST: Yes POLST CPR Status: Do Not Attempt Resuscitation (DNAR) / Allow Natural Review of Systems Status of ROS: 10 or more systems reviewed and unremarkable except as noted in history and below Exam Exam Vital Signs: Vital Signs x48h Temp Pulse Pulse Resp BP BP Pulse Ox 01/09/25 15:12 36.7 C 106 H 22 125/78 95 01/09/25 13:56 105 H 32 H 131/74 H 93 01/09/25 13:00 108 H 26 H 129/85 91 L 01/09/25 12:41 110 H 32 H 128/79 93 01/09/25 12:05 104 H 26 H 01/09/25 12:02 01/09/25 11:56 102 H 17 124/84 96 01/09/25 11:36 01/09/25 10:04 36.5 C 113 H 36 H 114/65 83 L O2 Flow Rate 01/09/25 15:12 6 01/09/25 13:56 5 01/09/25 13:00 5 01/09/25 12:41 01/09/25 12:05 6 01/09/25 12:02 6 01/09/25 11:56 01/09/25 11:36 45 01/09/25 10:04 6 GEN: No acute distress, somnolent. HEENT: NC/AT, normal appearance of external ears and nose. Hearing baseline. Cardiac: Regular rate and rhythm, no murmurs. Pulm: Ronchi in upper lung tripathi, bibasilar rales. No cough. Poor air movement, no wheezing. Not using accessory muscles for breathing. Abdomen: Soft, nontender, nondistended. No rebound or guarding : Bilateral percutaneous nephrostomy tubes present, draining Extremities: Moves all 4 extremities equally. Normal tone. Senile purpura. Neuro: Face symmetric, CN II through XII intact grossly. Gait exam deferred Psych: Mood euthymic with congruent affect. Conclusion/Plan Problem List (1) Acute hypoxemic respiratory failure: Plan: Acute on chronic. Patient at baseline is on up to 4 L of oxygen with activity. Acute worsening on the morning of admission. Denies any overt cough or fevers. No leukocytosis. His CT does suggest bilateral focal consolidations which may or may not be associated with his known malignancy. Initially was requiring mounting levels of oxygen, but improved with steroids and a dose of Lasix. * Continue wean oxygen as tolerated, goal saturation 92% * Therapies as below (2) Disorder of lung with Sjogren syndrome: Plan: Known history of ILD. 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 He is on 5 mg prednisone p.o. daily in addition to guaifenesin, and heart failure medicines as below. Discussed with patient, and he often has side effects from increased doses of prednisone beyond 20 mg. In shared decision making, starting on moderate dose of steroids with taper * 20 mg prednisone daily starting tomorrow, will likely do 4 days and then taper by 5 mg every 4 days back to his home dose (3) Pneumonia: Plan: No leukocytosis. BUN elevated to 47, though is chronically elevated given his CKD, usually is higher during hospitalizations than it currently is. No fevers or cough. However his CT does show clear evidence of bilateral focal consolidations in both the right and left lung. * Ceftriaxone 2 mg daily x 5 days * Sputum culture * Trend CBC for 1 more day (4) Diastolic heart failure: Plan: Not clearly in exacerbation. Last echo on file from April 2018. Patient has a history of diastolic heart failure complicated by pulmonary hypertension. EF in 2019 was 70%. Patient is on eplerenone, Jardiance, and Bumex prior to his hospitalization. He is aware of weight monitoring guidelines, but he does not frequently check his weight. He feels like he does not have any edema, and has not for several months. Does not always follow a low-sodium diet. Received 1 dose of IV Lasix in the ED. He is not frankly volume overloaded. Does not have effusions or dense edema on his chest CT. * Daily weights * Daily * Monitor BMP a.m. * Continue EXECUTIVE PASTRY CHEF eplerenone, Jardiance, Bumex weights Qualifiers: Heart failure chronicity: acute on chronic Qualified Code(s): I50.33 - Acute on chronic diastolic (congestive) heart failure (5) Chronic kidney disease, stage 3a: Plan: Stable and near his baseline. GFR 35 this hospitalization. Creatinine 1.9. * Continue home therapies as above * Monitor BMP a.m. (6) NSTEMI (non-ST elevated myocardial infarction): Plan: Suspect this is demand in the setting of his hypoxemia. Denies any chest pain. Says his breathing is much better after steroids. * Will trend out troponin to peak Lab Results Lab results reviewed: Yes 01/09/25 10:26 01/09/25 10:26 Diagnostic Imaging Results Diagnostic Imaging Results: positive Final report reviewed and Read independently EKG Results EKG Interpreted Independently: Yes Core Measures Anticipated LOS I expect patient to be DC'd or transferred within 96 hours.: Yes DVT/VTE - Prophylaxis VTE/DVT Device ordered at admit?: No VTE/DVT Prophylaxis med ordered at admit?: Yes Stroke - Rehab Assessment Rehab services assessment to be ordered?: No Not Ordered - Medical Reason: Not indicated
--- NOTE | 2025-01-09 13:57 | CT Report ---
PROCEDURE: CT Angio Chest INDICATIONS: acute on chronic hypoxia CONTRAST: OMNI 300 80 ML TECHNIQUE: After the administration of intravenous contrast, 2 mm axial images were acquired from the pulmonary apices to the posterior costophrenic angles during the arterial phase. In addition, 1 mm lung kernel and 5 mm soft tissue kernel reconstructions were performed. 3-dimensional coronal oblique maximum intensity projection (MIP) reformats, 8 mm axial MIP, and 5 mm coronal and sagittal MPR reformats were then performed through the thorax. For radiation dose reduction, the following was used: automated exposure control, adjustment of mA and/or kV according to patient size. COMPARISON: 04/03/2024 FINDINGS: Image quality: Excellent. Large vessels: No filling defects within the opacified pulmonary arteries, accounting for motion and contrast timing. No evidence of acute aortic syndrome or aortic aneurysm. Lungs and pleura: Focal masslike consolidation in the posterior right upper lobe. Reference axial image 86 of series 6 and sagittal image 69 of series 10. There is more confluent consolidation slightly more inferiorly and posteriorly in the right upper lobe. There is mild consolidation in the superior segment of the right lower lobe. There is dense pneumonia and atelectasis focally in the anterior lingula of the left upper lobe. No pleural effusions. No pneumothorax. No suspicious pulmonary nodules which require follow up. Mediastinum: Heart size is mildly enlarged. Remote CABG and aortic valve. Dense diffuse coronary artery calcifications. No pericardial effusion. No large vessel abnormality. No mediastinal adenopathy by size criteria. Chest wall and lower neck: Thyroid is unremarkable. No axillary or supraclavicular adenopathy by size. Bones: No aggressive osseous abnormality. Upper Abdomen: Unremarkable. IMPRESSION: No pulmonary embolus. Bilateral pneumonia. Progress films are recommended until clear. Reviewed by: Bong Roberto MD on 01/09/2025 1:53 PM PDT Approved by: Bong Roberto MD on 01/09/2025 1:53 PM PDT Station ID: [id number]
--- OUTSIDE RECORDS SUMMARY | 2025-01-09 15:01 | EXTERNAL MEDICAL SUMMARY RPT | Continuity of Care Document ---
Author Organization [facility] Address [address] [place] [id number] Phone Problems date description facility 2024-11-16 11:33 Headache, unspecified [facility] Social History date description facility
[2025-01-09] MEDS ORDERED: SODIUM CHLORIDE FLUSH 0.9% 10 ML SYRINGE IVP PRN (15:23)
[2025-01-09] MEDS ORDERED: MORPHINE SOL 10 MG/0.5 ML ORAL SYRINGE PO PRN (16:09)
--- NOTE | 2025-01-09 16:22 | PHARMACY PROGRESS NOTE ---
Best Possible Medication History Admit Date and Time: 01/09/25 1150 Home Medications Medication Instructions Recorded Confirmed Type rosuvastatin 10 mg tablet (Crestor) 10 mg PO QPM 06/0701/09/25 History omeprazole 20 mg capsule,delayed 20 mg PO QPM 04/24/19 01/09/25 History release allopurinol 100 mg tablet 100 mg PO DAILY 12/30/20 History bumetanide 1 mg tablet 1 mg PO BID 12/31/20 5 History ipratropium bromide 21 mcg (0.03 2 spray intranasal Q4 H PRN 07/21/22 01/09/25 History %) nasal spray RHINORRHEA empagliflozin 10 mg tablet 10 mg PO DAILY 07/04/23 History (Jardiance) prednisone 5 mg tablet 5 mg PO DAILY 07/04/2301/09 History eplerenone 25 mg tablet See Rx Instructions PO BID 1 06/03/23 01/09/25 History finasteride 5 mg tablet See Rx Instructions .Route 0 05/18/24 01/09/25 Rx .COMPLEX #90 tabs tamsulosin 0.4 mg capsule See Rx Instructions .Route 0 06/01/24 01/09/25 Rx .COMPLEX #180 caps pregabalin 75 mg capsule 75 mg PO BID #180 caps 12/3101/09/25 Rx guaifenesin 1,200 mg tablet, 1,200 mg PO BID 01/09/25 01/09/25 History extended release 12 hr (Mucinex) methocarbamol 500 mg tablet 500 mg PO BID 01/09/25 History Processed by: Pharmacy Medications reviewed in ED?: Yes Medication History completed: Yes Patient Interview: Completed Secondary Source(s): Insurance records [facility] Statement: As the person ultimately responsible for medication therapy, providers are able to order a medication from an existing home medication list in [facility] via the "Reconcile Routine" prior to Confirmation of that medication by application support developer. Such practice is discouraged except when the physician, in their clinical judgment, deems that a medical need exists for a medication without regard to previous use.
[2025-01-09] MEDS: SODIUM CHLORIDE FLUSH 0.9% 10 ML SYRINGE IVP SCH (16:33)
[2025-01-09] MEDS: IPRATROPIUM/ALBUTEROL 3 ML NEB INH SCH ×2 (17:57→18:01)
[2025-01-09] MEDS: IPRATROPIUM 0.06% NAS PRN (20:27)
[2025-01-09] MEDS: BUMETANIDE 1 MG TABLET PO SCH (20:28)
[2025-01-09] MEDS: TAMSULOSIN 0.4 MG CAPSULE PO SCH (20:28)
[2025-01-09] MEDS: ATORVASTATIN 10 MG TABLET PO SCH (20:29)
[2025-01-09] MEDS: EPLERENONE 25 MG PO SCH (20:30)
[2025-01-09] MEDS: PREGABALIN 25 MG CAPSULE PO SCH (20:30)
[2025-01-09] MEDS: PANTOPRAZOLE 40 MG TABLET PO SCH (20:32)
[2025-01-09] MEDS: HEPARIN 5,000 UNIT/ML VIAL SUBQ SCH (20:38)
[2025-01-09] MEDS ORDERED: ZOLPIDEM 5 MG TABLET PO SCH (21:00)
[2025-01-10 04:44] LABS: HCT - HEMATOCRIT 38.9 % (42.0-52.0); HGB - HEMOGLOBIN 12.4 g/dL (14.0-18.0); MEAN PLATELET VOLUME 11.3 fL (7.4-11.4); NRBC ABSOLUTE COUNT (AUTO) 0.00 x10^3/uL; NUCLEATED RED BLOOD CELLS AUTO 0.0 /100WBC; PLT - PLATELET COUNT 142 10^3/uL (130-450); RED CELL DISTRIBUTION WIDTH 14.6 % (12.0-15.0)
[2025-01-10 04:58] LABS: BUN - BLOOD UREA NITROGEN 46.0 mg/dL (6-20); CARBON DIOXIDE - CO2 36.0 mmol/L (21-32); CREATININE 1.9 mg/dL (0.6-1.3); GFR - MDRD 35.0 (>89)
[2025-01-10] MEDS ORDERED: IPRATROPIUM/ALBUTEROL 3 ML NEB INH PRN (07:30)
--- NOTE | 2025-01-10 07:53 | PROVIDER PROGRESS NOTE ---
Current Medications Current Medications Current Medications: Current Medications Generic Name Dose Route Start Last Admin Trade Name Freq PRN Reason Stop Dose Admin Albuterol/Ipratropium 3 ml 01/10/25 07:30 Ipratropium/Albuterol 3 Ml Neb INH RTTID PRN dyspnea Allopurinol 100 mg 01/10/25 09:00 Allopurinol 100 Mg Tablet PO DAILY [facility] Atorvastatin Calcium 20 mg 01/09/25 21:00 01/09/25 20:29 Atorvastatin 10 Mg Tablet PO 20 mg QPM FLOWER Administration Bumetanide 1 mg 01/09/25 21:00 01/09/25 20:28 Bumetanide 1 Mg Tablet PO 1 mg QPM FLOWER Administration Bumetanide 2 mg 01/10/25 09:00 Bumetanide 1 Mg Tablet PO DAILY FLOWER Finasteride 5 mg 01/10/25 09:00 Finasteride 5 Mg Tablet PO DAILY [facility] Guaifenesin 1,200 mg 01/09/25 21:00 01/09/25 20:28 Guaifenesin 600 Mg Tablet PO 1,200 mg BID FLOWER Administration Heparin Sodium (Porcine) 5,000 unit 01/09/25 21:00 01/09/25 20:38 Heparin 5,000 Unit/Ml Vial SUBQ 5,000 unit BID FLOWER Administration Methocarbamol 500 mg 01/09/25 21:00 01/09/25 20:29 Methocarbamol 500 Mg Tablet PO 500 mg BID FLOWER Administration Pantoprazole Sodium 40 mg 01/09/25 21:00 01/09/25 20:32 Pantoprazole 40 Mg Tablet PO 40 mg HS FLOWER Administration Patient Own Med ( 1 each 01/10/25 09:00 Jardiance 10mg) PO DAILY FLOWER Patient Own Med ( 1 - 2 each 01/09/25 21:00 01/09/25 20:30 Eplerenone 25 Mg PO 1 each Tablet) BID FLOWER Administration Patient Own Med ( 2 each 01/09/25 16:45 01/09/25 20:27 Ipratropium 0.06% ANTHONY 2 each Anthony) Q4H PRN Administration RHINORRHEA Prednisone 20 mg 01/10/25 08:00 Prednisone 20 Mg Tablet PO DAILYWM FLOWER Pregabalin 75 mg 01/09/25 21:00 01/09/25 20:30 Pregabalin 25 Mg Capsule PO 75 mg BID FLOWER Administration Sodium Chloride 10 ml 01/09/25 17:00 01/10/25 00:02 Sodium Chloride Flush 0.9% 10 Ml Syringe IVP 10 ml 0100,0900,1700 FLOWER Administration Sodium Chloride 10 ml 01/09/25 15:23 Sodium Chloride Flush 0.9% 10 Ml Syringe IVP PRN PRN NEEDED PER PROVIDER ORDERS Tamsulosin HCl 0.4 mg 01/09/25 21:00 01/09/25 20:28 Tamsulosin 0.4 Mg Capsule PO 0.4 mg BID FLOWER Administration Objective Vital Signs/Intake & Output Vital Signs: Vital Signs x48h Temp Pulse Resp BP Pulse Ox O2 Flow Rate 01/09/25 23:53 36.5 C 94 20 107/69 97 4 Intake & Output: Intake & Output 01/07/25 01/08/25 01/09/25 01/10/25 23:59 23:59 23:59 23:59 Intake Total 620 / 620 Output Total 1100 / 1100 300 / 300 Balance -480 / -480 -300 / -300 Weight (kg) 83 kg Lab Results 01/10/25 04:24 01/10/25 04:24 Other Labs: Lab Results x24hrs 01/10/25 01/09/25 01/09/25 Range/Units 04:24 16:57 16:30 WBC 7.8 (4.8-10.8) x10^3/uL RBC 3.77 L (4.70-6.10) 10^6/uL Hgb 12.4 L (14.0-18.0) g/dL Hct 38.9 L (42.0-52.0) % MCV 103.2 H (80.0-94.0) fL MCH 32.9 H (27.0-31.0) pg MCHC 31.9 L (32.0-36.0) g/dL RDW 14.6 (12.0-15.0) % Plt Count 142 (130-450) 10^3/uL MPV 11.3 (7.4-11.4) fL Neut # (Auto) 7.2 H (1.5-6.6) 10^3/uL Lymph # (Auto) 0.2 L (1.5-3.5) 10^3/uL Stanley # (Auto) 0.3 (0.0-1.0) 10^3/uL Eos # (Auto) 0.0 (0.0-0.7) 10^3/uL Baso # (Auto) 0.0 (0.0-0.1) 10^3/uL Absolute Nucleated RBC 0.00 x10^3/uL Nucleated RBC % 0.0 /100WBC VBG pH (7.31-7.41) VBG pCO2 (41-51) mmHg VBG pO2 (25-47) mmHg VBG HCO3 (23-28) mmol/L VBG Total CO2 (24-29) mmol/L VBG O2 Saturation (60-80) % VBG Base Excess (-2 - +2) mmol/L Sodium 141 (135-145) mmol/L Potassium 4.2 (3.5-4.5) mmol/L Chloride 96 L (101-111) mmol/L Carbon Dioxide 36 H (21-32) mmol/L Anion Gap 9.0 (6-13) BUN 46 H (6-20) mg/dL Creatinine 1.9 H (0.6-1.3) mg/dL Estimated GFR (MDRD) 35 L (>89) Glucose 128 H (74-104) mg/dL Lactic Acid (0.5-2.2) mmol/L Calcium 9.4 (8.5-10.3) mg/dL Total Bilirubin (0.2-1.0) mg/dL AST (10-42) IU/L ALT (10-60) IU/L Alkaline Phosphatase (42-121) IU/L Troponin I High Sens 29.6 H* (2.3-19.7) ng/L B-Natriuretic Peptide (5-100) pg/mL Total Protein (6.4-8.9) g/dL Albumin (3.2-5.5) g/dL Globulin (2.1-4.2) g/dL Albumin/Globulin Ratio (1.0-2.2) Procalcitonin Immunoas (<0.5) ng/mL Nasal Adenovirus (PCR) Nasal B. parapertussis DNA (PCR) Nasal Coronavir 229E PCR Nasal Coronavir HKU1 PCR Nasal Coronavir NL63 PCR Nasal Coronavir OC43 PCR Nasal Enterovir/Rhinovir PCR Nasal Influenza B PCR Nasal Influenza A PCR Nasal Parainfluen 1 PCR Nasal Parainfluen 2 PCR Nasal Parainfluen 3 PCR Nasal Parainfluen 4 PCR Nasal RSV (PCR) Nasal Screen MRSA (PCR) NEGATIVE (NEGATIVE) Nasal B.pertussis DNA PCR Nasal C.pneumoniae (PCR) Anthony Human Metapneumo PCR Nasal M.pneumoniae (PCR) Nasal SARS-CoV-2 (PCR) 01/09/25 01/09/25 01/09/25 Range/Units 11:35 11:32 10:26 WBC 9.2 (4.8-10.8) x10^3/uL RBC 3.86 L (4.70-6.10) 10^6/uL Hgb 12.9 L (14.0-18.0) g/dL Hct 40.7 L (42.0-52.0) % MCV 105.4 H (80.0-94.0) fL MCH 33.4 H (27.0-31.0) pg MCHC 31.7 L (32.0-36.0) g/dL RDW 14.9 (12.0-15.0) % Plt Count 138 (130-450) 10^3/uL MPV 11.1 (7.4-11.4) fL Neut # (Auto) 7.5 H (1.5-6.6) 10^3/uL Lymph # (Auto) 0.5 L (1.5-3.5) 10^3/uL Stanley # (Auto) 1.0 (0.0-1.0) 10^3/uL Eos # (Auto) 0.1 (0.0-0.7) 10^3/uL Baso # (Auto) 0.1 (0.0-0.1) 10^3/uL Absolute Nucleated RBC 0.00 x10^3/uL Nucleated RBC % 0.0 /100WBC VBG pH 7.475 H (7.31-7.41) VBG pCO2 54.1 H (41-51) mmHg VBG pO2 32.5 (25-47) mmHg VBG HCO3 40.2 H (23-28) mmol/L VBG Total CO2 41.8 H (24-29) mmol/L VBG O2 Saturation 45.0 L (60-80) % VBG Base Excess 16.4 H (-2 - +2) mmol/L Sodium 140 (135-145) mmol/L Potassium 3.7 (3.5-4.5) mmol/L Chloride 95 L (101-111) mmol/L Carbon Dioxide 37 H (21-32) mmol/L Anion Gap 8.0 (6-13) BUN 47 H (6-20) mg/dL Creatinine 1.9 H (0.6-1.3) mg/dL Estimated GFR (MDRD) 35 L (>89) Glucose 180 H (74-104) mg/dL Lactic Acid 1.7 (0.5-2.2) mmol/L Calcium 9.8 (8.5-10.3) mg/dL Total Bilirubin 0.9 (0.2-1.0) mg/dL AST 25 (10-42) IU/L ALT 18 (10-60) IU/L Alkaline Phosphatase 61 (42-121) IU/L Troponin I High Sens 25.1 H* (2.3-19.7) ng/L B-Natriuretic Peptide 188 H (5-100) pg/mL Total Protein 7.4 (6.4-8.9) g/dL Albumin 4.2 (3.2-5.5) g/dL Globulin 3.2 (2.1-4.2) g/dL Albumin/Globulin Ratio 1.3 (1.0-2.2) Procalcitonin Immunoas 0.12 (<0.5) ng/mL Nasal Adenovirus (PCR) NOT DETECTED Nasal B. parapertussis DNA (PCR) NOT DETECTED Nasal Coronavir 229E PCR NOT DETECTED Nasal Coronavir HKU1 PCR NOT DETECTED Nasal Coronavir NL63 PCR NOT DETECTED Nasal Coronavir OC43 PCR NOT DETECTED Nasal Enterovir/Rhinovir PCR NOT DETECTED Nasal Influenza B PCR NOT DETECTED Nasal Influenza A PCR NOT DETECTED Nasal Parainfluen 1 PCR NOT DETECTED Nasal Parainfluen 2 PCR NOT DETECTED Nasal Parainfluen 3 PCR NOT DETECTED Nasal Parainfluen 4 PCR NOT DETECTED Nasal RSV (PCR) NOT DETECTED Nasal Screen MRSA (PCR) (NEGATIVE) Nasal B.pertussis DNA PCR NOT DETECTED Nasal C.pneumoniae (PCR) NOT DETECTED Anthony Human Metapneumo PCR NOT DETECTED Nasal M.pneumoniae (PCR) NOT DETECTED Nasal SARS-CoV-2 (PCR) NOT DETECTED Assessment/Plan Problem List (1) Acute hypoxemic respiratory failure: Impression: Improved Patient's oxygen requirements now down nearing his baseline. He is at 4 L and satting well this morning. Discussed with RT on the morning of 01/10, do not find that nebulized treatments are helping and he is improving despite them. Recall that he came in with acute exacerbation of his chronic hypoxemic respiratory failure. He normally uses up to 4 L with activity. After acute onset on the day of admission, he was requiring at least 4 L and not maintaining 90% while on his home oximeter. He felt dyspneic and came into the hospital. Here he was considered for high flow BiPAP before receiving steroids and Lasix and was able to wean down to 5 L via nasal cannula. Etiology is likely sequela of his chronic lung disease, however he does have clear consolidation on his chest x-ray and we are treating for pneumonia as below. * Wean oxygen, goal saturation 92% * Will ambulate on 4 L, if he is able to ambulate with normal activity on his home oxygen he may be able to go home today * Nebulizers as needed * Management as below (2) Disorder of lung with Sjogren syndrome: Impression: POA, stable Patient has a history of Sjogren's, sees rheumatology. He has been on 5 mg of steroids for Sjogren's as well as Sjogren's associated ILD. He is weaned down to 5 mg of prednisone, but has been on this chronically. The patient's request, we are limiting his prednisone to 20 mg as he says higher doses because intolerable side effects including hand cramping and skin breakdown. * Continue steroid pulse, will taper starting 01/13 x 5 mg every 3 days. (3) Pneumonia: Impression: Improved. Patient has clear consolidation on his chest x-ray, specifically in the right upper lobe. He has an additional consolidation, but this is located around the site of his prior malignancy and is unclear if it is a pneumonia versus evolution of his malignancy. Notably he does not have a leukocytosis and has not throughout his hospitalization. No cough. No fevers. * Recommend continuing 5-day course of antibiotics, will get ceftriaxone today, discharged on Augmentin (4) Diastolic heart failure: Impression: Note that the patient does not want to be on antibiotics. Longstanding. Euvolemic. Patient stated weight is around 180. Though he does not weigh himself regularly. Admits that he is not consistent on sodium restriction in his diet. PROJECT DESIGNER meds include eplerenone and empagliflozin. Uses bumetanide 1 mg p.o. twice daily He did receive IV Lasix in the ED. It had good effect, though he does not appear very edematous nor does he have significant effusion on his chest CT. * Continue PROJECT DESIGNER meds Qualifiers: Heart failure chronicity: acute on chronic Qualified Code(s): I50.33 - Acute on chronic diastolic (congestive) heart failure (5) Chronic kidney disease, stage 3a: Impression: Stable Kidney function remains stable. Baseline around 2 creatinine. Unchanged from admission. * Will be cautious with any additional vasoactive medications (6) NSTEMI (non-ST elevated myocardial infarction): Impression: Stable Initially thought to be a type II demand ischemia in the setting of hypoxemia. Rather it seems he may have a persistent troponin leak may be related to his pulmonary condition, rheumatologic condition or CKD. Troponins remain stable around 30. Patient denies any chest pain or discomfort. EKG without any acute ischemic changes. * No longer trending
[2025-01-10] MEDS: FINASTERIDE 5 MG TABLET PO SCH (08:31)
[2025-01-10] MEDS: BUMETANIDE 1 MG TABLET PO SCH (08:32)
[2025-01-10] MEDS: PATIENT OWN MED (JARDIANCE 10MG) PO SCH (08:40)
[2025-01-10] MEDS ORDERED: cefTRIAXone 2 GM in SODIUM CHLORIDE 0.9% MINIBAG 100 ML IV SCH (09:00)
--- NOTE | 2025-01-10 09:38 | Discharge Summary ---
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 He presents today with acute on chronic respiratory failure. The patient was in his usual state of health and went to bed last evening. He woke up this morning, and when he went from his chair to the kitchen he became increasingly dyspneic. Upon coming back to his chair and sitting down, he checked his pulse ox using an oximeter he has at home and it was barely maintaining the low 90s on 4 to 5 L of oxygen. He normally uses up to 4 L with activity but is on constant oxygen. Denies any cough or overt fevers. Denies any recent environmental exposures and states that he typically does not get bothered by seasonal smoke. He was recently in the ED at [facility] for mechanical low back pain, and is worried he may have contracted a virus at that ED visit. In the ED he was initially requiring escalating amounts of oxygen and was being considered for high flow versus BiPAP. The patient refused both treatments and has improved at the time of our interview and is satting in the low 90s on 5 L of oxygen delivered via nasal cannula. He received steroids, nebulizers and a dose of IV Lasix in the ED. 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 Given new onset diastolic heart failure prior to surgery, operative management was deferred. He has reportedly had minimal advancement of his cancer over the last 5 years. 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 He has been on 5 mg of prednisone for several years. Attempts to wean off of that 5 mg has been unsuccessful. CONSULTS | PROCEDURES Procedures: CTA chest Nebulizers RT evaluation HOSPITAL COURSE Hospital Course: Ricci Lozano is a 79-year-old male with past medical history notable for left lingular lung cancer s/p chemoradiation, ILD related to his Sjogren's disease, heart failure with preserved ejection fraction C/B pulmonary hypertension who presented for acute onset hypoxemic respiratory failure. He has chronic hypoxemic respiratory failure normally requiring up to 4 L of oxygen at home. He was using his normal amount of oxygen when he became more dyspneic on the morning of admission. In the ED he required rapidly escalating levels of oxygen. He is initially considered for admission to the ICU requiring high flow nasal cannula with consideration for intubation. However he responded very quickly responded to the steroid treatments in the ED and had improved oxygen saturations on nasal cannula. He was able to maintain 90% with 5 L via NC. He was admitted to the medical floor. Patient was continued on steroids. He has apparently not tolerated well higher doses of prednisone in the past, so was agreed to start him on 20 mg of prednisone with a taper over the next 9 days down to his home dose of 5 mg. He improved much more rapidly than initially anticipated given his critical status upon arrival. He was clinically stable on day of discharge and back to his home oxygen requirement. Notably he was found to have a consolidation on his CT that was suspicious for pneumonia and he received 1 dose of ceftriaxone. He has no white count or cough or fever. Given no other clinical indicators for pneumonia other than his hypoxemia which had began to improve prior to his antibiotics, the decision was made with the patient to not continue on antibiotics. This was largely driven by the patient's preference to not be on antibiotics, but was not clinically unreasonable. Noting this, if the patient is to return to the hospital and he is found to have any other symptoms of infection, he should be treated for community-acquired pneumonia. Patient should follow-up with his electrical construction project manager at [facility] as well as his primary care doctor within the coming weeks. ALLERGIES Allergies Allergy/AdvReac Type Severity Reaction Status Date / Time acetaminophen (From Tylenol) Allergy Rash Verified 01/09/25 10:08 MEDICATIONS Ambulatory Orders Medication Instructions Recorded Confirmed rosuvastatin 10 mg tablet (Crestor) 10 mg PO QPM 06/0701/09/25 omeprazole 20 mg capsule,delayed 20 mg PO QPM 04/24/19 01/09/25 release allopurinol 100 mg tablet 100 mg PO DAILY 12/30/20 bumetanide 1 mg tablet 1 mg PO BID 12/31/20 5 ipratropium bromide 21 mcg (0.03 2 spray intranasal Q4 H PRN 07/21/22 01/09/25 %) nasal spray RHINORRHEA empagliflozin 10 mg tablet 10 mg PO DAILY 07/04/23 (Jardiance) prednisone 5 mg tablet 5 mg PO DAILY 07/04/2301/09 Held on 01/10/25. Instructions: Resume on 01/20/25. Hold home dose while tapering from higher dose of steroids eplerenone 25 mg tablet See Rx Instructions PO BID 1 06/03/23 01/09/25 finasteride 5 mg tablet See Rx Instructions .Route 0 05/18/24 01/09/25 .COMPLEX #90 tabs tamsulosin 0.4 mg capsule See Rx Instructions .Route 0 06/01/24 01/09/25 .COMPLEX #180 caps pregabalin 75 mg capsule 75 mg PO BID #180 caps 12/3101/09/25 guaifenesin 1,200 mg tablet, 1,200 mg PO BID 01/09/25 01/09/25 extended release 12 hr (Mucinex) methocarbamol 500 mg tablet 500 mg PO BID 01/09/25 prednisone 5 mg tablet See Rx Instructions .Route 0 01/10/25 .COMPLEX 9 days #27 tabs PHYSICAL EXAM AT DISCHARGE Vital Signs: Vital Signs x48h Temp Pulse Resp BP BP Pulse Ox O2 Flow Rate 01/10/25 12:10 36.7 C 93 20 98/46 L 98 4 01/10/25 08:00 36.5 C 94 20 111/74 97 4 01/10/25 07:00 4 GEN: No acute distress HEENT: NC/AT, normal appearance of external ears and nose. Hearing baseline. Cardiac: Regular rate and rhythm, no murmurs. Pulm: Rhonchi present in the upper right lung field. Minimal rales bilaterally. Poorer air movement in the left lung tripathi. No using accessory muscles for breathing. No wheezes appreciated. Abdomen: Soft, nontender, nondistended. No rebound or guarding Extremities: Moves all 4 extremities equally. Normal tone. Senile purpura Neuro: Face symmetric, CN II through XII intact grossly. Psych: Mood euthymic with congruent affect LABS 01/10/25 04:24 01/10/25 04:24 DIAGNOSTIC IMAGING Diagnostic Imaging Results: Final report reviewed TIME SPENT Time Spent in Discharge (Minutes): 57 Discharge Plan Discharge Patient Disposition: 01 Home, Self Care Condition: Stable Medically Cleared Date:: 01/10/25 Prescriptions: New prednisone 5 mg tablet See Rx Instructions .ROUTE .COMPLEX 9 Days Qty: 27 0RF Rx Instructions: TAPER: 20 mg daily with meal for 3 Days; 15 mg daily with meal for 3 Days; 10 mg daily with meal for 3 Days. After finishing taper, resume your previous dose of 5mg daily Continued finasteride 5 mg tablet See Rx Instructions .ROUTE .COMPLEX Qty: 90 3RF Dose Instruction: TAKE 1 TABLET ONCE DAILY Rx Instructions: TAKE 1 TABLET ONCE DAILY tamsulosin 0.4 mg capsule See Rx Instructions .ROUTE .COMPLEX Qty: 180 0RF Dose Instruction: TAKE 1 CAPSULE BY MOUTH TWICE DAILY Rx Instructions: TAKE 1 CAPSULE BY MOUTH TWICE DAILY rosuvastatin [Crestor] 10 MG tablet 10 mg PO QPM omeprazole 20 MG capsule,delayed release(DR/EC) 20 mg PO QPM allopurinol 100 MG tablet 100 mg PO DAILY bumetanide 1 MG tablet 1 mg PO BID Rx Instructions: 2MG IN THE MORNING AND 1 MG IN THE AFTERNOON eplerenone 25 mg tablet See Rx Instructions PO BID Rx Instructions: 50QAM AND 25QPM ipratropium bromide 30 ML spray,non-aerosol 2 spray intranasal Q4H PRN (Reason: RHINORRHEA) Patient Comments: Administer 2 sprays into each nostril 3 times a day As needed for rhinorrhea Jardiance 10 MG tablet 10 mg PO DAILY guaifenesin [Mucinex] 1,200 mg tablet extended release 12hr 1,200 mg PO BID Rx Instructions: Take 1 tablet by mouth every twelve hours methocarbamol 500 mg tablet 500 mg PO BID Patient Comments: Take 1 tablet (500 mg) by mouth 2 (two) times daily for 10 days. pregabalin 75 mg capsule 75 mg PO BID Qty: 180 3RF Held prednisone 5 MG tablet 5 mg PO DAILY Hold Instructions: Resume on 01/20/25. Hold home dose while tapering from higher dose of steroids Activity Restrictions: No Restrictions Diet: Cardiac Health Concerns: You were admitted because you needed more oxygen to keep your blood oxygen levels up. This is likely a flare of your underlying lung disease. You have been treated with steroids here with rapid improvement. As of discharge, you are back to your regular levels of oxygen. I would like to discharge you on a taper of prednisone. We discussed that you do have some evidence of pneumonia on your chest CT, but without having other clinical signs of pneumonia we will forego starting on antibiotics at this time. If you develop any fever or worsening cough, please contact either the urgent care or the ED to get started on pneumonia treatment. If you have further reduction of your oxygen saturations, please return to the ED. Please follow-up with your electrical construction project manager at [facility] at your earliest convenience. You were found to have a new spot on your lung in the right upper lung tripathi. It is possible this is advancement of your cancer, though the rapidity is unusual as we discussed. Print Language: Romanian Patient Instructions: Heart Failure Flare Up Signs, ED Shortness of Breath (Dyspnea), ED Pneumonia (Adult) Follow-up Care: Baldo Desir MD [Primary Care Provider, Internal Medicine] Vitals documented within 30 minutes of discharge?: Yes"
[2025-01-10 12:24] VITALS: BP 98/46; TEMP 98.1; O2SAT 98
== END 2025-01-10 12:25 | disposition home or self-care (01) | DRG 189 ==
LOC: ED 09:46 → ICU 11:50 → MS2 15:13
PROVIDERS: ADMIT Student in an Organized Health Care Education/Training Program; ATTEND Student in an Organized Health Care Education/Training Program
DX: Z99.81 Dependence on supplemental oxygen; N18.31 Chronic kidney disease, stage 3a; I50.33 Acute on chronic diastolic (congestive) heart failure; M35.00 Sjogren syndrome, unspecified; Z66 Do not resuscitate; R79.89 Other specified abnormal findings of blood chemistry; I50.30 Unspecified diastolic (congestive) heart failure; J98.4 Other disorders of lung; R00.0 Tachycardia, unspecified; Z87.891 Personal history of nicotine dependence; J18.9 Pneumonia, unspecified organism; I27.20 Pulmonary hypertension, unspecified; Z85.118 Personal history of other malignant neoplasm of bronchus and lung; J96.21 Acute and chronic respiratory failure with hypoxia